=== PATIENT | male | born 1945 | race Caucasian/White ===

== ENCOUNTER 2016-12-22 18:52 | Emergency (ER) | payer MEDICARE ==
[~2016-12-22] VITALS: Ht 177.8 cm; Wt 109.1 kg
[~2016-12-22 18:52] MED LIST: /SUCR1TA PO; PERC5TAB8 OR; TIZA4TAB PO
[2016-12-22] MEDS ORDERED: FLOM5CAP PO (19:03)
[2016-12-22] MEDS ORDERED: GLIP1TAB49 PO (19:03)
[2016-12-22] MEDS ORDERED: NS 1,000 ML IV SCH (19:42)
[2016-12-22] MEDS ORDERED: KETOROLAC 30 MG/ML VIAL (J1885) IV ONE (19:45)
[2016-12-22] MEDS ORDERED: NS 500 ML IV ONE (19:45)
[2016-12-22] MEDS ORDERED: IBUPROFEN 600 MG TAB PO ONE (20:00)
[2016-12-22 20:45] LABS: ALBUMIN 3.6 GM/DL (3.2-5.2); ALBUMIN/GLOBULIN RATIO 0.95 (1.00-1.93); ALKALINE PHOSPHATASE 72 U/L (45-117); ALT/SGPT 32 U/L (12-78); ANION GAP 7 MEQ/L (8-16); AST/SGOT 28 U/L (15-37); BILIRUBIN,DIRECT < 0.1 MG/DL (0.0-0.2); BILIRUBIN,TOTAL 0.3 MG/DL (0.2-1.0); BLOOD UREA NITROGEN 15 MG/DL (7-18); CALCIUM LEVEL 8.8 MG/DL (8.8-10.2); CARBON DIOXIDE LEVEL 27 MEQ/L (21-32); CHLORIDE LEVEL 105 MEQ/L (98-107); CREATININE FOR GFR 1.07 MG/DL (0.70-1.30); GLOMERULAR FILTRATION RATE > 60.0 (>42); GLUCOSE, FASTING 145 MG/DL (83-110); POTASSIUM SERUM 4.4 MEQ/L (3.5-5.1); SODIUM LEVEL 139 MEQ/L (136-145); TOTAL PROTEIN 7.4 GM/DL (6.4-8.2)
[2016-12-22 21:14] LABS: BASO # 0.1 10^3/uL (0.0-0.2); BASO % 0.6 % (0.0-1.0); EOS # 0.2 10^3/uL (0.0-0.50); EOS % 2.6 % (0.0-3.0); IMMATURE GRANULOCYTE % 0.2 % (0-0); LYMPH # 3.1 10^3/uL (1.5-4.5); LYMPH % 35.1 % (24.0-44.0); MEAN CORPUSCULAR HEMOGLOBIN 30.6 pg (27.0-33.0); MEAN CORPUSCULAR HGB CONC 34.3 g/dl (32.0-36.5); MEAN CORPUSCULAR VOLUME 89.3 fl (80.0-96.0); MONO # 0.6 10^3/uL (0.0-0.8); MONO % 6.9 % (0.0-5.0); NEUTROPHILS # 4.8 10^3/uL (1.8-7.7); NEUTROPHILS % 54.6 % (36.0-66.0); PLATELET COUNT, AUTOMATED 170 10^3/uL (150-450); RED CELL DISTRIBUTION WIDTH 12.6 % (11.5-14.5); WHITE BLOOD COUNT 8.7 10^3/uL (4.0-10.0)
[2016-12-22 21:15] LABS: ADD MORPHOLOGY? YES
--- NOTE | 2016-12-22 21:20 | REPUSA ---
CLINICAL HISTORY: Right flank pain. Evaluation for ureteral lithiasis. TECHNIQUE: Multiple axial, coronal, sagittal CT images were obtained through the abdomen and pelvis w ithout administration of oral or IV contrast material. COMMENTS: 15 mm hepatic hypodensity is present compatible with cyst versus hemangioma. There are several addit ional subcentimeter hypodensities present. These are too small to accurately characterize but may re present additional small cysts versus hemangiomas. There is no intra or extrahepatic biliary ductal dilatation. The spleen is normal. The gallbladder is within normal limits. The pancreas is of norm al contour and attenuation characteristics. There is no evidence of adrenal mass. The kidneys are normal in size, shape and configuration. No renal or ureteral calculi are identified . There is no hydroureter or hydronephrosis. There is no evidence for appendicitis. There is no bowel wall thickening. No evidence for small or large bowel obstruction. There is no evidence of abdominal ascites or lymphadenopathy. A small hiat al hernia is present. A small fat-containing right inguinal hernia is seen. There is no evidence of intrinsic or extrinsic bladder mass. There is no pelvic ascites or lymphaden opathy. Prostate gland is mildly enlarged. Images of the lung bases show no evidence of pleural or parenchymal mass. There are no pleural effus ions. Status post left total hip replacement. IMPRESSION: 1. No acute abdominal or pelvic pathology. 2. Scattered colonic diverticulosis especially severely involving the sigmoid colon. 3. Hepatlic lesions as above. 4. A small hiatal hernia is present. 5. A small fat-containing right inguinal hernia is seen. 6. Prostate gland is mildly enlarged. 7. Status post left total hip replacement.
[2016-12-22] MEDS ORDERED: MIRA3350 PO (21:56)
[2016-12-22] MEDS ORDERED: LACTULOSE 20 GM/30 ML SYRUP UD PO ONE (22:00)
[2016-12-22 22:15] VITALS: BP 148/88
--- NOTE | 2016-12-23 07:02 | ED PDOC ---
Post-Departure Follow-Up radiology report faxed to Carlene Herrera MD Dec 23, 2016 07:02
== END 2016-12-22 22:16 | disposition home or self-care (01) ==
LOC: M ED 18:52
DX: K59.00 Constipation, unspecified (principal); Z79.899 Other long term (current) drug therapy; Z88.5 Allergy status to narcotic agent; Z88.8 Allergy status to other drugs, medicaments and biological substances; Z88.1 Allergy status to other antibiotic agents; Z88.0 Allergy status to penicillin; Z88.2 Allergy status to sulfonamides; Z87.442 Personal history of urinary calculi; Z87.891 Personal history of nicotine dependence

== ENCOUNTER 2017-02-21 08:39 | Day surgery (SDC) | payer MEDICARE ==
[~2017-02-21] VITALS: Ht 177.8 cm; Wt 111.5 kg
[~2017-02-21 08:39] MED LIST changes: +FLOM5CAP PO; +GLIP1TAB49 PO; +MIRA3350 PO; +OFLOXACIN 0.3 % (OCUFLOX) OPTH SOL 5ML OD ONE; +PHENYLEPHRINE 2.5% OPHTH SOL 2ML OD ONE; +PROPARACAINE 0.5% OPHTH SOL 15ML OD ONE; +TROPICAMIDE 1% OPHTH SOLN 2ML OD ONE
[2017-02-21] MEDS ORDERED: COLA100C5 PO (10:02)
[2017-02-21] MEDS ORDERED: LIDOCAINE 0.75%/EPINEPHRINE 0.025% IN BSS 1ML SYR INTRACAMERAL (OR ONLY) As Ordered ONE (10:46)
[2017-02-21] MEDS ORDERED: BALANCED SALT IRRIGATION SOLUTION 500ML BAG (FOR OR EYE MACHINE) As Ordered ONE (10:46)
[2017-02-21] MEDS ORDERED: DUOVISC (0.50ML VISCOAT/0.55ML PROVISC) OPHTH KIT As Ordered ONE (10:46)
[2017-02-21] MEDS ORDERED: ACETYLCHOLINE OPHTH SOLN 1% 2ML (MIOCHOL-E) As Ordered ONE (10:47)
[2017-02-21] MEDS ORDERED: POVIDONE-IODINE 5% OPHTH PREP SOL 30ML As Ordered ONE (10:47)
[2017-02-21] MEDS ORDERED: fentaNYL 100 MCG/2 ML INJECTION (J3010) As Ordered ONE (10:57)
[2017-02-21] MEDS ORDERED: MIDAZOLAM INJ 2 MG/2 ML VIAL (J2250) As Ordered ONE (10:57)
[2017-02-21 12:30] VITALS: BP 124/60
--- NOTE | 2017-02-22 13:12 | RO ---
DATE OF PROCEDURE: 02/21/2017 PREOPERATIVE DIAGNOSIS: Visually significant nuclear sclerotic cataract right eye. POSTOPERATIVE DIAGNOSIS: Visually significant nuclear sclerotic cataract right eye. PROCEDURE: Cataract extraction with use of phacoemulsification and placement of intraocular lens, AU00T0, 24 diopter , right eye. SURGEON: Jimbo Jackson DO VOCATIONAL SERVICES SPECIALIST: ANESTHESIA: Local with monitored anesthesia care (MAC). COMPLICATIONS: None. POSTOPERATIVE CONDITION: Stable. INDICATION FOR SURGERY: Blurred vision right eye affecting patient's activities of daily living. DESCRIPTION OF PROCEDURE: The patient was seen in the preoperative area and properly identified. The correct operative eye was identified and marked. Attention was turned to that eye. The patient received topical antibiotics in the preoperative area. The patient then received topical dilating drops consisting of tropicamide and phenylephrine. The patient was then transferred to the operating room. The correct side was re-identified. The patient received topical anesthetics and antibiotics on the surface of the eye. The eye was prepped and draped in a sterile fashion. The upper and lower eyelids were isolated with Tegaderm tape, and the lids were held open with an adjustable speculum. Using a sideport blade, a paracentesis incision was made. Intraocular preservative-free lidocaine was then injected into the anterior chamber. Viscoelastic was then injected into the anterior chamber through the paracentesis. Using a 2.65 mm sharp-tipped keratome, the anterior chamber was entered via a temporal clear corneal incision. A continuous curvilinear capsulorrhexis was created with the aid of a 26-gauge cystotome and Utrata forceps. Hydrodissection was performed with balanced salt solution (BSS) on a blunt cannula until the nucleus was freely mobile. The crystalline lens was phacoemulsified and aspirated. Additional cohesive viscoelastic was placed into the capsular bag to deepen it. A AU00T0, 24 lens was placed into the capsular bag and confirmed by visualizing the continuous curvilinear capsulorrhexis. Additional irrigation and aspiration was used to remove cortical material and remaining viscoelastic. The clear corneal incision was hydrated with BSS on a blunt cannula. The lens was well positioned. The incisions were then tested for leaks and found to be negative. The eye was then palpated for appropriate pressure and adjusted accordingly with BSS. The eyelid speculum was carefully removed. TobraDex ointment was placed in the eye. An eye patch and shield were then secured over the eye. The patient tolerated the procedure well and was discharged to the recovery unit in a stable condition.
== END 2017-02-21 12:42 | disposition home or self-care (01) ==
LOC: M SDC 08:39
PROVIDERS: ATTEND Ophthalmology
DX: H25.11 Age-related nuclear cataract, right eye (principal); E11.9 Type 2 diabetes mellitus without complications; K59.00 Constipation, unspecified; J44.9 Chronic obstructive pulmonary disease, unspecified; N40.0 Benign prostatic hyperplasia without lower urinary tract symptoms; M19.90 Unspecified osteoarthritis, unspecified site; Z88.5 Allergy status to narcotic agent; Z88.1 Allergy status to other antibiotic agents; Z88.0 Allergy status to penicillin; Z87.891 Personal history of nicotine dependence; Z79.899 Other long term (current) drug therapy
CPT/HCPCS: 66984; J2250; J3010

== ENCOUNTER 2017-12-26 08:58 | Day surgery (SDC) | payer MEDICARE ==
[~2017-12-26 08:58] MED LIST changes: -/SUCR1TA PO; -FLOM5CAP PO; -GLIP1TAB49 PO; +LIDOCAINE 2% INJ 100 MG/5 ML SDV (FOR ANES.) As Ordered; -MIRA3350 PO; -OFLOXACIN 0.3 % (OCUFLOX) OPTH SOL 5ML OD ONE; -PERC5TAB8 OR; -PHENYLEPHRINE 2.5% OPHTH SOL 2ML OD ONE; -PROPARACAINE 0.5% OPHTH SOL 15ML OD ONE; -TIZA4TAB PO; -TROPICAMIDE 1% OPHTH SOLN 2ML OD ONE
[2017-12-26] MEDS ORDERED: PROPOFOL 200 MG/20 ML VIAL As Ordered ×2 (09:19)
[2017-12-26] MEDS: NS 1,000 ML IV (09:31)
== END 2017-12-26 11:06 | disposition home or self-care (01) ==
LOC: M OPP 08:58
DX: Z12.11 Encounter for screening for malignant neoplasm of colon (principal); Z86.010 Personal history of colon polyps; D12.3 Benign neoplasm of transverse colon; K62.1 Rectal polyp; K57.30 Diverticulosis of large intestine without perforation or abscess without bleeding; E11.9 Type 2 diabetes mellitus without complications; K59.00 Constipation, unspecified; K21.9 Gastro-esophageal reflux disease without esophagitis; R12 Heartburn; M19.90 Unspecified osteoarthritis, unspecified site; Z98.1 Arthrodesis status; E66.9 Obesity, unspecified; J44.9 Chronic obstructive pulmonary disease, unspecified; N40.1 Benign prostatic hyperplasia with lower urinary tract symptoms; Z96.642 Presence of left artificial hip joint; Z87.891 Personal history of nicotine dependence; Z88.5 Allergy status to narcotic agent; Z88.0 Allergy status to penicillin; Z88.2 Allergy status to sulfonamides; Z88.1 Allergy status to other antibiotic agents; Z79.899 Other long term (current) drug therapy; Z79.84 Long term (current) use of oral hypoglycemic drugs
CPT/HCPCS: 45385

== ENCOUNTER → 2018-05-02 | Outpatient (CLI) | payer MEDICARE ==
[~2018-05-02] MED LIST changes: +/SUCR1TA PO; +CLEO300C2 PO; +COLA100C5 PO; +COQ1200C2 PO; +FLOM0.4C39 PO; +GLIP5TAB20 PO; +INVO300T PO; -LIDOCAINE 2% INJ 100 MG/5 ML SDV (FOR ANES.) As Ordered; +MAGN400C2 PO; +MILK175C2 PO; +MIRA3350 PO; +OMEG10002 PO; +OMEG350C PO; +PERC5TAB8 OR; +PROBCAP4 PO; +SUCR1TAB56; +TIZA4TAB PO; +VITA100072 PO
--- NOTE | 2018-05-02 15:41 | REP ---
The right hand four views History: Pain There is no acute fracture or dislocation. There is narrowing of the carpal metacarpal , intermediate and distal interphalangeal joint spaces. Osteophytes are present at the interphalangeal joint spaces of the 3rd and 5th digits. Osteophytes are present at the distal interphalangeal joint spaces of the second and third digits. Subchondral cysts are present in the the head of the third proximal phalange and base of the the 3rd intermediate phalange. Impression: Degenerative change as described above. Electronically Signed by Perry Lorenzo MD 05/02/2018 03:33 P
== END ==
LOC: M WUC 15:08
PROVIDERS: ATTEND Internal Medicine
DX: M25.541 Pain in joints of right hand (principal)

== ENCOUNTER → 2018-12-10 | Outpatient (CLI) | payer MEDICARE ==
[~2018-12-10] MED LIST changes: -/SUCR1TA PO; +SUCR1TAB56 PO; +VITA100018 PO; -VITA100072 PO
--- NOTE | 2018-12-10 12:47 | REP ---
Acute abdominal series five views including PA chest and supine upright abdomen: Comparison is 05/25/2011. PA chest: The lung dela cruz are clear. Cardiac size is normal. The lemo, mediastinum, skeletal structures are unremarkable except for a cervical spine stabilization plate. This is unchanged. There is no free subdiaphragmatic air. Impression: Negative PA chest. There is no interval change. Supine upright abdomen four views: The bowel gas pattern is normal. There are surgical clips in the right upper quadrant, unchanged. There is a total right hip arthroplasty as an interval change. There are no calcifications or foreign bodies. Impression: Normal bowel gas pattern. Electronically Signed by Darian Doherty MD 12/10/2018 12:38 P
== END ==
LOC: M WUC 09:56
PROVIDERS: ATTEND Internal Medicine
DX: R10.9 Unspecified abdominal pain (principal); Z96.641 Presence of right artificial hip joint

== ENCOUNTER → 2018-12-26 | Outpatient (CLI) | payer MEDICARE ==
[2018-12-26 12:53] LABS: BASO % 0.5 % (0.0-1.0); EOS # 0.2 10^3/uL (0.0-0.5); EOS % 2.5 % (0.0-3.0); HEMATOCRIT 41.5 % (42.0-52.0); HEMOGLOBIN 13.8 g/dl (13.5-17.5); LYMPH # 2.5 10^3/uL (1.5-5.0); LYMPH % 34.4 % (24.0-44.0); MEAN CORPUSCULAR HEMOGLOBIN 30.2 pg (27.0-33.0); MEAN CORPUSCULAR HGB CONC 33.3 g/dl (32.0-36.5); MEAN CORPUSCULAR VOLUME 90.8 fl (80.0-96.0); MONO # 0.6 10^3/uL (0.0-0.8); MONO % 8.4 % (0.0-5.0); NEUTROPHILS # 3.9 10^3/uL (1.5-8.5); NEUTROPHILS % 53.9 % (36.0-66.0); PLATELET COUNT, AUTOMATED 163 10^3/uL (150-450); RED BLOOD COUNT 4.57 10^6/uL (4.30-6.10); WHITE BLOOD COUNT 7.3 10^3/uL (4.0-10.0)
[2018-12-26 13:05] LABS: APPEARANCE, URINE CLEAR (CLEAR); BACTERIA, URINE AUTO NEGATIVE (NEGATIVE); BILIRUBIN, URINE AUTO NEGATIVE (NEGATIVE); BLOOD, URINE BLOOD NEGATIVE (NEGATIVE); COLOR, URINE STRAW (YELLOW); GLUCOSE, URINE (UA) AUTO 1+ mg/dL (NEGATIVE); KETONE, URINE AUTO NEGATIVE (NEGATIVE); LEUKOCYTE ESTERASE, URINE AUTO NEGATIVE (NEGATIVE); MUCUS, URINE SMALL (NEGATIVE); NITRITE, URINE AUTO NEGATIVE (NEGATIVE); PROTEIN, URINE AUTO NEGATIVE (NEGATIVE); RBC, URINE AUTO 0 /HPF (0-3); SPECIFIC GRAVITY URINE AUTO 1.006 (1.002-1.035); SQUAMOUS EPITHELIAL CELL UR AU 0 /HPF (0-6); UROBILINOGEN, URINE AUTO 0.2 mg/dL (0.0-2.0); WBC, URINE AUTO 0 /HPF (0-3)
[2018-12-26 13:21] LABS: ALBUMIN 3.6 GM/DL (3.2-5.2); ALT/SGPT 28 U/L (12-78); BILIRUBIN,TOTAL 0.5 MG/DL (0.2-1.0); BLOOD UREA NITROGEN 12 MG/DL (7-18); CARBON DIOXIDE LEVEL 29 MEQ/L (21-32); CHLORIDE LEVEL 107 MEQ/L (98-107); CREATININE FOR GFR 1.11 MG/DL (0.70-1.30); GLOMERULAR FILTRATION RATE > 60.0 (>42); GLUCOSE, FASTING 177 MG/DL (70-100); POTASSIUM SERUM 4.2 MEQ/L (3.5-5.1); SODIUM LEVEL 141 MEQ/L (136-145); TOTAL PROTEIN 7.3 GM/DL (6.4-8.2)
--- NOTE | 2018-12-26 23:28 | ECGEPIP ---
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
== END ==
LOC: M LAB 11:04
PROVIDERS: ATTEND Urology
DX: Z01.810 Encounter for preprocedural cardiovascular examination (principal); N40.1 Benign prostatic hyperplasia with lower urinary tract symptoms; R33.8 Other retention of urine; R00.1 Bradycardia, unspecified

== ENCOUNTER → 2019-04-08 | Outpatient (CLI) | payer MEDICARE ==
[~2019-04-08] MED LIST changes: +PROHANCE 279.3MG/ML 15ML VIAL (A9576) As Ordered ONE; +PROHANCE 279.3MG/ML 5ML VIAL (A9576) As Ordered ONE
[2019-04-08 09:48] LABS: BLOOD UREA NITROGEN 14 MG/DL (7-18); GLOMERULAR FILTRATION RATE > 60.0 (>42)
--- NOTE | 2019-04-09 08:18 | REP ---
INDICATION: Hearing loss bilateral PROCEDURE: MRI IACs protocol. Axial T1, axial T2, FLAIR, diffusion, and post contrast imaging obtained. Sagittal T1 and coronal T1 post images obtained. COMPARISON STUDIES: No prior similar studies FINDINGS: No evidence of restricted diffusion to suggest acute infarction. No gradient-echo susceptibility to suggest hemorrhage. The ventricles and extra-axial CSF spaces are within normal limits. No mass effect or midline shift. No abnormal fluid collections. On the FLAIR images, there are a few scattered nonspecific white matter changes, could be within normal limits for age. Dedicated views of the IACs demonstrate no IAC lesion. No abnormal enhancement. CONCLUSION: No acute findings. No IAC lesion identified. Essentially normal for age examination. Electronically Signed by Ari Chau MD 04/09/2019 08:10 A
== END ==
LOC: M RAD 08:46
PROVIDERS: ATTEND Otolaryngology
DX: H90.3 Sensorineural hearing loss, bilateral (principal); H93.11 Tinnitus, right ear
CPT/HCPCS: 36415; 70553; 82565; 84520; A9576

== ENCOUNTER → 2019-10-28 | Outpatient (CLI) | payer MEDICARE ==
[~2019-10-28] MED LIST changes: +CYCL-707 PO; +GABA-845 PO; +HYDR-3713 PO; +MAPA500T2 PO; +PROBCAP14 PO; -PROHANCE 279.3MG/ML 15ML VIAL (A9576) As Ordered ONE; +PROHANCE 279.3MG/ML 15ML VIAL As Ordered ONE; -PROHANCE 279.3MG/ML 5ML VIAL (A9576) As Ordered ONE; +PROHANCE 279.3MG/ML 5ML VIAL As Ordered ONE; +TRAM1CAP15 PO; +VITA200021 PO
== END ==
LOC: M RAD 10:00
PROVIDERS: ATTEND Orthopaedic Surgery Orthopaedic Surgery of the Spine
DX: M51.26 Other intervertebral disc displacement, lumbar region (principal); M51.27 Other intervertebral disc displacement, lumbosacral region
CPT/HCPCS: 72158; A9576

== ENCOUNTER → 2020-01-29 | Outpatient (CLI) | payer MEDICARE ==
[~2020-01-29] MED LIST changes: -CYCL-707 PO; -HYDR-3713 PO; -PROHANCE 279.3MG/ML 15ML VIAL As Ordered ONE; -PROHANCE 279.3MG/ML 5ML VIAL As Ordered ONE
== END ==
LOC: M LABSMTC 09:36
PROVIDERS: ATTEND Anesthesiology
DX: Z01.812 Encounter for preprocedural laboratory examination (principal); Z20.828 Contact with and (suspected) exposure to other viral communicable diseases
CPT/HCPCS: C9803; U0003

== ENCOUNTER 2020-02-03 10:33 | Day surgery (SDC) | payer MEDICARE ==
[~2020-02-03] VITALS: Ht 177.8 cm; Wt 108.1 kg
[~2020-02-03 10:33] MED LIST changes: +BUPIVACAINE HCL 0.5% 10ML VIAL As Ordered ONE; +CLINDAMYCIN 600 MG in IV 1 EA IV ONE; +LIDOCAINE 1% MDV 20ML VIAL As Ordered ONE; +LIDOCAINE 1% MDV 20ML VIAL SQ PRN; +LR 1,000 ML IV ONE; +dexameTHASONE 4 MG/ML 1ML VIAL (J1100 PER 1MG) As Ordered ONE
[2020-02-03] MEDS ORDERED: LIDOCAINE 2% 100MG/5ML SDV (FOR ANES.) As Ordered ONE (10:38)
[2020-02-03] MEDS ORDERED: fentaNYL 100 MCG/2 ML INJECTION (J3010) As Ordered ONE (10:38)
[2020-02-03] MEDS ORDERED: propofoL 200 MG/20 ML VIAL As Ordered ONE (10:38)
[2020-02-03] MEDS ORDERED: ONDANSETRON 4MG/2ML VIAL As Ordered ONE (10:39)
[2020-02-03] MEDS ORDERED: dexameTHASONE 4 MG/ML 1ML VIAL (J1100 PER 1MG) As Ordered ONE ×2 (10:39→10:51)
[2020-02-03] MEDS ORDERED: LIDOCAINE 1% SDV 30ML VIAL As Ordered ONE (10:51)
[2020-02-03] MEDS ORDERED: BUPIVACAINE HCL 0.5% 10ML VIAL As Ordered ONE (10:51)
[2020-02-03] MEDS ORDERED: CYCL-707 PO (10:59)
[2020-02-03] MEDS ORDERED: HYDR-3713 PO (13:23)
[2020-02-03 14:14] VITALS: BP 148/69
--- NOTE | 2020-02-04 11:02 | RO ---
DATE OF OPERATION: 02/03/2020 SURGEON: Beau Tang DPM DEFECTIVE CIGARETTE SLITTER: None. PREOPERATIVE DIAGNOSIS: Right foot hallux rigidus. POSTOPERATIVE DIAGNOSIS: Right foot hallux rigidus. PROCEDURE: Right 1st metatarsophalangeal joint cheilectomy. ANESTHESIA: Monitored anesthesia care with preop injection of 20 mL of 1:1 mixture of 1% Lidocaine plain and 0.5% Marcaine plain. ESTIMATED BLOOD LOSS: Minimal. MATERIALS: 3-0 and 4-0 Vicryl, 4-0 nylon. INJECTABLES: 1 cc Decadron 4 mg/mL. COMPLICATIONS: None. CONDITION: Stable. INDICATIONS: Patrick Lepe is a 74-year-old male who presents to [facility] with painful bunion to his right foot. He presents today for surgical correction. The patient, site and side were identified and marked in preoperative area. Consent was reviewed and obtained. Risks, complications and alternatives to the procedure were explained to the patient in detail and all questions were answered. DESCRIPTION OF PROCEDURE: The patient was brought to the operating room and placed on the operating table in supine position. Monitored anesthesia care was delivered by the anesthesia team. Preoperative injection of 20 mL of 1:1 mixture of 1% Lidocaine plain and 0.5% Marcaine plain were injected into the right foot. The right foot was prepped and draped in normal sterile fashion. Tourniquet was applied to the right ankle and inflated at 250 mmHg. Dorsal incision was drawn and carried through with a #15 blade. Dissection was carried until to the 1st metatarsophalangeal joint capsule was identified. T- capsulotomy was performed exposing the metatarsal head. There was a large dorsal prominence over the 1st metatarsal head and base of proximal phalanx with osteophyte present in the wound. The osteophyte was removed with dissection and the exostosis was removed using sagittal saw and smoothed with a rasp. Site was irrigated with normal saline. Capsular repair was performed with 3-0 Vicryl, subcutaneous closure with 4-0 Vicryl and skin closure with 4-0 nylon. 1 cc Decadron was injected. Sterile dressing was applied. Tourniquet was deflated. The patient was brought to PACU with vital signs stable and neurovascular status intact. He will be weightbearing as tolerated, with follow up in the office in two days. RICKY
== END 2020-02-03 14:14 | disposition home or self-care (01) ==
LOC: M SDC 10:33
PROVIDERS: ATTEND Podiatrist Foot & Ankle Surgery
DX: M20.21 Hallux rigidus, right foot (principal); E11.9 Type 2 diabetes mellitus without complications; K21.9 Gastro-esophageal reflux disease without esophagitis; N40.0 Benign prostatic hyperplasia without lower urinary tract symptoms; Z87.891 Personal history of nicotine dependence; Z79.899 Other long term (current) drug therapy; Z88.0 Allergy status to penicillin; Z88.2 Allergy status to sulfonamides; Z88.5 Allergy status to narcotic agent; Z88.8 Allergy status to other drugs, medicaments and biological substances
CPT/HCPCS: 28289; 88300; J1100; J2405; J3010

== ENCOUNTER → 2020-06-29 | Outpatient (CLI) | payer MEDICARE ==
[~2020-06-29] MED LIST changes: -BUPIVACAINE HCL 0.5% 10ML VIAL As Ordered ONE; -CLINDAMYCIN 600 MG in IV 1 EA IV ONE; +CYCL-707 PO; +HYDR-3713 PO; -LIDOCAINE 1% MDV 20ML VIAL As Ordered ONE; -LIDOCAINE 1% MDV 20ML VIAL SQ PRN; -LR 1,000 ML IV ONE; -dexameTHASONE 4 MG/ML 1ML VIAL (J1100 PER 1MG) As Ordered ONE
--- NOTE | 2020-06-29 14:27 | REP ---
INDICATION: PAIN COMPARISON: None. TECHNIQUE: Four views left wrist. FINDINGS: There is no evidence of acute fracture, dislocation, or intrinsic bone disease.The joint spaces are unremarkable. IMPRESSION: Negative left wrist series. <Electronically signed by Darian Hunt > 06/29/20 [id number]
== END ==
LOC: M WUC 14:04
PROVIDERS: ATTEND Internal Medicine
DX: M25.532 Pain in left wrist (principal)

== ENCOUNTER → 2020-07-04 | Outpatient (CLI) | payer MEDICARE ==
[~2020-07-04] MED LIST changes: +ISOVUE-300 61% 50ML VIAL As Ordered ONE; +LIDOCAINE 1% MDV 20ML VIAL As Ordered ONE; +TRIAMCINOLONE ACETONIDE SUSP 40 MG/ML VIAL (J3301) As Ordered ONE
--- NOTE | 2020-07-04 17:23 | REP ---
INDICATION: RT HIP OSTEOARTHITIS. COMPARISON: None. TECHNIQUE: The procedure was performed under the direct supervision of Dr. Hunt. The benefits and risks including but not limited to pain infection and bleeding and anaphylaxis were explained to the patient and informed consent was obtained. The right femoral neck was localized using fluoroscopic guidance. The skin was prepped and draped in a sterile fashion. 1% lidocaine was used as a local anesthetic. Using fluoroscopic guidance a 22-gauge spinal needle was inserted and advanced to the femoral neck. 0.5 ml of Isovue-300 was injected to verify placement. 6 ml of a solution containing 5 ml of 1% Xylocaine and 1 ml of Kenalog 40 mg was injected. The needle was then removed. The patient tolerated the procedure well and there were no immediate complications. Less than 6 seconds of fluoro time was utilized for this procedure. FINDINGS: None IMPRESSION: Fluoro guidance for right hip injection. <Electronically signed by Alfredo Choudhary > 07/04/20 1620 <Electronically signed by Darian Hunt > 07/04/20 [id number]
== END ==
LOC: M RADPRO 09:54
PROVIDERS: ATTEND Orthopaedic Surgery
DX: M16.11 Unilateral primary osteoarthritis, right hip (principal)
CPT/HCPCS: 20610; 77002; J3301; Q9967

== ENCOUNTER → 2020-09-29 | Outpatient (CLI) | payer MEDICARE ==
[~2020-09-29] MED LIST changes: +GABA-283 PO; -GABA-845 PO
--- NOTE | 2020-09-29 17:03 | REP ---
INDICATION: OA RT HIP. COMPARISON: None. TECHNIQUE: The procedure was performed under the direct supervision of Dr. Hunt. The benefits and risks including but not limited to pain infection and bleeding and anaphylaxis were explained to the patient and informed consent was obtained. The right femoral neck was localized using fluoroscopic guidance. The skin was prepped and draped in a sterile fashion. 1% lidocaine was used as a local anesthetic. Using fluoroscopic guidance, and last image hold technology, a 22-gauge spinal needle was inserted and advanced to the femoral neck. 0.5 ml of Isovue-300 was injected to verify placement. Six ml of a solution containing 5 ml of 1% Xylocaine and 1 mg of Kenalog 40 mg was injected. The needle was then removed. The patient tolerated the procedure well and there were no immediate complications. Less than 6 seconds of fluoro time was utilized for this procedure. FINDINGS: None IMPRESSION: Fluoro guidance for right hip injection <Electronically signed by Alfredo Choudhary > 09/29/20 [id number] <Electronically signed by Darian Hunt > 09/29/20 [id number]
== END ==
LOC: M RADPRO 10:51
PROVIDERS: ATTEND Orthopaedic Surgery
DX: M16.11 Unilateral primary osteoarthritis, right hip (principal)
CPT/HCPCS: 20610; 77002; J3301; Q9967

== ENCOUNTER → 2020-11-02 | Outpatient (REF) | payer MEDICARE ==
[~2020-11-02] MED LIST changes: -ISOVUE-300 61% 50ML VIAL As Ordered ONE; -LIDOCAINE 1% MDV 20ML VIAL As Ordered ONE; -TRIAMCINOLONE ACETONIDE SUSP 40 MG/ML VIAL (J3301) As Ordered ONE
[2020-11-02 17:06] LABS: BASO # 0.1 10^3/uL (0.0-0.2); BASO % 0.8 % (0.0-1.0); EOS # 0.3 10^3/uL (0.0-0.5); EOS % 3.1 % (0.0-3.0); HEMATOCRIT 40.2 % (42.0-52.0); HEMOGLOBIN 13.3 g/dl (13.5-17.5); LYMPH % 33.7 % (24.0-44.0); MEAN CORPUSCULAR HEMOGLOBIN 30.5 pg (27.0-33.0); MEAN CORPUSCULAR HGB CONC 33.1 g/dl (32.0-36.5); MEAN CORPUSCULAR VOLUME 92.2 fl (80.0-96.0); MONO # 0.8 10^3/uL (0.0-0.8); MONO % 9.2 % (2.0-8.0); NEUTROPHILS # 4.7 10^3/uL (1.5-8.5); NEUTROPHILS % 52.8 % (36.0-66.0); PLATELET COUNT, AUTOMATED 202 10^3/uL (150-450); RED BLOOD COUNT 4.36 10^6/uL (4.30-6.10)
[2020-11-02 17:32] LABS: ALBUMIN 3.8 GM/DL (3.2-5.2); ALT/SGPT 24 U/L (12-78); BILIRUBIN,TOTAL 0.2 MG/DL (0.2-1.0); BLOOD UREA NITROGEN 18 MG/DL (7-18); C REACTIVE PROTEIN QUANTITATIV 0.56 MG/DL (0.00-0.30); CALCIUM LEVEL 9.2 MG/DL (8.8-10.2); CARBON DIOXIDE LEVEL 26 MEQ/L (21-32); CHLORIDE LEVEL 107 MEQ/L (98-107); CREATININE FOR GFR 0.82 MG/DL (0.70-1.30); GLOMERULAR FILTRATION RATE > 60.0 (>42); GLUCOSE, FASTING 101 MG/DL (70-100); POTASSIUM SERUM 4.1 MEQ/L (3.5-5.1); RHEUMATOID FACTOR QUANT < 10.0 IU/ML (<15.0); SODIUM LEVEL 141 MEQ/L (136-145); TOTAL PROTEIN 7.1 GM/DL (6.4-8.2)
[2020-11-02 19:35] LABS: ERYTHROCYTE SEDIMENTATION RATE 29 mm/hr (0-20)
== END ==
LOC: M SFHCRHEU 15:47
PROVIDERS: ATTEND Internal Medicine Rheumatology
DX: M54.5 Low back pain (principal)

== ENCOUNTER → 2020-11-15 | Outpatient (CLI) | payer MEDICARE ==
--- NOTE | 2020-11-15 12:27 | REP ---
INDICATION: LUMBAR PAIN. COMPARISON: None. TECHNIQUE: 3T multiplanar MRI imaging of the pelvis attention right hip was obtained using various sequences. FINDINGS: The patient is status post total left hip prosthesis. This causes significant magnetic susceptibility artifact obscuring all of the left hip and a good portion of the left hemipelvis. There is prominent right femoral head marginal osteophytosis. There is moderate to severe right hip joint space narrowing. There is no evidence of a joint effusion. There is rather marked T2 hyper signal seen throughout the proximal right femur and in the right acetabulum. There is a well-demarcated curvilinear signal void which runs transversely across the right femoral neck/head region. T2 hyper signal seen in the right obturator externus muscle extending into the musculotendinous junction. There is no hip joint effusion. The sacroiliac joints are within normal limits. There is no evidence of mass or mass effect. There is T2 hyper signal seen in the right hip trochanteric tendono bursal region which is mild. IMPRESSION: 1. There is significant right hip edema, as described above, and likely secondary to a combination of chronic and acute changes. The curvilinear signal void seen in the femoral neck/head region is suspicious for an age undetermined nondisplaced fracture. 2. Mild trochanteric tendono bursitis on the right. 3. Other findings as described above. 4. Right hip intramuscular edema likely reactive in nature. <Electronically signed by Higinio Dodson > 11/15/20 [id number]
== END ==
LOC: M PLAIMG 10:14
PROVIDERS: ATTEND Internal Medicine Rheumatology
DX: M54.5 Low back pain (principal)

== ENCOUNTER → 2020-12-26 | Outpatient (CLI) | payer MEDICARE ==
[2020-12-26 09:10] LABS: HEMATOCRIT 42.9 % (42.0-52.0); HEMOGLOBIN 14.1 g/dl (13.5-17.5); MEAN CORPUSCULAR HEMOGLOBIN 30.5 pg (27.0-33.0); MEAN CORPUSCULAR HGB CONC 32.9 g/dl (32.0-36.5); MEAN CORPUSCULAR VOLUME 92.9 fl (80.0-96.0); PLATELET COUNT, AUTOMATED 179 10^3/uL (150-450); RED BLOOD COUNT 4.62 10^6/uL (4.30-6.10)
--- NOTE | 2020-12-26 09:13 | REP ---
INDICATION: R HIP OSTEOATHRITIS. COMPARISON: Comparison study December 10, 2018. TECHNIQUE: Two views.. FINDINGS: The lungs are well inflated and free of infiltrate. The pleural angles are sharp. The heart size is normal. Pulmonary vasculature is not increased. No significant bony abnormality is seen. There are degenerative changes in the thoracic spine and aorta. The patient is status post cervical discectomy and fusion plating. IMPRESSION: No active disease. <Electronically signed by Tuan Santiago > 12/26/20 [id number]
[2020-12-26 09:23] LABS: INR 1.01; PROTHROMBIN TIME 13.7 SECONDS (12.7-14.5)
[2020-12-26 09:32] LABS: ERYTHROCYTE SEDIMENTATION RATE 19 mm/hr (0-20)
[2020-12-26 09:39] LABS: ALBUMIN 3.6 GM/DL (3.2-5.2); ALT/SGPT 22 U/L (12-78); BILIRUBIN,TOTAL 0.4 MG/DL (0.2-1.0); BLOOD UREA NITROGEN 15 MG/DL (7-18); CALCIUM LEVEL 9.4 MG/DL (8.8-10.2); CARBON DIOXIDE LEVEL 29 MEQ/L (21-32); CHLORIDE LEVEL 107 MEQ/L (98-107); CREATININE FOR GFR 1.04 MG/DL (0.70-1.30); GLOMERULAR FILTRATION RATE > 60.0 (>42); GLUCOSE, FASTING 207 MG/DL (70-100); POTASSIUM SERUM 4.3 MEQ/L (3.5-5.1); SODIUM LEVEL 141 MEQ/L (136-145); TOTAL PROTEIN 7.1 GM/DL (6.4-8.2)
--- NOTE | 2020-12-27 16:50 | ECGEPIP ---
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 Electronically Signed on 12-27-2020 16:50:08 EDT by Hieu Lucia
== END ==
LOC: M LAB 08:38
PROVIDERS: ATTEND Orthopaedic Surgery
DX: Z01.818 Encounter for other preprocedural examination (principal); R00.1 Bradycardia, unspecified; M16.11 Unilateral primary osteoarthritis, right hip

== ENCOUNTER 2021-01-12 08:15 | Inpatient (IN) | payer MEDICARE ==
[~2021-01-12] VITALS: Ht 177.8 cm; Wt 102.5 kg
[~2021-01-12 08:15] MED LIST changes: -SUCR1TAB56
[2021-01-12] MEDS ORDERED: GLIP10TA18 PO (08:34)
[2021-01-12] MEDS ORDERED: SENN-80 PO (08:34)
[2021-01-12] MEDS ORDERED: XARE10TA PO (08:34)
[2021-01-12] MEDS ORDERED: TRAM50TA2 (08:34)
[2021-01-12] MEDS: glipiZIDE XL 5 MG TABCR PO SCH (09:00)
--- OUTSIDE RECORDS SUMMARY | 2021-01-12 09:03 | CCD | Continuity of Care Document ---
Author Author Patrick LNACE M.D. Organization Unknown Address [address] [address] Phone [phone] Problems Active Problems Provider Date Impaired fasting glycemia Nikita Lance M.D. Onset: 11/2012 Disorder of back Nikita Lance M.D. Onset: 3 Note: degenerative disc disease Benign neoplasm of colon Nikita Lance M.D. Onset: 11/2012 Type 2 diabetes mellitus Nikita Lance M.D. Onset: 09/2016 Social History Type Date Description Comments Sex Unknown ETOH Use Occasionally consumes alcohol ETOH Use Occasionally consumes beer 10X Y EARLY Tobacco Use Start: Unknown End: Unknown Patient is a former smoker QUIT 2014 Allergies and adverse reactions Active Allergies Criticality Reaction | Severity Comments Date Codeine Unable to assess criticality hives 04/22/2013 NSAIDs Unable to assess criticality 04/22/2013 Vancomycin Unable to assess criticality 04/22/2013 Demerol Unable to assess criticality 04/22/2013 Penicillin Unable to assess criticality 04/22/2013 Medications Active Medications SIG Qnty Indications Ordering Provide r Date Glipizide ER 10mg Tablets ER 24HR Take 1 Tablet By Mouth Twice Daily 180tabs Nikita Lance M .D. 11/11/2020 Gabapentin 600mg Tablets take one tablet by mouth four times a day 360tabs Nikita Lance M.D . 08/16/2020 Proair HFA 108(90Base) mcg/Act Aer osol 1-2 puffs every 4-6 hours as needed for sob 8.500gm Nikita Lance M.D. 10/22/2018 Lancets Micro Thin 33G Thin 33G Mi sc Microlet test glucose three times a day and as needed (dx: e 11.9) 100units Nikita Lance M.D. 09/10/2016 Blood Glucose Test Michele Contour S trips use once a day to test glucose (dx: e 11.9) 100units [facility] Nikita faith M.D. 06/13/2015 Sucralfate 1gm Tablets 1 by mouth three times a day as needed 90taNikita Cormier M.D. Flonase Allergy Relief 50mcg/Act Suspension 2 sprays each narea every day Unknown Tramadol HCL 50mg Tablets 1 tab by mouth three times a day as needed pain. do not drive or operate equipment while taking ([id number]) 90taNikita Cormier M.D. 00 Tylenol Extra Strength 500mg Table ts take 2 by mouth three times a day as needed Unknown History Medications Prednisone 10mg Tablets 4 by mouth daily x3 then 3 daily x3 then 2 daily x3 then one daily 30tabs Nikita Lance M.D. 08/30/2020 - 01/02/2021 Gabapentin 300mg Capsules take one capsule by mouth four times a day 120caps Nikita Lance M.D . 08/16/2020 - 08/16/2020 [place] 5-325mg Tablets 1 tab by mouth four times a day as needed [id number] 120taNikita Cormier M.D. 08/16/2020 - 01/02/2021 Immunizations CPT Code Status Date Vaccine Lot # [id number] Given 12/06/2020 Influenza Virus Vaccine, Quadrivalent, Slit Virus, Im Use 3Y & Up [id number] 39945 Given 12/22/2019 Influenza Virus Vaccine, Quadrivalent, Slit Virus, Im Use 3Y & Up [id number] 52554 Given 01/14/2019 Influenza Virus Vaccine, Quadrivalent, Slit Virus, Im Use 3Y & Up [id number] 73061 Given 12/31/2017 Influenza Virus Vaccine, Quadrivalent, Slit Virus, Im Use 3Y & Up [id number] 91353 Given 12/18/2016 Influenza Virus Vaccine, Quadrivalent, Slit Virus, Im Use 3Y & Up [id number] 88423 Given 12/23/2015 Influenza Vaccin e (Fluzone) 3Yrs Of Age Or Older Medicare Plans [id number] 31455 Given 12/23/2015 Influenza Virus Vaccine, Quadrivalent, Slit Virus, Im Use 3Y & Up 66475 Given 12/17/2014 Influenza Vaccin e (Fluzone) 3Yrs Of Age Or Older Medicare Plans [id number] Q2037 Given 12/28/2013 Influenza Vaccin e (Fluvirin) 3Yrs Of Age Or Older Medicare Plans 73982 Given 12/28/2013 Influenza Virus Vac. Split Virus Individuals 3 Years And Above [id number] 03749 Given 12/29/2012 Influenza Vaccin e (Fluzone) 3Yrs Of Age Or Older Medicare Plans 10231 Given 12/29/2012 Influenza Virus Vac. Split Virus Individuals 3 Years And Above [id number] Vital Signs Date Vital Result Comment 01/02/2021 2:44pm BP Systolic 124 mmHg BP Diastolic 80 mmHg Body Temperature 97.4 F Heart Rate 60 /min Respiratory Rate 18 /min Height 70 inches 5'10" Weight 225.00 lb [place] Body Weight 166 lb BMI (Body Mass Index) 32.3 kg/m2 O2 % BldC Oximetry 97 % 12/06/2020 1:12pm BP Systolic 118 mmHg BP Diastolic 60 mmHg Body Temperature 97.5 F Heart Rate 60 /min Respiratory Rate 18 /min Height 70 inches 5'10" Weight 225.00 lb [place] Body Weight 166 lb BMI (Body Mass Index) 32.3 kg/m2 O2 % BldC Oximetry 97 % Results Test Acquired Date Facility Test Result H/L Range Note Comprehensive Metabolic Prof 01/11/2021 [facility] Glu 122 mg/dL High 70-110 1 BUN 18 mg/dL Normal 7-23 Cre 1.090 mg/dL Normal 0.500-1.300 GFR > 60 mL/min Normal Chloride 105 mmol/L Normal 99-110 Na 136 mmol/L Normal 136-147 Potassium 4.0 mmol/L Normal 3.5-5.1 Tco2 26 mmol/L Normal 20-33 Anion Gap 9.0 Low 10.0-20.0 CA 9.5 mg/dL Normal 8.3-10.7 Alkaline Phos 53 U/L Normal 45-117 TP 6.7 g/dL Normal 6.0-7.8 Alb 3.5 g/dL Normal 3.5-5.0 2 GL 3.2 g/dL Normal 2.3-3.5 A/G 1.1 Normal 1.0-2.5 T. Bilirubin 0.6 mg/dL Normal 0.1-1.1 3 Alti 25 U/L Normal 6-54 4 Ast 33 U/L Normal 8-40 5 Laboratory test finding 01/11/2021 [facility] LMG 2.0 mg/dL Normal 1.6-2.6 Complete Blood Count 01/11/2021 [facility] WBC 13.18 x10E3/uL High 4.0-10.5 RBC 3.85 x10E6/uL Low 4.70-6.00 Hemoglobin 12.0 g/dL Low 14.0-18.0 Hematocrit 34.2 % Low 42.0-52.0 MCV 88.8 fL Normal 81.0-99.0 MCH 31.2 pg High 27.0-31.0 MCHC 35.1 g/dL Normal 32.7-35.6 RDW 12.2 % Normal 11.5-14.0 Platelet count 166 x10E3/uL Normal 150-450 MPV 10.6 fl High 6.9-9.5 Neutrophils 75.9 % High 34-64 Lymphocytes 14.6 % Low 25-45 Monocytes 9.0 % Normal 1.7-10.6 Eosinophils 0 % Low 0.4-7.0 Basophils 0.1 % Normal 0.1-2.0 Imm. Gran. 0.4 % Normal 0.1-2.0 Abs. Neutro. 10.01 x10E3/uL High 1.2-7.6 Abs. Lymph. 1.92 x10E3/uL Normal 1.0-3.5 Abs. [place]. 1.19 x10E3/uL High 0.1-1.0 Abs. Eosin. 0.00 x10E3/uL Low 0.1-0.7 Abs. Baso. 0.01 x10E3/uL Normal 0.0-0.1 Abs. Imm. Gran. 0.05 x10E3/uL Normal 0.0-0.1 Anrbc% 0 % Normal 0 Laboratory test finding 01/05/2021 [facility] Bretype A POSITIVE Normal Type&Screen 01/05/2021 [facility] Blood Type A POSITIVE Normal Antibody Screen NEGATIVE Normal Laboratory test finding 01/05/2021 [facility] [id number] Rheonix Negative Normal Negative 6 Comprehensive Metabolic Profil 12/26/2020 [facility]) [phone] Glucose, Fasting 207 mg/dL High 70-100 Blood Urea Nitrogen 15 mg/dL Normal 7-18 Creatinine For GFR 1.04 mg/dL Normal 0.70-1.30 Glomerular Filtration Rate > 60.0 Normal >42 7 Sodium Level 141 mEq/L Normal 136-145 Potassium Serum 4.3 mEq/L Normal 3.5-5.1 Chloride Level 107 mEq/L Normal 98-107 Carbon Dioxide Level 29 mEq/L Normal 21-32 Anion Gap 5 mEq/L Low 8-16 Calcium Level 9.4 mg/dL Normal 8.8-10.2 Ast/Sgot 11 U/L Normal 7-37 Alt/SGPT 22 U/L Normal 12-78 Alkaline Phosphatase 67 U/L Normal 45-117 Bilirubin,Total 0.4 mg/dL Normal 0.2-1.0 Total Protein 7.1 GM/DL Normal 6.4-8.2 Albumin 3.6 GM/DL Normal 3.2-5.2 Albumin/Globulin Ratio 1.0 Normal Laboratory test finding 12/26/2020 [facility] ([facility]) [phone] Erythrocyte Sedimentation Rate 19 mm/hr Normal 0 -20 Complete Blood Count 12/26/2020 [facility]) [phone] White Blood Count 9.0 10 Normal 4.0-10.0 Red Blood Count 4.62 10 Normal 4.30-6.10 Hemoglobin 14.1 g/dL Normal 13.5-17.5 Hematocrit 42.9 % Normal 42.0-52.0 Mean Corpuscular Volume 92.9 fl Normal 80.0-96.0 Mean Corpuscular Hemoglobin 30.5 pg Normal 27.0-33.0 Mean Corpuscular HGB Conc 32.9 g/dL Normal 32.0-36.5 Red Cell Distribution Width 12.0 % Normal 11.5-14.5 Platelet Count, Automated 179 10 Normal 150-450 Nucleated Red Blood Cell % 0.0 % Normal 0-0 Prothrombin Time/Inr 12/26/2020 [facility]) [phone] Prothrombin Time 13.7 seconds Normal 12.7-14.5 Inr 1.01 Normal 8 Laboratory test finding 11/29/2020 [facility] Hemoglobin A1c 5.8 % 4.50-6.20 CBC 11/29/2020 [facility] WBC 7.7 10E3/uL 4.1 - 10.9 9 RBC 4.50 10E6/uL 4.20 - 6.30 HGB 14.1 g/dL 12.0 - 18.0 HCT 41.1 % 37.0 - 51.0 MCV 91.3 fL 80.0 - 97.0 MCH 31.3 pg 26.0 - 32.0 MCHC 34.3 g/dL 31.0 - 36.0 PLT 206 10E3/uL 140 - 440 RDW-CV 13.5 % 11.5 - 14.5 Lym% 30.2 % 10.0 - 58.5 Neut% 60.4 % 37.0 - 92.0 MXD% 9.4 % 0.1 - 24.0 Lym# 2.3 10E3/uL 0.6 - 4.1 Neut# 4.7 % 2.0 - 7.8 MXD# 0.7 10E3/uL 0.0 - 1.8 MPV 11.0 fL 9.0 - 13.0 CMP 11/29/2020 [facility] Glu 109 mg/dL 70 - 110 BUN 17 mg/dL 8 - 23 Creat 0.9 mg/dL 0.7 - 1.2 BUN/Creatinine Ratio 19.4 CALC Na 139 mmol/L 136 - 145 K 4.4 mmol/L 3.5 - 5.1 CL 104.4 mmol/L 98.0 - 107.0 Co2 19.4 mmol/L Low 22.0 - 29.0 CA 9.4 mg/dL 8.6 - 10.2 TP 7.4 g/dL 6.6 - 8.7 Alb 4.4 g/dL 3.5 - 5.2 A/G Ratio 1.5 CALC Globulin 3.0 CALC Alp 72.2 U/L 40 - 129 Alt (SGPT) 11 U/L 0 - 41 Ast (Sgot) 10 U/L 0 - 40 Tbili 0.30 mg/dL 0.0 - 1.2 Osmolality-Calculated 280.0 CALC Anion Gap 20 mmol/L eGFR 96 # Calc 10 eGFR Non-Afr. [place] 83 # Calc 11 Lipid Panel 11/29/2020 [facility] Chol 160 mg/dL 0 - 200 Trig 112 mg/dL 35 - 200 HDL 56 mg/dL High 35 - 55 LDL_C 81 Calc 75 - 129 Cho/HDL Ratio 2.8 CALC Laboratory test finding 08/29/2020 [facility] Hemoglobin A1c 6.3 % High 4.50-6.20 CMP 08/29/2020 [facility] Glu 146 mg/dL High 70 - 110 12 BUN 15 mg/dL 8 - 23 Creat 1.0 mg/dL 0.7 - 1.2 BUN/Creatinine Ratio 14.6 CALC Na 138 mmol/L 136 - 145 K 4.7 mmol/L 3.5 - 5.1 CL 104.0 mmol/L 98.0 - 107.0 Co2 23.0 mmol/L 22.0 - 29.0 CA 9.6 mg/dL 8.6 - 10.2 TP 6.9 g/dL 6.6 - 8.7 Alb 4.3 g/dL 3.5 - 5.2 A/G Ratio 1.6 CALC Globulin 2.6 CALC Alp 82.6 U/L 40 - 129 Alt (SGPT) 21 U/L 0 - 41 Ast (Sgot) 19 U/L 0 - 40 Tbili 0.41 mg/dL 0.0 - 1.2 Osmolality-Calculated 280.1 CALC Anion Gap 16 mmol/L eGFR 85 # Calc 13 eGFR Non-Afr. [place] 73 # Calc 14 1 Patients taking Sulfasalazin e may have falsely depressed Glucose levels. Patients taking Sulfapyridine may have falsely elevated Glucose levels. Patients should be drawn for Glucose before the initial administration of either drug. 2 ESRD Dialysis patient Albumi n reference range: 2.9-4.4 g/dL 3 The Dimension [place] Total Bi lirubin is not recommended for patients undergoing treatment with eltrombopag (Promacta) due to the potential for falsely elevated results. 4 Patients taking Sulfasalazin e and/or Sulfapyridine may have falsely depressed ALT levels. Patients should be drawn for ALT before the initial administration of either drug. 5 Patients taking Sulfasalazin e and/or Sulfapyridine may have falsely depressed AST levels. Patients should be drawn for AST before the initial administration of either drug. 6 The [employer] COVID-19 MDx Ass ay is an endpoint RT-PCR assay intended for the qualitative detection of nucleic acid from SARS-CoV-2 virus. Positive results are indicative of the presence of SARS-CoV-2 RNA; clinical correlation with patient history and other diagnostic information is necessary to determine patient infection status. Negative results do not preclude SARS-CoV-2 infection and should not be used as the sole basis for patient management decisions. The [employer] MDx Assay is only for use under the Food and Drug Administration's Emergency Use Authorization. 7 Units are mL/min/1.73 m2 Chronic Kidney Disease Staging per NKF: Stage I & II GFR >=60 Normal to Mildly Decreased Stage III GFR 30-59 Moderately Decreased Stage IV GFR 15-29 Severely Decreased Stage V GFR <15 Very Little GFR Left ESRD GFR <15 on DEGREASER 8 THERAPUTIC HUMAN INR VALUES INDICATIONS NORMAL RANGES PROPHYLAXIS/TREATMENT OF: VENOUS THROMBOSIS 2.0-3.0 PULMONARY EMBOLISM 2.0-3.0 PREVENTION OF SYSTEMIC EMBOLISM FROM: TISSUE HEART VALVES 2.0-3.0 ACUTE MYOCARDIAL INFARCTION 2.0-3.0 VALVULAR HEART DISEASE 2.0-3.0 ATRIAL FIBRILLATION 2.0-3.0 MECHANICAL VALVES(HIGH RISK) 2.5-3.5 RECURRENT MYOCARDIAL INFARCTION 2.5-3.5 9 NORMAL RANGES Age WBC RBC HGB HCT MCV PLT Adult M 4.1-10.9 4.20-6.30 12.0-18.0 37.0-51.0 80-97 140-440 Adult F 4.1-10.9 4.04-5.48 12.0-18.0 37.0-51.0 80-97 140-440 0 -1 Yr 5.0-20.0 3.9-5.9 15-18 MV: 44 MV: 91 MV: 277 2-9 Yr. 6.0-17.0 3.8-5.4 11-13 MV: 37 MV: 78 MV: 300 10 Yrs. 5.0-13.0 3.8-5.4 12-15 MV: 39 MV: 80 MV: 250 NOTE: * FOR ADULT BLACK MALES AND FEMALES, NORMAL WBC IS 2.9-7.7 K/ML * FOR ADULT BLACK MALES AND FEMALES, NORMAL RBC,HGB, AND HCT IS 5% LESS SOURCE FOR DATA: [employer] 1800 OPERATION MANUAL( AUTOMATED BLOOD COUNTS AND DIFF.) APPENDIX B-3 CHRONIC KIDNEY DISEASE STAGING PER NKF: MALE GFR INTERPRETATION: 20-49 YRS: >60 mL/min Normal 50-59 YRS: >56 mL/min Normal 60-69 YRS: >49 mL/min Normal 70-79 YRS: >42 mL/min Normal 80 and above >35 mL/min Normal FEMALE GRF INTERPRETATION: 20-39 YRS: >60 mL/min Normal 40-49 YRS: >58 mL/min Normal 50-59 YRS: >51 mL/min Normal 60-69 YRS: >45 mL/min Normal 70-79 YRS: >39 mL/min Normal 80 and above >32 mL/min NormalCLASSIFICATION CHOLESTEROL FOR ADULTS CHILDREN/ADOLESCENTS* DESIRABLE: <200 MG/DL <170 MG/DL BORDER-LINE HIGH RISK: 200-239 MG/DL 170-199 MG/DL HIGH RISK: >240 MG/DL >200 MG/DL CLASS. FOR PRIMARY LDL CHOL PREVENTION: LDL CHOL-CHILD/ADOLESCENTS* DESIRABLE: <130 MG/DL <110 MG/DL BORDERLINE-HIGH RISK: 130-159 MG/DL 110-129 MG/DL HIGH RISK: >160 MG/DL >130 MG/DL *CHILDREN AND ADOLESCENTS REPRESENTS INDIVIDUALA AGED 2-19 YEARS EXCLUSIVE. 10 CKD-EPI 11 CKD-EPI 12 CHRONIC KIDNEY DISEASE STAGI NG PER NKF: MALE GFR INTERPRETATION: 20-49 YRS: >60 mL/min Normal 50-59 YRS: >56 mL/min Normal 60-69 YRS: >49 mL/min Normal 70-79 YRS: >42 mL/min Normal 80 and above >35 mL/min Normal FEMALE GRF INTERPRETATION: 20-39 YRS: >60 mL/min Normal 40-49 YRS: >58 mL/min Normal 50-59 YRS: >51 mL/min Normal 60-69 YRS: >45 mL/min Normal 70-79 YRS: >39 mL/min Normal 80 and above >32 mL/min Normal 13 CKD-EPI 14 CKD-EPI Procedures Date Code Description Status 01/02/2021 41114 Office/Outpatient Established Mo d MDM 30-39 Min Completed 12/06/2020 05996 Office/Outpatient Established Mo d MDM 30-39 Min Completed 10/05/2020 81237 Office/Outpatient Established Mo d MDM 30-39 Min Completed 09/05/2020 01908 Office/Outpatient Established Mo d MDM 30-39 Min Completed 08/30/2020 77931 Office/Outpatient Established Mo d MDM 30-39 Min Completed 08/16/2020 38872 Office/Outpatient Established Mo d MDM 30-39 Min Completed Medical Devices Description No Information Available Encounters Type Date Location Provider Dx Diagnosis Office Visit 01/02/2021 2:00p [place] [facility] Nikita Lance M. D. Z01.810 Encounter for preprocedural cardiovascular examination Office Visit 12/06/2020 1:15p [place] Nikita Lance M. D. E11.9 Type 2 diabetes mellitus without complications Z23 Encounter for immunization Office Visit 10/05/2020 2:00p [place] [facility] Nikita Lance M. D. M45.0 Ankylosing spondylitis of multiple sites in spine Office Visit 09/05/2020 1:15p [place] Nikita Lance M. D. M45.0 Ankylosing spondylitis of multiple sites in spine E11.9 Type 2 diabetes mellitus wit hout complications Office Visit 08/30/2020 1:15p [place] [facility] Nikita Lance M. D. M45.0 Ankylosing spondylitis of multiple sites in spine Office Visit 08/16/2020 2:15p [place] Nikita Lance M. D. M45.0 Ankylosing spondylitis of multiple sites in spine Assessments Date Code Description Provider 01/02/2021 Z01.810 Encounter for preprocedural card iovascular examination Nikita Lance M.D. 12/06/2020 E11.9 Type 2 diabetes mellitus without complications Nikita Lance M.D. 12/06/2020 Z23 Encounter for immunization Gerard Nikita laurent M.D. 11/29/2020 E11.9 Type 2 diabetes mellitus without complications Nikita Lance M.D. 11/29/2020 E11.9 Type 2 diabetes mellitus without complications Laboratory [place] Schedule 10/05/2020 M45.0 Ankylosing spondylitis of multip le sites in spine Nikita Lance M.D. 09/05/2020 M45.0 Ankylosing spondylitis of multip le sites in spine Nikita Lance M.D. 09/05/2020 E11.9 Type 2 diabetes mellitus without complications Nikita Lance M.D. 08/30/2020 M45.0 Ankylosing spondylitis of multip le sites in spine Nikita Lance M.D. 08/29/2020 E11.9 Type 2 diabetes mellitus without complications Nikita Lance M.D. 08/29/2020 E11.9 Type 2 diabetes mellitus without complications Laboratory [place] Schedule 08/16/2020 M45.0 Ankylosing spondylitis of multip le sites in spine Nikita Lance M.D. Plan of Treatment Future Appointment(s):* 03/13/2021 1:00 pm - Nikita Lance M.D. at [place] [facility] * 03/07/2021 9:15 am - Laboratory [place] Schedule at [facility] Functional Status Description No Information Available Mental Status Description No Information Available Referrals Description No Information Available
--- OUTSIDE RECORDS SUMMARY | 2021-01-12 09:03 | CCD | Continuity of Care Document ---
Author Author Patrick RAE PA-C Organization Unknown Address [address] [place] [address] Phone [phone] Care Team Providers Care Assembler Installer General Name Role Phone Nikita Lance MD AUTM [phone] Problems Active Problems Provider Date Fracture distal phalanx of thumb Onset: 01/13/1999 Social History Type Date Description Comments Sex Unknown Allergies and adverse reactions Description No Information Available Medications Active Medications SIG Qnty Indications Ordering Provide r Date Mupirocin 2% Ointment apply a pea sized amount to the nasal passages 3 times a day for 5 days prior to surgery 22gm Nba Sotelo MD 11/25/2020 Hibiclens 4% Liquid use in shower once daily for 5 days before surgery 1units Nba mary MD 11/25/2020 Hydrocodone Bitartrate/Acetaminophen 5-325mg Tablets 1 tab by mouth every 6 hours as needed p ost op pain. (please do not fill until 01/10/21) 40tabs Nba Sotelo MD Percocet 5-325mg Tablets 1-2 tabs q 4-6 hours prn/pain 40tabs Ethan Ortega MD 06/29/2009 Colace 100mg Capsules 1 po bid, hold for diarrhea 60caps Ethan Ortega MD 06/29/2009 Immunizations Description No Information Available Vital Signs Date Vital Result Comment 01/06/2021 2:26pm BP Systolic 121 mmHg BP Diastolic 71 mmHg Heart Rate 63 /min Body Temperature 96.8 F Height 69.5 inches 5'9.50" Weight 225.00 lb BMI (Body Mass Index) 32.7 kg/m2 Respiratory Rate 15 /min 09/14/2020 1:53pm Body Temperature 97.1 F Height 68 inches 5'8" Weight 227.50 lb BMI (Body Mass Index) 34.6 kg/m2 Results Test Acquired Date Facility Test Result H/L Range Note Laboratory test finding 01/05/2021 [facility] [address] [place] [address] Bretype A POSITIVE Normal Type&Screen 01/05/2021 [facility] [address] [place] [address] Blood Type A POSITIVE Normal Antibody Screen NEGATIVE Normal Laboratory test finding 01/05/2021 [facility] [address] [place] [address] [id number] Rheonix Negative Normal Negative 1 Prothrombin Time/Inr 12/26/[address] [address] (315)- - Prothrombin Time 13.7 seconds Normal 12.7-14.5 Inr 1.01 Normal 2 Complete Blood Count 12/26/[address] [address] (315)- - White Blood Count 9.0 10 Normal 4.0-10.0 [...] Blood Cell % 0.0 % Normal 0-0 Laboratory test finding 12/26/[facility] [address] [place] [address] (315)- - Erythrocyte Sedimentation Rate 19 mm/hr Normal 0-20 Comprehensive Metabolic Profil 12/26/[address] [address] (315)- - Glucose, Fasting 207 mg/dL High 70-100 Blood Urea Nitrogen 15 mg/dL Normal 7-18 Creatinine For GFR 1.04 mg/dL Normal 0.70-1.30 Glomerular Filtration Rate > 60.0 Normal >42 3 Sodium Level 141 mEq/L Normal 136-145 Potassium [...] GM/DL Normal 3.2-5.2 Albumin/Globulin Ratio 1.0 Normal 1 The [employer] COVID-19 MDx Ass ay is an endpoint [...] sole basis for patient management decisions. The [employer] MDx Assay is only for use under the Food and Drug Administration's Emergency Use Authorization. 2 THERAPUTIC HUMAN INR VALUES INDICATIONS NORMAL RANGES PROPHYLAXIS/TREATMENT OF: VENOUS THROMBOSIS 2.0-3.0 PULMONARY EMBOLISM 2.0-3.0 PREVENTION OF SYSTEMIC EMBOLISM FROM: TISSUE HEART VALVES 2.0-3.0 ACUTE MYOCARDIAL INFARCTION 2.0-3.0 VALVULAR HEART DISEASE 2.0-3.0 ATRIAL FIBRILLATION 2.0-3.0 MECHANICAL VALVES(HIGH RISK) 2.5-3.5 RECURRENT MYOCARDIAL INFARCTION 2.5-3.5 3 Units are mL/min/1.73 m2 Chronic Kidney Disease Staging per NKF: Stage I & II GFR >=60 Normal to Mildly Decreased Stage III GFR 30-59 Moderately Decreased Stage IV GFR 15-29 Severely Decreased Stage V GFR <15 Very Little GFR Left ESRD GFR <15 on LOW HEEL BUILDER Procedures Date Code Description Status 11/21/2020 43348 Office/Outpatient Established Mo d MDM 30-39 Min Completed 09/14/2020 55629 Office/Outpatient Established Mo d MDM 30-39 Min Completed 08/15/2020 99437 Office/Outpatient Established Hi gh MDM 40-54 Min Completed 08/15/2020 77961 X-Ray Spine Lumbosacral Complete Inc Bending Views Min Of 6 Completed 08/15/2020 13216 X-Ray Spine Thoracic Ap & Latera l 2 Views Completed 08/01/2020 55154 Office/Outpatient Established Lo w MDM 20-29 Min Completed Medical Devices Description No Information Available Encounters Type Date Location Provider Dx Diagnosis Office Visit 01/06[place] Z01.818 Encounter for other preprocedural examination M16.11 Unilateral primary osteoarth ritis, right hip Office Visit 11/21/2020 11:00a Mecca Sotelo MD 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, right hip M45.4 Ankylosing spondylitis of th oracic region 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, lumbar 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, thoracic region Office Visit 09/14/2020 1:45p Mecca Sotelo MD 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, right hip M45.4 Ankylosing spondylitis of th oracic region 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, lumbar 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, thoracic region Office Visit 08/01/2020 2:30p Mecca Sotelo MD 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, 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, lumbar region Assessments Date Code Description Provider 01/06/2021 Z01.818 Encounter for other preprocedura l examination Reba Rae PA-C 01/06/2021 M16.11 Unilateral primary osteoarthriti s, right hip Reba Rae PA-C 11/21/2020 M16.11 Unilateral primary osteoarthriti s, right hip Nba Sotelo MD 11/21/2020 M45.4 Ankylosing spondylitis of thorac ic region Nba Sotelo MD 11/21/2020 M16.11 Unilateral primary osteoarthriti s, right hip Etahn Ortega MD 11/21/2020 M51.36 Other intervertebral disc degene ration, lumbar region Nba Sotelo MD 11/21/2020 M45.4 Ankylosing spondylitis of thorac ic region Ethan Ortega MD 11/21/2020 M51.34 Other intervertebral disc degene ration, thoracic region Nba Sotelo MD 11/21/2020 M51.36 Other intervertebral disc degene ration, lumbar region Ethan Ortega MD 11/21/2020 M51.34 Other intervertebral disc degene ration, thoracic region Ethan Ortega MD 09/14/2020 M16.11 Unilateral primary osteoarthriti s, right hip Nba Sotelo MD 09/14/2020 M45.4 Ankylosing spondylitis of thorac ic region Nba Sotelo MD 09/14/2020 M51.36 Other intervertebral disc degene ration, lumbar region Nba Sotelo MD 09/14/2020 M51.34 Other intervertebral disc degene ration, thoracic region Nba Sotelo MD 08/15/2020 M45.4 Ankylosing spondylitis of thorac ic region Ethan Ortega MD 08/15/2020 M16.11 Unilateral primary osteoarthriti s, right hip Ethan Ortega MD 08/15/2020 M51.36 Other intervertebral disc degene ration, lumbar region Ethan Ortega MD 08/15/2020 M51.34 Other intervertebral disc degene ration, thoracic region Ethan Ortega MD 08/01/2020 M16.11 Unilateral primary osteoarthriti s, right hip Nba Sotelo MD 08/01/2020 M51.36 Other intervertebral disc degene ration, lumbar region Nba Sotelo MD Plan of Treatment Future Appointment(s):* 01/23/2021 2:00 pm - Nba Sotelo MD at [place] * 01/10/2021 10:30 am - Nba Sotelo MD at [facility]) 01/06/2021 - Reba Rae PA-C* Z01.818 Encounter for other preprocedural examination * M1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, right hip Functional Status Description No Information Available Mental Status Description No Information Available Referrals Refer to Dr Reason for Referral Status Appt Date Ethan Ortega MD SURGERY NO AUTH REQUIRED FOR TOTAL RT HIP ([id number]) TO SURGERY NT Created [address] [place] [address] [phone] Jaqueline Sotelo MD FLUORO INJ NO AUTH REQUIRED FOR FLUOROSCOPIC INJECTION TO RIGHT HIP ([id number], [phone]) TO BUZZ [facility]barca[facility] DG Created [address] [place] [phone] [phone] Jaqueline Sotelo MD FLUORO INJ NO AUTH REQUIRED FOR FLUOROSCOPIC INJECTION TO RIGHT HIP ([id number], [id number]) TO BUZZ [facility]barca[facility] DG Created [address] [place] [phone] [phone] Ethan Ortega MD REF NO AUTH REQUIRED FOR REF TO [facility] RHEUMATOLOG[facility] TO TRANS NT Created [address] [place] [address] [phone]
--- OUTSIDE RECORDS SUMMARY | 2021-01-12 09:03 | CCD | Continuity of Care Document ---
Author Organization Unknown Address Unknown Phone Unavailable Problems Active Problems Provider Date Impaired fasting [...] Nikita Lance M.D. 09/10/2016 Blood Glucose Test [employer] S trips use once a day to test glucose (dx: e 11.9) 100units [facility] Nikita faith M.D. 06/13/2015 Sucralfate 1gm Tablets 1 by mouth three times a day as needed 90Nikita Wright M.D. Flonase Allergy Relief 50mcg/Act Suspension 2 sprays each narea every day Unknown Tramadol HCL 50mg Tablets 1 tab by mouth three times a day as needed pain. do not drive or operate equipment while taking ([id number]) 90Nikita Wright M.D. Tylenol Extra Strength 500mg Table ts take 2 by mouth three times a day as needed Unknown History Medications Prednisone 10mg Tablets 4 by mouth daily x3 then 3 daily x3 then 2 daily x3 then one daily 30taNikita Cormier M.D. 08/30/2020 - 01/02/2021 Gabapentin 300mg Capsules take one capsule by mouth four times a day 120caps Nikita Lance M.D . 08/16/2020 - 08/16/2020 Gilbert 5-325mg Tablets 1 tab by mouth four times a day as needed [id number] 120Nikita Wright M.D. 08/16/2020 - 01/02/2021 Immunizations CPT Code Status Date Vaccine Lot # [id number] Given 12/06/2020 Influenza Virus Vaccine, Quadrivalent, Slit Virus, Im Use 3Y & Up [id number] 29014 Given 12/22/2019 Influenza Virus Vaccine, Quadrivalent, Slit Virus, Im Use 3Y & Up [id number] 44356 Given 01/14/2019 Influenza Virus Vaccine, Quadrivalent, Slit Virus, Im Use 3Y & Up [id number] 98197 Given 12/31/2017 Influenza Virus Vaccine, Quadrivalent, Slit Virus, Im Use 3Y & Up [id number] 32490 Given 12/18/2016 Influenza Virus Vaccine, Quadrivalent, Slit Virus, Im Use 3Y & Up [id number] 55499 Given 12/23/2015 Influenza Vaccin e (Fluzone) 3Yrs Of Age Or Older Medicare Plans [id number] 81835 Given 12/23/2015 Influenza Virus Vaccine, Quadrivalent, Slit Virus, Im Use 3Y & Up 35392 Given 12/17/2014 Influenza Vaccin e (Fluzone) 3Yrs Of Age Or Older Medicare Plans [id number] Q2037 Given 12/28/2013 Influenza Vaccin e (Fluvirin) 3Yrs Of Age Or Older Medicare Plans 47804 Given 12/28/2013 Influenza Virus Vac. Split Virus Individuals 3 Years And Above [id number] 85938 Given 12/29/2012 Influenza Vaccin e (Fluzone) 3Yrs Of Age Or Older Medicare Plans 70351 Given 12/29/2012 Influenza Virus Vac. Split Virus Individuals 3 Years And Above [id number] Vital Signs Date Vital Result Comment 01/02/2021 2:44pm BP Systolic 124 mmHg BP Diastolic 80 mmHg Body Temperature 97.4 F Heart Rate 60 /min Respiratory Rate 18 /min Height 70 inches 5'10" Weight 225.00 lb [place] Body Weight 166 lb BMI (Body Mass Index) 32.3 kg/m2 O2 % BldC Oximetry 97 % 12/06/2020 1:12pm BP Systolic 118 mmHg BP Diastolic 60 mmHg Body Temperature 97.5 F Heart Rate 60 /min Respiratory Rate 18 /min Height 70 inches 5'10" Weight 225.00 lb [place] Body Weight 166 lb BMI (Body Mass Index) 32.3 kg/m2 O2 % BldC Oximetry 97 % Results Test Acquired Date Facility Test Result H/L Range Note Laboratory test finding 01/05/2021 [facility] Bretype A POSITIVE Normal Type&Screen 01/05/2021 [place] Blood Type A POSITIVE Normal Antibody Screen NEGATIVE Normal Laboratory test finding 01/05/2021 [place] [id number] Rheonix Negative Normal Negative 1 Prothrombin Time/Inr 12/26/2020 [facility] [employer] Interface) [phone] Prothrombin Time 13.7 seconds Normal 12.7-14.5 Inr 1.01 Normal 2 Complete Blood Count 12/26/2020 [facility] [employer] Interface) [phone] White Blood Count 9.0 10 Normal 4.0-10.0 [...] % Normal 0-0 Laboratory test finding 12/26/2020 [facility] (Interface) [phone] Erythrocyte Sedimentation Rate 19 mm/hr Normal 0 -20 Comprehensive Metabolic Profil 12/26/2020 [facility] (Interface) [phone] Glucose, Fasting 207 mg/dL High 70-100 Blood [...] Albumin/Globulin Ratio 1.0 Normal Laboratory test finding 11/29/2020 [facility] Hemoglobin A1c 5.8 % 4.50-6.20 CBC 11/29/2020 [facility]Inhouse WBC 7.7 10E3/uL 4.1 - 10.9 4 RBC 4.50 10E6/uL 4.20 - 6.30 HGB [...] Gap 20 mmol/L eGFR 96 # Calc 5 eGFR Non-Afr. Ukrainian 83 # Calc 6 Lipid Panel 11/29/2020 [facility] Chol 160 mg/dL 0 - 200 Trig 112 mg/dL 35 - 200 HDL 56 mg/dL High 35 - 55 LDL_C 81 Calc 75 - 129 Cho/HDL Ratio 2.8 CALC Laboratory test finding 08/29/2020 [facility] Hemoglobin A1c 6.3 % High 4.50-6.20 CMP 08/29/2020 [facility] Glu 146 mg/dL High 70 - 110 7 BUN 15 mg/dL 8 - 23 Creat [...] Gap 16 mmol/L eGFR 85 # Calc 8 eGFR Non-Afr. Ukrainian 73 # Calc 9 1 [employer] COVID-19 MDx Ass ay is an endpoint [...] sole basis for patient management decisions. The [employer] MDx Assay is only for use under [...] Little GFR Left ESRD GFR <15 on ORDER PROCESSING CLERK 4 NORMAL RANGES Age WBC RBC HGB HCT [...] HCT IS 5% LESS SOURCE FOR DATA: [employer] 1800 OPERATION MANUAL( AUTOMATED BLOOD COUNTS AND [...] ADOLESCENTS REPRESENTS INDIVIDUALA AGED 2-19 YEARS EXCLUSIVE. 5 CKD-EPI 6 CKD-EPI 7 CHRONIC KIDNEY DISEASE STAGI NG PER NKF: [...] Normal 80 and above >32 mL/min Normal 8 CKD-EPI 9 CKD-EPI Procedures Date Code Description Status 01/02/2021 93801 Office/Outpatient Established Mo d MDM 30-39 Min Completed 12/06/2020 12956 Office/Outpatient Established Mo d MDM 30-39 Min Completed 10/05/2020 44537 Office/Outpatient Established Mo d MDM 30-39 Min Completed 09/05/2020 86473 Office/Outpatient Established Mo d MDM 30-39 Min Completed 08/30/2020 85463 Office/Outpatient Established Mo d MDM 30-39 Min Completed 08/16/2020 65247 Office/Outpatient Established Mo d MDM 30-39 Min Completed Medical Devices Description No Information Available Encounters Type Date Location Provider Dx Diagnosis Office Visit 01/02/2021 2:00p [place] [facility] Nikita Lance M. D. Z01.810 Encounter for preprocedural cardiovascular examination Office Visit 12/06/2020 1:15p [place] [facility] Nikita Lance M. D. E11.9 Type 2 diabetes mellitus without complications Z23 Encounter for immunization Office Visit 10/05/2020 2:00p [place] [facility] Nikita Lance M. D. M45.0 Ankylosing spondylitis of multiple sites in spine Office Visit 09/05/2020 1:15p [place] [facility] Nikita Lance M. D. M45.0 Ankylosing spondylitis of multiple sites in spine E11.9 Type 2 diabetes mellitus wit hout complications Office Visit 08/30/2020 1:15p [place] [facility] Nikita Lance M. D. M45.0 Ankylosing spondylitis of multiple sites in spine Office Visit 08/16/2020 2:15p [place] [facility] Nikita Lance M. D. M45.0 Ankylosing [...] Type 2 diabetes mellitus without complications Laboratory [place] Schedule 10/05/2020 M45.0 Ankylosing spondylitis of multip [...] Type 2 diabetes mellitus without complications Laboratory [place] Schedule 08/16/2020 M45.0 Ankylosing spondylitis of multip le sites in spine Nikita Lance M.D. Plan of Treatment Future Appointment(s):* 03/13/2021 1:00 pm - Nikita Lance M.D. at [facility] * 03/07/2021 9:15 am - Laboratory [place] Schedule at [place] [facility] Functional Status Description No Information Available Mental Status Description No Information Available Referrals Description No Information Available
--- OUTSIDE RECORDS SUMMARY | 2021-01-12 09:03 | CCD | Continuity of Care Document ---
Author Organization Unknown Address Unknown Phone Unavailable Problems Active Problems Provider Date Impaired fasting glycemia Nikita Lance M.D. Onset: 11/2012 Disorder of back Nikita Lance M.D. Onset: 3 Note: degenerative disc disease Benign neoplasm of colon Niktia Lance M.D. Onset: 11/2012 Type 2 diabetes [...] Nikita Lance M.D. 09/10/2016 Blood Glucose Test [email or web address] S trips use once a day to test glucose (dx: e 11.9) 100units [facility] Nikita faith M.D. 06/13/2015 Sucralfate 1gm Tablets 1 by mouth three times a day as needed 90Nikita Wright M.D. Flonase Allergy Relief 50mcg/Act Suspension 2 sprays each narea every day Unknown Tramadol HCL 50mg Tablets 1 tab by mouth three times a day as needed pain. do not drive or operate equipment while taking ([id number]) 90Nikita Wright M.D. Tylenol Extra Strength 500mg [...] Nikita Lance M.D . 08/16/2020 - 08/16/2020 Padroni 5-325mg Tablets 1 tab by mouth four times a day as needed [id number] 120Nikita Wright M.D. 08/16/2020 - 01/02/2021 Immunizations CPT Code Status Date Vaccine Lot # [id number] Given 12/06/2020 Influenza Virus Vaccine, Quadrivalent, Slit Virus, Im Use 3Y & Up [id number] 71236 Given 12/22/2019 Influenza Virus Vaccine, Quadrivalent, Slit Virus, Im Use 3Y & Up [id number] 51862 Given 01/14/2019 Influenza Virus Vaccine, Quadrivalent, Slit Virus, Im Use 3Y & Up [id number] 95049 Given 12/31/2017 Influenza Virus Vaccine, Quadrivalent, Slit Virus, Im Use 3Y & Up [id number] 45497 Given 12/18/2016 Influenza Virus Vaccine, Quadrivalent, Slit Virus, Im Use 3Y & Up [id number] 77508 Given 12/23/2015 Influenza Vaccin e (Fluzone) 3Yrs Of Age Or Older Medicare Plans [id number] 68678 Given 12/23/2015 Influenza Virus Vaccine, Quadrivalent, Slit Virus, Im Use 3Y & Up 21018 Given 12/17/2014 Influenza Vaccin e (Fluzone) 3Yrs Of Age Or Older Medicare Plans [id number] Q2037 Given 12/28/2013 Influenza Vaccin e (Fluvirin) 3Yrs Of Age Or Older Medicare Plans 51585 Given 12/28/2013 Influenza Virus Vac. Split Virus Individuals 3 Years And Above [id number] 10723 Given 12/29/2012 Influenza Vaccin e (Fluzone) 3Yrs Of Age Or Older Medicare Plans 94308 Given 12/29/2012 Influenza Virus Vac. Split Virus Individuals 3 Years And Above [id number] Vital Signs Date Vital Result Comment 01/02/2021 2:44pm BP Systolic 124 mmHg BP Diastolic 80 mmHg Body Temperature 97.4 F Heart Rate 60 /min Respiratory Rate 18 /min Height 70 inches 5'10" Weight 225.00 lb [place] Body Weight 166 lb BMI (Body Mass Index) 32.3 kg/m2 O2 % BldC Oximetry 97 % 12/06/2020 1:12pm BP Systolic 118 mmHg BP Diastolic 60 mmHg Body Temperature 97.5 F Heart Rate 60 /min Respiratory Rate 18 /min Height 70 inches 5'10" Weight 225.00 lb [place] Body Weight 166 lb BMI (Body Mass Index) 32.3 kg/m2 O2 % BldC Oximetry 97 % Results Test Acquired Date Facility Test Result H/L Range Note Laboratory test finding 01/05/2021 [facility] Bretype A POSITIVE Normal Type&Screen 01/05/2021 [place] Blood Type A POSITIVE Normal Antibody Screen NEGATIVE Normal Prothrombin Time/Inr 12/26/2020 [facility] [employer] Interface) [phone] Prothrombin Time 13.7 seconds Normal 12.7-14.5 Inr 1.01 Normal 1 Complete Blood Count 12/26/2020 [facility] Interface) [phone] White Blood Count 9.0 10 Normal 4.0-10.0 [...] % Normal 0-0 Laboratory test finding 12/26/2020 [facility] (Interface) [phone] Erythrocyte Sedimentation Rate 19 mm/hr Normal 0 -20 Comprehensive Metabolic Profil 12/26/2020 [facility] (Interface) [phone] Glucose, Fasting 207 mg/dL High 70-100 Blood Urea Nitrogen 15 mg/dL Normal 7-18 Creatinine For GFR 1.04 mg/dL Normal 0.70-1.30 Glomerular Filtration Rate > 60.0 Normal >42 2 Sodium Level 141 mEq/L Normal 136-145 Potassium [...] Ratio 1.0 Normal Laboratory test finding 11/29/2020 [facility] Hemoglobin A1c 5.8 % 4.50-6.20 CBC 11/29/2020 [facility] WBC 7.7 10E3/uL 4.1 - 10.9 3 RBC 4.50 10E6/uL 4.20 - 6.30 HGB [...] Gap 20 mmol/L eGFR 96 # Calc 4 eGFR Non-Afr. Botswanan 83 # Calc 5 Lipid Panel 11/29/2020 [facility] Chol 160 mg/dL 0 - 200 Trig 112 mg/dL 35 - 200 HDL 56 mg/dL High 35 - 55 LDL_C 81 Calc 75 - 129 Cho/HDL Ratio 2.8 CALC Laboratory test finding 08/29/2020 [facility] Hemoglobin A1c 6.3 % High 4.50-6.20 CMP 08/29/2020 [facility] Glu 146 mg/dL High 70 - 110 6 BUN 15 mg/dL 8 - 23 Creat [...] Gap 16 mmol/L eGFR 85 # Calc 7 eGFR Non-Afr. Botswanan 73 # Calc 8 1 THERAPUTIC HUMAN INR VALUES INDICATIONS NORMAL RANGES PROPHYLAXIS/TREATMENT OF: VENOUS THROMBOSIS 2.0-3.0 PULMONARY EMBOLISM 2.0-3.0 PREVENTION OF SYSTEMIC EMBOLISM FROM: TISSUE HEART VALVES 2.0-3.0 ACUTE MYOCARDIAL INFARCTION 2.0-3.0 VALVULAR HEART DISEASE 2.0-3.0 ATRIAL FIBRILLATION 2.0-3.0 MECHANICAL VALVES(HIGH RISK) 2.5-3.5 RECURRENT MYOCARDIAL INFARCTION 2.5-3.5 2 Units are mL/min/1.73 m2 Chronic Kidney Disease Staging per NKF: Stage I & II GFR >=60 Normal to Mildly Decreased Stage III GFR 30-59 Moderately Decreased Stage IV GFR 15-29 Severely Decreased Stage V GFR <15 Very Little GFR Left ESRD GFR <15 on STITCHER OPERATOR 3 NORMAL RANGES Age WBC RBC HGB HCT [...] HCT IS 5% LESS SOURCE FOR DATA: [employer] 1800 OPERATION MANUAL( AUTOMATED BLOOD COUNTS AND [...] ADOLESCENTS REPRESENTS INDIVIDUALA AGED 2-19 YEARS EXCLUSIVE. 4 CKD-EPI 5 CKD-EPI 6 CHRONIC KIDNEY DISEASE STAGI NG PER NKF: [...] Normal 80 and above >32 mL/min Normal 7 CKD-EPI 8 CKD-EPI Procedures Date Code Description Status 01/02/2021 32154 Office/Outpatient Established Mo d MDM 30-39 Min Completed 12/06/2020 57424 Office/Outpatient Established Mo d MDM 30-39 Min Completed 10/05/2020 61738 Office/Outpatient Established Mo d MDM 30-39 Min Completed 09/05/2020 21895 Office/Outpatient Established Mo d MDM 30-39 Min Completed 08/30/2020 62241 Office/Outpatient Established Mo d MDM 30-39 Min Completed 08/16/2020 97372 Office/Outpatient Established Mo d MDM 30-39 Min Completed Medical Devices Description No Information Available Encounters Type Date Location Provider Dx Diagnosis Office Visit 01/02/2021 2:00p [place] [facility] Nikita Lance M. D. Z01.810 Encounter for preprocedural cardiovascular examination Office Visit 12/06/2020 1:15p [place] [facility] Nikita Lacne M. D. E11.9 Type 2 diabetes mellitus without complications Z23 Encounter for immunization Office Visit 10/05/2020 2:00p [place] [facility] Nikita Lance M. D. M45.0 Ankylosing spondylitis of multiple sites in spine Office Visit 09/05/2020 1:15p [place] [facility] Nikita Lance M. D. M45.0 Ankylosing spondylitis of multiple sites in spine E11.9 Type 2 diabetes mellitus wit hout complications Office Visit 08/30/2020 1:15p [place] [facility] Nikita Lance M. D. M45.0 Ankylosing spondylitis of multiple sites in spine Office Visit 08/16/2020 2:15p [place] [facility] Nikita Lance M. D. M45.0 Ankylosing spondylitis of multiple sites in spine Assessments Date Code Description Provider 01/02/2021 Z01.810 Encounter for preprocedural card iovascular examination Nikita Lance M.D. 12/06/2020 E11.9 Type 2 diabetes mellitus without complications Nikita Lance M.D. 12/06/2020 Z23 Encounter for immunization Nikita Cheung M.D. 11/29/2020 E11.9 Type 2 diabetes mellitus without complications Nikita Lance M.D. 11/29/2020 E11.9 Type 2 diabetes mellitus without complications Laboratory [place] Schedule 10/05/2020 M45.0 Ankylosing spondylitis of multip [...] Type 2 diabetes mellitus without complications Laboratory [place] Schedule 08/16/2020 M45.0 Ankylosing spondylitis of multip le sites in spine Nikita Lance M.D. Plan of Treatment Future Appointment(s):* 03/13/2021 1:00 pm - Nikita Lance M.D. at [facility] * 03/07/2021 9:15 am - Laboratory [place] Schedule at [facility] Functional Status Description No Information Available Mental Status Description No Information Available Referrals Description No Information Available
--- OUTSIDE RECORDS SUMMARY | 2021-01-12 09:03 | CCD | Continuity of Care Document ---
Author Organization Unknown Address Unknown Phone Unavailable Care Team Providers Care Nike Athlete Name Role Phone Nikita Lance MD AUTM [phone] Problems Active Problems Provider Date Fracture distal [...] Result H/L Range Note Laboratory test finding 01/11/2021 [facility] [address] [place] [address] LMG 2.0 mg/dL Normal 1.6-2.6 Comprehensive Metabolic Prof 01/11/2021 [facility] [address] [place] [address] Glu 122 mg/dL High 70-110 1 BUN [...] 4 Ast 33 U/L Normal 8-40 5 Complete Blood Count 01/11/2021 [facility] [address] [place] [address] WBC 13.18 x10E3/uL High 4.0-10.5 RBC 3.85 [...] Abs. Lymph. 1.92 x10E3/uL Normal 1.0-3.5 Abs. [place]. 1.19 x10E3/uL High 0.1-1.0 Abs. Eosin. 0.00 x10E3/uL Low 0.1-0.7 Abs. Baso. 0.01 x10E3/uL Normal 0.0-0.1 Abs. Imm. Gran. 0.05 x10E3/uL Normal 0.0-0.1 Anrbc% 0 % Normal 0 Laboratory test finding 01/05/[address] [address] Bretype A POSITIVE Normal Type&Screen 01/05/2021 [facility] [address] [place] [address] Blood Type A POSITIVE Normal Antibody Screen NEGATIVE Normal Laboratory test finding 01/05/2021 [facility] [address] [place] [address] [id number] Rheonix Negative Normal Negative 6 Prothrombin Time/Inr 12/26/2020 [facility] entr [address] [place] [address] (315)- - Prothrombin Time 13.7 seconds Normal 12.7-14.5 Inr 1.01 Normal 7 Complete Blood Count 12/26/2020 [facility] entr [address] [place] [address] (315)- - White Blood Count 9.0 10 [...] % Normal 0-0 Laboratory test finding 12/26/2020 [facility] [address] [place] [address] (315)- - Erythrocyte Sedimentation Rate 19 mm/hr Normal 0-20 Comprehensive Metabolic Profil 12/26/2020 [facility] [address] [place] [address] (315)- - Glucose, Fasting 207 mg/dL High 70-100 Blood Urea Nitrogen 15 mg/dL Normal 7-18 Creatinine For GFR 1.04 mg/dL Normal 0.70-1.30 Glomerular Filtration Rate > 60.0 Normal >42 8 Sodium Level 141 mEq/L Normal 136-145 Potassium [...] Normal 3.2-5.2 Albumin/Globulin Ratio 1.0 Normal 1 Patients taking Sulfasalazin e may have falsely depressed Glucose levels. Patients taking Sulfapyridine may have falsely elevated Glucose levels. Patients should be drawn for Glucose before the initial administration of either drug. 2 ESRD Dialysis patient Albumi n reference range: 2.9-4.4 g/dL 3 The Dimension [place] Total Bi lirubin is not recommended for [...] initial administration of either drug. 6 The Rheonix COVID-19 MDx Ass ay is an endpoint [...] sole basis for patient management decisions. The Calix MDx Assay is only for use under the Food and Drug Administration's Emergency Use Authorization. 7 THERAPUTIC HUMAN INR VALUES INDICATIONS NORMAL RANGES PROPHYLAXIS/TREATMENT OF: VENOUS THROMBOSIS 2.0-3.0 PULMONARY EMBOLISM 2.0-3.0 PREVENTION OF SYSTEMIC EMBOLISM FROM: TISSUE HEART VALVES 2.0-3.0 ACUTE MYOCARDIAL INFARCTION 2.0-3.0 VALVULAR HEART DISEASE 2.0-3.0 ATRIAL FIBRILLATION 2.0-3.0 MECHANICAL VALVES(HIGH RISK) 2.5-3.5 RECURRENT MYOCARDIAL INFARCTION 2.5-3.5 8 Units are mL/min/1.73 m2 Chronic Kidney Disease Staging per NKF: Stage I & II GFR >=60 Normal to Mildly Decreased Stage III GFR 30-59 Moderately Decreased Stage IV GFR 15-29 Severely Decreased Stage V GFR <15 Very Little GFR Left ESRD GFR <15 on MEDICAL SOCIAL CONSULTANT Procedures Date Code Description Status 11/21/2020 39681 Office/Outpatient Established Mo d MDM 30-39 Min Completed 09/14/2020 45267 Office/Outpatient Established Mo d MDM 30-39 Min Completed 08/15/2020 94214 Office/Outpatient Established Hi gh MDM 40-54 Min Completed 08/15/2020 32481 X-Ray Spine Lumbosacral Complete Inc Bending Views Min Of 6 Completed 08/15/2020 40566 X-Ray Spine Thoracic Ap & Latera l 2 Views Completed 08/01/2020 62363 Office/Outpatient Established Lo w MDM 20-29 Min Completed Medical Devices Description No Information Available Encounters Type Date Location Provider Dx Diagnosis Office Visit 01/06/2021 2:30p Mecca Corley PA-C Z01.818 Encounter for other preprocedural examination M16.11 Unilateral primary osteoarth ritis, right hip Office Visit 11/21/2020 11:00a Mecca Sotelo MD 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, right hip M45.4 Ankylosing spondylitis of th oracic region 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, lumbar 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, thoracic region Office Visit 09/14/2020 1:45p [place] Nba Sotelo MD 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, right hip M45.4 Ankylosing spondylitis of th oracic region 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, lumbar 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, thoracic region Office Visit 08/01/2020 2:30p [place] Sotelo MD 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, 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, lumbar region Assessments Date Code Description Provider 01/06/2021 Z01.818 Encounter for other preprocedura l examination Reba Corley PA-C 01/06/2021 M16.11 Unilateral primary osteoarthriti s, right hip Reba Corley PA-C 11/21/2020 M16.11 Unilateral primary osteoarthriti s, right hip Nba Sotelo MD 11/21/2020 M45.4 Ankylosing spondylitis of thorac ic region Nba Sotelo MD 11/21/2020 M16.11 Unilateral primary osteoarthriti s, right hip Ethan Ortega MD 11/21/2020 M51.36 Other intervertebral disc degene ration, lumbar region Nba Sotelo MD 11/21/2020 M45.4 Ankylosing spondylitis of thorac ic region Ethan Ortega MD 11/21/2020 M51.34 Other intervertebral disc degene ration, thoracic region Nba Sotelo MD 11/21/2020 M51.36 Other intervertebral disc degene ration, lumbar region Ethan Oretga MD 11/21/2020 M51.34 Other intervertebral disc degene [...] 2:00 pm - Nba Sotelo MD at [place] 11/21/2020 - Nba Sotelo MD* M1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, right hip* Follow up:* post op have patient see surg sched before he leaves * M45.4 Ankylosing spondylitis of thoracic region * M51.36 Other intervertebral disc degeneration, lumbar region * M51.34 Other intervertebral disc degeneration, thoracic region Functional Status Description No Information Available Mental Status Description No Information Available Referrals Refer to Dr Reason for Referral Status Appt Date Ethan Ortega MD SURGERY NO AUTH REQUIRED FOR TOTAL RT HIP ([id number]) TO SURGERY NT Created [address] [place] [address], [address] [address] [phone] Jaqueline Sotelo MD FLUORO INJ NO AUTH REQUIRED FOR FLUOROSCOPIC INJECTION TO RIGHT HIP ([id number], [id number]) TO BUZZ DIANE Created [address] [place] [address], [address] [phone] Jaqueline Sotelo MD FLUORO INJ NO AUTH REQUIRED FOR FLUOROSCOPIC INJECTION TO RIGHT HIP ([id number], ) TO BUZZ DIANE Created [address] [place] [address], [address] [phone] Ethan Ortega MD REF NO AUTH REQUIRED FOR REF TO [facility] RHEUMATOLOGY TO TRANS NT Created [address] [place] [address], [address] [address] [phone]
--- OUTSIDE RECORDS SUMMARY | 2021-01-12 09:03 | CCD | Continuity of Care Document ---
Author Author Patrick SOTELO MD Organization Unknown Address [address] [place] [address], [facility] [address] [place] [address] Phone [phone] Care Team Providers Care Car Conditioner Name Role Phone Nikita Lance MD AUTM [phone] Problems Active Problems Provider Date Fracture distal [...] H/L Range Note Laboratory test finding 01/05/2021 [facility] [address] [place] [address] Bretype A POSITIVE Normal Type&Screen 01/05/2021 [facility] [address] [place] [address] Blood Type A POSITIVE Normal Antibody Screen NEGATIVE Normal Laboratory test finding 01/05/2021 [facility] [address] [place] [address] [id number] Rheonix Negative Normal Negative 1 Prothrombin Time/Inr 12/26/[address] [address] (315)- - Prothrombin Time 13.7 seconds Normal 12.7-14.5 Inr 1.01 Normal 2 Complete Blood Count 12/26/[address] [address] (315)- - White Blood Count 9.0 10 [...] % Normal 0-0 Laboratory test finding 12/[facility] [address] [place] [address] (315)- - Erythrocyte Sedimentation Rate 19 mm/hr Normal 0-20 Comprehensive Metabolic Profil 12/26/[address] [address] (315)- - Glucose, Fasting 207 mg/dL High [...] 3.2-5.2 Albumin/Globulin Ratio 1.0 Normal 1 The [employer] COVID-19 MDx Ass ay is an endpoint [...] sole basis for patient management decisions. 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 Procedures Date Code Description Status 11/21/2020 18945 Office/Outpatient Established Mo d MDM 30-39 Min Completed 09/14/2020 10698 Office/Outpatient Established Mo d MDM 30-39 Min Completed 08/15/2020 06072 Office/Outpatient Established Hi gh MDM 40-54 Min Completed 08/15/2020 13684 X-Ray Spine Lumbosacral Complete Inc Bending Views Min Of 6 Completed 08/15/2020 53008 X-Ray Spine Thoracic Ap & Latera l 2 Views Completed 08/01/2020 20423 Office/Outpatient Established Lo w MDM 20-29 Min Completed Medical Devices Description No Information Available Encounters Type Date Location Provider Dx Diagnosis Office Visit 01/06/2021 2:30p [place] Reba Corley PA-C Z01.818 Encounter for other preprocedural examination M16.11 Unilateral primary osteoarth ritis, right hip Office Visit 11/21/2020 11:00a Mecca Sotelo MD 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, right hip M45.4 Ankylosing spondylitis of th oracic region 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, lumbar 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, thoracic region Office Visit 09/14/2020 1:45p [place] Sotelo MD 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, right hip M45.4 Ankylosing spondylitis of th oracic region 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, lumbar 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, thoracic region Office Visit 08/01/2020 2:30p [place] Sotelo MD 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, [...] Unilateral primary osteoarthriti s, right hip Nba Soteol MD 08/01/2020 M51.36 Other intervertebral disc degene ration, lumbar region Nba Sotelo MD Plan of Treatment Future Appointment(s):* 01/23/2021 2:00 pm - Nba Sotelo MD at [place] * 01/10/2021 10:30 am - Nba Sotelo MD at [facility] ([facility]) 01/06/2021 - Reba Colrey PA-C* Z01.818 Encounter for other preprocedural examination * M1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, right hip Functional Status Description No Information Available Mental Status Description No Information Available Referrals Refer to Dr Reason for Referral Status Appt Date Ethan Ortega MD SURGERY NO AUTH REQUIRED FOR TOTAL RT HIP ([id number]) TO SURGERY NT Created [address] [place], [place] [address] [phone] Jaqueline Sotelo MD FLUORO INJ NO AUTH REQUIRED FOR FLUOROSCOPIC INJECTION TO RIGHT HIP ([id number], 03770) TO BUZZ Reyes DG Created [address] [place] [address] [phone] Jaqueline Sotelo MD FLUORO INJ NO AUTH REQUIRED FOR FLUOROSCOPIC INJECTION TO RIGHT HIP ([id number], 03576) TO BZUZ AbarcaAlejo DG Created [address] [place] [phone] Ethan Ortega MD REF NO AUTH REQUIRED FOR REF TO [facility] RHEUMATOLOGY TO TRANS NT Created [address] [place] [address] [phone]
--- OUTSIDE RECORDS SUMMARY | 2021-01-12 09:03 | CCD | Continuity of Care Document ---
Author Author Patrick SOTELO MD Organization Unknown Address [address] [place] [address], [facility] [address] [place] [address] Phone [phone] Care Team Providers Care Membership Sales Advisor Name Role Phone Nikita Lance MD AUTM [phone] Problems Active Problems Provider Date Fracture distal [...] H/L Range Note Laboratory test finding 01/05/2021 [facility] [address] [place] [address] Bretype A POSITIVE Normal Type&Screen 01/05/2021 [facility] [address] [place] [address] Blood Type A POSITIVE Normal Antibody Screen NEGATIVE Normal Laboratory test finding 01/05/2021 [facility] [address] [place] [address] [id number] Rheonix Negative Normal Negative 1 Prothrombin Time/Inr 12/26/[address] [address] (315)- - Prothrombin Time 13.7 seconds Normal 12.7-14.5 Inr 1.01 Normal 2 Complete Blood Count 12/26/[address] [address] (315)- - White Blood Count 9.0 10 [...] % Normal 0-0 Laboratory test finding [facility] [address] [place] [address] (315)- - Erythrocyte Sedimentation Rate 19 mm/hr Normal 0-20 Comprehensive Metabolic Profil 12/26/[address] [address] (315)- - Glucose, Fasting 207 mg/dL High [...] 3.2-5.2 Albumin/Globulin Ratio 1.0 Normal 1 The [employer] COVID-19 MDx Ass ay is an endpoint [...] sole basis for patient management decisions. 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 Procedures Date Code Description Status 11/21/2020 20792 Office/Outpatient Established Mo d MDM 30-39 Min Completed 09/14/2020 25372 Office/Outpatient Established Mo d MDM 30-39 Min Completed 08/15/2020 38296 Office/Outpatient Established Hi gh MDM 40-54 Min Completed 08/15/2020 24431 X-Ray Spine Lumbosacral Complete Inc Bending Views Min Of 6 Completed 08/15/2020 14919 X-Ray Spine Thoracic Ap & Latera l 2 Views Completed 08/01/2020 04947 Office/Outpatient Established Lo w MDM 20-29 Min Completed Medical Devices Description No Information Available Encounters Type Date Location Provider Dx Diagnosis Office Visit 01/06/2021 2:30p [place] Reba Corley PA-C Z01.818 Encounter for other preprocedural examination M16.11 Unilateral primary osteoarth ritis, right hip Office Visit 11/21/2020 11:00a Me[place] Sotelo MD 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, right hip M45.4 Ankylosing spondylitis of th oracic region 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, lumbar 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, thoracic region Office Visit 09/14/2020 1:45p [place] Sot[place] MD 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, right hip M45.4 Ankylosing spondylitis of th oracic region 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, lumbar 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, thoracic region Office Visit 08/01/2020 2:30p [place] S[place] MD 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, [...] 2:00 pm - Nba Sotelo MD at [place] * 01/10/2021 10:30 am - Nba Sotelo MD at [facility] ([facility]) 01/06/2021 - Reba Corley PA-C* Z01.818 Encounter for other preprocedural examination * M1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, right hip Functional Status Description No Information Available Mental Status Description No Information Available Referrals Refer to Dr Reason for Referral Status Appt Date Ethan Ortega MD SURGERY NO AUTH REQUIRED FOR TOTAL RT HIP ([id number]) TO SURGERY NT Created [address] [place], [place] [id number] [phone] Jaqueline Sotelo MD FLUORO INJ NO AUTH REQUIRED FOR FLUOROSCOPIC INJECTION TO RIGHT HIP (07861, 78461) TO BUZZ Reyes DG Created [address] [place] [address] [phone] Jaqueline Sotelo MD FLUORO INJ NO AUTH REQUIRED FOR FLUOROSCOPIC INJECTION TO RIGHT HIP (61866, 63438) TO BUZZ AbarcaAlejo DG Created [address] [place] [phone] Ethan Ortega MD REF NO AUTH REQUIRED FOR REF TO [facility] RHEUMATOLOGY TO TRANS NT Created [address] [place] [address] [phone]
--- OUTSIDE RECORDS SUMMARY | 2021-01-12 09:03 | CCD | Continuity of Care Document ---
Author Author Patrick SOTELO MD Organization Unknown Address [address] [place] [address], [facility] [address] [place] [address] Phone [phone] Care Team Providers Care Clinical Application Consultant Name Role Phone Nikita Lance MD AUTM [phone] Problems Active Problems Provider Date Fracture distal [...] H/L Range Note Laboratory test finding 01/05/2021 [facility] [address] [place] [address] Bretype A POSITIVE Normal Type&Screen 01/05/2021 [facility] [address] [place] [address] Blood Type A POSITIVE Normal Antibody Screen NEGATIVE Normal Laboratory test finding 01/05/2021 [facility] [address] [place] [address] [id number] Rheonix Negative Normal Negative 1 Prothrombin Time/Inr 12/26/[address] [address] (315)- - Prothrombin Time 13.7 seconds Normal 12.7-14.5 Inr 1.01 Normal 2 Complete Blood Count 12/26/[address] [address] (315)- - White Blood Count 9.0 10 [...] % Normal 0-0 Laboratory test finding [facility] [address] [place] [address] (315)- - Erythrocyte Sedimentation Rate 19 mm/hr Normal 0-20 Comprehensive Metabolic Profil 12/26/[address] [address] (315)- - Glucose, Fasting 207 mg/dL High [...] 3.2-5.2 Albumin/Globulin Ratio 1.0 Normal 1 The [employer] COVID-19 MDx Ass ay is an endpoint [...] sole basis for patient management decisions. 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 Procedures Date Code Description Status 11/21/2020 77200 Office/Outpatient Established Mo d MDM 30-39 Min Completed 09/14/2020 49416 Office/Outpatient Established Mo d MDM 30-39 Min Completed 08/15/2020 11094 Office/Outpatient Established Hi gh MDM 40-54 Min Completed 08/15/2020 40436 X-Ray Spine Lumbosacral Complete Inc Bending Views Min Of 6 Completed 08/15/2020 55544 X-Ray Spine Thoracic Ap & Latera l 2 Views Completed 08/01/2020 45562 Office/Outpatient Established Lo w MDM 20-29 Min Completed Medical Devices Description No Information Available Encounters Type Date Location Provider Dx Diagnosis Office Visit 01/06/2021 2:30p [place] Reba Corley PA-C Z01.818 Encounter for other preprocedural examination M16.11 Unilateral primary osteoarth ritis, right hip Office Visit 11/21/2020 11:00a Mecca Sotelo MD 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, right hip M45.4 Ankylosing spondylitis of th oracic region 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 ([facility]) 01/06/2021 - Reba Corley PA-C* Z01.818 Encounter for other preprocedural examination * M1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, right hip Functional Status Description No Information Available Mental Status Description No Information Available Referrals Refer to Dr Reason for Referral Status Appt Date Ethan Ortega MD SURGERY NO AUTH REQUIRED FOR TOTAL RT HIP ([id number]) TO SURGERY NT Created [address] [place], [place] [address] [phone] Jaqueline Sotelo MD FLUORO INJ NO AUTH REQUIRED FOR FLUOROSCOPIC INJECTION TO RIGHT HIP (57677, 45749) TO BUZZ Reyes DG Created [address] [place] [phone] Jaqueline Sotelo MD FLUORO INJ NO AUTH REQUIRED FOR FLUOROSCOPIC INJECTION TO RIGHT HIP (39374, 85414) TO BUZZ AbarcaAlejo DG Created [address] [place] [phone] Ethan Ortega MD REF NO AUTH REQUIRED FOR REF TO [facility] RHEUMATOLOGY TO TRANS NT Created [address] [place] [address] [phone]
--- OUTSIDE RECORDS SUMMARY | 2021-01-12 09:03 | CCD | Continuity of Care Document ---
[...] Nikita Lance M.D. 09/10/2016 Blood Glucose Test GIGAS S trips use once a day to test glucose (dx: e 11.9) 100units [facility] Nikita faith M.D. 06/13/2015 Sucralfate 1gm Tablets 1 by mouth three times a day as needed 90Nikita Wright M.D. Flonase Allergy Relief 50mcg/Act Suspension 2 sprays each narea every day Unknown Tramadol HCL 50mg Tablets 1 tab by mouth three times a day as needed pain. do not drive or operate equipment while taking ([id number]) 90Nikita Wright M.D. Tylenol Extra Strength 500mg [...] Nikita Lance M.D . 08/16/2020 - 08/16/2020 [place] 5-325mg Tablets 1 tab by mouth four times a day as needed [id number] 120Nikita Wright M.D. 08/16/2020 - 01/02/2021 Immunizations CPT Code Status Date Vaccine Lot # [id number] Given 12/06/2020 Influenza Virus Vaccine, Quadrivalent, Slit Virus, Im Use 3Y & Up [id number] 83443 Given 12/22/2019 Influenza Virus Vaccine, Quadrivalent, Slit Virus, Im Use 3Y & Up [id number] 37861 Given 01/14/2019 Influenza Virus Vaccine, Quadrivalent, Slit Virus, Im Use 3Y & Up [id number] 68105 Given 12/31/2017 Influenza Virus Vaccine, Quadrivalent, Slit Virus, Im Use 3Y & Up [id number] 51533 Given 12/18/2016 Influenza Virus Vaccine, Quadrivalent, Slit Virus, Im Use 3Y & Up [id number] 36233 Given 12/23/2015 Influenza Vaccin e (Fluzone) 3Yrs Of Age Or Older Medicare Plans [id number] 15814 Given 12/23/2015 Influenza Virus Vaccine, Quadrivalent, Slit Virus, Im Use 3Y & Up 36200 Given 12/17/2014 Influenza Vaccin e (Fluzone) 3Yrs Of Age Or Older Medicare Plans [id number] Q2037 Given 12/28/2013 Influenza Vaccin e (Fluvirin) 3Yrs Of Age Or Older Medicare Plans 59341 Given 12/28/2013 Influenza Virus Vac. Split Virus Individuals 3 Years And Above [id number] 43310 Given 12/29/2012 Influenza Vaccin e (Fluzone) 3Yrs Of Age Or Older Medicare Plans 90598 Given 12/29/2012 Influenza Virus Vac. Split Virus Individuals 3 Years And Above [id number] Vital Signs Date Vital Result Comment 01/02/2021 2:44pm BP Systolic 124 mmHg BP Diastolic 80 mmHg Body Temperature 97.4 F Heart Rate 60 /min Respiratory Rate 18 /min Height 70 inches 5'10" Weight 225.00 lb [place] Body Weight 166 lb BMI (Body Mass Index) 32.3 kg/m2 O2 % BldC Oximetry 97 % 12/06/2020 1:12pm BP Systolic 118 mmHg BP Diastolic 60 mmHg Body Temperature 97.5 F Heart Rate 60 /min Respiratory Rate 18 /min Height 70 inches 5'10" Weight 225.00 lb [place] Body Weight 166 lb BMI (Body Mass Index) 32.3 kg/m2 O2 % BldC Oximetry 97 % Results Test Acquired Date Facility Test Result H/L Range Note Laboratory test finding 01/05/2021 [facility] [place] Bretype A POSITIVE Normal Type&Screen 01/05/2021 [place] Blood Type A POSITIVE Normal Antibody Screen NEGATIVE Normal Prothrombin Time/Inr 12/26/2020 [facility] [place] Interface) [phone] Prothrombin Time 13.7 seconds Normal 12.7-14.5 Inr 1.01 Normal 1 Complete Blood Count 12/26/2020 [facility] [place] Interface) [phone] White Blood Count 9.0 10 Normal 4.0-10.0 [...] % Normal 0-0 Laboratory test finding 12/26/2020 [facility] (Interface) [phone] Erythrocyte Sedimentation Rate 19 mm/hr Normal 0 -20 Comprehensive Metabolic Profil 12/26/2020 [facility] (Interface) [phone] Glucose, Fasting 207 mg/dL High 70-100 Blood [...] Ratio 1.0 Normal Laboratory test finding 11/29/2020 [facility] Hemoglobin A1c 5.8 % 4.50-6.20 [...] eGFR 96 # Calc 4 eGFR Non-Afr. Bolivian 83 # Calc 5 Lipid Panel 11/29/2020 [facility] Chol 160 mg/dL 0 - 200 Trig 112 mg/dL 35 - 200 HDL 56 mg/dL High 35 - 55 LDL_C 81 Calc 75 - 129 Cho/HDL Ratio 2.8 CALC Laboratory test finding 08/29/2020 [facility] Hemoglobin A1c 6.3 % High 4.50-6.20 CMP [...] eGFR 85 # Calc 7 eGFR Non-Afr. 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 ATTACHER 3 NORMAL RANGES Age WBC RBC HGB [...] HCT IS 5% LESS SOURCE FOR DATA: [employer] 1800 OPERATION MANUAL( AUTOMATED BLOOD COUNTS AND [...] CKD-EPI Procedures Date Code Description Status 01/02/2021 83286 Office/Outpatient Established Mo d MDM 30-39 Min Completed 12/06/2020 44706 Office/Outpatient Established Mo d MDM 30-39 Min Completed 10/05/2020 40064 Office/Outpatient Established Mo d MDM 30-39 Min Completed 09/05/2020 18887 Office/Outpatient Established Mo d MDM 30-39 Min Completed 08/30/2020 15389 Office/Outpatient Established Mo d MDM 30-39 Min Completed 08/16/2020 95191 Office/Outpatient Established Mo d MDM 30-39 Min Completed Medical Devices Description No Information Available Encounters Type Date Location Provider Dx Diagnosis Office Visit 01/02/2021 2:00p [place] [facility] Nikita Lance M. D. Z01.810 Encounter for preprocedural cardiovascular examination Office Visit 12/06/2020 1:15p [place] [facility] Nikita Lance M. D. E11.9 Type 2 diabetes mellitus without complications Z23 Encounter for immunization Office Visit 10/05/2020 2:00p [place] [facility] Nikita Lance M. D. M45.0 Ankylosing spondylitis of multiple sites in spine Office Visit 09/05/2020 1:15p [place] [facility] Nikita Lance M. D. M45.0 Ankylosing spondylitis of multiple sites in spine E11.9 Type 2 diabetes mellitus wit hout complications Office Visit 08/30/2020 1:15p [place] [facility] Nikita Lance M. D. M45.0 Ankylosing spondylitis of multiple sites in spine Office Visit 08/16/2020 2:15p [place] [facility] Nikita Lance M. D. M45.0 Ankylosing [...] Type 2 diabetes mellitus without complications Laboratory [place] Schedule 10/05/2020 M45.0 Ankylosing spondylitis of multip [...] Type 2 diabetes mellitus without complications Laboratory [place] Schedule 08/16/2020 M45.0 Ankylosing spondylitis of multip le sites in spine Nikita Lance M.D. Plan of Treatment Future Appointment(s):* 03/13/2021 1:00 pm - Nikita Lance M.D. at [facility] * 03/07/2021 9:15 am - Laboratory [place] Schedule at [facility] Functional Status Description No Information Available Mental Status Description No Information Available Referrals Description No Information Available
--- OUTSIDE RECORDS SUMMARY | 2021-01-12 09:03 | CCD | Continuity of Care Document ---
Author Author Patrick RAE PA-C Organization Unknown Address [address] [place] [address] Phone [phone] Care Team Providers Care Director Risk Name Role Phone Nikita Lance MD AUTM [phone] Problems Active Problems Provider Date Fracture distal [...] H/L Range Note Laboratory test finding 01/05/2021 [facility] [address] [place] [address] Bretype A POSITIVE Normal Type&Screen 01/05/2021 [facility] [address] [place] [address] Blood Type A POSITIVE Normal Antibody Screen NEGATIVE Normal Laboratory test finding 01/05/2021 [facility] [address] [place] [address] [id number]onix Negative Normal Negative 1 Prothrombin Time/Inr 12/26/[address] [address] (315)- - Prothrombin Time 13.7 seconds Normal 12.7-14.5 Inr 1.01 Normal 2 Complete Blood Count 12/26/[address] [address] (315)- - White Blood Count 9.0 10 [...] % Normal 0-0 Laboratory test finding 12/26/2020 [facility] [address] [place] [address] (315)- - Erythrocyte Sedimentation Rate 19 mm/hr Normal 0-20 Comprehensive Metabolic Profil 12/26/[address] [address] (315)- - Glucose, Fasting 207 mg/dL High [...] 3.2-5.2 Albumin/Globulin Ratio 1.0 Normal 1 The [employer] COVID-19 MDx Ass ay is an endpoint [...] sole basis for patient management decisions. 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 Procedures Date Code Description Status 11/21/2020 93761 Office/Outpatient Established Mo d MDM 30-39 Min Completed 09/14/2020 42408 Office/Outpatient Established Mo d MDM 30-39 Min Completed 08/15/2020 99172 Office/Outpatient Established Hi gh MDM 40-54 Min Completed 08/15/2020 82521 X-Ray Spine Lumbosacral Complete Inc Bending Views Min Of 6 Completed 08/15/2020 88023 X-Ray Spine Thoracic Ap & Latera l 2 Views Completed 08/01/2020 45950 Office/Outpatient Established Lo w MDM 20-29 Min Completed Medical Devices Description No Information Available Encounters Type Date Location Provider Dx Diagnosis Office Visit 01/06/2021 2:30p [facility] Z01.818 Encounter for other preprocedural [...] 2:00 pm - Nba Sotelo MD at [facility] * 01/10/2021 10:30 am - Nba Sotelo MD at [facility] ([facility]) 01/06/2021 - Reba Rae PA-C* Z01.818 Encounter for other preprocedural examination * M1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, right hip Functional Status Description No Information Available Mental Status Description No Information Available Referrals Refer to Dr Reason for Referral Status Appt Date Ethan rOtega MD SURGERY NO AUTH REQUIRED FOR TOTAL RT HIP ([id number]) TO SURGERY NT Created [address] [place] [address] [phone] Jaqueline Sotelo MD FLUORO INJ NO AUTH REQUIRED FOR FLUOROSCOPIC INJECTION TO RIGHT HIP ([id number], [id number]) TO BUZZ AbarcaAlejo DG Created [address] [place] [phone] Jaqueline Sotelo MD FLUORO INJ NO AUTH REQUIRED FOR FLUOROSCOPIC INJECTION TO RIGHT HIP ([id number], [id number]) TO BUZZ AbarcaAlejo DG Created [address] [place] [phone] Ethan Ortega MD REF NO AUTH REQUIRED FOR REF TO [facility] RHEUMATOLOG[facility] TO TRANS NT Created [address] [place] [phone] [phone]
--- OUTSIDE RECORDS SUMMARY | 2021-01-12 09:04 | CCD | Continuity of Care Document ---
[...] Daily 180tabs Nikita Lance M .D. 11/11/2020 Prednisone 10mg Tablets 4 by mouth daily x3 then 3 daily x3 then 2 daily x3 then one daily 30tabs Nikita Lance M.D. 08/30/2020 Gabapentin 600mg Tablets take one tablet by mouth four times a day 360tabs Nikita Lance M.D . 08/16/2020 [place] 5-325mg Tablets 1 tab by mouth four times a day as needed [id number] 120tabs Nikita Lance M.D. 08/16/2020 Cyclobenzaprine HCL 10mg Tablets take 1/2 - 1 tablet by mouth every day at bedtime as needed 30tabs Nikita Lance M.D. 09/18/2019 Proair HFA 108(90Base) mcg/Act Aer osol 1-2 puffs every 4-6 hours as needed for sob 8.500gm Nikita Lance M.D. 10/22/2018 Prevnar 13 Suspension as directed 1dose Nikita Lance M.D. 12/18/2016 Lancets Micro Thin 33G Thin 33G Mi sc Microlet test glucose three times a day and as needed (dx: e 11.9) 100units Nikita Lance M.D. 09/10/2016 Blood Glucose Test Michele Contour S trips use once a day to test glucose (dx: e 11.9) [facility] [place] [facility] 06/13/2015 Sucralfate 1gm Tablets 1 by mouth three times a day as needed 90taNikita Cormier M.D. Flonase Allergy Relief 50mcg/Act Suspension 2 sprays each narea every day Unknown Tramadol HCL 50mg Tablets 1 tab by mouth three times a day as needed pain. do not drive or operate equipment while taking ([id number]) 90taNikita Cormier M.D. 00 Tylenol Extra Strength 500mg Table ts take 2 by mouth three times a day as needed Unknown History Medications Gabapentin 300mg Capsules take one capsule by mouth four times a day 120caps Nikita Lance M.D . 08/16/2020 - 08/16/2020 Immunizations CPT Code Status Date Vaccine Lot # 12890 Given 12/06/2020 Influenza Virus Vaccine, Quadrivalent, Slit Virus, Im Use 3Y & Up [id number] 84721 Given 12/22/2019 Influenza Virus Vaccine, Quadrivalent, Slit Virus, Im Use 3Y & Up [id number] 68929 Given 01/14/2019 Influenza Virus Vaccine, Quadrivalent, Slit Virus, Im Use 3Y & Up [id number] 00421 Given 12/31/2017 Influenza Virus Vaccine, Quadrivalent, Slit Virus, Im Use 3Y & Up [id number] 63161 Given 12/18/2016 Influenza Virus Vaccine, Quadrivalent, Slit Virus, Im Use 3Y & Up [id number] 34858 Given 12/23/2015 Influenza Vaccin e (Fluzone) 3Yrs Of Age Or Older Medicare Plans [id number] 05515 Given 12/23/2015 Influenza Virus Vaccine, Quadrivalent, Slit Virus, Im Use 3Y & Up 48051 Given 12/17/2014 Influenza Vaccin e (Fluzone) 3Yrs Of Age Or Older Medicare Plans [id number] Q2037 Given 12/28/2013 Influenza Vaccin e (Fluvirin) 3Yrs Of Age Or Older Medicare Plans 01207 Given 12/28/2013 Influenza Virus Vac. Split Virus Individuals 3 Years And Above [id number] 62210 Given 12/29/2012 Influenza Vaccin e (Fluzone) 3Yrs Of Age Or Older Medicare Plans 86586 Given 12/29/2012 Influenza Virus Vac. Split Virus Individuals 3 Years And Above [id number] Vital Signs Date Vital Result Comment 12/06/2020 1:12pm BP Systolic 118 mmHg BP Diastolic 60 mmHg Body Temperature 97.5 F Heart Rate 60 /min Respiratory Rate 18 /min Height 70 inches 5'10" Weight 225.00 lb [place] Body Weight 166 lb BMI (Body Mass Index) 32.3 kg/m2 O2 % BldC Oximetry 97 % 10/05/2020 1:54pm BP Systolic 120 mmHg BP Diastolic 82 mmHg Body Temperature 97.8 F Heart Rate 54 /min Respiratory Rate 16 /min Height 70 inches 5'10" Weight 230.00 lb [place] Body Weight 166 lb BMI (Body Mass Index) 33.0 kg/m2 O2 % BldC Oximetry 97 % Results Test Acquired Date Facility Test Result H/L Range Note Prothrombin Time/Inr 12/26/2020 [facility] ( Interface) [phone] Prothrombin Time 13.7 seconds Normal 12.7-14.5 Inr 1.01 Normal 1 Complete Blood Count 12/26/2020 [facility] [employer] Interface) [phone] White Blood Count 9.0 10 Normal 4.0-10.0 [...] % Normal 0-0 Laboratory test finding 12/26/2020 [facility] (Interface) [phone] Erythrocyte Sedimentation Rate 19 mm/hr Normal 0 -20 Comprehensive Metabolic Profil 12/26/2020 [facility] (Interface) [phone] Glucose, Fasting 207 mg/dL High 70-100 Blood [...] Ratio 1.0 Normal Laboratory test finding 11/29/2020 [facility] Hemoglobin A1c 5.8 % 4.50-6.20 [...] eGFR 96 # Calc 4 eGFR Non-Afr. Ugandan 83 # Calc 5 Lipid Panel 11/29/2020 [facility] Chol 160 mg/dL 0 - 200 Trig 112 mg/dL 35 - 200 HDL 56 mg/dL High 35 - 55 LDL_C 81 Calc 75 - 129 Cho/HDL Ratio 2.8 CALC Laboratory test finding 08/29/2020 [facility] Hemoglobin A1c 6.3 % High 4.50-6.20 [...] eGFR 85 # Calc 7 eGFR Non-Afr. Ugandan 73 # Calc 8 1 THERAPUTIC HUMAN [...] Little GFR Left ESRD GFR <15 on BASEBALL SEWER HAND 3 NORMAL RANGES Age WBC RBC HGB [...] HCT IS 5% LESS SOURCE FOR DATA: [employer] 1800 OPERATION MANUAL( AUTOMATED BLOOD COUNTS AND [...] 8 CKD-EPI Procedures Date Code Description Status 12/06/2020 14346 Office/Outpatient Established Mo d MDM 30-39 Min Completed 10/05/2020 86940 Office/Outpatient Established Mo d MDM 30-39 Min Completed 09/05/2020 12916 Office/Outpatient Established Mo d MDM 30-39 Min Completed 08/30/2020 58169 Office/Outpatient Established Mo d MDM 30-39 Min Completed 08/16/2020 25453 Office/Outpatient Established Mo d MDM 30-39 Min Completed 06/29/2020 08537 Office/Outpatient Established Lo w MDM 20-29 Min Completed Medical Devices Description No Information Available Encounters Type Date Location Provider Dx Diagnosis Office Visit 12/06/2020 1:15p [place] [facility] Nikita Lance M. D. E11.9 Type 2 diabetes mellitus without complications Z23 Encounter for immunization Office Visit 10/05/2020 2:00p [place] [facility] Nikita Lance M. D. M45.0 Ankylosing spondylitis of multiple sites in spine Office Visit 09/05/2020 1:15p [place] [facility] Nikita Lance M. D. M45.0 Ankylosing spondylitis of multiple sites in spine E11.9 Type 2 diabetes mellitus wit hout complications Office Visit 08/30/2020 1:15p [place] [facility] Nikita Lance M. D. M45.0 Ankylosing spondylitis of multiple sites in spine Office Visit 08/16/2020 2:15p [place] [facility] Nikita Lance M. D. M45.0 Ankylosing spondylitis of multiple sites in spine Office Visit 06/29/2020 11:15a [place] [facility] Nikita Lance M. D. M25.532 Pain in left wrist Assessments Date Code Description Provider 12/06/2020 E11.9 Type 2 diabetes mellitus without complications Nikita Lance M.D. 12/06/2020 Z23 Encounter for immunization Gerard Nikita laurent M.D. 11/29/2020 E11.9 Type 2 diabetes mellitus without complications Nikita Lance M.D. 11/29/2020 E11.9 Type 2 diabetes mellitus without complications Laboratory [place] Schedule 10/05/2020 M45.0 Ankylosing spondylitis of multip [...] Type 2 diabetes mellitus without complications Laboratory [place] Schedule 08/16/2020 M45.0 Ankylosing spondylitis of multip le sites in spine Nikita Lance M.D. 06/29/2020 M25.532 Pain in left wrist Jluis Lance M.D. Plan of Treatment Future Appointment(s):* 03/13/2021 1:00 pm - Nikita Lance M.D. at [facility] * 03/07/2021 9:15 am - Laboratory [place] Schedule at [facility] * 01/02/2021 2:00 pm - Nikita Lance M.D. at [facility] Functional Status Description No Information Available Mental Status Description No Information Available Referrals Description No Information Available
--- OUTSIDE RECORDS SUMMARY | 2021-01-12 09:04 | CCD | Continuity of Care Document ---
Author Author Patrick LANCE M.D. Organization Unknown Address [address] [address] Phone [phone] Problems Active Problems Provider Date Impaired fasting [...] to test glucose (dx: e 11.9) 100units [facility] Nikita faith M.D. 06/13/2015 Sucralfate 1gm Tablets 1 by mouth three times a day as needed 90taNikita Cormier M.D. Flonase Allergy Relief 50mcg/Act Suspension 2 sprays each narea every day Unknown Tramadol HCL 50mg Tablets 1 tab by mouth three times a day as needed pain. do not drive or operate equipment while taking ([id number]) 90taNikita Cormier M.D. 00 Tylenol Extra Strength [...] Nikita Lance M.D . 08/16/2020 - 08/16/2020 [place] 5-325mg Tablets 1 tab by mouth four times a day as needed [id number] 120taNikita Cormier M.D. 08/16/2020 - 01/02/2021 Immunizations CPT Code Status Date Vaccine Lot # 34612 Given 12/06/2020 Influenza Virus Vaccine, Quadrivalent, Slit Virus, Im Use 3Y & Up [id number] 57690 Given 12/22/2019 Influenza Virus Vaccine, Quadrivalent, Slit Virus, Im Use 3Y & Up [id number] 68430 Given 01/14/2019 Influenza Virus Vaccine, Quadrivalent, Slit Virus, Im Use 3Y & Up [id number] 25621 Given 12/31/2017 Influenza Virus Vaccine, Quadrivalent, Slit Virus, Im Use 3Y & Up [id number] 61823 Given 12/18/2016 Influenza Virus Vaccine, Quadrivalent, Slit Virus, Im Use 3Y & Up [id number] 56404 Given 12/23/2015 Influenza Vaccin e (Fluzone) 3Yrs Of Age Or Older Medicare Plans [id number] 60944 Given 12/23/2015 Influenza Virus Vaccine, Quadrivalent, Slit Virus, Im Use 3Y & Up 91461 Given 12/17/2014 Influenza Vaccin e (Fluzone) 3Yrs Of Age Or Older Medicare Plans [id number] Q2037 Given 12/28/2013 Influenza Vaccin e (Fluvirin) 3Yrs Of Age Or Older Medicare Plans 69000 Given 12/28/2013 Influenza Virus Vac. Split Virus Individuals 3 Years And Above [id number] 20097 Given 12/29/2012 Influenza Vaccin e (Fluzone) 3Yrs Of Age Or Older Medicare Plans 65951 Given 12/29/2012 Influenza Virus Vac. Split Virus Individuals 3 Years And Above [id number] Vital Signs Date Vital Result Comment 01/02/2021 2:44pm BP Systolic 124 mmHg BP Diastolic 80 mmHg Body Temperature 97.4 F Heart Rate 60 /min Respiratory Rate 18 /min Height 70 inches 5'10" Weight 225.00 lb [place] Body Weight 166 lb BMI (Body Mass Index) 32.3 kg/m2 O2 % BldC Oximetry 97 % 12/06/2020 1:12pm BP Systolic 118 mmHg BP Diastolic 60 mmHg Body Temperature 97.5 F Heart Rate 60 /min Respiratory Rate 18 /min Height 70 inches 5'10" Weight 225.00 lb [place] Body Weight 166 lb BMI (Body Mass Index) 32.3 kg/m2 O2 % BldC Oximetry 97 % Results Test Acquired Date Facility Test Result H/L Range Note Prothrombin Time/Inr 12/26/2020 [facility] ( Interface) [phone] Prothrombin Time 13.7 seconds Normal 12.7-14.5 Inr 1.01 Normal 1 Complete Blood Count 12/26/2020 [facility] [employer] Interface) [phone] White Blood Count 9.0 10 Normal 4.0-10.0 [...] % Normal 0-0 Laboratory test finding 12/26/2020 [facility] (Interface) [phone] Erythrocyte Sedimentation Rate 19 mm/hr Normal 0 -20 Comprehensive Metabolic Profil 12/26/2020 [facility] (Interface) [phone] Glucose, Fasting 207 mg/dL High 70-100 Blood [...] Ratio 1.0 Normal Laboratory test finding 11/29/2020 [facility] Hemoglobin A1c 5.8 % 4.50-6.20 CBC [...] eGFR 96 # Calc 4 eGFR Non-Afr. Turkish 83 # Calc 5 Lipid Panel 11/29/2020 [facility] Chol 160 mg/dL 0 - 200 Trig 112 mg/dL 35 - 200 HDL 56 mg/dL High 35 - 55 LDL_C 81 Calc 75 - 129 Cho/HDL Ratio 2.8 CALC Laboratory test finding 08/29/2020 [facility] [place] [place] Hemoglobin A1c 6.3 % High 4.50-6.20 CMP [...] eGFR 85 # Calc 7 eGFR Non-Afr. Turkish 73 # Calc 8 1 THERAPUTIC HUMAN [...] Little GFR Left ESRD GFR <15 on BUTCHER SUPERVISOR 3 NORMAL RANGES Age WBC RBC HGB [...] HCT IS 5% LESS SOURCE FOR DATA: [employer] 1800 OPERATION MANUAL( AUTOMATED BLOOD COUNTS AND [...] CKD-EPI Procedures Date Code Description Status 01/02/2021 70479 Office/Outpatient Established Mo d MDM 30-39 Min Completed 12/06/2020 27486 Office/Outpatient Established Mo d MDM 30-39 Min Completed 10/05/2020 47796 Office/Outpatient Established Mo d MDM 30-39 Min Completed 09/05/2020 00900 Office/Outpatient Established Mo d MDM 30-39 Min Completed 08/30/2020 83651 Office/Outpatient Established Mo d MDM 30-39 Min Completed 08/16/2020 83744 Office/Outpatient Established Mo d MDM 30-39 Min Completed Medical Devices Description No Information Available Encounters Type Date Location Provider Dx Diagnosis Office Visit 01/02/2021 2:00p [place] [facility] Nikita Lance M. D. Z01.810 Encounter for preprocedural cardiovascular examination Office Visit 12/06/2020 1:15p [place] [facility] Nikita Lance M. D. E11.9 Type 2 diabetes mellitus without complications Z23 Encounter for immunization Office Visit 10/05/2020 2:00p [place] [facility] Nikita Lance M. D. M45.0 Ankylosing spondylitis of multiple sites in spine Office Visit 09/05/2020 1:15p [place] [facility] Nikita Lance M. D. M45.0 Ankylosing spondylitis of multiple sites in spine E11.9 Type 2 diabetes mellitus wit hout complications Office Visit 08/30/2020 1:15p [place] [facility] Nikita Lance M. D. M45.0 Ankylosing spondylitis of multiple sites in spine Office Visit 08/16/2020 2:15p [place] [facility] Nikita Lance M. D. M45.0 Ankylosing [...] Type 2 diabetes mellitus without complications Laboratory [place] Schedule 10/05/2020 M45.0 Ankylosing spondylitis of multip [...] Type 2 diabetes mellitus without complications Laboratory [place] Schedule 08/16/2020 M45.0 Ankylosing spondylitis of multip le sites in spine Nikita Lance M.D. Plan of Treatment Future Appointment(s):* 03/13/2021 1:00 pm - Nikita Lance M.D. at [place] [facility] * 03/07/2021 9:15 am - Laboratory [place] Schedule at [place] [facility] Functional Status Description No Information Available Mental Status Description No Information Available Referrals Description No Information Available
--- OUTSIDE RECORDS SUMMARY | 2021-01-12 09:04 | CCD | Continuity of Care Document ---
Author Author Patrick LANCE M.D. Organization Unknown Address [address] [address] Phone [phone] Problems Active Problems Provider Date Impaired fasting [...] Tablet By Mouth Twice Daily 180tabs Nikita Lanec M .D. 11/11/2020 Gabapentin 600mg Tablets take [...] to test glucose (dx: e 11.9) 100units [facility] Nikita faith M.D. 06/13/2015 Sucralfate 1gm Tablets 1 by mouth three times a day as needed 90taNikita Cormier M.D. Flonase Allergy Relief 50mcg/Act Suspension 2 sprays each narea every day Unknown Tramadol HCL 50mg Tablets 1 tab by mouth three times a day as needed pain. do not drive or operate equipment while taking ([id number]) 90taNikita Cormier M.D. 00 Tylenol Extra Strength [...] Nikita Lance M.D . 08/16/2020 - 08/16/2020 [place] 5-325mg Tablets 1 tab by mouth four times a day as needed [id number] 120taNikita Cormier M.D. 08/16/2020 - 01/02/2021 Immunizations CPT Code Status Date Vaccine Lot # [id number] Given 12/06/2020 Influenza Virus Vaccine, Quadrivalent, Slit Virus, Im Use 3Y & Up [id number] 63919 Given 12/22/2019 Influenza Virus Vaccine, Quadrivalent, Slit Virus, Im Use 3Y & Up [id number] 19087 Given 01/14/2019 Influenza Virus Vaccine, Quadrivalent, Slit Virus, Im Use 3Y & Up [id number] 04455 Given 12/31/2017 Influenza Virus Vaccine, Quadrivalent, Slit Virus, Im Use 3Y & Up [id number] 27803 Given 12/18/2016 Influenza Virus Vaccine, Quadrivalent, Slit Virus, Im Use 3Y & Up [id number] 80033 Given 12/23/2015 Influenza Vaccin e (Fluzone) 3Yrs Of Age Or Older Medicare Plans [id number] 93643 Given 12/23/2015 Influenza Virus Vaccine, Quadrivalent, Slit Virus, Im Use 3Y & Up 21925 Given 12/17/2014 Influenza Vaccin e (Fluzone) 3Yrs Of Age Or Older Medicare Plans [id number] Q2037 Given 12/28/2013 Influenza Vaccin e (Fluvirin) 3Yrs Of Age Or Older Medicare Plans 62663 Given 12/28/2013 Influenza Virus Vac. Split Virus Individuals 3 Years And Above [id number] 44780 Given 12/29/2012 Influenza Vaccin e (Fluzone) 3Yrs Of Age Or Older Medicare Plans 78588 Given 12/29/2012 Influenza Virus Vac. Split Virus Individuals 3 Years And Above [id number] Vital Signs Date Vital Result Comment 01/02/2021 2:44pm BP Systolic 124 mmHg BP Diastolic 80 mmHg Body Temperature 97.4 F Heart Rate 60 /min Respiratory Rate 18 /min Height 70 inches 5'10" Weight 225.00 lb [place] Body Weight 166 lb BMI (Body Mass Index) 32.3 kg/m2 O2 % BldC Oximetry 97 % 12/06/2020 1:12pm BP Systolic 118 mmHg BP Diastolic 60 mmHg Body Temperature 97.5 F Heart Rate 60 /min Respiratory Rate 18 /min Height 70 inches 5'10" Weight 225.00 lb [place] Body Weight 166 lb BMI (Body Mass Index) 32.3 kg/m2 O2 % BldC Oximetry 97 % Results Test Acquired Date Facility Test Result H/L Range Note Laboratory test finding 01/05/2021 [facility] Bretype A POSITIVE Normal Type&Screen 01/05/2021 [facility] [place] Blood Type A POSITIVE Normal Antibody Screen NEGATIVE Normal Prothrombin Time/Inr 12/26/2020 [facility] ( Interface) [phone] Prothrombin Time 13.7 seconds Normal 12.7-14.5 Inr 1.01 Normal 1 Complete Blood Count 12/26/2020 [facility] [place] Interface) [phone] White Blood Count 9.0 10 Normal 4.0-10.0 [...] % Normal 0-0 Laboratory test finding 12/26/2020 [facility] (Interface) [phone] Erythrocyte Sedimentation Rate 19 mm/hr Normal 0 -20 Comprehensive Metabolic Profil 12/26/2020 [facility] (Interface) [phone] Glucose, Fasting 207 mg/dL High 70-100 Blood [...] Ratio 1.0 Normal Laboratory test finding 11/29/2020 [facility] Hemoglobin A1c 5.8 [...] eGFR 96 # Calc 4 eGFR Non-Afr. Micronesian 83 # Calc 5 Lipid Panel 11/29/2020 [facility] Chol 160 mg/dL 0 - 200 Trig 112 mg/dL 35 - 200 HDL 56 mg/dL High 35 - 55 LDL_C 81 Calc 75 - 129 Cho/HDL Ratio 2.8 CALC Laboratory test finding 08/29/2020 [facility] Hemoglobin A1c 6.3 % High 4.50-6.20 CMP [...] eGFR 85 # Calc 7 eGFR Non-Afr. Micronesian 73 # Calc 8 1 THERAPUTIC HUMAN [...] Little GFR Left ESRD GFR <15 on MECHANICAL ADJUSTER 3 NORMAL RANGES Age WBC RBC HGB [...] HCT IS 5% LESS SOURCE FOR DATA: [employer] 1800 OPERATION MANUAL( AUTOMATED BLOOD COUNTS AND [...] CKD-EPI Procedures Date Code Description Status 01/02/2021 06858 Office/Outpatient Established Mo d MDM 30-39 Min Completed 12/06/2020 39632 Office/Outpatient Established Mo d MDM 30-39 Min Completed 10/05/2020 68095 Office/Outpatient Established Mo d MDM 30-39 Min Completed 09/05/2020 27725 Office/Outpatient Established Mo d MDM 30-39 Min Completed 08/30/2020 01065 Office/Outpatient Established Mo d MDM 30-39 Min Completed 08/16/2020 92629 Office/Outpatient Established Mo d MDM 30-39 Min Completed Medical Devices Description No Information Available Encounters Type Date Location Provider Dx Diagnosis Office Visit 01/02/2021 2:00p [place] [facility] Nikita Lance M. D. Z01.810 Encounter for preprocedural cardiovascular examination Office Visit 12/06/2020 1:15p [place] [facility] Nikita Lance M. D. E11.9 Type 2 diabetes mellitus without complications Z23 Encounter for immunization Office Visit 10/05/2020 2:00p [place] [facility] Nikita Lance M. D. M45.0 Ankylosing spondylitis of multiple sites in spine Office Visit 09/05/2020 1:15p [place] [facility] Nikita Lance M. D. M45.0 Ankylosing spondylitis of multiple sites in spine E11.9 Type 2 diabetes mellitus wit hout complications Office Visit 08/30/2020 1:15p [place] [facility] Nikita Lance M. D. M45.0 Ankylosing spondylitis of multiple sites in spine Office Visit 08/16/2020 2:15p [place] [facility] Nikita Lance M. D. M45.0 Ankylosing [...] Type 2 diabetes mellitus without complications Laboratory [place] Schedule 10/05/2020 M45.0 Ankylosing spondylitis of multip [...] Type 2 diabetes mellitus without complications Laboratory [place] Schedule 08/16/2020 M45.0 Ankylosing spondylitis of multip le sites in spine Nikita Lance M.D. Plan of Treatment Future Appointment(s):* 03/13/2021 1:00 pm - Nikita Lance M.D. at [place] [facility] * 03/07/2021 9:15 am - Laboratory [place] Schedule at [facility] Functional Status Description No Information Available Mental Status Description No Information Available Referrals Description No Information Available
--- OUTSIDE RECORDS SUMMARY | 2021-01-12 09:04 | CCD | Continuity of Care Document ---
Author Author Laboratory Patrick Santamaria Organization Unknown Address 3 [facility] [address] [place] [address] Phone [phone] Problems Active Problems Provider Date Impaired fasting [...] Patient is a former smoker QUIT 2014 Allergies, Adverse Reactions, Alerts Active Allergies Criticality Reaction | Severity Comments [...] day 360tabs Nikita Lance M.D . 08/16/2020 [place] 5-325mg Tablets 1 tab by mouth four times a day as needed [id number] 120tabs Nikita Lance M.D. 08/16/2020 Cyclobenzaprine HCL [...] to test glucose (dx: e 11.9) [facility] 06/13/2015 Sucralfate 1gm Tablets 1 by mouth three times a day as needed 90tabs Nikita Lance M.D. Flonase Allergy Relief 50mcg/Act Suspension 2 sprays each narea every day Unknown Tramadol HCL 50mg Tablets 1 tab by mouth three times a day as needed pain. do not drive or operate equipment while taking ([id number]) 90tabs Dev Corley D.O., FAAFP Tylenol Extra Strength 500mg Table ts take 2 by mouth three times a day as needed Unknown History Medications Gabapentin 300mg Capsules take one capsule by mouth four times a day 120caps Nikita Lance M.D . 08/16/2020 - 08/16/2020 Immunizations CPT Code Status Date Vaccine Lot # [id number] Given 12/22/2019 Influenza Virus Vaccine, Quadrivalent, Slit Virus, Im Use 3Y & Up [id number] 44053 Given 01/14/2019 Influenza Virus Vaccine, Quadrivalent, Slit Virus, Im Use 3Y & Up [id number] 12915 Given 12/31/2017 Influenza Virus Vaccine, Quadrivalent, Slit Virus, Im Use 3Y & Up [id number] 59221 Given 12/18/2016 Influenza Virus Vaccine, Quadrivalent, Slit Virus, Im Use 3Y & Up [id number] 34597 Given 12/23/2015 Influenza Vaccin e (Fluzone) 3Yrs Of Age Or Older Medicare Plans [id number] 73490 Given 12/23/2015 Influenza Virus Vaccine, Quadrivalent, Slit Virus, Im Use 3Y & Up 11180 Given 12/17/2014 Influenza Vaccin e (Fluzone) 3Yrs Of Age Or Older Medicare Plans [id number] Q2037 Given 12/28/2013 Influenza Vaccin e (Fluvirin) 3Yrs Of Age Or Older Medicare Plans 46507 Given 12/28/2013 Influenza Virus Vac. Split Virus Individuals 3 Years And Above [id number] 22524 Given 12/29/2012 Influenza Vaccin e (Fluzone) 3Yrs Of Age Or Older Medicare Plans 10828 Given 12/29/2012 Influenza Virus Vac. Split Virus Individuals 3 Years And Above [id number] Vital Signs Date Vital Result Comment 10/05/2020 1:54pm BP Systolic 120 mmHg BP Diastolic 82 mmHg Body Temperature 97.8 F Heart Rate 54 /min Respiratory Rate 16 /min Height 70 inches 5'10" Weight 230.00 lb [place] Body Weight 166 lb BMI (Body Mass Index) 33.0 kg/m2 O2 % BldC Oximetry 97 % 09/05/2020 1:18pm BP Systolic 124 mmHg BP Diastolic 80 mmHg Body Temperature 98.4 F Heart Rate 54 /min Respiratory Rate 16 /min Height 70 inches 5'10" Weight 220.00 lb [place] Body Weight 166 lb BMI (Body Mass Index) 31.6 kg/m2 O2 % BldC Oximetry 97 % Results Test Acquired Date Facility Test Result H/L Range Note Laboratory test finding 11/29/2020 [facility] Hemoglobin A1c 5.8 % 4.50-6.20 CBC 11/29/2020 [facility] WBC 7.7 10E3/uL 4.1 - 10.9 1 RBC 4.50 10E6/uL 4.20 - 6.30 HGB [...] Gap 20 mmol/L eGFR 96 # Calc 2 eGFR Non-Afr. Faroese 83 # Calc 3 Lipid Panel 11/29/2020 [facility] Chol 160 mg/dL 0 - 200 Trig 112 mg/dL 35 - 200 HDL 56 mg/dL High 35 - 55 LDL_C 81 Calc 75 - 129 Cho/HDL Ratio 2.8 CALC Laboratory test finding 08/29/2020 [facility] Hemoglobin A1c 6.3 % High 4.50-6.20 CMP 08/29/2020 [facility] Glu 146 mg/dL High 70 - 110 4 BUN 15 mg/dL 8 - 23 Creat [...] Gap 16 mmol/L eGFR 85 # Calc 5 eGFR Non-Afr. Faroese 73 # Calc 6 1 NORMAL RANGES Age WBC RBC HGB HCT [...] HCT IS 5% LESS SOURCE FOR DATA: [employer] 1800 OPERATION MANUAL( AUTOMATED BLOOD COUNTS AND [...] ADOLESCENTS REPRESENTS INDIVIDUALA AGED 2-19 YEARS EXCLUSIVE. 2 CKD-EPI 3 CKD-EPI 4 CHRONIC KIDNEY DISEASE STAGI NG PER NKF: [...] Normal 80 and above >32 mL/min Normal 5 CKD-EPI 6 CKD-EPI Procedures Date Code Description Status 10/05/2020 55219 Office/Outpatient Established Mo d MDM 30-39 Min Completed 09/05/2020 62123 Office/Outpatient Established Mo d MDM 30-39 Min Completed 08/30/2020 58950 Office/Outpatient Established Mo d MDM 30-39 Min Completed 08/16/2020 45324 Office/Outpatient Established Mo d MDM 30-39 Min Completed 06/29/2020 22989 Office/Outpatient Established Lo w MDM 20-29 Min Completed Medical Devices Description No Information Available Encounters Type Date Location Provider Dx Diagnosis Office Visit 10/05/2020 2:00p [place] [facility] Nikita Lance M. D. M45.0 Ankylosing spondylitis of multiple sites in spine Office Visit 09/05/2020 1:15p [place] [facility] Nikita Lance M. D. M45.0 Ankylosing spondylitis of multiple sites in spine E11.9 Type 2 diabetes mellitus wit hout complications Office Visit 08/30/2020 1:15p [place] [facility] Nikita Lance M. D. M45.0 Ankylosing spondylitis of multiple sites in spine Office Visit 08/16/2020 2:15p [place] [facility] Nikita Lance M. D. M45.0 Ankylosing spondylitis of multiple sites in spine Office Visit 06/29/2020 11:15a [place] [facility] Nikita Lance M. D. M25.532 Pain in left wrist Assessments Date Code Description Provider 11/29/2020 E11.9 Type 2 diabetes mellitus without complications Laboratory [place] Schedule 10/05/2020 M45.0 Ankylosing spondylitis of multip le sites in spine Nikita Lance M.D. 09/05/2020 M45.0 Ankylosing spondylitis of multip le sites in spine iNkita Lance M.D. 09/05/2020 E11.9 Type 2 diabetes mellitus without complications Nikita Lance M.D. 08/30/2020 M45.0 Ankylosing spondylitis of multip le sites in spine Nikita Lance M.D. 08/29/2020 E11.9 Type 2 diabetes mellitus without complications Nikita Lance M.D. 08/29/2020 E11.9 Type 2 diabetes mellitus without complications Laboratory [place] Schedule 08/16/2020 M45.0 Ankylosing spondylitis of multip le sites in spine Nikita Lance M.D. 06/29/2020 M25.532 Pain in left wrist Jluis Lance M.D. Plan of Treatment Future Appointment(s):* 01/02/2021 2:00 pm - Nikita Lance M.D. at [facility] * 12/06/2020 1:15 pm - Nikita Lance M.D. at [facility] Functional Status Description No Information Available Mental Status Description No Information Available Referrals Description No Information Available
--- OUTSIDE RECORDS SUMMARY | 2021-01-12 09:04 | CCD | Continuity of Care Document ---
[...] day 360tabs Nikita Lance M.D . 08/16/2020 [place] 5-325mg Tablets 1 tab by mouth four times a day as needed [id number] 120tabs Nikita Lance M.D. 08/16/2020 Cyclobenzaprine HCL [...] to test glucose (dx: e 11.9) [facility]2015 Sucralfate 1gm Tablets 1 by mouth three times a day as needed 90taNikita Cormier M.D. Flonase Allergy Relief 50mcg/Act Suspension 2 sprays each narea every day Unknown Tramadol HCL 50mg Tablets 1 tab by mouth three times a day as needed pain. do not drive or operate equipment while taking ([id number]) 90taNikita Cormier M.D. 00 Tylenol Extra Strength 500mg Table ts take 2 by mouth three times a day as needed Unknown History Medications Gabapentin 300mg Capsules take one capsule by mouth four times a day 120caps Nikita Lance M.D . 08/16/2020 - 08/16/2020 Immunizations CPT Code Status Date Vaccine Lot # [id number] Given 12/06/2020 Influenza Virus Vaccine, Quadrivalent, Slit Virus, Im Use 3Y & Up [id number] 90865 Given 12/22/2019 Influenza Virus Vaccine, Quadrivalent, Slit Virus, Im Use 3Y & Up [id number] 61117 Given 01/14/2019 Influenza Virus Vaccine, Quadrivalent, Slit Virus, Im Use 3Y & Up [id number] 59369 Given 12/31/2017 Influenza Virus Vaccine, Quadrivalent, Slit Virus, Im Use 3Y & Up [id number] 96447 Given 12/18/2016 Influenza Virus Vaccine, Quadrivalent, Slit Virus, Im Use 3Y & Up [id number] 60024 Given 12/23/2015 Influenza Vaccin e (Fluzone) 3Yrs Of Age Or Older Medicare Plans [id number] 43758 Given 12/23/2015 Influenza Virus Vaccine, Quadrivalent, Slit Virus, Im Use 3Y & Up 30651 Given 12/17/2014 Influenza Vaccin e (Fluzone) 3Yrs Of Age Or Older Medicare Plans [id number] Q2037 Given 12/28/2013 Influenza Vaccin e (Fluvirin) 3Yrs Of Age Or Older Medicare Plans 58482 Given 12/28/2013 Influenza Virus Vac. Split Virus Individuals 3 Years And Above [id number] 46329 Given 12/29/2012 Influenza Vaccin e (Fluzone) 3Yrs Of Age Or Older Medicare Plans 60889 Given 12/29/2012 Influenza Virus Vac. Split Virus Individuals 3 Years And Above [id number] Vital Signs Date Vital Result Comment 12/06/2020 1:12pm BP Systolic 118 mmHg BP Diastolic 60 mmHg Body Temperature 97.5 F Heart Rate 60 /min Respiratory Rate 18 /min Height 70 inches 5'10" Weight 225.00 lb [place] Body Weight 166 lb BMI (Body Mass Index) 32.3 kg/m2 O2 % BldC Oximetry 97 % 10/05/2020 1:54pm BP Systolic 120 mmHg BP Diastolic 82 mmHg Body Temperature 97.8 F Heart Rate 54 /min Respiratory Rate 16 /min Height 70 inches 5'10" Weight 230.00 lb [place] Body Weight 166 lb BMI (Body Mass Index) 33.0 kg/m2 O2 % BldC Oximetry 97 % Results Test Acquired Date Facility Test Result H/L Range Note Prothrombin Time/Inr 12/26/2020 [facility] ( Interface) [phone] Prothrombin Time 13.7 seconds Normal 12.7-14.5 Inr 1.01 Normal 1 Laboratory test finding 11/29/2020 [facility] Hemoglobin A1c 5.8 % 4.50-6.20 CBC 11/29/2020 [facility] WBC 7.7 10E3/uL 4.1 - 10.9 2 RBC 4.50 10E6/uL 4.20 - 6.30 HGB [...] Gap 20 mmol/L eGFR 96 # Calc 3 eGFR Non-Afr. Lebanese 83 # Calc 4 Lipid Panel 11/29/2020 [facility] Chol 160 mg/dL 0 - 200 Trig 112 mg/dL 35 - 200 HDL 56 mg/dL High 35 - 55 LDL_C 81 Calc 75 - 129 Cho/HDL Ratio 2.8 CALC Laboratory test finding 08/29/2020 [facility] Hemoglobin A1c 6.3 % High 4.50-6.20 CMP 08/29/2020 [facility] Glu 146 mg/dL High 70 - 110 5 BUN 15 mg/dL 8 - 23 Creat [...] Gap 16 mmol/L eGFR 85 # Calc 6 eGFR Non-Afr. Lebanese 73 # Calc 7 1 THERAPUTIC HUMAN INR VALUES INDICATIONS NORMAL RANGES PROPHYLAXIS/TREATMENT OF: VENOUS THROMBOSIS 2.0-3.0 PULMONARY EMBOLISM 2.0-3.0 PREVENTION OF SYSTEMIC EMBOLISM FROM: TISSUE HEART VALVES 2.0-3.0 ACUTE MYOCARDIAL INFARCTION 2.0-3.0 VALVULAR HEART DISEASE 2.0-3.0 ATRIAL FIBRILLATION 2.0-3.0 MECHANICAL VALVES(HIGH RISK) 2.5-3.5 RECURRENT MYOCARDIAL INFARCTION 2.5-3.5 2 NORMAL RANGES Age WBC RBC HGB HCT [...] HCT IS 5% LESS SOURCE FOR DATA: [employer] 1800 OPERATION MANUAL( AUTOMATED BLOOD COUNTS AND [...] ADOLESCENTS REPRESENTS INDIVIDUALA AGED 2-19 YEARS EXCLUSIVE. 3 CKD-EPI 4 CKD-EPI 5 CHRONIC KIDNEY DISEASE STAGI NG PER NKF: [...] Normal 80 and above >32 mL/min Normal 6 CKD-EPI 7 CKD-EPI Procedures Date Code Description Status 12/06/2020 54625 Office/Outpatient Established Mo d MDM 30-39 Min Completed 10/05/2020 99025 Office/Outpatient Established Mo d MDM 30-39 Min Completed 09/05/2020 22074 Office/Outpatient Established Mo d MDM 30-39 Min Completed 08/30/2020 27006 Office/Outpatient Established Mo d MDM 30-39 Min Completed 08/16/2020 18172 Office/Outpatient Established Mo d MDM 30-39 Min Completed 06/29/2020 43317 Office/Outpatient Established Lo w MDM 20-29 Min Completed Medical Devices Description No Information Available Encounters Type Date Location Provider Dx Diagnosis Office Visit 12/06/2020 1:15p [place] [facility] Nikita Lance M. D. E11.9 Type 2 diabetes mellitus without complications Z23 Encounter for immunization Office Visit 10/05/2020 2:00p [place] [facility] Nikita Lance M. D. M45.0 Ankylosing spondylitis of multiple sites in spine Office Visit 09/05/2020 1:15p [place] [facility] Nikita Lance M. D. M45.0 Ankylosing spondylitis of multiple sites in spine E11.9 Type 2 diabetes mellitus wit hout complications Office Visit 08/30/2020 1:15p [place] [facility] Nikita Lance M. D. M45.0 Ankylosing spondylitis of multiple sites in spine Office Visit 08/16/2020 2:15p [place] [facility] Nikita Lance M. D. M45.0 Ankylosing spondylitis of multiple sites in spine Office Visit 06/29/2020 11:15a [place] [facility] Nikita Lance M. D. M25.532 Pain in left wrist Assessments Date Code Description Provider 12/06/2020 E11.9 Type 2 diabetes mellitus without complications Nikita Lance M.D. 12/06/2020 Z23 Encounter for immunization [place] Nikita laurent M.D. 11/29/2020 E11.9 Type 2 diabetes mellitus without complications Nikita Lance M.D. 11/29/2020 E11.9 Type 2 diabetes mellitus without complications Laboratory [place] Schedule 10/05/2020 M45.0 Ankylosing spondylitis of multip [...] Type 2 diabetes mellitus without complications Laboratory [place] Schedule 08/16/2020 M45.0 Ankylosing spondylitis of multip le sites in spine Nikita Lance M.D. 06/29/2020 M25.532 Pain in left wrist Jluis Lance M.D. Plan of Treatment Future Appointment(s):* 03/13/2021 1:00 pm - Nikita Lance M.D. at [facility] * 03/07/2021 9:15 am - Laboratory [place] Schedule at [facility] * 01/02/2021 2:00 pm - Nikita Lance M.D. at [facility] Functional Status Description No Information Available Mental Status Description No Information Available Referrals Description No Information Available
--- OUTSIDE RECORDS SUMMARY | 2021-01-12 09:04 | CCD ---
Author Author [facility] Organization [facility] Address Unknown Phone Unavailable Care Team Providers Care Mold Tooling Technician Name Role Phone Celia José Unavailable PROBLEMS Type Condition ICD9-CM Code WRJ16-NO Code Onset Dates Condition S tatus W/U Status Risk SNOMED Code Notes Problem Hematuria R31.9 Active confirmed 66320035 ALLERGIES Allergen (clinical drug ingredient) Drug/Non Drug Allergy do cumented on EMR Reaction Allergy Type Onset Date Status meperidine Demerol([facility] Code:[address]-90) Unknown Drug Allergy Active Penicillin (For Allergies Use Only) Unknown Drug Allerg y Active vancomycin Vancomycin HCl([facility] Code:[address]-99) Unknown Drug All ergy Active Codeine Phosphate([facility] Code:[address]-85) Unknown Drug Allergy Active NSAIDs Unknown Non Drug Allergy Active ENCOUNTERS from 1945 to 2020-11-03 Encounter Location Date Provider Diagnosis [facility] [phone] [place] [address] Oct, Celia José Lumbar pain M54.5 IMMUNIZATIONS No Information SOCIAL HISTORY Tobacco Use: Social History Observation Description Date Details (start date - stop date) Former Smoker Sex Assigned At : Social History Observation Description Sex Assigned At Unknown Alcohol Screening: Question Answer Notes Did you have a drink containing alcohol in the past year? No Points 0 Interpretation Negative Tobacco Use: Question Answer Notes Are you a: former smoker How long has it been since you last smoked? 5-10 years REASON FOR REFERRAL No Information VITAL SIGNS Weight 231.2 lbs Oct, Weight-kg 104.87 kg 11 Aug, 2021 Height 70 in Oct, BMI 33.17 kg/m2 Oct, Heart Rate 59 /min Oct, Respiratory Rate 18 /min Oct, Temperature 97.9 degrees Fahrenheit Oct, Oximetry 96% Oct, Blood pressure systolic 122 mm Hg Oct, Blood pressure diastolic 60 mm Hg Oct, MEDICATIONS Medication SIG (Take, Route, Frequency, Duration) Notes Start Da te End Date Status Acetaminophen ER 650 MG 2 tablets as needed Orally every 8 hrs Active Docusate Sodium 100 MG 1 capsule as needed Orally Once a day for 30 day(s) Active traMADol HCl 50 MG 1 tablet as needed Orally Once a day Active Cyclobenzaprine HCl 10 MG 1 tablet at bedtime as neede d Orally Once a day for 30 day(s) Active Mucinex Allergy 180 MG 1 tablet Orally Once a day Active Sucralfate 1 GM Orally Active glipiZIDE 10 MG 1 tab Orally bid Act benito [place] 3-6-9 Fatty Acids - as directed Orally Active Vitamin D3 50 MCG (1999 UT) 1 capsule Orally Once a day for 30 day(s) Active Co Q-10 200 MG as directed Orally Ac tive Gabapentin 600 MG 1 tablet Orally qid Active PROCEDURES No Information RESULTS Component Value Reference Range CBC with Differential Reviewed date:11/03/2020 11:11:10 Interpretation: Performing Lab:[facility], [facility] [address] [place] [address] , ,[place] [address] WHITE BLOOD COUNT 9.0 4.0-10.0 RED BLOOD COUNT 4.36 4.30-6.10 HEMOGLOBIN 13.3 13.5-17.5 HEMATOCRIT 40.2 42.0-52.0 MEAN CORPUSCULAR VOLUME 92.2 80.0-96.0 MEAN CORPUSCULAR HEMOGLOBIN 30.5 27.0-33.0 MEAN CORPUSCULAR HGB CONC 33.1 32.0-36.5 RED CELL DISTRIBUTION WIDTH 12.8 11.5-14.5 PLATELET COUNT, AUTOMATED 202 150-450 NEUTROPHILS % 52.8 36.0-66.0 LYMPH % 33.7 24.0-44.0 MONO % 9.2 2.0-8.0 EOS % 3.1 0.0-3.0 BASO % 0.8 0.0-1.0 NEUTROPHILS # 4.7 1.5-8.5 LYMPH # 3.0 1.5-5.0 MONO # 0.8 0.0-0.8 EOS # 0.3 0.0-0.5 BASO # 0.1 0.0-0.2 Comprehensive Metabolic Profile (CMP) Reviewed date:11/03/2020 11:11:10 Interpretation: Performing Lab:[facility] [address] [facility] [address] , ,[place] [address] GLUCOSE, FASTING 101 70-100 BLOOD UREA NITROGEN 18 7-18 CREATININE FOR GFR 0.82 0.70-1.30 GLOMERULAR FILTRATION RATE > 60.0 >42 SODIUM LEVEL 141 136-145 POTASSIUM SERUM 4.1 3.5-5.1 CHLORIDE LEVEL 107 98-107 CARBON DIOXIDE LEVEL 26 21-32 CALCIUM LEVEL 9.2 8.8-10.2 AST/SGOT 13 7-37 ALT/SGPT 24 12-78 ALKALINE PHOSPHATASE 67 45-117 BILIRUBIN,TOTAL 0.2 0.2-1.0 TOTAL PROTEIN 7.1 6.4-8.2 ALBUMIN 3.8 3.2-5.2 ALBUMIN/GLOBULIN RATIO 1.2 C REACTIVE PROTEIN QUANTITATIV (At [facility] L ab) Reviewed date:11/03/2020 11:11:10 Interpretation: Performing Lab:[facility] [address] [facility] [address] , ,[place] [address] C REACTIVE PROTEIN QUANTITATIV 0.56 0.00-0.30 ERYTHROCYTE SEDIMENTATION RATE Reviewed date:11/03/2020 11:11:10 Interpretation: Performing Lab:[facility] [address] [facility] [address] , ,[facility] ERYTHROCYTE SEDIMENTATION RATE 29 0-20 RHEUMATOID FACTOR QUANT Reviewed date:11/03/2020 11:11:10 Interpretation: Performing Lab:[facility] [address] [facility] [address] , [place] [address] RHEUMATOID FACTOR QUANT < 10.0 <15.0 REASON FOR VISIT Patient is here for a new patient appointment. [facility] He was referred by ortho for possible MEDICAL (GENERAL) HISTORY Type Description Date Medical History Kidney Stones Medical History Benign neoplasm of colon Medical History Disorder of back Medical History Impaired fasting Glcaemia Surgical History Spinal Fusion Surgical History Cholecystectomy Surgical History Carpal Tunnel Release Surgical History laminectomy 2004 Surgical History cervical fusion/laminectomy Surgical History hip replacement Hospitalization History surgery related Goals Section No Information Health Concerns No Information MEDICAL EQUIPMENT No Information MENTAL STATUS No Information FUNCTIONAL STATUS No Information ASSESSMENTS Encounter Date Diagnosis Assessment Notes Treatment Notes Treatm ent Clinical Notes Oct, Lumbar pain (ICD-10 - M54.5) Since Oct 2019 mainly on the right side with right low back pain, lateral hip pain and thigh pain July 2020 lumbar x-ray with bridging osteophytes at 11 and L 12 L 12 & S1 could be consistent with an ankylosing condition like ankylosing spondylitis, SI joint sclerosis On exam no evidence of SI joint inflammation with no tenderness and Aldo's negative though limited by right thigh pain Also MRI of the lumbar spine from October 2019 no evidence of inflammation shows evidence of significant osteoarthritis and neural foraminal narrowing We will do detailed evaluation with blood work including HLA-B27 We will do an MRI of the pelvis without contrast to look for SI joint inflammation Differentials as ankylosing spondylitis versus DISH Explained to the patient in detail that given the age group it is unlikely that he has ankylosing spondylitis and if it is ankylosing spondylitis most likely the disease would have progressed with no active inflammation at this time however we will do detailed evaluation as above Oct, Other PATIENT INSTRUCTIONS: labs today MRI pelvis without contrast to evaluate for active sacrolitis continue current pain management return in 2 months More than 50% of the 30 minute visit was spent in patient education, counseling, and coordination of care. I reviewed her symptoms, imaging findings, laboratory results, physical findings, and treatment to date. I have answered patient's questions, and they stated satisfaction regarding the treatment plan and recommendations PLAN OF TREATMENT Treatment Notes Assessment Notes Clinical Notes Lumbar pain Since Oct 2019mainly on the right side with right low back pain, lateral hip pain and thigh painMa2020 lumbar x-ray with bridging osteophytes at 11 and L 12 L 12 & S1 could be consistent with an ankylosing condition like ankylosing spondylitis, SI joint sclerosisOn exam no evidence of SI joint inflammation with no tenderness and Aldo's negative though limited by right thigh painAlso MRI of the lumbar spine from October 2019 no evidence of inflammation shows evidence of significant osteoarthritis and neural foraminal narrowingWe will do detailed evaluation with blood work including HLA-B27We will do an MRI of the pelvis without contrast to look for SI joint inflammationDifferentials as ankylosing spondylitis versus DISHExplained to the patient in detail that given the age group it is unlikely that he has ankylosing spondylitis and if it is ankylosing spondylitis most likely the disease would have progressed with no active inflammation at this time however we will do detailed evaluation as above Treatment Notes Test Name Order Date CYCLIC CITRULLINATED PEPTIDE 2020-11-02 HLA-B27 2020-11-02 [facility] MRI PELVIS WITHOUT CONTRAST 2020-11-02 Next Appt Details 2 Months Reason: Provider Name:Celia José, 02:15:00 PM, [address] [place] [address], [place], [place], [facility] [phone] Insurance Providers Payer Name Payer Address Payer Phone Insured Name Patient Relati onship to Insured Coverage Start Date Coverage End Date [employer] HE[employer] OPTIONS [facility] CLAIM DIV [address] [facility] [place] [address] ADA LEPE 2012 MEDICARE Part A and B [address] [facility] [id number] ADA LEPE 2010
--- OUTSIDE RECORDS SUMMARY | 2021-01-12 09:04 | CCD | Continuity of Care Document ---
Author Author Patrick SOTELO MD Organization Unknown Address [address] [place] [address], [facility] [address] [place] [address] Phone [phone] Care Team Providers Care Airplane Flight Attendant Supervisor Name Role Phone Nikita Lance MD AUTM [phone] Problems Active Problems Provider Date Fracture distal phalanx of thumb Onset: 01/13/1999 Social History Type Date Description Comments Sex Unknown Allergies, Adverse Reactions, Alerts Description No Information Available Medications Active Medications [...] 1 tab by mouth every 6 hours prn Post Op Pain. (Please DO Not Fill Until 01/10/21) 40tabs Nba Sotelo MD 021 Percocet 5-325mg Tablets 1-2 tabs q 4-6 hours prn/pain 40tabs Ethan Ortega MD 06/29/2009 Colace 100mg Capsules 1 po bid, hold for diarrhea 60caps Ethan Ortega MD 06/29/2009 Immunizations Description No Information Available Vital Signs Date Vital Result Comment 09/14/2020 1:53pm Body Temperature 97.1 F Height 68 inches 5'8" Weight 227.50 lb BMI (Body Mass Index) 34.6 kg/m2 08/15/2020 3:50pm Body Temperature 97.1 F Height 68 inches 5'8" Weight 233.38 lb BMI (Body Mass Index) 35.5 kg/m2 Results Test Acquired Date Facility Test Result H/L Range Note Prothrombin Time/Inr 12/26/2020 [facility] entr [address] [place] [address] (315)- - Prothrombin Time 13.7 seconds Normal 12.7-14.5 Inr 1.01 Normal 1 Complete Blood Count 12/26/2020 [facility] entr [address] [place] [address] (315)- - White Blood Count 9.0 10 [...] % Normal 0-0 Laboratory test finding 12/26/2020 [facility] [address] [place] [address] (315)- - Erythrocyte Sedimentation Rate 19 mm/hr Normal 0-20 Comprehensive Metabolic Profil 12/26/[address] [address] (315)- - Glucose, Fasting 207 mg/dL High [...] Normal 3.2-5.2 Albumin/Globulin Ratio 1.0 Normal 1 THERAPUTIC HUMAN INR VALUES INDICATIONS NORMAL [...] Little GFR Left ESRD GFR <15 on FOOD CLERK Procedures Date Code Description Status 11/21/2020 73591 Office/Outpatient Established Mo d MDM 30-39 Min Completed 09/14/2020 72610 Office/Outpatient Established Mo d MDM 30-39 Min Completed 08/15/2020 17281 Office/Outpatient Established Hi gh MDM 40-54 Min Completed 08/15/2020 70145 X-Ray Spine Lumbosacral Complete Inc Bending Views Min Of 6 Completed 08/15/2020 00066 X-Ray Spine Thoracic Ap & Latera l 2 Views Completed 08/01/2020 81401 Office/Outpatient Established Lo w MDM 20-29 Min Completed Medical Devices Description No Information Available Encounters Type Date Location Provider Dx Diagnosis Office Visit 11/21/2020 11:00a [place] Sotelo MD [...] generation, thoracic region Office Visit 08/01/2020 2:30p [place] Nba Sotelo MD 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, 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, lumbar region Assessments Date Code Description Provider 11/21/2020 M16.11 Unilateral primary osteoarthriti s, right [...] Sotelo MD Plan of Treatment Future Appointment(s):* 01/10/2021 10:30 am - Nba Sotelo MD at Surgery [facility] (As) * 01/20/2021 11:00 am - Nba Sotelo MD at [place] * 01/06/2021 2:30 pm - Reba Corley PA-C at [place] 11/21/2020 - Nba Sotelo MD* M16.11 Unilateral [...] NO AUTH REQUIRED FOR TOTAL RT HIP ([id number]) TO SURGERY NT Created [address] [place] [address] [phone] Jaqueline Sotelo MD FLUORO INJ NO AUTH REQUIRED FOR FLUOROSCOPIC INJECTION TO RIGHT HIP ([id number], [phone]) TO BUZZ DIANE Created [address] [place] [address] [phone] Jaqueline Sotelo MD FLUORO INJ NO AUTH REQUIRED FOR FLUOROSCOPIC INJECTION TO RIGHT HIP ([id number], 09304) TO BUZZ DIANE Created [address] [place] [phone] Ethan Ortega MD REF NO AUTH REQUIRED FOR REF TO [facility] TO TRANS NT Created [address] [place] [address] [phone]
--- OUTSIDE RECORDS SUMMARY | 2021-01-12 09:04 | CCD | Continuity of Care Document ---
Author Author Patrick SOTELO MD Organization Unknown Address [address] [place] [address], [facility] [address] [place] [address] Phone [phone] Care Team Providers Care Sow Farm Manager Name Role Phone Nikita Lance MD AUTM [phone] Problems Active Problems Provider Date Fracture distal [...] BMI (Body Mass Index) 35.5 kg/m2 Results Description No Information Available Procedures Date Code Description Status 11/21/2020 78112 Office/Outpatient Established Mo d MDM 30-39 Min Completed 09/14/2020 67197 Office/Outpatient Established Mo d MDM 30-39 Min Completed 08/15/2020 26197 Office/Outpatient Established Hi gh MDM 40-54 Min Completed 08/15/2020 67504 X-Ray Spine Lumbosacral Complete Inc Bending Views Min Of 6 Completed 08/15/2020 72874 X-Ray Spine Thoracic Ap & Latera l 2 Views Completed 08/01/2020 40795 Office/Outpatient Established Lo w MDM 20-29 Min Completed 06/15/2020 48467 Office/Outpatient New Moderate M DM 45-59 Minutes Completed 06/15/2020 03048 X-Ray Hip Unilateral With Pelvis 2-3 Views Completed 06/15/2020 14011 X-Ray Spine Lumbosacral Complete W/Oblique 4 Views Completed Medical Devices Description No Information Available [...] degene ration, lumbar region Nba Sotelo MD 06/15/2020 M16.11 Unilateral primary osteoarthriti s, right hip Nba Sotelo MD 06/15/2020 M51.36 Other intervertebral disc degene ration, lumbar region Nba Sotelo MD Plan of Treatment Future Appointment(s):* 01/20/2021 11:00 am - Nba Sotelo MD at [place] * 01/06/2021 2:30 pm - Reba Corley PA-C at [place] * 12/08/2020 2:00 pm - Nba Sotelo MD at [place] 11/21/2020 - Nba Sotelo MD* M16.11 Unilateral [...] NO AUTH REQUIRED FOR TOTAL RT HIP (20837) TO SURGERY NT Created [address] [place] [address] [phone] Jaqueline Sotelo MD FLUORO INJ NO AUTH REQUIRED FOR FLUOROSCOPIC INJECTION TO RIGHT HIP (16423, [phone]) TO BUZZ [place] DIANE Created [address] [place] [phone] Jaqueline Sotelo MD FLUORO INJ NO AUTH REQUIRED FOR FLUOROSCOPIC INJECTION TO RIGHT HIP (23039, 47560) TO BUZZ Reyes Created [address] [place] [phone] [phone] Ethan Ortega MD REF NO AUTH REQUIRED FOR REF TO [facility] TO TRANS NT Created [address] [place] [address] [phone] Jaqueline Sotelo MD FLUOROSCOPIC INJ NO AUTH REQ UIRED FOR FLUOROSCOPIC INJECTION TO RIGHT HIP ([phone], [phone]) TO BUZZ Reyes Created [address] [place] [phone] Jaqueline Sotelo MD FLUOROSCOPIC INJ NO AUTH REQ UIRED FOR FLUOROSCOPIC INJECTION TO RIGHT HIP (96961, 64633) TO BUZZ DIANE Created [address] [facility], [address] [place] [address] [phone]
--- OUTSIDE RECORDS SUMMARY | 2021-01-12 09:04 | CCD ---
Author Author [facility] Organization [facility] Address Unknown Phone Unavailable Care Team Providers Care Business Solutions Architect Name Role Phone Celia José Unavailable PROBLEMS Type Condition ICD9-CM Code [id number] Code Onset Dates Condition S tatus W/U Status Risk SNOMED Code Notes Problem Hematuria R31.9 Active confirmed [id number] ALLERGIES Allergen (clinical drug ingredient) Drug/Non Drug Allergy do cumented on EMR Reaction Allergy Type Onset Date Status meperidine Demerol([facility] Code:[address]-05) Unknown Drug Allergy Active Penicillin (For Allergies Use Only) Unknown Drug Allerg y Active vancomycin Vancomycin HCl([facility] Code:[address]-28) Unknown Drug All ergy Active Codeine Phosphate([facility] Code:[address]-50) Unknown Drug Allergy Active NSAIDs Unknown Non Drug Allergy Active ENCOUNTERS from 1945 to 2020-11-16 Encounter Location Date Provider Diagnosis [facility] [address] [place] [address] [place] [address] Oct, Celia Arnav IMMUNIZATIONS No Information SOCIAL HISTORY Tobacco Use: [...] REASON FOR REFERRAL No Information VITAL SIGNS No information MEDICATIONS Medication SIG (Take, Route, Frequency, Duration) [...] MG 1 tab Orally bid Act benito [place] 3-6-9 Fatty Acids - as directed Orally Active Vitamin D3 50 MCG (2000 UT) 1 capsule Orally Once a day for 30 day(s) Active Co Q-10 200 MG as directed Orally Ac tive Gabapentin 600 MG 1 tablet Orally qid Active PROCEDURES No Information RESULTS No Results REASON FOR VISIT MRI results MEDICAL (GENERAL) HISTORY Type Description Date Medical [...] No Information FUNCTIONAL STATUS No Information ASSESSMENTS No Information PLAN OF TREATMENT Next Appt Details Provider Name:Celia José, 02:15:00 PM, [address] [place] [address], [place], [place], [facility], Insurance Providers Payer Name Payer Address Payer Phone Insured Name Patient Relati onship to Insured Coverage Start Date Coverage End Date [employer] HE[employer] C[employer] OPTIONS [facility] CLAIM DIV [address] [facility] [id number] ADA LEPE self 2012 MEDICARE Part A and B [address] [facility] [id number] ADA LEPE self 2010
--- OUTSIDE RECORDS SUMMARY | 2021-01-12 09:04 | CCD ---
Continuity of Care Document (CCD) Created on: 12/01/2020 Sherley Patrick External Reference #: [id number] : 1945 Sex: Male Author Author Laboratory Patrick Santamaria Organization Unknown Address [address] [facility] [address] [place] [address] Phone [phone] Problems Active Problems Provider Date Impaired fasting [...] day 360tabs Nikita Lance M.D . 08/16/2020 [place] 5-325mg Tablets 1 tab by mouth four times a day as needed [id number] 120tabs Nikita Lance M.D. 08/16/2020 Cyclobenzaprine HCL [...] to test glucose (dx: e 11.9) [facility] 06/[facility]2015 Sucralfate 1gm Tablets 1 by mouth three times a day as needed 90tabs Nikita Lance M.D. Flonase Allergy Relief 50mcg/Act Suspension 2 sprays each narea every day Unknown Tramadol HCL 50mg Tablets 1 tab by mouth three times a day as needed pain. do not drive or operate equipment while taking ([id number]) 90tabs Dev Corley D.O., FAAFP Tylenol Extra Strength 500mg Table ts take 2 by mouth three times a day as needed Unknown History Medications Gabapentin 300mg Capsules take one capsule by mouth four times a day 120caps Nikita Lance M.D . 08/16/2020 - 08/16/2020 Immunizations CPT Code Status Date Vaccine Lot # 23716 Given 12/22/2019 Influenza Virus Vaccine, Quadrivalent, Slit Virus, Im Use 3Y & Up [id number] 87733 Given 01/14/2019 Influenza Virus Vaccine, Quadrivalent, Slit Virus, Im Use 3Y & Up [id number] 28518 Given 12/31/2017 Influenza Virus Vaccine, Quadrivalent, Slit Virus, Im Use 3Y & Up [id number] 46756 Given 12/18/2016 Influenza Virus Vaccine, Quadrivalent, Slit Virus, Im Use 3Y & Up [id number] 21806 Given 12/23/2015 Influenza Vaccin e (Fluzone) 3Yrs Of Age Or Older Medicare Plans [id number] 96203 Given 12/23/2015 Influenza Virus Vaccine, Quadrivalent, Slit Virus, Im Use 3Y & Up 76964 Given 12/17/2014 Influenza Vaccin e (Fluzone) 3Yrs Of Age Or Older Medicare Plans [id number] Q2037 Given 12/28/2013 Influenza Vaccin e (Fluvirin) 3Yrs Of Age Or Older Medicare Plans 99041 Given 12/28/2013 Influenza Virus Vac. Split Virus Individuals 3 Years And Above [id number] 59903 Given 12/29/2012 Influenza Vaccin e (Fluzone) 3Yrs Of Age Or Older Medicare Plans 25991 Given 12/29/2012 Influenza Virus Vac. Split Virus Individuals 3 Years And Above [id number] Vital Signs Date Vital Result Comment 10/05/2020 1:54pm BP Systolic 120 mmHg BP Diastolic 82 mmHg Body Temperature 97.8 F Heart Rate 54 /min Respiratory Rate 16 /min Height 70 inches 5'10" Weight 230.00 lb [place] Body Weight 166 lb BMI (Body Mass Index) 33.0 kg/m2 O2 % BldC Oximetry 97 % 09/05/2020 1:18pm BP Systolic 124 mmHg BP Diastolic 80 mmHg Body Temperature 98.4 F Heart Rate 54 /min Respiratory Rate 16 /min Height 70 inches 5'10" Weight 220.00 lb [place] Body Weight 166 lb BMI (Body Mass Index) 31.6 kg/m2 O2 % BldC Oximetry 97 % Results Test Acquired Date Facility Test Result H/L Range Note Laboratory test finding 11/29/2020 [facility] Hemoglobin A1c 5.8 % 4.50-6.20 [...] eGFR 96 # Calc 2 eGFR Non-Afr. [place] 83 # Calc 3 Lipid Panel 11/29/2020 [facility] Chol 160 mg/dL 0 - 200 Trig 112 mg/dL 35 - 200 HDL 56 mg/dL High 35 - 55 LDL_C 81 Calc 75 - 129 Cho/HDL Ratio 2.8 CALC Laboratory test finding 08/29/2020 [facility] Hemoglobin A1c 6.3 % High [...] eGFR 85 # Calc 5 eGFR Non-Afr. [place] 73 # Calc 6 1 NORMAL RANGES [...] CKD-EPI Procedures Date Code Description Status 10/05/2020 98531 Office/Outpatient Established Mo d MDM 30-39 Min Completed 09/05/2020 56981 Office/Outpatient Established Mo d MDM 30-39 Min Completed 08/30/2020 85762 Office/Outpatient Established Mo d MDM 30-39 Min Completed 08/16/2020 40919 Office/Outpatient Established Mo d MDM 30-39 Min Completed 06/29/2020 50610 Office/Outpatient Established Lo w MDM 20-29 Min Completed Medical Devices Description No Information Available Encounters Type Date Location Provider Dx Diagnosis Office Visit 10/05/2020 2:00p [facility] Nikita Lance M. D. M45.0 Ankylosing spondylitis of multiple sites in spine Office Visit 09/05/2020 1:15p [facility] Nikita Lance M. D. M45.0 Ankylosing spondylitis of multiple sites in spine E11.9 Type 2 diabetes mellitus wit hout complications Office Visit 08/30/2020 1:15p [facility] Nikita Lance M. D. M45.0 Ankylosing spondylitis of multiple sites in spine Office Visit 08/16/2020 2:15p [facility] Nikita Lance M. D. M45.0 Ankylosing spondylitis of multiple sites in spine Office Visit 06/29/2020 11:15a [facility] Nikita Lance M. D. M25.532 Pain in left wrist Assessments Date Code Description Provider 11/29/2020 E11.9 Type 2 diabetes mellitus without complications Nikita Lance M.D. 11/29/2020 E11.9 Type 2 diabetes mellitus without complications Laboratory [facility] Schedule 10/05/2020 M45.0 Ankylosing spondylitis of multip [...] Type 2 diabetes mellitus without complications Laboratory [facility] Schedule 08/16/2020 M45.0 Ankylosing spondylitis of multip le sites in spine Nikita Lance M.D. 06/29/2020 M25.532 Pain in left wrist Jluis Lance M.D. Plan of Treatment Future Appointment(s):* 01/02/2021 2:00 pm - Nikita Lance M.D. at [facility] * 12/06/2020 1:15 pm - Nikita Lance M.D. at [facility] Functional Status Description No Information Available Mental Status Description No Information Available Referrals Description No Information Available
--- OUTSIDE RECORDS SUMMARY | 2021-01-12 09:04 | CCD | Continuity of Care Document ---
Author Author Patrick LANCE M.D. Organization Unknown Address [address] [address] Phone [phone] Problems Active Problems Provider Date Impaired fasting [...] to test glucose (dx: e 11.9) 100units [facility] Nikita faith M.D. 06/13/2015 Sucralfate 1gm Tablets 1 by mouth three times a day as needed 90taNikita Cormier M.D. Flonase Allergy Relief 50mcg/Act Suspension 2 sprays each narea every day Unknown Tramadol HCL 50mg Tablets 1 tab by mouth three times a day as needed pain. do not drive or operate equipment while taking ([id number]) 90taNikita Cormier M.D. 00 Tylenol Extra Strength [...] Nikita Lance M.D . 08/16/2020 - 08/16/2020 [place] 5-325mg Tablets 1 tab by mouth four times a day as needed [id number] 120taNikita Cormier M.D. 08/16/2020 - 01/02/2021 Immunizations CPT Code Status Date Vaccine Lot # [id number] Given 12/06/2020 Influenza Virus Vaccine, Quadrivalent, Slit Virus, Im Use 3Y & Up [id number] 90957 Given 12/22/2019 Influenza Virus Vaccine, Quadrivalent, Slit Virus, Im Use 3Y & Up [id number] 95542 Given 01/14/2019 Influenza Virus Vaccine, Quadrivalent, Slit Virus, Im Use 3Y & Up [id number] 42902 Given 12/31/2017 Influenza Virus Vaccine, Quadrivalent, Slit Virus, Im Use 3Y & Up [id number] 23814 Given 12/18/2016 Influenza Virus Vaccine, Quadrivalent, Slit Virus, Im Use 3Y & Up [id number] 48932 Given 12/23/2015 Influenza Vaccin e (Fluzone) 3Yrs Of Age Or Older Medicare Plans [id number] 28323 Given 12/23/2015 Influenza Virus Vaccine, Quadrivalent, Slit Virus, Im Use 3Y & Up 08492 Given 12/17/2014 Influenza Vaccin e (Fluzone) 3Yrs Of Age Or Older Medicare Plans [id number] Q2037 Given 12/28/2013 Influenza Vaccin e (Fluvirin) 3Yrs Of Age Or Older Medicare Plans 96689 Given 12/28/2013 Influenza Virus Vac. Split Virus Individuals 3 Years And Above [id number] 92050 Given 12/29/2012 Influenza Vaccin e (Fluzone) 3Yrs Of Age Or Older Medicare Plans 91028 Given 12/29/2012 Influenza Virus Vac. Split Virus Individuals 3 Years And Above [id number] Vital Signs Date Vital Result Comment 01/02/2021 2:44pm BP Systolic 124 mmHg BP Diastolic 80 mmHg Body Temperature 97.4 F Heart Rate 60 /min Respiratory Rate 18 /min Height 70 inches 5'10" Weight 225.00 lb [place] Body Weight 166 lb BMI (Body Mass Index) 32.3 kg/m2 O2 % BldC Oximetry 97 % 12/06/2020 1:12pm BP Systolic 118 mmHg BP Diastolic 60 mmHg Body Temperature 97.5 F Heart Rate 60 /min Respiratory Rate 18 /min Height 70 inches 5'10" Weight 225.00 lb [place] Body Weight 166 lb BMI (Body Mass Index) 32.3 kg/m2 O2 % BldC Oximetry 97 % Results Test Acquired Date Facility Test Result H/L Range Note Prothrombin Time/Inr 12/26/2020 [facility] ( Interface) [phone] Prothrombin Time 13.7 seconds Normal 12.7-14.5 Inr 1.01 Normal 1 Complete Blood Count 12/26/2020 [facility] [employer] Interface) [phone] White Blood Count 9.0 10 Normal 4.0-10.0 [...] Laboratory test finding 12/26/2020 [facility] (Interface) [phone] Erythrocyte Sedimentation Rate 19 mm/hr Normal 0 -20 Comprehensive Metabolic Profil 12/26/2020 [facility] (Interface) [phone] Glucose, Fasting 207 mg/dL High 70-100 Blood [...] Ratio 1.0 Normal Laboratory test finding 11/29/2020 [facility] Hemoglobin A1c 5.8 % 4.50-6.20 [...] eGFR 96 # Calc 4 eGFR Non-Afr. [place] 83 # Calc 5 Lipid Panel 11/29/2020 [facility] Chol 160 mg/dL 0 - 200 Trig 112 mg/dL 35 - 200 HDL 56 mg/dL High 35 - 55 LDL_C 81 Calc 75 - 129 Cho/HDL Ratio 2.8 CALC Laboratory test finding 08/29/2020 [facility] Hemoglobin A1c 6.3 % High [...] eGFR 85 # Calc 7 eGFR Non-Afr. [place]uran 73 # Calc 8 1 THERAPUTIC HUMAN [...] Little GFR Left ESRD GFR <15 on [employer]IV[employer] 3 NORMAL RANGES Age WBC RBC HGB [...] HCT IS 5% LESS SOURCE FOR DATA: [employer] 1800 OPERATION MANUAL( AUTOMATED BLOOD COUNTS AND [...] CKD-EPI Procedures Date Code Description Status 01/02/2021 11274 Office/Outpatient Established Mo d MDM 30-39 Min Completed 12/06/2020 32868 Office/Outpatient Established Mo d MDM 30-39 Min Completed 10/05/2020 81149 Office/Outpatient Established Mo d MDM 30-39 Min Completed 09/05/2020 29994 Office/Outpatient Established Mo d MDM 30-39 Min Completed 08/30/2020 37649 Office/Outpatient Established Mo d MDM 30-39 Min Completed 08/16/2020 18803 Office/Outpatient Established Mo d MDM 30-39 Min Completed Medical Devices Description No Information Available Encounters Type Date Location Provider Dx Diagnosis Office Visit 01/02/2021 2:00p [facility] Nikita Lance M. D. Z01.810 Encounter for preprocedural cardiovascular examination Office Visit 12/06/2020 1:15p [facility] Nikita Lance M. D. E11.9 Type 2 diabetes mellitus without complications Z23 Encounter for immunization Office Visit 10/05/2020 2:00p [facility] Nikita Lance M. D. M45.0 Ankylosing spondylitis of multiple sites in spine Office Visit 09/05/2020 1:15p [facility] Nikita Lance M. D. M45.0 Ankylosing spondylitis of multiple sites in spine E11.9 Type 2 diabetes mellitus wit hout complications Office Visit 08/30/2020 1:15p [facility] Nikita Lance M. D. M45.0 Ankylosing spondylitis of multiple sites in spine Office Visit 08/16/2020 2:15p [facility] Nikita Lance M. D. M45.0 Ankylosing [...] Type 2 diabetes mellitus without complications Laboratory [facility] 10/05/2020 M45.0 Ankylosing spondylitis of multip le sites in spine Nikita aLnce M.D. 09/05/2020 M45.0 Ankylosing spondylitis of multip le sites in spine Nikita Lance M.D. 09/05/2020 E11.9 Type 2 diabetes mellitus without complications Nikita Lance M.D. 08/30/2020 M45.0 Ankylosing spondylitis of multip le sites in spine Nikita Lance M.D. 08/29/2020 E11.9 Type 2 diabetes mellitus without complications Nikita Lance M.D. 08/29/2020 E11.9 Type 2 diabetes mellitus without complications Laboratory [place] [facility] 08/16/2020 M45.0 Ankylosing spondylitis of multip le sites in spine Nikita Lance M.D. Plan of Treatment Future Appointment(s):* 03/13/2021 1:00 pm - Nikita Lance M.D. at [facility] * 03/07/2021 9:15 am - [facility] [place] Schedule at [facility] Functional Status Description No Information Available Mental Status Description No Information Available Referrals Description No Information Available
--- OUTSIDE RECORDS SUMMARY | 2021-01-12 09:04 | CCD | Continuity of Care Document ---
Author Author Patrick LANCE M.D. Organization Unknown Address [address] [address] Phone [phone] Problems Active Problems Provider Date Impaired fasting [...] day 360tabs Nikita Lance M.D . 08/16/2020 [place] 5-325mg Tablets 1 tab by mouth four times a day as needed [id number] 120tabs Nikita Lance M.D. 08/16/2020 Cyclobenzaprine HCL [...] glucose (dx: e 11.9) [facility] Sucralfate 1gm Tablets 1 by mouth three times a day as needed 90tabs Nikita Lance M.D. Flonase Allergy Relief 50mcg/Act Suspension 2 sprays each narea every day Unknown Tramadol HCL 50mg Tablets 1 tab by mouth three times a day as needed pain. do not drive or operate equipment while taking ([id number]) 90tabs Dev Corley D.O., FAAFP Tylenol Extra Strength 500mg Table ts take 2 by mouth three times a day as needed Unknown History Medications Gabapentin 300mg Capsules take one capsule by mouth four times a day 120caps Nikita Lance M.D . 08/16/2020 - 08/16/2020 Immunizations CPT Code Status Date Vaccine Lot # [id number] Given 12/06/2020 Influenza Virus Vaccine, Quadrivalent, Slit Virus, Im Use 3Y & Up [id number] 02442 Given 12/22/2019 Influenza Virus Vaccine, Quadrivalent, Slit Virus, Im Use 3Y & Up [id number] 69292 Given 01/14/2019 Influenza Virus Vaccine, Quadrivalent, Slit Virus, Im Use 3Y & Up [id number] 61564 Given 12/31/2017 Influenza Virus Vaccine, Quadrivalent, Slit Virus, Im Use 3Y & Up [id number] 58057 Given 12/18/2016 Influenza Virus Vaccine, Quadrivalent, Slit Virus, Im Use 3Y & Up [id number] 93616 Given 12/23/2015 Influenza Vaccin e (Fluzone) 3Yrs Of Age Or Older Medicare Plans [id number] 14527 Given 12/23/2015 Influenza Virus Vaccine, Quadrivalent, Slit Virus, Im Use 3Y & Up 22781 Given 12/17/2014 Influenza Vaccin e (Fluzone) 3Yrs Of Age Or Older Medicare Plans [id number] Q2037 Given 12/28/2013 Influenza Vaccin e (Fluvirin) 3Yrs Of Age Or Older Medicare Plans 63939 Given 12/28/2013 Influenza Virus Vac. Split Virus Individuals 3 Years And Above [id number] 10478 Given 12/29/2012 Influenza Vaccin e (Fluzone) 3Yrs Of Age Or Older Medicare Plans 02906 Given 12/29/2012 Influenza Virus Vac. Split Virus Individuals 3 Years And Above [id number] Vital Signs Date Vital Result Comment 12/06/2020 1:12pm BP Systolic 118 mmHg BP Diastolic 60 mmHg Body Temperature 97.5 F Heart Rate 60 /min Respiratory Rate 18 /min Height 70 inches 5'10" Weight 225.00 lb [place] Body Weight 166 lb BMI (Body Mass Index) 32.3 kg/m2 O2 % BldC Oximetry 97 % 10/05/2020 1:54pm BP Systolic 120 mmHg BP Diastolic 82 mmHg Body Temperature 97.8 F Heart Rate 54 /min Respiratory Rate 16 /min Height 70 inches 5'10" Weight 230.00 lb [place] Body Weight 166 lb BMI (Body Mass Index) 33.0 kg/m2 O2 % BldC Oximetry 97 % Results Test Acquired Date Facility Test Result H/L Range Note Laboratory test finding 11/29/2020 [facility] [...] eGFR 96 # Calc 2 eGFR Non-Afr. Maltese 83 # Calc 3 Lipid Panel 11/29/2020 [facility] Chol 160 mg/dL 0 - 200 Trig 112 mg/dL 35 - 200 HDL 56 mg/dL High 35 - 55 LDL_C 81 Calc 75 - 129 Cho/HDL Ratio 2.8 CALC Laboratory test finding 08/29/2020 [facility] Hemoglobin A1c 6.3 % High 4.50-6.20 CMP [...] eGFR 85 # Calc 5 eGFR Non-Afr. Maltese 73 # Calc 6 1 NORMAL RANGES [...] 6 CKD-EPI Procedures Date Code Description Status 12/06/2020 64702 Office/Outpatient Established Mo d MDM 30-39 Min Completed 10/05/2020 67648 Office/Outpatient Established Mo d MDM 30-39 Min Completed 09/05/2020 93978 Office/Outpatient Established Mo d MDM 30-39 Min Completed 08/30/2020 62255 Office/Outpatient Established Mo d MDM 30-39 Min Completed 08/16/2020 73983 Office/Outpatient Established Mo d MDM 30-39 Min Completed 06/29/2020 41925 Office/Outpatient Established Lo w MDM 20-29 Min Completed Medical Devices Description No Information Available Encounters Type Date Location Provider Dx Diagnosis Office Visit 12/06/2020 1:15p [place] [facility] Nikita Lance M. D. E11.9 Type 2 diabetes mellitus without complications Z23 Encounter for immunization Office Visit 10/05/2020 2:00p [place] [facility] Nikita Lance M. D. M45.0 Ankylosing spondylitis of multiple sites in spine Office Visit 09/05/2020 1:15p [place] [facility] Nikita Lance M. D. M45.0 Ankylosing spondylitis of multiple sites in spine E11.9 Type 2 diabetes mellitus wit hout complications Office Visit 08/30/2020 1:15p [place] [facility] Nikita Lance M. D. M45.0 Ankylosing spondylitis of multiple sites in spine Office Visit 08/16/2020 2:15p [place] [facility] Nikita Lance M. D. M45.0 Ankylosing spondylitis of multiple sites in spine Office Visit 06/29/2020 11:15a [place] [facility] Nikita Lance M. D. M25.532 Pain in left wrist Assessments Date Code Description Provider 12/06/2020 E11.9 Type 2 diabetes mellitus without complications Nikita Lance M.D. 12/06/2020 Z23 Encounter for immunization [place] Nikita laurent M.D. 11/29/2020 E11.9 Type 2 diabetes mellitus without complications Nikita Lance M.D. 11/29/2020 E11.9 Type 2 diabetes mellitus without complications Laboratory [place] Schedule 10/05/2020 M45.0 Ankylosing spondylitis of multip le sites in spine Nikita Lance M.D. 09/05/2020 M45.0 Ankylosing spondylitis of multip le sites in spine Niikta Lance M.D. 09/05/2020 E11.9 Type 2 diabetes mellitus without complications Nikita Lance M.D. 08/30/2020 M45.0 Ankylosing spondylitis of multip le sites in spine Nikita Lance M.D. 08/29/2020 E11.9 Type 2 diabetes mellitus without complications Nikita Lance M.D. 08/29/2020 E11.9 Type 2 diabetes mellitus without complications Laboratory [place] Schedule 08/16/2020 M45.0 Ankylosing spondylitis of multip le sites in spine Nikita Lance M.D. 06/29/2020 M25.532 Pain in left wrist Jluis Lance M.D. Plan of Treatment Future Appointment(s):* 03/13/2021 1:00 pm - Nikita Lance M.D. at [facility] * 03/07/2021 9:15 am - Laboratory [place] Schedule at [facility] * 01/02/2021 2:00 pm - Nikita Lance M.D. at [facility] Functional Status Description No Information Available Mental Status Description No Information Available Referrals Description No Information Available
--- OUTSIDE RECORDS SUMMARY | 2021-01-12 09:06 | CCD ---
Author Author [facility] Organization [facility] Address Unknown Phone Unavailable Care Team Providers Care Beer Still Runner Compounder Name Role Phone [facility], PA-C Unavailable Unavailabl e Fish, [facility], PA-C Un[facility] Un[facility] Unavailable Unavailabl e Fish, [facility], PA-C Un[facility] Unavailable Unavailabl e Fish, [facility], PA-C Unavailable Unavailabl e Fish, [facility], PA-C Unavailable Unavailabl e Fish, [facility], PA-C Unavailable Unavailabl e Fish, [facility], PA-C Unavailable Unavailabl e Fish, [facility], PA-C Unavailable Unavailabl e Fish, [facility], PA-C Unavailable Unavailabl e Fish, [facility], PA-C Un[facility] Unavailable Unavailabl e Fish, [facility], PA-C Unavailable Unavailabl e Fish, [facility], PA-C Unavailable Unavailabl e Fish, [facility], PA-C Unavailable Unavailabl e Fish, [facility], PA-C Unavailable Unavailabl e Fish, [facility], PA-C Unavailable Unavailabl e Fish, [facility], PA-C Unavailable Unavailabl e Fish, [facility], PA-C Unavailable Unavailabl e Fish, [facility], PA-C Unavailable Unavailabl e Fish, [facility], PA-C Unavailable Unavailabl e Fish, [facility], PA-C Unavailable Unavailabl e Fish, [facility], PA-C Unavailable Unavailabl e Fish, [facility], PA-C Unavailable Unavailabl e Fish, [facility], PA-C Unavailable Unavailabl e Fish, [facility], PA-C Unavailable Unavailabl e Fish, [facility], PA-C Unavailable Unavailabl e Fish, [facility], PA-C Unavailable Unavailabl e Fish, [facility], PA-C Unavailable Unavailabl e Fish, [facility], PA-C Unavailable Unavailabl e Fish, [facility], PA-C Unavailable Unavailabl e Fish, [facility], PA-C Unavailable Unavailabl e Fish, [facility], PA-C Unavailable Unavailabl e Lu, R Ida EARLY BREASTFEEDING CARE SPECIALIST Unavailable Unavailable Lu, R Ida EARLY BREASTFEEDING CARE SPECIALIST Unavailable Unavailable Lu, R Ida EARLY BREASTFEEDING CARE SPECIALIST Unavailable Unavailable Lu, R Ida EARLY BREASTFEEDING CARE SPECIALIST Unavailable Unavailable Lu, R Ida EARLY BREASTFEEDING CARE SPECIALIST Unavailable Unavailable Lu, R Ida EARLY BREASTFEEDING CARE SPECIALIST Unavailable Unavailable Lu, R Ida EARLY BREASTFEEDING CARE SPECIALIST Unavailable Unavailable Lu, R Ida EARLY BREASTFEEDING CARE SPECIALIST Unavailable Unavailable Lu, R Ida EARLY BREASTFEEDING CARE SPECIALIST Unavailable Unavailable Lu, R Ida EARLY BREASTFEEDING CARE SPECIALIST Unavailable Unavailable Lu, R Ida EARLY BREASTFEEDING CARE SPECIALIST Unavailable Unavailable Lu, R Ida EARLY BREASTFEEDING CARE SPECIALIST Unavailable Unavailable Lu, R Ida EARLY BREASTFEEDING CARE SPECIALIST Unavailable Unavailable Lu, R Ida EARLY BREASTFEEDING CARE SPECIALIST Unavailable Unavailable Ul, R Ida EARLY BREASTFEEDING CARE SPECIALIST Unavailable Unavailable Lu, R Ida EARLY BREASTFEEDING CARE SPECIALIST Unavailable Unavailable Lu, R Ida EARLY BREASTFEEDING CARE SPECIALIST Unavailable Unavailable Lu, R Ida EARLY BREASTFEEDING CARE SPECIALIST Unavailable Unavailable Lu, R Ida EARLY BREASTFEEDING CARE SPECIALIST Unavailable Unavailable Lu, R Ida EARLY BREASTFEEDING CARE SPECIALIST Unavailable Unavailable Lu, R Ida EARLY BREASTFEEDING CARE SPECIALIST Unavailable Unavailable Lu, R Ida EARLY BREASTFEEDING CARE SPECIALIST Unavailable Unavailable Lu, R Ida EARLY BREASTFEEDING CARE SPECIALIST Unavailable Unavailable Lu, R Ida EARLY BREASTFEEDING CARE SPECIALIST Unavailable Unavailable Lu, R Ida EARLY BREASTFEEDING CARE SPECIALIST Unavailable Unavailable Lu, R Ida EARLY BREASTFEEDING CARE SPECIALIST Unavailable Unavailable Lu, R Ida EARLY BREASTFEEDING CARE SPECIALIST Unavailable Unavailable Lu, R Ida EARLY BREASTFEEDING CARE SPECIALIST Unavailable Unavailable Lu, R Ida EARLY BREASTFEEDING CARE SPECIALIST Unavailable Unavailable Lu, R Ida EARLY BREASTFEEDING CARE SPECIALIST Unavailable Unavailable Lu, R Ida EARLY BREASTFEEDING CARE SPECIALIST Unavailable Unavailable Lu, R Ida EARLY BREASTFEEDING CARE SPECIALIST Unavailable Unavailable Lu, R Ida EARLY BREASTFEEDING CARE SPECIALIST Unavailable Unavailable Aishwarya LANCE MD Unavailable Unavailable Aishwarya LANCE MD Unavailable Unavailable Aishwarya LANCE MD Unavailable Unavailable Aishwarya LANCE MD Unavailable Unavailable Aishwarya LANCE MD Unavailable Unavailable Aishwarya LANCE MD Unavailable Unavailable Aishwarya LANCE MD Unavailable Unavailable Aishwarya LANCE MD Unavailable Unavailable Aishwarya LANCE MD Unavailable Unavailable Aishwarya LANCE MD Unavailable Unavailable Aishwarya LANCE MD Unavailable Unavailable Aishwarya LANCE MD Unavailable Unavailable Aishwarya LANCE MD Unavailable Unavailable Aishwarya LNACE MD Unavailable Unavailable Aishwarya LANCE MD Unavailable Unavailable Aishwarya LANCE MD Unavailable Unavailable Aishwarya LANCE MD Unavailable Unavailable Aishwarya LANCE MD Unavailable Unavailable Aishwarya LANCE MD Unavailable Unavailable Aishwarya LANCE MD Unavailable Unavailable Aishwarya LANCE MD Unavailable Unavailable Aishwarya LANCE MD Unavailable Unavailable Aishwarya LANCE MD Unavailable Unavailable Aishwarya LANCE MD Unavailable Unavailable Aishwarya LANCE MD Unavailable Unavailable Aishwarya LANCE MD Unavailable Unavailable Aishwarya LANCE MD Unavailable Unavailable Aishwarya LANCE MD Unavailable Unavailable Aishwarya LANCE MD Unavailable Unavailable Aishwarya LANCE MD Unavailable Unavailable Aishwarya LANCE MD Unavailable Unavailable Aishwarya LANCE MD Unavailable Unavailable Aishwarya LANCE MD Unavailable Unavailable Aishwarya LANCE MD Unavailable Unavailable Aishwarya LANCE MD Unavailable Unavailable Aishwarya LANCE MD Unavailable Unavailable Aishwarya LANCE MD Unavailable Unavailable Aishwarya LANCE MD Unavailable Unavailable Aishwarya LANCE MD Unavailable Unavailable Aishwarya LANCE MD Unavailable Unavailable Aishwarya LANCE MD Unavailable Unavailable Aishwarya LANCE MD Unavailable Unavailable Aishwarya LANCE MD Unavailable Unavailable Aishwarya LANCE MD Unavailable Unavailable Aishwarya LANCE MD Unavailable Unavailable Aishwarya LANCE MD Unavailable Unavailable Aishwarya LANCE MD Unavailable Unavailable Aishwarya LANCE MD Unavailable Unavailable Aishwarya LANCE MD Unavailable Unavailable Aishwarya LANCE MD Unavailable Unavailable Aishwarya LANCE MD Unavailable Unavailable Aishwarya LANCE MD Unavailable Unavailable Aishwarya LANCE MD Unavailable Unavailable Aishwarya LANCE MD Unavailable Unavailable Aishwarya LANCE MD Unavailable Unavailable Aishwarya LANCE MD Unavailable Unavailable Aishwarya LANCE MD Unavailable Unavailable Aishwarya LANCE MD Unavailable Unavailable Aishwarya LANCE MD Unavailable Unavailable Aishwarya LANCE MD Unavailable Unavailable Aishwarya LANCE MD Unavailable Unavailable Aishwarya LANCE MD Unavailable Unavailable Aishwarya LANCE MD Unavailable Unavailable Aishwarya LANCE MD Unavailable Unavailable Aishwarya LANCE MD Unavailable Unavailable Aishwarya LANCE MD Unavailable Unavailable Aishwarya LANCE MD Unavailable Unavailable Aishwarya LANCE MD Unavailable Unavailable Aishwarya LANCE MD Unavailable Unavailable Aishwarya LANCE MD Unavailable Unavailable Aishwarya LANCE MD Unavailable Unavailable Aishwarya LANCE MD Unavailable Unavailable Aishwarya LANCE MD Unavailable Unavailable Aishwarya LANCE MD Unavailable Unavailable Aishwarya LANCE MD Unavailable Unavailable Aishwarya LANCE MD Unavailable Unavailable Zafar Naranjo MD Unavailable Unavailable BogosiZafar weeks MD Unavailable Unavailable BogZafar guzmán MD Unavailable Unavailable BogosiZafar weeks MD Unavailable Unavailable Zafar Naranjo MD Unavailable Unavailable BogZafar guzmán MD Unavailable Unavailable BogosiZafar weeks MD Unavailable Unavailable BogosiZafar weeks MD Unavailable Unavailable BogosiZafar weeks MD Unavailable Unavailable BogosiZafar weeks MD Unavailable Unavailable BogosiZafar weeks MD Unavailable Unavailable BogosiZafar weeks MD Unavailable Unavailable BogosiZafar weeks MD Unavailable Unavailable Zafar Naranjo MD Unavailable Unavailable BogosiZafar weeks MD Unavailable Unavailable BogZafar guzmán MD Unavailable Unavailable BogZafar guzmán MD Unavailable Unavailable Zafar Naranjo MD Unavailable Unavailable Zafar Naranjo MD Unavailable Unavailable BogosiZafar weeks MD Unavailable Unavailable Zafar Naranjo MD Unavailable Unavailable BogZafar guzmán MD Unavailable Unavailable BogZafar guzmán MD Unavailable Unavailable BogZafar guzmán MD Unavailable Unavailable BogZafar guzmán MD Unavailable Unavailable Zafar Naranjo MD Unavailable Unavailable BogZafar guzmán MD Unavailable Unavailable Zafar Naranjo MD Unavailable Unavailable BogZafar guzmán MD Unavailable Unavailable BogZafar guzmán MD Unavailable Unavailable BogZafar guzmán MD Unavailable Unavailable BogZafar guzmán MD Unavailable Unavailable BogZafar guzmán MD Unavailable Unavailable BogosiZafar weeks MD Unavailable Unavailable BogosiZafar weeks MD Unavailable Unavailable BogosiZafar weeks MD Unavailable Unavailable BogosiZafar weeks MD Unavailable Unavailable BogosianZafar MD Unavailable Unavailable BogosianZafar MD Unavailable Unavailable BogosianZafar MD Unavailable Unavailable Bogosian, Zafar Day MD Unavailable Unavailable Bogosian, Zafar Day MD Unavailable Unavailable BogosiZafar weeks MD Unavailable Unavailable BogosiZafar weeks MD Unavailable Unavailable Bogosian, Zafar Day MD Unavailable Unavailable Bogosian, Zafar Day MD Unavailable Unavailable Bogosian, Zafar Day MD Unavailable Unavailable Bogosian, Zafar Day MD Unavailable Unavailable Bogosian, Zafar Day MD Unavailable Unavailable Bogosian, Zafar Day MD Unavailable Unavailable Bogosian, Zafar Day MD Unavailable Unavailable Bogosian, Zafar Day MD Unavailable Unavailable Bogosian, Zafar Day MD Unavailable Unavailable Bogosian, Zafar Day MD Unavailable Unavailable Bogosian, Zafar Day MD Unavailable Unavailable Bogosian, Zafar Day MD Unavailable Unavailable BogosianZafar MD Unavailable Unavailable Bogosian, Zafar Day MD Unavailable Unavailable Bogosian, Zafar Day MD Unavailable Unavailable Bogosian, Zafar Day MD Unavailable Unavailable BogosianZafar MD Unavailable Unavailable BogosiZafar weeks MD Unavailable Unavailable BogosianZafar MD Unavailable Unavailable BogosianZafar MD Unavailable Unavailable BogosianZafar MD Unavailable Unavailable Bogosian, Zafar Day MD Unavailable Unavailable BogosiZafar weeks MD Unavailable Unavailable BogosiZafar weeks MD Unavailable Unavailable BogosiZafar weeks MD Unavailable Unavailable BogosianZafar MD Unavailable Unavailable BogosiZafar weeks MD Unavailable Unavailable BogosiZafar weeks MD Unavailable Unavailable BogosiZafar weeks MD Unavailable Unavailable BogZafar guzmán MD Unavailable Unavailable BogZafar guzmán MD Unavailable Unavailable BogZafar guzmán MD Unavailable Unavailable BogosiZafar weeks MD Unavailable Unavailable BogZafar guzmán MD Unavailable Unavailable BogZafar guzmán MD Unavailable Unavailable Nicole HAQ DPM Unavailable Unavailable Nicole HAQ DPM Unavailable Unavailable Nicole HAQ DPM Unavailable Unavailable Nicole HAQ DPM Unavailable Unavailable Nicole HAQ DPM Unavailable Unavailable Nicole HAQ DPM Unavailable Unavailable MAJAK, R ROSI DPM Unavailable Unavailable MAJAK, R ROSI DPM Unavailable Unavailable MAJAK, R ROSI DPM Unavailable Unavailable MAJAK, R ROSI DPM Unavailable Unavailable MAJAK, R ROSI DPM Unavailable Unavailable MAJAK, R ROSI DPM Unavailable Unavailable MAJAK, R ROSI DPM Unavailable Unavailable MAJAK, R ROSI DPM Unavailable Unavailable MAJAK, R ROSI DPM Unavailable Unavailable MAJAK, R ROSI DPM Unavailable Unavailable MAJAK, R ROSI DPM Unavailable Unavailable MAJAK, R ROSI DPM Unavailable Unavailable MAJAK, R ROSI DPM Unavailable Unavailable MAJAK, R ROSI DPM Unavailable Unavailable MAJAK, R ROSI DPM Unavailable Unavailable MAJAK, R ROSI DPM Unavailable Unavailable MAJAK, R ROSI DPM Unavailable Unavailable MAJAK, R ROSI DPM Unavailable Unavailable MAJAK, R ROSI DPM Unavailable Unavailable MAJAK, R ROSI DPM Unavailable Unavailable MAJAK, R ROSI DPM Unavailable Unavailable MAJAK, R ROSI DPM Unavailable Unavailable MAJAK, R ROSI DPM Unavailable Unavailable MAJAK, R ROSI DPM Unavailable Unavailable MAJAK, R ROSI DPM Unavailable Unavailable Jaqueline Sotelo MD Unavailable Unavailable Jaqueline Sotelo MD Unavailable Unavailable Jaqueline Sotelo MD Unavailable Unavailable Jaqueline Sotelo MD Unavailable Unavailable Jaqueline Sotelo MD Unavailable Unavailable Jaqueline Sotelo MD Unavailable Unavailable Jaqueline Sotelo MD Unavailable Unavailable Jaqueline Sotelo MD Unavailable Unavailable Jaqueline Sotelo MD Unavailable Unavailable Jaqueline Sotelo MD Unavailable Unavailable Jaqueline Sotelo MD Unavailable Unavailable Jaqueline Sotelo MD Unavailable Unavailable Jaqueline Sotelo MD Unavailable Unavailable Jaqueline Sotelo MD Unavailable Unavailable Jaqueline Sotelo MD Unavailable Unavailable Jaqueline Sotelo MD Unavailable Unavailable Jaqueline Sotelo MD Unavailable Unavailable Jaqueline Sotelo MD Unavailable Unavailable Jaqueline Sotelo MD Unavailable Unavailable Jaqueline Sotelo MD Unavailable Unavailable Jaqueline Sotelo MD Unavailable Unavailable Jaqueline Sotelo MD Unavailable Unavailable Jaqueline Sotelo MD Unavailable Unavailable Jaqueline Sotelo MD Unavailable Unavailable Jaqueline Sotelo MD Unavailable Unavailable Vaneenenaam, Jaqueline Hernández MD Unavailable Unavailable Vaneenenaam, Jaqueline Hernández MD Unavailable Unavailable Vaneenenaam, Jaqueline Hernández MD Unavailable Unavailable Vaneenenaam, Jaqueline Hernández MD Unavailable Unavailable Vaneenenaam, Jaqueline Hernández MD Unavailable Unavailable Vaneenenaam, Jaqueline Hernández MD Unavailable Unavailable Vaneenenaam, Jaqueline Hernández MD Unavailable Unavailable Vaneenenaam, Jaqueline Hernández MD Unavailable Unavailable Vaneenenaam, Jaqueline Hernández MD Unavailable Unavailable Vaneenenaam, Jaqueline Hernández MD Unavailable Unavailable Vaneenenaam, Jaqueline Hernández MD Unavailable Unavailable Vaneenenaam, Jaqueline Hernández MD Unavailable Unavailable Vaneenenaam, Jaqueline Hernández MD Unavailable Unavailable Vaneenenaam, Jaqueline Hernández MD Unavailable Unavailable Vaneenenaam, Jaqueline Hernández MD Unavailable Unavailable Vaneenenaam, Jaqueline Hernández MD Unavailable Unavailable Vaneenenaam, Jaqueline Hernández MD Unavailable Unavailable Vaneenenaam, Jaqueline Hernández MD Unavailable Unavailable Vaneenenaam, Jaqueline Hernández MD Unavailable Unavailable Vaneenenaam, Jaqueline Hernández MD Unavailable Unavailable Vaneenenaam, Jaqueline Hernández MD Unavailable Unavailable ANDREIA, A ELY DO Unavailable Unavailable ANDREIA, A ELY DO Unavailable Unavailable ANDREIA, A ELY DO Unavailable Unavailable ANDREIA, A ELY DO Unavailable Unavailable ANDREIA, A ELY DO Unavailable Unavailable ANDREIA, A ELY DO Unavailable Unavailable ANDREIA, A ELY DO Unavailable Unavailable ANDREIA, A ELY DO Unavailable Unavailable ANDREIA, A ELY DO Unavailable Unavailable ANDREIA, A ELY DO Unavailable Unavailable ANDREIA, A ELY DO Unavailable Unavailable ANDREIA, A ELY DO Unavailable Unavailable ANDREIA, A ELY DO Unavailable Unavailable ANDREIA, A ELY DO Unavailable Unavailable ANDREIA, A ELY DO Unavailable Unavailable ANDREIA, A ELY DO Unavailable Unavailable ANDREIA, A ELY DO Unavailable Unavailable ANDREIA, A ELY DO Unavailable Unavailable ANDREIA, A ELY DO Unavailable Unavailable ANDREIA, A ELY DO Unavailable Unavailable ANDREIA, A ELY DO Unavailable Unavailable ANDREIA, A ELY DO Unavailable Unavailable Valdez, L Ida HR RECRUITER-BC Unavailable Unavailable Valdez, L Ida HR RECRUITER-BC Unavailable Unavailable Valdez, L Ida HR RECRUITER-BC Unavailable Unavailable Valdez, L Ida HR RECRUITER-BC Unavailable Unavailable Valdez, L Ida HR RECRUITER-BC Unavailable Unavailable Valdez, L Ida HR RECRUITER-BC Unavailable Unavailable Valdez, L Ida HR RECRUITER-BC Unavailable Unavailable Valdez, L Ida HR RECRUITER-BC Unavailable Unavailable Valdez, L Ida HR RECRUITER-BC Unavailable Unavailable Valdez, L Ida HR RECRUITER-BC Unavailable Unavailable Valdez, L Ida HR RECRUITER-BC Unavailable Unavailable Valdez, L Ida HR RECRUITER-BC Unavailable Unavailable Valdez, L Ida HR RECRUITER-BC Unavailable Unavailable Valdez, L Ida HR RECRUITER-BC Unavailable Unavailable Valdez, L Ida HR RECRUITER-BC Unavailable Unavailable Valdez, L Ida HR RECRUITER-BC Unavailable Unavailable Valdez, L Ida HR RECRUITER-BC Unavailable Unavailable Valdez, L Ida HR RECRUITER-BC Unavailable Unavailable Valdez, L Ida HR RECRUITER-BC Unavailable Unavailable Valdez, L Ida HR RECRUITER-BC Unavailable Unavailable Valdez, L Ida HR RECRUITER-BC Unavailable Unavailable Valdez, L Ida HR RECRUITER-BC Unavailable Unavailable Valdez, L Ida HR RECRUITER-BC Unavailable Unavailable Valdez, L Ida HR RECRUITER-BC Unavailable Unavailable Valdez, L Ida HR RECRUITER-BC Unavailable Unavailable Valdez, L Ida HR RECRUITER-BC Unavailable Unavailable Valdez, L Ida HR RECRUITER-BC Unavailable Unavailable Valdez, L Ida HR RECRUITER-BC Unavailable Unavailable Valdez, L Ida HR RECRUITER-BC Unavailable Unavailable Valdez, L Ida HR RECRUITER-BC Unavailable Unavailable Valdez, L Ida HR RECRUITER-BC Unavailable Unavailable Re-disclosure Warning The records that you are about to access may contain information from federally-assisted alcohol or drug abuse programs. If such information is present, then the following federally mandated warning applies: This information has been disclosed to you from records protected by federal confidentiality rules (42 CFR part 2). The federal rules prohibit you from making any further disclosure of this information unless further disclosure is expressly permitted by the written consent of the person to whom it pertains or as otherwise permitted by 42 CFR part 2. A general authorization for the release of medical or other information is NOT sufficient for this purpose. The Federal rules restrict any use of the information to criminally investigate or prosecute any alcohol or drug abuse patient.The records that you are about to access may contain highly sensitive health information, the redisclosure of which is protected by Article 27-F of the [facility] Public Health law. If you continue you may have access to information: Regarding HIV / AIDS; Provided by facilities licensed or operated by the [facility] Office of Mental Health; or Provided by the [facility] Office for People With Developmental Disabilities. If such information is present, then the following [facility] mandated warning applies: This information has been disclosed to you from confidential records which are protected by state law. State law prohibits you from making any further disclosure of this information without the specific written consent of the person to whom it pertains, or as otherwise permitted by law. Any unauthorized further disclosure in violation of state law may result in a fine or snf sentence or both. A general authorization for the release of medical or other information is NOT sufficient authorization for further disc losure. Allergies and Adverse Reactions Type Description Substance Reaction Status Data Source(s ) Drug allergy vancomycin vancomycin [facility] Drug allergy meperidine meperidine DIFF WALKING , WEAK [facility] Drug allergy codeine codeine HIVES [facility] Drug allergy Penicillins Penicillins HIVES [facility] Family History Family Member Name Family Member Gender Family Member Status Date o f Status Description Data Source(s) Unknown Female Problem [facility] ([facility]) Encounters Encounter Providers Location Date Indications Data Source(s ) Outpatient Attender: Jaqueline Sotelo MD [id number] 01/10/2021 06:37:00 AM EDT - 01/11/2021 02:31:00 PM [facility] Patient discharged. Office Visit Attender: Reba CANALES PA-C Physical Therapy 01/06/2021 02:30:00 PM EDT [facility] ([facility]) Preadmit Attender: Jaqueline Sotelo MD ER-OPS 01/05/2021 10: 30:00 AM [facility] Outpatient Attender: NIKITA LANCE MD [facility] 01/2021 02:00:00 PM EDT [facility] Outpatient Attender: NIKITA LANCE MD [facility] 01:15:00 PM EDT [facility] ([facility] Outpatient Attender: Jaqueline Sotelo MD Physical Therap y 11/21/2020 11:00:00 AM EDT [facility] ([facility]) [place] [address] [facility] [address] 11/15/2020 12:00:00 AM EDT eCW1 ([facility]) [place] [address] [facility] [address] 11/02/2020 12:00:00 AM EDT eCW1 ([facility]) Outpatient Attender: NIKITA LANCE MD [facility] 02:00:00 PM EDT [facility] ([facility] Outpatient Attender: Jaqueline Sotelo MD Physical Therap y 09/14/2020 01:45:00 PM EDT [facility] ([facility]) Outpatient Attender: NIKITA LANCE MD [facility] 01:15:00 PM EDT [facility] ([facility] Outpatient Attender: NIKITA LANCE MD [facility] 10/2020 01:15:00 PM EDT [facility] ([facility] Outpatient Attender: NIKITA LANCE MD [facility] 02:15:00 PM EDT [facility] ([facility] OFFICE OUTPATIENT VISIT 15 MINUTES Attender: Jaqueline mary MD Physical Therapy 08/01/2020 02:30:00 PM EDT [facility] ([facility]) Outpatient Attender: NIKITA LANCE MD [facility] 09/2020 11:15:00 AM EDT [facility] ([facility] Outpatient Attender: NIKITA LANCE MD [facility] 07/2020 12:30:00 PM EST [facility] ([facility] Outpatient Attender: Ida Valdez HR RECRUITER-BC Shira/ [facility]ie 04/20/2020 01:30:00 PM EST [facility] ([facility]) Outpatient Attender: NIKITA LANCE MD [facility] 12:30:00 PM EST [facility] ([facility] Office Visit Attender: ROSI MAJAK [facility] 06/2020 02:45:00 PM EST [facility] Outpatient Attender: Ida Lu NPReferrer: NIKITA MAKI MD 03/22/2020 07:13:50 AM EST [facility]<td ID="encounterTypeDescripti onID0">11 Month Follow- Up</td><td>Ely Jackson DO</td><td>Ricky Iniguez MD [facility]</td><td>03/08/2020</td><td>8:56AM</td><td>9:31AM</td><td><content ID="encounterDiagnosisID0-0">Pseudophakia</content>, <content ID="encounterDiagnosisID0-1">Assessment of Taking Medication For Diabetes Long- term Use of Oral Hypoglycemics</content>, <content ID="encounterDiagnosisID0- 2">Dry Eye Syndrome Both Eyes</content>, <content ID="encounterDiagnosisID0- 3">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</content> , <content ID="encounterDiagnosisID0-4">Vitreous Disorders Degeneration</content></td> Attender: ELY Bae MD [facility] 03/08/2020 08:56:00 AM EST - 03/08/2020 09:31:00 AM ES T Vitreous Disorders DegenerationVitreous Disorders Degeneration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PseudophakiaPseudophakiaDry Eye Syndrome Both EyesAssessment of Taking Medication For Diabetes Long-term Use of Oral HypoglycemicsDry Eye Syndrome Both EyesAssessment of Taking Medication For Diabetes Long-term Use of Oral Hypoglycemics [place] (Ricky Finnegan MD [facility]) 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 Office 05/2019 02:45:00 PM EST [facility] ([facility] Outpatient Attender: NIKITA LANCE MD [place] Office 12:15:00 PM EST [facility] ([facility] Office Visit Attender: ROSI HAQ [facility] Office 01/23 02:15:00 PM EST [facility] ([facility] Outpatient Attender: NIKITA LANCE MD [place] Office 02/2020 02:00:00 PM EDT [facility] ([facility] Outpatient Attender: NIKITA LANCE MD [place] Office 10:00:00 AM EDT [facility] ([facility] Outpatient Attender: ROSI HAQ [facility] Office 11/23 01:00:00 PM EDT [facility] ([facility] Outpatient Attender: Shay Naranjo MDReferrer: NIKITA JUSTIN MD 11/25/2019 03:20:14 PM EDT [facility] Outpatient Attender: NIKITA LANCE MD [place] Office 01:15:00 PM EDT MED[facility] ([facility] Outpatient Attender: Shay Naranjo MDReferrer: NIKITA JUSTIN MD 11/18/2019 07:27:31 AM EDT [facility] Immunizations Vaccine Date Status Description Data Source(s) New in 2012. IIV4 12/06/2020 01:35:00 PM EDT completed [facility] ([facility] COVID-19 VACCINE Moderna 06/15/2020 12:00:00 AM EDT completed [employer] Vaccine Series Complete: YESThis Data wa s Submitted to [facility] Via [employer]. COVID-19 VACCINE Moderna 05/21/2020 12:00:00 AM EST completed [facility] Vaccine Series Complete: NOThis Data was Submitted to [facility] Via [employer]. New in 2013. IIV4 12/22/2019 09:59:00 AM EDT completed [facility] ([facility] Medications Medication Brand Name Start Date Product Form Dose Route Admi nistrative Instructions Pharmacy Instructions Status Indications Reaction Description Data Source(s) 2 % 12/29/2020 12:00:00 AM EDT ointment 22 APPLY A PEA SIZED AMOUNT TO THE NASAL PASSAGES 3 TIMES A DAY OR 5 DAYS PRIOR TO SURGERY APPLY A PEA SIZED AMOUNT TO THE NASAL PASSAGES 3 TIMES A DAY OR 5 DAYS PRIOR TO SURGERY SOLD: 01/02/2021 [facility] 50 mg 12/22/2020 12:00:00 AM EDT tablet 90 TAKE ONE TABLET BY MOUTH THREE TIMES A DAY NEEDED FOR PAIN - DO NOT DRIVE OR OPERATE EQUIPMENT WHILE TAKING , MAXIMUM DAILY DOSE = 3 TABLETS TAKE ONE TABLET BY MOUTH THREE TIMES A D AY NEEDED FOR PAIN - DO NOT DRIVE OR OPERATE EQUIPMENT WHILE TAKING , MAXIMUM DAILY DOSE = 3 TABLETS SOLD: 12/23/2020 [facility] chlorhexidine gluconate 40 MG/ML Medicated Liquid Soap [Hibi clemuna] Hibiclens 11/25/2020 12:00:00 AM EDT active [facility] ([facility]) Mupirocin 0.02 MG/MG Topical Ointment Mupirocin 11/25/2020 12:00:00 AM EDT active [facility] Acetaminophen 325 MG / Hydrocodone Bitartrate 5 MG Ora l Tablet Hydrocodone Bitartrate/Acetaminophen 11/25/2020 12:00:00 AM EDT ORAL active [facility] ([facility]) 24 HR Glipizide 10 MG Extended Release Oral Tablet Glipizide ER 11/11/2020 12:00:00 AM EDT active M EDENT ([facility] Clindamycin 300 MG Oral Capsule CLINDAMYCIN HCL 10/26/2020 12:00 :00 AM EDT capsule 2 TAKE 2 CAPSULES BY MOUTH ONE LIBERTAD R PRIOR TO EACH DENTAL APPOINTMENT TAKE 2 CAPSULES BY MOUTH ONE HOUR PRIOR TO EACH DENTAL APPOINTMENT SOLD: 10/28/2020 [facility] Prednisone 10 MG Oral Tablet Prednisone 08/30/2020 12:00:00 AM EDT ORAL completed [facility] ([facility] Cyclobenzaprine hydrochloride 10 MG Oral Tablet CYCLOBENZAPR INE HCL 08/17/2020 12:00:00 AM EDT tablet 30 TAKE 1/2 TO 1 TA BLET BY MOUTH ONCE DAILY AT BEDTIME NEEDED TAKE 1/2 TO 1 TABLET BY MOUTH ONCE DAILY AT BEDTIME NEEDED SOLD: 08/19/2020 [facility] Acetaminophen 325 MG / Hydrocodone Bitartrate 5 MG Oral Tabl et [Meadow] Meadow 08/16/2020 12:00:00 AM EDT ORAL completed [facility] ([facility] gabapentin 300 MG Oral Capsule Gabapentin 08/16/2020 12:00:00 AM EDT ORAL completed [facility] ([facility] gabapentin 600 MG Oral Tablet Gabapentin 08/16/2020 12:00:00 AM EDT ORAL active [facility] ([facility] 1 gram 06/30/2020 12:00:00 AM EDT tablet 90 TAKE ONE TABLET BY MOUTH THREE TIMES A DAY NEEDED TAKE ONE TABLET BY MOUTH THREE TIMES A DAY NEEDED S OLD: 07/04/2020 [facility] Cyclobenzaprine hydrochloride 10 MG Oral Tablet CYCLOBENZAPR INE HCL 04/09/2020 12:00:00 AM EST tablet 30 TAKE ONE-HALF TO ONE TABLET BY MOUTH ONCE DAILY AT BEDTIME NEEDED TAKE ONE-HALF TO ONE TABLET BY MOUTH ONC E DAILY AT BEDTIME NEEDED SOLD: 04/11/2020 [facility] 50 mg 03/14/2020 12:00:00 AM EST tablet 90 TAKE ONE TABLET BY MOUTH THREE TIMES A DAY NEEDED FOR PAIN , MAXIMUM DAILY DOSE = 3 TABLETS TAKE ONE TABLET BY MOUTH THREE TIMES A DAY NEEDED FOR PAIN , MAXIMUM DAILY DOSE = 3 TABLETS SOLD: 07/05/2020 [facility] 50 mg 03/14/2020 12:00:00 AM EST tablet 90 TAKE ONE TABLET BY MOUTH THREE TIMES A DAY NEEDED FOR PAIN , MAXIMUM DAILY DOSE = 3 TABLETS TAKE ONE TABLET BY MOUTH THREE TIMES A DAY NEEDED FOR PAIN , MAXIMUM DAILY DOSE = 3 TABLETS SOLD: 06/03/2020 [facility] 50 mg 03/14/2020 12:00:00 AM EST tablet 90 TAKE ONE TABLET BY MOUTH THREE TIMES A DAY NEEDED FOR PAIN , MAXIMUM DAILY DOSE = 3 TABLETS TAKE ONE TABLET BY MOUTH THREE TIMES A DAY NEEDED FOR PAIN , MAXIMUM DAILY DOSE = 3 TABLETS SOLD: 03/16/2020 [facility] 50 mg 03/14/2020 12:00:00 AM EST tablet 90 TAKE ONE TABLET BY MOUTH THREE TIMES A DAY NEEDED FOR PAIN , MAXIMUM DAILY DOSE = 3 TABLETS TAKE ONE TABLET BY MOUTH THREE TIMES A DAY NEEDED FOR PAIN , MAXIMUM DAILY DOSE = 3 TABLETS SOLD: 08/16/2020 [facility] 50 mg 03/14/2020 12:00:00 AM EST tablet 90 TAKE ONE TABLET BY MOUTH THREE TIMES A DAY NEEDED FOR PAIN , MAXIMUM DAILY DOSE = 3 TABLETS TAKE ONE TABLET BY MOUTH THREE TIMES A DAY NEEDED FOR PAIN , MAXIMUM DAILY DOSE = 3 TABLETS SOLD: 05/03/2020 [facility] 5-325 mg 02/03/2020 12:00:00 AM EST tablet 20 TAKE 1 TO 2 TABLETS BY MOUTH EVERY 6 HOURS NEEDED FOR PAIN, MAXIMUM DAILY DOSE = EIGHT TABLETS TAKE 1 TO 2 TABLETS BY MOUTH EVERY 6 HOURS NEEDED FOR PAIN, MAXIMUM DAILY DOSE = EIGHT TABLETS SOLD: 02/05/2020 [facility] Cyclobenzaprine hydrochloride 10 MG Oral Tablet CYCLOBENZAPR INE HCL 11/18/2019 12:00:00 AM EDT tablet 30 TAKE ONE TABLET BY MOUTH EVERY DAY AT BEDTIME NEEDED TAKE ONE TABLET BY MOUTH EVERY DAY AT BEDTIME NEEDED SOLD : 11/26/2019 [facility] 24 HR Glipizide 10 MG Extended Release Oral Tablet [Glucotro l] Glucotrol XL 11/18/2019 12:00:00 AM EDT ORAL active [facility] ([facility] 300 mg 10/06/2019 12:00:00 AM EDT capsule 120 TAKE ONE CAPSULE BY MOUTH FOUR TIMES A DAY TAKE ONE CAPSULE BY MOUTH FOUR TIMES A DAY SOLD: 12/02/2019 [facility] gabapentin 300 MG Oral Capsule GABAPENTIN 10/06/2019 12:00:00 AM EDT capsule 120 TAKE ONE CAPSULE BY MOUTH FOUR TIMES A D AY TAKE ONE CAPSULE BY MOUTH FOUR TIMES A DAY SOLD: 06/28/2020 [facility] gabapentin 300 MG Oral Capsule Gabapentin 09/18/2019 12:00:00 AM EDT ORAL completed [facility] ([facility] 300 mg 09/03/2019 12:00:00 AM EDT capsule 2 TAKE 2 CAPULES BY MOUTH 1 HOUR PRIOR TO EACH DENTAL APPOINTMENT TAKE 2 CAPULES BY MOUTH 1 HOUR PRIOR TO EACH DENTAL APPOINTMENT SOLD: 08/02/2020 [facility] 300 mg 09/03/2019 12:00:00 AM EDT capsule 2 TAKE 2 CAPULES BY MOUTH 1 HOUR PRIOR TO EACH DENTAL APPOINTMENT TAKE 2 CAPULES BY MOUTH 1 HOUR PRIOR TO EACH DENTAL APPOINTMENT SOLD: 08/16/2020 [facility] 50 mg 08/24/2019 12:00:00 AM EDT tablet 90 TAKE ONE TABLET BY MOUTH THREE TIMES A DAY NEEDED FOR PAIN, MAXIMUM DAILY DOSE = THREE TABLETS TAKE ONE TABLET BY MOUTH THREE TIMES A DAY NEEDED FOR PAIN, MAXIMUM DAILY DOSE = THREE TABLETS SOLD: 12/08/2019 [facility] 50 mg 08/24/2019 12:00:00 AM EDT tablet 90 TAKE ONE TABLET BY MOUTH THREE TIMES A DAY NEEDED FOR PAIN, MAXIMUM DAILY DOSE = THREE TABLETS TAKE ONE TABLET BY MOUTH THREE TIMES A DAY NEEDED FOR PAIN, MAXIMUM DAILY DOSE = THREE TABLETS SOLD: 02/12/2020 [facility] 50 mg 08/24/2019 12:00:00 AM EDT tablet 90 TAKE ONE TABLET BY MOUTH THREE TIMES A DAY NEEDED FOR PAIN, MAXIMUM DAILY DOSE = THREE TABLETS TAKE ONE TABLET BY MOUTH THREE TIMES A DAY NEEDED FOR PAIN, MAXIMUM DAILY DOSE = THREE TABLETS SOLD: 01/13/2020 [facility] Insurance Providers Payer name Policy type / Coverage type Policy ID Covered democrat ID Covered democrat's relationship to hicks Policy Hicks Plan Information MEDICARE [id number] SP [id number] MEDICARE [id number] SP [id number] A MEDICARE [id number] SP [id number] T MEDICARE [id number] Julia [id number] A [facility] [id number] Julia [id number] [facility] AARP Supplemental F [id number] SELF [id number] [facility] AARP Supplemental F [id number] SELF [id number] Medicare C [id number] SELF [id number] A [facility] AARP Supplemental F [id number] SELF [id number] AARP [facility] Supplemental F [id number] SELF [id number] DME Jurisdiction A [facility] C [id number] SELF [id number] [employer] OPTIONS [id number] SP [id number] Medicare C [id number] SELF [id number] M42 Medicare C [id number] SELF [id number] M43 Medicare C [id number] SELF [id number] Medicare C [id number] SELF [id number] M42 BCBS [place] [phone] [id number] SP [id number] [employer] [id number] SP [id number] MEDICARE [id number] S [id number] MEDICARE [id number] SP [id number] A Medicare Part B of [facility] Other 0 [id number] Self 0 Medicare Part B of [facility] Other 0 [id number] Self 0 MEDICARE C [id number] S [id number] AARP O [id number] S [id number] [employer] -O/P [id number] 18 [id number] MEDICARE PART A -O/P [id number] 18 [id number] MEDICARE C [id number] S [id number] A [facility]/ [facility] Medigap Part B [id number] Self Medicare Medicare Primary [id number] Self [employer] UNAVAILABLE UNAVAILABLE MEDICARE [id number] SP [id number] Problems, Conditions, and Diagnoses Code Display Name Description Problem Type Effective Dates Data Source(s) M1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, right hip UNILATERAL PRIMARY OSTEOARTHRITIS, RIGHT Diagnosis 01/10/2021 06:37:00 AM EDT Alenangie torresal 379.21 Vitreous Disorders Degeneration Vitreous Disorders Deg eneration Problem 03/08/2020 12:00:00 AM EST [place] (Ricky Finnegan MD [facility]) 379.21 Vitreous Disorders Degeneration Vitreous Disorders Deg eneration Problem 03/08/2020 12:00:00 AM EST [place] (Ricky Finnegan MD [facility]) [id number] Type 2 diabetes mellitus Type 2 diabetes mellitus Prob rohan 12/08/2019 12:00:00 AM EDT [facility] ([facility] [id number] Swelling of first metatarsal joint of ballard llux of right foot Swelling of first metatarsal joint of hallux of right foot Problem 12/08/2019 12:00:00 AM EDT [facility] ([facility] Surgeries/Procedures Procedure Description Date Indications Data Source(s) OFFICE OUTPATIENT VISIT 25 MINUTES 01/02/2021 12:00:00 AM EDT [facility] ([facility] OFFICE OUTPATIENT VISIT 25 MINUTES 12/06/2020 12:00:00 AM EDT [facility] ([facility] OFFICE OUTPATIENT VISIT 25 MINUTES 11/21/2020 12:00:00 AM EDT [facility] ([facility] OFFICE OUTPATIENT VISIT 25 MINUTES 10/05/2020 12:00:00 AM EDT [facility] ([facility] OFFICE OUTPATIENT VISIT 25 MINUTES 09/14/2020 12:00:00 AM EDT [facility] ([facility] OFFICE OUTPATIENT VISIT 25 MINUTES 09/05/2020 12:00:00 AM EDT [facility] ([facility] OFFICE OUTPATIENT VISIT 25 MINUTES 08/30/2020 12:00:00 AM EDT [facility] ([facility] OFFICE OUTPATIENT VISIT 25 MINUTES 08/16/2020 12:00:00 AM EDT [facility] ([facility] RADEX SPINE THORACIC 2 VIEWS 08/15/2020 12:00:00 AM ED T [facility] ([facility] X-Ray Spine Lumbosacral Complete Inc Bending Views Min Of 6 08/15/2020 12:00:00 AM EDT [facility] ([facility]) OFFICE OUTPATIENT VISIT 40 MINUTES 08/15/2020 12:00:00 AM EDT [facility] ([facility] OFFICE OUTPATIENT VISIT 15 MINUTES 08/01/2020 12:00:00 AM EDT [facility] ([facility] OFFICE OUTPATIENT VISIT 15 MINUTES 06/29/2020 12:00:00 AM EDT [facility] ([facility] RADEX SPINE LUMBOSACRAL MINIMUM 4 VIEWS 06/15/2020 12: 00:00 AM EDT [facility] ([facility] X-Ray Hip Unilateral With Pelvis 2-3 Views 06/15/2020 12:00:00 AM EDT [facility] ([facility] OFFICE OUTPATIENT NEW 45 MINUTES 06/15/2020 12:00:00 A M EDT [facility] ([facility] OFFICE OUTPATIENT VISIT 25 MINUTES 05/27/2020 12:00:00 AM EST [facility] ([facility] US RETROPERITONEAL REAL TIME W/IMAGE COMPLETE 04/20/19 12:00:00 AM EST [facility] ([facility] US RETROPERITONEAL REAL TIME W/IMAGE COMPLETE 04/20/19 12:00:00 AM EST [facility] ([facility]) OFFICE OUTPATIENT VISIT 15 MINUTES 04/08/2020 12:00:00 AM EST [facility] ([facility] Extracapsular extraction of lens (procedure) History o f extracapsular cataract extraction PCIOL OS by Dr. Jackson 01/24/17 ~PCIOL OD by Dr. Jackson 02/21/17 03/08/2020 12:00:00 AM EST [place] (Christopher Finnegan MD [facility]) Intermediate Eye Exam Established Patient Intermediate Eye Exam Established Patient 03/08/2020 12:00:00 AM EST [place] (Christopher Finnegan MD [facility]) Surgical / procedural history Cholecyst ectomy 2001. Laminectomy 2010. Cervical Spine Surgery 2012. Lumbar L5-L1 2015. Hip Replacement 2016 Surgical / procedural history Cholecystectomy 2001. Laminectomy 2009. Cervical Spine Surgery 2012. Lumbar L5-L1 2015. Hip Replacement 2016 03/08/2020 12:00:00 AM EST [place] (Ricky Finnegan MD [facility]) Intermediate Eye Exam Established Patient Intermediate Eye Exam Established Patient 03/08/2020 12:00:00 AM EST [place] (Christopher Finnegan MD [facility]) RADEX FOOT COMPLETE MINIMUM 3 VIEWS 02/25/2020 12:00:0 0 AM EST [facility] ([facility] Hallux Rigidus Correction W/Cheilectomy,Debride/Cap Release MTP 02/03/2020 12:00:00 AM EST [facility] ([facility] Hallux Rigidus Correction Release MTP With Implant 02/03/2020 12:00:00 AM EST [facility] ([facility] Electrocardiogram Complete 01/04/2020 12:00:00 AM EDT [facility] ([facility] RADEX FOOT COMPLETE MINIMUM 3 VIEWS 12/08/2019 12:00:0 0 AM EDT [facility] ([facility] Results ID Date Data Source [id number] 01/11/2021 11:57:00 AM EDT [address] [address]BLEANMYZO SUMMARYPATIENT NAME: PATRICK GOODMAN MR#: [id number] PHYSICIAN: RICKY SOTELO MDAUTHOR: Elvin ESTRADA, Jerome DATE: RM#: [id number] DATE: : 45Summary of HospitalizationReason for Admissionright hip painHospital [id number] history of diabetes mellitus, posterior nasal drip, diabetic neuropathy,was evaluated by orthopedics with progressive worsening right hip pain andstiffness. Status post right total hip replacement by Dr. Edgar Olvera.Hospitalist consulted for medical management. Patient reported only mild painfrom surgical site. 3 out of 10. Worsened with movement. Relieved with rest.No radiation. No nausea vomiting. No chest pain. Postoperatively patienthad urinary retention. Bladder scan showing 600 cc straight cath offered. Noabdominal pain.Status post right hip replacement. Perioperative management per orthopedics.Pain regimen provided. DVT prophylaxis provided Xarelto. Initially havingurinary retention. Given Flomax with resolution. Bladder scan appreciated.Bowel regimen provided. Patient passed physical therapy. Tolerating p.o.Will be discharged for further care as outpatient. Follow-up orthopedics asoutpatientProcedures & Relevant StudiesSurgeriesSurgery Date and Time: 01/10/2021 0800Primary Procedure: TOTAL HIP REPLACEMENTDiagnoses (Current Visit)Problem List1. S/P total right hip arthroplasty2. Diabetes mellitus3. Diabetic neuropathy4. Urinary retentionDiagnoses (Other)Past Pertinent History1. S/P total right hip arthroplasty2. Diabetes mellitus3. Diabetic neuropathy4. Urinary retentionPatient's Discharge ConditionVital SignsVital Signs-LastResult Date TimePulse Ox 96 01/11 0659B/P 132/77 01/11 659Temp 98.4 01/11 659Pulse 66 01/11 0659Resp 17 01/11 0659Patient's Discharge ConditionDischarge Date 01/11/21Discharge Conditon stableDischarge DispositionHome with servicesPhysical ExaminationGeneral Appearance no acute distress, afebrile, alert, awake, conversantHead atraumatic, normocephalicENT moist mucosal membranesNeck suppleCardiovascular regular rate, no murmur, no gallop, no rub, no heaveRespiratory clear to auscultation, no distress, aerating well, symmetricexpansionAbdomen soft, non-tender, no distention, no organomegaly, normal bowel sounds,no guarding, no reboundUrinary no flank painExtremities no clubbing, no cyanosis, Surgical site intact, DP PT pulses intact, sensation intact,Muscoskeletal normal inspectionNeurological alert, normal cerebellar functio, normal speech, no motor deficits, no sensory deficits, CNII-XXII grossly intactPsych/Mental Status mood neutralPatient/Family InstructionsPrescriptionsContinue taking these medications:GlipiZIDE (GLIPIZIDE) 5 MG TABLET5 MILLIGRAM Orally DAILYTRAMADOL (Ultram*) 50 MG [id number] MILLIGRAM Orally THREE TIMES DAILY not to exceed 4 tabs per dayCYCLOBENZAPRINE* (Flexeril*) 10 MG [id number] MILLIGRAM Orally As directed as needed for MUSCLE RELAXERGABAPENTIN* (Neurontin*) 300 MG [id number] MILLIGRAM Orally THREE TIMES DAILY[TYLENOL]As directed as needed for PAINStart taking the following new medications:TAMSULOSIN HCL (TAMSULOSIN) 0.4 MG CAP.ER.24H0.4 MILLIGRAM Orally AT BEDTIMEQty = 30No RefillsRIVAROXABAN (XARELTO*) 10 MG [id number] MILLIGRAM Orally 0600Qty = 30No RefillsSennosides/Docusate Sodium (Senna S Tablet) 1 EACH TABLET1 TABLET Orally TWICE DAILYQty = 60No RefillsDischarge Activity: As toleratedDischarge diet: Consistent CarbohydrateFollow-upFollow up with your Primary care physician in 7 days. Follow-up orthopedics asdirected. Weightbearing as per orthopedics. Xarelto for DVT prophylaxis.Pain regimen per orthopedics. Continue physical therapy. Fall precaution.Return to hospital symptoms worsen.ReferralsOrdered [facility] First availa...[address] [place] [address] -sn TO EVALUATE AND TREAT-PT FOR STRENGTHENINGTime spent by provider to complete discharge > 30 minutesDATE SIGNED: 01/11/21 Electronically SignedTIME SIGNED: 1201 JEROME MOBLEY MD Name Value Range Interpretation Code Description Data Demetrice rce(s) Supporting Document(s) ID Date Data Source [id number] 01/11/2021 11:52:00 AM EDT [address] [address]CNNGXUG NAME: PATRICK GOODMAN#: [id number] PHYSICIAN[facility]O [facility] [id number] ADM. DATE:PATIENT : 45 DISCH. DATE: [50}DISCHARGE SUMMARYMedical Discharge PlanPersonal Care InstructionsDischarge Activity: As toleratedDischarge diet: Consistent CarbohydrateProblem ListMedical ProblemsDiabetes mellitus (Chronic)Diabetic neuropathy (Chronic)Urinary retention (Chronic)Surgical ProblemsH/O cervical spine surgeryH/O prostate biopsyHistory of carpal tunnel releaseHistory of cholecystectomyHistory of spinal fusionS/P total left hip arthroplastyS/P total right hip arthroplasty (Acute)Follow Up CareFollow Up:Follow up with your Primary care physician in 7 days. Follow-up orthopedics asdirected. Weightbearing as per orthopedics. Xarelto for DVT prophylaxis.Pain regimen per orthopedics. Continue physical therapy. Fall precaution.Return to hospital symptoms worsen.Priority ItemsUrgent/Important items that need to be addressed at primary care follow- upappointmentFollow up with your Primary care physician in 7 days. Follow-up orthopedics asdirected. Weightbearing as per orthopedics. Xarelto for DVT prophylaxis.Pain regimen per orthopedics. Continue physical therapy. Fall precaution.Return to hospital symptoms worsen.Discharge InformationDISCHARGE INFORMATION* Thank [facility] and allowing us toserve you* Our Goal is to provide the highest quality of care.* This discharge information is to help you better understand your diagnosisand medication* Avoid taking lbyc-emj-utbszlj medicines unless approved by your physician.* Take your medications as prescribed. DO NOT stop any medications unlessapproved first* Weigh yourself daily. Report any gain of 5 lbs in a week* 24 Hour Crisis HOTLINE available: Call [employer] at [phone] SMOKING CESSATION* Smoking is dangerous to your health. It delays the healing process, andworks against your medications. Not smoking will improve your health* Our hospital participates with the Opt-to-Quit program. You will be contactedafter discharge by the [facility] Smoker's Quitline for support with tobaccocessation. You have the option once contacted to refuse this service.* You can also go online to www.[employer]. Free nicotine replacementsare available ___Attention* You should contact your follow up Physician as it is important that you lethim or her check you and report any new or remaining problems. If yourcondition worsens, follow up with your provider or visit our EmergencyDepartment. If you received pain medication, anxiety medications, musclerelaxants, or any medication that causes drowsiness, you cannot operatemachiFooalay, power tools, or drive.END END DICT: 01/11/21 1152 Electronically SignedTRANS:01/11/21 115 JEROME MOBLEY MDTRANS BY:[email or web address] SIGNED:01/11/21TIME SIGNED: 1157REPORT COPY TO: Name Value Range Interpretation Code Description Data Demetrice rce(s) Supporting Document(s) ID Date Data Source [id number] 01/11/2021 07:46:00 AM EDT [address] [address]SYAEA PROGRESS NOTEPATIENT NAME: ORQUIDEA GOODMAN PHYSICIAN: RICKY SOTELO MDAUTHOR: Sloane Sotelo. DATE: MR#: [id number] NOTE DATE: 01/11/21 RM#: [id number] TIME: 07 : 45SubjectiveEvents Since Last EntryPostoperative day #1 from right total hip replacement. He had a comfortablenight. He is moved his bowels and is voiding he has been out of bed. He hasbeen out of bed ambulating in the hallway this morning with physical therapy.He is complaining of soreness of his right hip and groin and thigh. He is notcomplaining of any numbness or tingling.Vital Signs-LastResult Date TimePulse Ox 96 01/11 0659B/P 132/77 01/11 06Temp 98.4 01/11 0659Pulse 66 01/11 0659Resp 17 01/11 0659On exam his wound dressing is clean and dry. There is no swelling of theankle. He has good dorsiflexion and plantarflexion strength of his foot. Andthere is normal sensation.Recent Labs-24 [id number] (136 - 147 mmol/L) 136Potassium (3.5 - 5.1 mmol/L) 4.0Chloride (99 - 110 mmol/L) 105Serum Bicarbonate (20 - 33 mmol/L) 26Anion Gap (10.0 - 20.0) 9.0 LBUN (7 - 23 mg/dL) 18Creatinine (0.500 - 1.300 mg/dL) 1.090Estimated GFR/1.73 m2 (mL/min) > 60Glucose (70 - 110 mg/dL) 122 HCalcium (8.3 - 10.7 mg/dL) 9.5Magnesium (1.6 - 2.6 mg/dL) 2.0Total Bilirubin (0.1 - 1.1 mg/dL) 0.6AST (8 - 40 U/L) 33ALT (6 - 54 U/L) 25Alkaline Phosphatase (45 - 117 U/L) 53Total Protein (6.0 - 7.8 g/dL) 6.7Albumin (3.5 - 5.0 g/dL) 3.5Globulin (2.3 - 3.5 g/dL) 3.2Albumin/Globulin Ratio (1.0 - 2.5) 1.1HematologyWBC (4.0 - 10.5 x10E3/uL) 13.18 HRBC (4.70 - 6.00 x10E6/uL) 3.85 LHgb (14.0 - 18.0 g/dL) 12.0 LHct (42.0 - 52.0 %) 34.2 LMCV (81.0 - 99.0 fL) 88.8MCH (27.0 - 31.0 pg) 31.2 HMCHC (32.7 - 35.6 g/dL) 35.1RDW (11.5 - 14.0 %) 12.2Plt Count (150 - 450 x10E3/uL) 166MPV (6.9 - 9.5 fl) 10.6 HImmature Gran % (Auto) (0.1 - 2.0 %) 0.4Neut % (Auto) (34 - 64 %) 75.9 HLymph % (Auto) (25 - 45 %) 14.6 LMono % (Auto) (1.7 - 10.6 %) 9.0Eos % (Auto) (0.4 - 7.0 %) 0 LBaso % (Auto) (0.1 - 2.0 %) 0.1Abs Immat Gran (auto) (0.0 - 0.1 x10E3/uL) 0.05Absolute Neuts (auto) (1.2 - 7.6 x10E3/uL) 10.01 HAbsolute Lymphs (auto) (1.0 - 3.5 x10E3/uL) 1.92Absolute Monos (auto) (0.1 - 1.0 x10E3/uL) 1.19 HAbsolute Eos (auto) (0.1 - 0.7 x10E3/uL) 0.00 LAbsolute Basos (auto) (0.0 - 0.1 x10E3/uL) 0.01Nucleated RBC % (auto) (0 %) 0His postoperative radiographs are satisfactory.Plan is to have therapy continue to work with him. I have already spoken withcase management about arrangements for discharge and if he does well thisafternoon [facility]Assessment/PlanResuscitation status Full codeDATE SIGNED: 01/11/21 Electronically SignedTIME SIGNED: 07 RICKY SOTELO MD Name Value Range Interpretation Code Description Data Demetrice rce(s) Supporting Document(s) ID Date Data Source [id number] 01/11/2021 05:46:00 AM EDT [facility] ([facility] ) Name Value Range Interpretation Code Description Data Demetrice rce(s) Supporting Document(s) Leukocytes [#/volume] in Blood by Automated count 13.18 x10E3/uL 4.0- 10.5 [facility] ([facility] ) Erythrocytes [#/volume] in Blood by Automated count 3.85 x10E6/uL 4.7 0-6.00 [facility] ([facility] ) Hemoglobin [Mass/volume] in Blood 12.0 g/dL 14.0-18.0 [facility] ([facility] ) MCV 88.8 fL 81.0-99.0 [facility] ([facility] ) Hematocrit [Volume Fraction] of Blood by Automated count 34.2 % 4 2.0-52.0 [facility] ([facility] ) MCH 31.2 pg 27.0-31.0 [facility] ([facility] ) MCHC 35.1 g/dL 32.7-35.6 [facility] ([facility] ) RDW 12.2 % 11.5-14.0 [facility] MPV 10.6 fl 6.9-9.5 [facility] ([facility]) Platelets [#/volume] in Blood by Automated count 166 x10E3/uL 150-450 [facility] ([facility]) Lymphocytes 14.6 % 25-45 [facility] ([facility]) Monocytes 9.0 % 1.7-10.6 [facility] ([facility]) Neutrophils 75.9 % 34-64 [facility] ([facility]) Basophils 0.1 % 0.1-2.0 [facility] ([facility]) Eosinophils 0 % 0.4-7.0 [facility] ([facility]) Abs. Neutro. 10.01 x10E3/uL 1.2-7.6 [facility] ([facility]) Imm. Gran. 0.4 % 0.1-2.0 [facility] ([facility]) Abs. [place]. 1.19 x10E3/uL 0.1-1.0 [facility] Abs. Eosin. 0.00 x10E3/uL 0.1-0.7 [facility] ([facility] ) Abs. Lymph. 1.92 x10E3/uL 1.0-3.5 [facility] ([facility] ) Laboratory test finding (navigational concept) 0 % [facility] ([facility] ) Abs. Baso. 0.01 x10E3/uL 0.0-0.1 [facility] ([facility] ) Abs. Imm. Gran. 0.05 x10E3/uL 0.0-0.1 [facility] ([facility]) ID Date Data Source [id number] 01/11/2021 05:46:00 AM EDT [facility] ([facility] ) Name Value Range Interpretation Code Description Data Demetrice rce(s) Supporting Document(s) Glucose [Mass/volume] in Serum or Plasma 122 mg/dL 70-110 [facility] ([facility] ) Patients taking Sulfasalazine may have f alsely depressed Glucose levels. Patients taking Sulfapyridine may have falsely elevated Glucose levels. Patients should be drawn for Glucose before the initial administration of either drug. Urea nitrogen [Mass/volume] in Serum or Plasma 18 mg/dL 7-23 [facility] ([facility] ) Creatinine [Mass/volume] in Serum or Plasma 1.090 mg/dL 0.500-1.300 [facility] ([facility] ) Chloride [Moles/volume] in Serum or Plasma 105 mmol/L 99-110 [facility] ([facility]) Glomerular filtration rate/1.73 sq M.pre dicted [Volume Rate/Area] in Serum or Plasma by Creatinine-based formula (MDRD) Laboratory test result [facility] ([facility] ) Sodium [Moles/volume] in Serum or Plasma 136 mmol/L 136-147 [facility] ([facility] ) Potassium [Moles/volume] in Serum or Plasma 4.0 mmol/L 3.5-5.1 [facility] ([facility] ) CA 9.5 mg/dL 8.3-10.7 [facility] ([facility] ) Bicarbonate [Moles/volume] in Blood 26 mmol/L 20-33 [facility] ([facility] ) Anion gap in Serum or Plasma 9.0 10.0-20.0 [facility] ([facility]) Alkaline phosphatase [Enzymatic activity/volume] in Serum or Plasma 53 U/L 45-117 [facility] ([facility] ) Albumin [Mass/volume] in Serum or Plasma 3.5 g/dL 3.5-5.0 [facility] ([facility]) ESRD Dialysis patient Albumin reference range: 2.9-4.4 g/dL Protein [Mass/volume] in Serum or Plasma 6.7 g/dL 6.0-7.8 [facility] ([facility] ) Globulin [Mass/volume] in Serum by calculation 3.2 g/dL 2.3-3.5 [facility] ([facility] ) Albumin/Globulin [Mass Ratio] in Serum or Plasma 1.1 1.0-2.5 [facility] ([facility] ) Bilirubin.total [Mass/volume] in Serum or Plasma 0.6 mg/dL 0.1-1.1 [facility] ([facility] ) The Dimension [place] Total Bilirubin is n ot recommended for patients undergoing treatment with eltrombopag (Promacta) due to the potential for falsely elevated results. Aspartate aminotransferase [Enzymatic activity/volume] in Serum or Plasma 33 U/L 8-40 [facility] ([facility]) Patients taking Sulfasalazine and/or Sul fapyridine may have falsely depressed AST levels. Patients should be drawn for AST before the initial administration of either drug. Alanine aminotransferase [Enzymatic activity/volume] in Seru m or Plasma 25 U/L 6-54 [facility] ([facility]) Patients taking Sulfasalazine and/or Sul fapyridine may have falsely depressed ALT levels. Patients should be drawn for ALT before the initial administration of either drug. ID Date Data Source [id number] 01/11/2021 05:46:00 AM EDT [facility] ([facility]) Name Value Range Interpretation Code Description Data Demetrice rce(s) Supporting Document(s) Magnesium [Mass/volume] in Serum or Plasma 2.0 mg/dL 1.6-2.6 [facility] ([facility]) ID Date Data Source [id number] 01/11/2021 05:46:00 AM EDT [facility] ([facility] Name Value Range Interpretation Code Description Data Demetrice rce(s) Supporting Document(s) Leukocytes [#/volume] in Blood by Automated count 13.18 x10E3/uL 4.0-10.5 Above high normal [facility] ([facility] ) Hemoglobin [Mass/volume] in Blood 12.0 g/dL 14.0-18.0 Below low nor mal [facility] ([facility] Erythrocytes [#/volume] in Blood by Automated count 3.85 x10E6/u L 4.70-6.00 Below low normal [facility] ([facility] ) Hematocrit [Volume Fraction] of Blood by Automated count 34.2 % 42.0-52.0 Below low normal [facility] ([facility] ) MCH 31.2 pg 27.0-31.0 Above high normal [facility] ([facility] MCV 88.8 fL 81.0-99.0 Normal (applies to non-numeric resul ts) [facility] ([facility] MCHC 35.1 g/dL 32.7-35.6 Normal (applies to non-numeric resul ts) [facility] ([facility] RDW 12.2 % 11.5-14.0 Normal (applies to non-numeric resul ts) [facility] ([facility] Platelets [#/volume] in Blood by Automated count 166 x10E3/uL 150-450 Normal (applies to non-numeric results) [facility] ([facility] MPV 10.6 fl 6.9-9.5 Above high normal [facility] ([facility] Neutrophils 75.9 % 34-64 Above high normal [facility] ([facility] Lymphocytes 14.6 % 25-45 Below low normal [facility] ([facility] Eosinophils 0 % 0.4-7.0 Below low normal [facility] ([facility] Monocytes 9.0 % 1.7-10.6 Normal (applies to non-numeric resul ts) [facility] ([facility] Basophils 0.1 % 0.1-2.0 Normal (applies to non-numeric resul ts) [facility] ([facility] Laboratory test finding (navigational concept) 0.4 % 0 .1-2.0 Normal (applies to non-numeric results) [facility] ([facility]) Laboratory test finding (navigational concept) 10.01 x10E3/uL 1 .2-7.6 Above high normal [facility] ([facility] ) Laboratory test finding (navigational concept) 1.92 x10E3/uL 1 .0-3.5 Normal (applies to non-numeric results) [facility] ([facility] Laboratory test finding (navigational concept) 1.19 x10E3/uL 0 .1-1.0 Above high normal [facility] ([facility] ) Laboratory test finding (navigational concept) 0.00 x10E3/uL 0 .1-0.7 Below low normal [facility] ([facility] ) Laboratory test finding (navigational concept) 0.01 x10E3/uL 0 .0-0.1 Normal (applies to non-numeric results) [facility] ([facility] Laboratory test finding (navigational concept) 0.05 x10E3/uL 0 .0-0.1 Normal (applies to non-numeric results) [facility] ([facility] Laboratory test finding (navigational concept) 0 % Normal (applies to non- numeric results) [facility] ([facility] ) ID Date Data Source [id number] 01/11/2021 05:46:00 AM EDT [facility] ([facility] Name Value Range Interpretation Code Description Data Demetrice rce(s) Supporting Document(s) Magnesium [Mass/volume] in Serum or Plasma 2.0 mg/dL 1.6-2 .6 Normal (applies to non-numeric results) [facility] ([facility]) ID Date Data Source [id number] 01/11/2021 05:46:00 AM EDT [facility] ([facility] Name Value Range Interpretation Code Description Data Demetrice rce(s) Supporting Document(s) Glucose [Mass/volume] in Serum or Plasma 122 mg/dL 70-110 Above high normal [facility] ([facility] Patients taking Sulfasalazine may have f alsely depressed Glucose levels. Patients taking Sulfapyridine may have falsely elevated Glucose levels. Patients should be drawn for Glucose before the initial administration of either drug. Urea nitrogen [Mass/volume] in Serum or Plasma 18 mg/dL 7 -23 Normal (applies to non-numeric results) [facility] ([facility]) Creatinine [Mass/volume] in Serum or Plasma 1.090 mg/dL 0.50 0-1.300 Normal (applies to non-numeric results) [facility] ([facility] Glomerular filtration rate/1.73 sq M.pre dicted [Volume Rate/Area] in Serum or Plasma by Creatinine-based formula (MDRD) Laboratory test result Normal (applies to non-numeric results) [facility] ([facility] Chloride [Moles/volume] in Serum or Plasma 105 mmol/L 99-11 0 Normal (applies to non-numeric results) [facility] ([facility]) Sodium [Moles/volume] in Serum or Plasma 136 mmol/L 136-147 Normal (applies to non-numeric results) [facility] ([facility]) Potassium [Moles/volume] in Serum or Plasma 4.0 mmol/L 3.5- 5.1 Normal (applies to non-numeric results) [facility] ([facility] Bicarbonate [Moles/volume] in Blood 26 mmol/L 20-33 Normal (applies to non- numeric results) [facility] ([facility] ) Anion gap in Serum or Plasma 9.0 10.0-20.0 Below low normal [facility] ([facility] Calcium [Mass/volume] in Serum or Plasma 9.5 mg/dL 8.3-10. 7 Normal (applies to non-numeric results) [facility] ([facility]) Alkaline phosphatase [Enzymatic activity/volume] in Serum or Plasma 53 U/L 45-117 Normal (applies to non-numeric results) [facility] ([facility] Protein [Mass/volume] in Serum or Plasma 6.7 g/dL 6.0-7.8 Normal (applies to non-numeric results) [facility] ([facility]) Albumin [Mass/volume] in Serum or Plasma 3.5 g/dL 3.5-5.0 Normal (applies to non-numeric results) [facility] ([facility]) ESRD Dialysis patient Albumin reference range: 2.9-4.4 g/dL Globulin [Mass/volume] in Serum by calculation 3.2 g/dL 2 .3-3.5 Normal (applies to non-numeric results) [facility] ([facility] Albumin/Globulin [Mass Ratio] in Serum or Plasma 1.1 1.0-2.5 Normal (applies to non-numeric results) [facility] ([facility]) Bilirubin.total [Mass/volume] in Serum or Plasma 0.6 mg/dL 0.1-1.1 Normal (applies to non-numeric results) [facility] ([facility] The Dimension [place] Total Bilirubin is n ot recommended for patients undergoing treatment with eltrombopag (Promacta) due to the potential for falsely elevated results. Aspartate aminotransferase [Enzymatic activity/volume] in Serum or Plasma 33 U/L 8-40 Normal (applies to non-numeric results) [facility] ([facility] Patients taking Sulfasalazine and/or Sul fapyridine may have falsely depressed AST levels. Patients should be drawn for AST before the initial administration of either drug. Alanine aminotransferase [Enzymatic activity/volume] in Seru m or Plasma 25 U/L 6-54 Normal (applies to non-numeric results) [facility] ([facility] Patients taking Sulfasalazine and/or Sul fapyridine may have falsely depressed ALT levels. Patients should be drawn for ALT before the initial administration of either drug. ID Date Data Source [id number] 01/11/2021 06:46:00 AM [facility]T [facility] Name Value Range Interpretation Code Description Data Demetrice rce(s) Supporting Document(s) GLU 122 mg/dL 70-110 [facility] Patients taking Sulfasalazine may have f alsely depressedGlucose levels. Patients taking Sulfapyridine may havefalsely elevated Glucose levels. Patients should be drawnfor Glucose before the initial administration of eitherdrug. BUN 18 mg/dL 7-23 [facility] CRE 1.090 mg/dL 0.500-1.300 [facility] GFR > 60 mL/min [facility] CHLORIDE 105 mmol/L 99-110 [facility] NA 136 mmol/L 136-147 [facility] POTASSIUM 4.0 mmol/L 3.5-5.1 [facility] TCO2 26 mmol/L 20-33 [facility] ANION GAP 9.0 10.0-20.0 [facility] CA 9.5 mg/dL 8.3-10.7 [facility] ALKALINE PHOS 53 U/L 45-117 [facility] TP 6.7 g/dL 6.0-7.8 [facility] ALB 3.5 g/dL 3.5-5.0 [facility] ESRD Dialysis patient Albumin reference range: 2.9-4.4 g/dL GL 3.2 g/dL 2.3-3.5 [facility] A/G 1.1 1.0-2.5 [facility] T. BILIRUBIN 0.6 mg/dL 0.1-1.1 [facility] The Dimension [place] Total Bilirubin is n ot recommended forpatients undergoing treatment with eltrombopag (Promacta)due to the potential for falsely elevated results. ALTI 25 U/L 6-54 [facility] Patients taking Sulfasalazine and/or Sul fapyridine may havefalsely depressed ALT levels. Patients should be drawn forALT before the initial administration of either drug. AST 33 U/L 8-40 [facility] Patients taking Sulfasalazine and/or Sul fapyridine may havefalsely depressed AST levels. Patients should be drawn forAST before the initial administration of either drug. ID Date Data Source [id number] 01/11/2021 06:46:00 AM EDT [facility] [place] Name Value Range Interpretation Code Description Data Demetrice rce(s) Supporting Document(s) MAGNESIUM 2.0 mg/dL 1.6-2.6 [facility] ID Date Data Source [id number] 01/11/2021 06:32:00 AM EDT [facility] Name Value Range Interpretation Code Description Data Demetrice rce(s) Supporting Document(s) WBC 13.18 x10E3/uL 4.0-10.5 [facility] RBC 3.85 x10E6/uL 4.70-6.00 [facility] Hemoglobin 12.0 g/dL 14.0-18.0 [facility] Hematocrit 34.2 % 42.0-52.0 [facility] MCV 88.8 fL 81.0-99.0 [facility] MCH 31.2 pg 27.0-31.0 [facility] MCHC 35.1 g/dL 32.7-35.6 [facility] RDW 12.2 % 11.5-14.0 [facility] Platelet count 166 x10E3/uL 150-450 [facility] ital MPV 10.6 fl 6.9-9.5 [facility] Neutrophils 75.9 % 34-64 [facility] Lymphocytes 14.6 % 25-45 [facility] Monocytes 9.0 % 1.7-10.6 [facility] Eosinophils 0 % 0.4-7.0 [facility] Basophils 0.1 % 0.1-2.0 [facility] Imm. Gran. 0.4 % 0.1-2.0 [facility] Abs. Neutro. 10.01 x10E3/uL 1.2-7.6 [facility] Abs. Lymph. 1.92 x10E3/uL 1.0-3.5 [facility] Abs. [place]. 1.19 x10E3/uL 0.1-1.0 [facility] Abs. Eosin. 0.00 x10E3/uL 0.1-0.7 [facility] Abs. Baso. 0.01 x10E3/uL 0.0-0.1 [facility] Abs. Imm. Gran. 0.05 x10E3/uL 0.0-0.1 [facility] ANRBC% 0 % 0 [facility] ID Date Data Source [id number] 01/10/2021 07:42:00 PM EDT [facility] [address] [id number] REPORTPATIENT NAME: PATRICK GOODMAN MR#: [id number] PHYSICIAN: RICKY SOTELO [facility]ULTING PHYSICIAN: Jerome Mobley MD DATE: 01/10/21 #: [id number] DATE: 01/10/21 : 45EVALUATION TIME: 1954HistoryReason for consultmedical managementRequested byDr Arias Complaint/Admit Reasonright hip painHistory of Presenting [id number] history of diabetes mellitus, posterior nasal drip, diabetic n europathy,was evaluated by orthopedics with progressive worsening right hip pain andstiffness. Status post right total hip replacement by Dr. Edgar Olvera.Hospitalist consulted for medical management. Patient reported only mild painfrom surgical site. 3 out of 10. Worsened with movement. Relieved with rest.No radiation. No nausea vomiting. No chest pain. Postoperatively patienthad urinary retention. Bladder scan showing 600 cc straight cath offered. Noabdominal pain.Past Medical/Surgical HistoryPast Medical/Surgical HistoryMedical ProblemsDiabetes mellitus (Chronic)Diabetic neuropathy (Chroni c)Urinary retention (Chronic)Surgical ProblemsH/O cervical spine surgeryH/O prostate biopsyHistory of carpal tunnel releaseHistory of cholecystectomyHistory of spinal fusionS/P total left hip arthroplastyS/P total right hip arthroplasty (Acute)Reconciled Home Med ListGlipizide 10 mg p.o. daily, Neurontin 600 mg daily, Meadow as needed, Xmwksesl55 mg daily, ProAir, sucralfate 1 mg daily, Flonase,AllergiesCoded Allergies:Penicillins (HIVES 01/10/21)codeine (HIVES 01/10/21)meperidine (From DEMEROL) (DIFF WALKING , WEAK 01/10/21)vancomycin (ITCHING 01/10/21)Family history Mother at age 94, father at age 96 from old ageSocial History Former smoker quit 2014, rarely consumes alcohol, marijuana usereported.Review of SystemsSystems reviewed and negative Constitutional, Integumentary, Eyes, ENT,Respiratory, Cardiovascular, GI, , Diogo, Endocrine, Neurology, Psych, Allergy/ImmunologyMusculoskeletalReports: joint swelling.ExamVital SignsTemperature 97.2, blood pressure 137/88, pulse 75, respirations 16, pulse ox 94% room airPhysical ExaminationGeneral Appearance no acute distress, afebrile, alert, awake, conversantHead atraumatic, normocephalicENT moist mucosal membranesEye AssessementR,L,Bilateral bilateralAssessment: PERRLA, EOMINeck suppleCardiovascular regular rate, no murmur, no gallop, no rub, no heaveRespiratory clear to auscultation, no distress, aerating well, symmetricexpansionAbdomen soft, non-tender, no distention, no organomegaly, normal bowel sounds,no guarding, no reboundUrinary no flank painExtremities no clubbing, no cyanosis, Surgical site intact, DP PT pulses intact, sensation intact,Muscoskeletal normal inspectionNeurological alert, normal cerebellar functio, normal speech, no motor deficits, no sensory deficits, CNII-XXII grossly intactSkin AssessmentSkin dryPsych/Mental Status mood neutralAssessment/PlanDiagnosis/Problem1. S/P total right hip arthroplastyStatus AcuteA&PPerioperative management per orthopedic surgery, physical therapy weightbearingstatus per orthopedics. Pain regimen per orthopedics. Bowel regimen ordered.DVT prophylaxis per orthopedics patient on Xarelto2. Diabetes mellitusStatus ChronicA&PHolding oral medicationInsulin per protocol,3. Diabetic neuropathyStatus ChronicA&PContinue Neurontin4. Urinary retentionStatus ChronicA&PStraight cath, frequent bladder scan.Additional Intoy9V history of diabetes mellitus, posterior nasal drip, diabetic neuropathy, wasevaluated by orthopedics with progressive worsening right hip pain andstiffness.dVT prophylaxis Xarelto per orthopedicsDisposition pending physical therapy, monitor urine outputResuscitation status Full codePlan discussed with patientVTE ProphylaxisVTE Prophylaxis: Xarelto.DATE SIGNED: 01/10/21 Electronically SignedTIME SIGNED: 1954 JEROME MOBLEY MD Name Value Range Interpretation Code Description Data Demetrice rce(s) Supporting Document(s) ID Date Data Source [id number] 01/10/2021 10:39:00 AM EDT [facility] Exam Number: [id number] OF EXAMINATIO N: 01/10/2021 9:51 EDTHISTORY: Hip prosthesisTECHNIQUE: 2 views of the right hip were obtained.FINDINGS:[Total hip prosthesis is in excellent alignment. Postoperative softtissue emphysema is noted.IMPRESSION:Total hip prosthesis.Electronically signed in PS360 by: Porsche Lake M.D. 110:27 EDT Reported By: - Esther LAKE M.D. Signed By: Esther LAKE M.D. Name Value Range Interpretation Code Description Data Demetrice rce(s) Supporting Document(s) ID Date Data Source [id number] 01/10/2021 09:51:00 AM EDT [facility] [address] [id number] OPERATIVE REPORTPATIENT NAME: PATRICK GOODMAN MR#: [id number] PHYSICIAN: RICKY SOTELO, MDSURGEON: Kiana Sotelo DATE: #: 2WESTDISCHARGE DATE: PATIENT : 45Operative ReportOperative ReportDate of Procedure: January 101Preoperative diagnosis: Right hip arthritisPostoperative diagnosis: Right hip arthritisProcedure: Right total hip replacementComponents: Size 7 Chatsworth stem standard offset with 1.5 mm neck and 40 mm ball,size 56 mm Gription cup. Prosthesis made by Mukesh and [employer].Surgeon: Dr. Edgar TyamAssistant: Tejas LaraoAnesthesia: SpinalEstimated blood loss: 200 ccSpecimens: Femoral headComplications: NoneProcedure: I met the patient in the preoperative holding area and verified thesurgical site and marked it with my initials. He was taken to the operatingroom and 3 g of Kefzol was administered. 1 g of tranexemic acid was alsoadministered preoperatively. He was then placed into the lateral decubitusposition with his right hip uppermost. His down leg was well padded especiallythe peroneal nerve and an axillary roll was utilized. The Berne hippositioner was utilized to secure him in the lateral position. His left hiparea was then carefully prepped and draped in the usual sterile fashion. Atthis point a timeout was performed.A lateral longitudinal incision was made for a direct lateral approach to thehip. Bovie cautery was used to coagulate the crossing vessels. The tensorfascia was then divided in line with the skin incision. The gluteus medius wassplit and the anterior 1/3/posterior two thirds junction exposing theunderlying gluteus minimus muscle. The gluteus minimus muscle and hip capsulewas then divided and carefully dissected anteriorly off the greater trochantersubperiosteally. The superior labrum was released and then the hip wasdislocated anteriorly using a bone hook and the leg placed into a leg bag. Thepiriformis fossa was identified and the starter reamer used to open thepiriformis fossa followed by the canal finding reamer then the lateralizingreamer. We then reamed up to a size 7. The box osteotome was used to set theversion and then we began broaching up to a size 7 broach. The broach was thenremoved and we then exposed the acetabulum. Labral excision was performed [id number] degrees. We then began reaming starting at size 48 mm and advanced to asize 55. The trial 56 was placed and he had excellent stability. The extramedullary alignment jig was used to help set our abduction and version. Wecopiously irrigated the acetabulum and then placed the real size 56 mm Griptioncup again using the extra medullary alignment jig. The cup seated well andthen the central hole eliminator was placed. The 40 mm polyethylene was thenseated into the cup and inspected that it was seated fully. We then exposedthe proximal femur and copiously irrigated and then placed the #6 broach. Itwas fitted with a 1.5 mm neck and 40 mm polyethylene trial head and then thehip was reduced. The hip was very stable to flexion with internal rotation andadduction as well as with extension and external rotation. There was minimalsoft tissue telescoping. I felt these were the appropriate components to use.I then removed the broach and copiously irrigated out the femoral canal andthen the real #7 Chatsworth stem was inserted.We dried the Alvarado taper and impacted on the 1.5 neck 40 standard offset balland then reduced the hip and put the hip through range of motion. Excellentstability and soft tissue tension was noted and there was no instability withflexion internal rotation and extension external rotation. We again copiouslyirrigated and placed the TXA deep in the wound. I then repaired the minimuswith #1 PDS suture and the abductor with #1 PDS suture. I repaired the fasciawith #1 PDS suture in running strata fix suture in one direction. We againirrigated and closed the subcutaneous layer with 2-0 PDS and the skin withstaples. Sterile dressing was applied and he was taken to recovery room instable condition there were no known complications.The psychological assistant was instrumental in holding retractors and assisting in reducingand dislocating the hip and assisting in wound closure.Copy to Dr. ColmenaresCopcorbin to Family Provider NIKITA LANCE SIGNED: 01/10/21 Electronically SignedTIME SIGNED: [id number] RICKY SOTELO MD Name Value Range Interpretation Code Description Data Demetrice rce(s) Supporting Document(s) ID Date Data Source [id number] 01/05/2021 12:23:00 PM EDT [facility] ([facility] ) Name Value Range Interpretation Code Description Data Demetrice rce(s) Supporting Document(s) Laboratory test finding (navigational concept) Laboratory test result [facility] ([facility]) ID Date Data Source [id number] 01/05/2021 12:23:00 PM EDT [facility] ([facility] Name Value Range Interpretation Code Description Data Demetrice rce(s) Supporting Document(s) Laboratory test finding (navigational concept) Laboratory test r esult Normal (applies to non-numeric results) [facility] ([facility] ID Date Data Source [id number] 01/05/2021 03:33:00 PM EDT [facility] Name Value Range Interpretation Code Description Data Demetrice rce(s) Supporting Document(s) BLOOD TYPE A POSITIVE [facility] ID Date Data Source [id number] 01/05/2021 12:21:00 PM EDT [facility] ([facility] ) Name Value Range Interpretation Code Description Data Demetrice rce(s) Supporting Document(s) Antibody Screen Laboratory test result [facility] ([facility] ) Blood Type Laboratory test result [facility] ([facility] ) ID Date Data Source [id number] 01/05/2021 12:21:00 PM EDT [facility] ([facility] Name Value Range Interpretation Code Description Data Demetrice rce(s) Supporting Document(s) Blood Type Laboratory test result Normal (applies to non-n umeric results) [facility] ([facility] Laboratory test finding (navigational concept) Laboratory test r esult Normal (applies to non-numeric results) [facility] ID Date Data Source [id number] 01/05/2021 03:33:00 PM EDT [facility] Is patient going to surgery? Y: NHave you ever had a blood transfusion? NHave you had a blood transfusion within the last 3 months? NWhen is the date of your surgery? 01/10/21 Name Value Range Interpretation Code Description Data Demetrice rce(s) Supporting Document(s) BLOOD TYPE A POSITIVE N [facility] ANTIBODY SCREEN NEGATIVE N [facility] ID Date Data Source [id number] 01/05/2021 10:30:00 AM EDT [facility] ([facility]) Name Value Range Interpretation Code Description Data Demetrice rce(s) Supporting Document(s) [id number] [employer] Laboratory test result [facility] ([facility]) The [employer] COVID-19 MDx Assay is an end point RT-PCR assay intended for the qualitative detection of nucleic acid from SARS-CoV-2 virus. Positive results are indicative of the presence of SARS-CoV-2 RNA; clinical correlation with patient history and other diagnostic information is necessary to determine patient infection status. Negative results do not preclude SARS-CoV-2 infection and should not be used as the sole basis for patient management decisions. The [employer] MDx Assay is only for use under the Food and Drug Administration's Emergency Use Authorization. ID Date Data Source [id number] 01/05/2021 10:30:00 AM EDT [facility] ([facility] Name Value Range Interpretation Code Description Data Demetrice rce(s) Supporting Document(s) [id number] [employer] Laboratory test result Normal ( applies to non-numeric results) [facility] ([facility] ) The [employer] COVID-19 MDx Assay is an end point RT-PCR assay intended for the qualitative detection of nucleic acid from SARS-CoV-2 virus. Positive results are indicative of the presence of SARS-CoV-2 RNA; clinical correlation with patient history and other diagnostic information is necessary to determine patient infection status. Negative results do not preclude SARS-CoV-2 infection and should not be used as the sole basis for patient management decisions. The [employer] MDx Assay is only for use under the Food and Drug Administration's Emergency Use Authorization. ID Date Data Source [id number] 01/06/2021 02:10:00 PM EDT [facility] COMMENTS TO LAB: 45LAB Con't: PREOP TESTINGIs patient suspicious of Covid NShould patient be placed on Covid precautions N Name Value Range Interpretation Code Description Data Demetrice rce(s) Supporting Document(s) COVID19 RHE[facility]IX Negative NEGATIVE N [facility] The [employer] COVID-19 MDx Assay is an end point RT-PCR assayintended for the qualitative detection of nucleic acid fujxRRNE-EgO-1 virus. Positive results are indicative of thepresence of SARS-CoV-2 RNA; clinical correlation withpatient history and other diagnostic information isnecessary to determine patient infection status. Negativeresults do not preclude SARS-CoV-2 infection and should notbe used as the sole basis for patient management decisions. The [employer] MDx Assay is only for use under the Food andDrug Administration's Emergency Use Authorization. ID Date Data Source [id number] 12/26/2020 08:50:00 AM EDT [facility] ([facility]) Name Value Range Interpretation Code Description Data Demetrice rce(s) Supporting Document(s) Creatinine For GFR 1.04 mg/dL 0.70-1.30 [facility] ([facility]) Glucose, Fasting 207 mg/dL 70-100 [facility] ([facility]) Blood Urea Nitrogen 15 mg/dL 7-18 [facility] ([facility] ) Sodium Level 141 meq/L 136-145 [facility] ([facility]) Glomerular Filtration Rate Laboratory test result [facility] ([facility]) <content>Units are mL/min/1.73 m2</content>
<content></content>
<content>Chronic Kidney Disease Staging per NKF:</content>
<content></content>
<content>Stage I & II GFR >=60 Normal to Mildly Decreased</content>
<content>Stage III GFR 30- 59 Moderately Decreased</content>
<content>Stage IV GFR 15-29 Severely Decreased</content>
<content>Stage V GFR <15 Very Little GFR Left</content>
<content>ESRD GFR <15 on COMMERCIAL LITIGATION PARALEGAL</content>
<content></content> Chloride Level 107 meq/L 98-107 [facility] ([facility]) Carbon Dioxide Level 29 meq/L 21-32 [facility] ([facility] ) Potassium Serum 4.3 meq/L 3.5-5.1 [facility] ([facility]) Calcium Level 9.4 mg/dL 8.8-10.2 [facility] ([facility] ) Anion Gap 5 meq/L 8-16 [facility] Alkaline Phosphatase 67 U/L 45-117 [facility] Alt/SGPT 22 U/L 12-78 [facility] ([facility] Ast/Sgot 11 U/L 7-37 [facility] ([facility] Total Protein 7.1 GM/DL 6.4-8.2 [facility] ([facility]) Bilirubin,Total 0.4 mg/dL 0.2-1.0 [facility] ([facility]) Albumin 3.6 GM/DL 3.2-5.2 [facility] ([facility]) Albumin/Globulin Ratio 1.0 [facility] ([facility]) ID Date Data Source [id number] 12/26/2020 08:50:00 AM EDT [facility] ([facility]) Name Value Range Interpretation Code Description Data Demetrice rce(s) Supporting Document(s) Erythrocyte sedimentation rate by Westergren method 19 mm/hr 0-20 [facility] ([facility]) ID Date Data Source [id number] 12/26/2020 08:50:00 AM EDT [facility] ([facility]) Name Value Range Interpretation Code Description Data Demetrice rce(s) Supporting Document(s) White Blood Count 9.0 10 4.0-10.0 [facility] ([facility] Red Blood Count 4.62 10 4.30-6.10 [facility] ([facility]) Hemoglobin 14.1 g/dL 13.5-17.5 [facility] ([facility]) Mean Corpuscular Volume 92.9 fl 80.0-96.0 M [facility] ([facility]) Hematocrit 42.9 % 42.0-52.0 [facility] ([facility] Mean Corpuscular Hemoglobin 30.5 pg 27.0-33.0 [facility] ([facility]) Mean Corpuscular HGB Conc 32.9 g/dL 32.0-36.5 [facility] ([facility]) Red Cell Distribution Width 12.0 % 11.5-14.5 [facility] ([facility]) Nucleated Red Blood Cell % 0.0 % 0-0 [facility] ([facility]) Platelet Count, Automated 179 10 150-450 [facility] ([facility]) ID Date Data Source [id number] 12/26/2020 08:50:00 AM EDT [facility] ([facility]) Name Value Range Interpretation Code Description Data Demetrice rce(s) Supporting Document(s) Prothrombin Time 13.7 s 12.7-14.5 [facility] ([facility]) Inr 1.01 [facility] ([facility]) THERAPUTIC HUMAN INR VALUES INDICATIONS NORMAL RANGES PROPHYLAXIS/TREATMENT OF: VENOUS THROMBOSIS 2.0-3.0 PULMONARY EMBOLISM 2.0-3.0 PREVENTION OF SYSTEMIC EMBOLISM FROM: TISSUE HEART VALVES 2.0-3.0 ACUTE MYOCARDIAL INFARCTION 2.0-3.0 VALVULAR HEART DISEASE 2.0-3.0 ATRIAL FIBRILLATION 2.0-3.0 MECHANICAL VALVES(HIGH RISK) 2.5-3.5 RECURRENT MYOCARDIAL INFARCTION 2.5-3.5 ID Date Data Source [id number] 12/26/2020 08:50:00 AM EDT [facility] ([facility] Name Value Range Interpretation Code Description Data Demetrice rce(s) Supporting Document(s) Prothrombin Time 13.7 s 12.7-14.5 Normal (applies to non-numeric results) [facility] ([facility] Inr 1.01 Normal (applies to non-numeric resul ts) [facility] ([facility] THERAPUTIC HUMAN INR VALUES INDICATIONS NORMAL RANGES PROPHYLAXIS/TREATMENT OF: VENOUS THROMBOSIS 2.0-3.0 PULMONARY EMBOLISM 2.0-3.0 PREVENTION OF SYSTEMIC EMBOLISM FROM: TISSUE HEART VALVES 2.0-3.0 ACUTE MYOCARDIAL INFARCTION 2.0-3.0 VALVULAR HEART DISEASE 2.0-3.0 ATRIAL FIBRILLATION 2.0-3.0 MECHANICAL VALVES(HIGH RISK) 2.5-3.5 RECURRENT MYOCARDIAL INFARCTION 2.5-3.5 ID Date Data Source [id number] 12/26/2020 08:50:00 AM EDT [facility] ([facility] Name Value Range Interpretation Code Description Data Demetrice rce(s) Supporting Document(s) White Blood Count 9.0 10 4.0-10.0 Normal (applies to non-numeri c results) [facility] ([facility] Red Blood Count 4.62 10 4.30-6.10 Normal (applies to non-numeric results) [facility] ([facility] Hemoglobin 14.1 g/dL 13.5-17.5 Normal (applies to non-numeric resul ts) [facility] ([facility] Hematocrit 42.9 % 42.0-52.0 Normal (applies to non-numeric resul ts) [facility] ([facility] Mean Corpuscular Hemoglobin 30.5 pg 27.0-33.0 Norm al (applies to non-numeric results) [facility] ([facility] Mean Corpuscular Volume 92.9 fl 80.0-96.0 Normal ( applies to non-numeric results) [facility] ([facility] ) Mean Corpuscular HGB Conc 32.9 g/dL 32.0-36.5 Normal (applies to non-numeric results) [facility] ([facility] ) Red Cell Distribution Width 12.0 % 11.5-14.5 Norm al (applies to non-numeric results) [facility] ([facility] ) Nucleated Red Blood Cell % 0.0 % 0-0 Normal (applies to n on-numeric results) [facility] ([facility] Platelet Count, Automated 179 10 150-450 Normal (applies to non-numeric results) [facility] ([facility] ) ID Date Data Source [id number] 12/26/2020 08:50:00 AM EDT [facility] ([facility] Name Value Range Interpretation Code Description Data Demetrice rce(s) Supporting Document(s) Erythrocyte sedimentation rate by Westergren method 19 mm/hr 0-20 Normal (applies to non-numeric results) [facility] ([facility] ID Date Data Source [id number] 12/26/2020 08:50:00 AM EDT [facility] Name Value Range Interpretation Code Description Data Demetrice rce(s) Supporting Document(s) Glucose, Fasting 207 mg/dL 70-100 Above high normal M [facility] ([facility] Blood Urea Nitrogen 15 mg/dL 7-18 Normal (applies to non-nume anahi results) [facility] ([facility] Creatinine For GFR 1.04 mg/dL 0.70-1.30 Normal (applies to non -numeric results) [facility] ([facility] Glomerular Filtration Rate Laboratory test result Normal (applies to non- numeric results) [facility] ([facility] ) <content>Units are mL/min/1.73 m2</content>
<content></content>
<content>Chronic Kidney Disease Staging per NKF:</content>
<content></content>
<content>Stage I & II GFR >=60 Normal to Mildly Decreased</content>
<content>Stage III GFR 30- 59 Moderately Decreased</content>
<content>Stage IV GFR 15-29 Severely Decreased</content>
<content>Stage V GFR <15 Very Little GFR Left</content>
<content>ESRD GFR <15 on COMMERCIAL LITIGATION PARALEGAL</content>
<content></content> Sodium Level 141 meq/L 136-145 Normal (applies to non-numeric res ults) [facility] ([facility] Potassium Serum 4.3 meq/L 3.5-5.1 Normal (applies to non-numeric results) [facility] ([facility] Chloride Level 107 meq/L 98-107 Normal (applies to non-numeric r esults) [facility] ([facility] Carbon Dioxide Level 29 meq/L 21-32 Normal (applies to non-num jose results) [facility] ([facility] Anion Gap 5 meq/L 8-16 Below low normal [facility] ( [facility] Calcium Level 9.4 mg/dL 8.8-10.2 Normal (applies to non-numeric re sults) [facility] ([facility] Ast/Sgot 11 U/L 7-37 Normal (applies to non-numeric resul ts) [facility] ([facility] Alt/SGPT 22 U/L 12-78 Normal (applies to non-numeric resul ts) [facility] ([facility] Bilirubin,Total 0.4 mg/dL 0.2-1.0 Normal (applies to non-numeric results) [facility] ([facility] Alkaline Phosphatase 67 U/L 45-117 Normal (applies to non-num jose results) [facility] ([facility] Albumin/Globulin Ratio 1.0 Normal (applies to non-n umeric results) [facility] ([facility] Total Protein 7.1 GM/DL 6.4-8.2 Normal (applies to non-numeric re sults) [facility] ([facility] Albumin 3.6 GM/DL 3.2-5.2 Normal (applies to non-numeric resul ts) [facility] ([facility] ID Date Data Source [id number] 11/29/2020 09:39:00 AM EDT [facility] ([facility] Name Value Range Interpretation Code Description Data Demetrice rce(s) Supporting Document(s) Chol 160 mg/dL 0-200 [facility] ([facility] NORMAL RANGES Age WBC RBC HGB HCT [...] HCT IS 5% LESS SOURCE FOR DATA: [employer] DYN 1800 OPERATION MANUAL( AUTOMATED BLOOD COUNTS [...] DESIRABLE: <130 MG/DL <110 MG/DL BORDERLINE-HIGH RISK: 130- 159 MG/DL 110-129 MG/DL HIGH RISK: >160 MG/DL >130 MG/DL *CHILDREN AND ADOLESCENTS REPRESENTS INDIVIDUALA AGED 2-19 YEARS EXCLUSIVE. Trig 112 mg/dL 35-200 [facility] NORMAL RANGES Age WBC RBC HGB HCT [...] HCT IS 5% LESS SOURCE FOR DATA: [employer] 1800 OPERATION MANUAL( AUTOMATED BLOOD COUNTS AND [...] DESIRABLE: <130 MG/DL <110 MG/DL BORDERLINE-HIGH RISK: 130- 159 MG/DL 110-129 MG/DL HIGH RISK: >160 MG/DL >130 MG/DL *CHILDREN AND ADOLESCENTS REPRESENTS INDIVIDUALA AGED 2-19 YEARS EXCLUSIVE. Cholesterol in HDL [Mass/volume] in Serum or Plasma 56 mg/dL 35-55 Above high normal [facility] ([facility] NORMAL RANGES Age WBC RBC HGB HCT [...] HCT IS 5% LESS SOURCE FOR DATA: [employer] 1800 OPERATION MANUAL( AUTOMATED BLOOD COUNTS AND [...] DESIRABLE: <130 MG/DL <110 MG/DL BORDERLINE-HIGH RISK: 130- 159 MG/DL 110-129 MG/DL HIGH RISK: >160 MG/DL >130 MG/DL *CHILDREN AND ADOLESCENTS REPRESENTS INDIVIDUALA AGED 2-19 YEARS EXCLUSIVE. LDL_C 81 Calc 75-129 [facility] ([facility] NORMAL RANGES Age WBC RBC HGB HCT [...] HCT IS 5% LESS SOURCE FOR DATA: [employer] 1800 OPERATION MANUAL( AUTOMATED BLOOD COUNTS AND [...] DESIRABLE: <130 MG/DL <110 MG/DL BORDERLINE-HIGH RISK: 130- 159 MG/DL 110-129 MG/DL HIGH RISK: >160 MG/DL >130 MG/DL *CHILDREN AND ADOLESCENTS REPRESENTS INDIVIDUALA AGED 2-19 YEARS EXCLUSIVE. Cho/HDL Ratio 2.8 CALC [facility] ([facility] NORMAL RANGES Age WBC RBC HGB HCT [...] HCT IS 5% LESS SOURCE FOR DATA: [employer] 1800 OPERATION MANUAL( AUTOMATED BLOOD COUNTS AND [...] DESIRABLE: <130 MG/DL <110 MG/DL BORDERLINE-HIGH RISK: 130- 159 MG/DL 110-129 MG/DL HIGH RISK: >160 MG/DL >130 MG/DL *CHILDREN AND ADOLESCENTS REPRESENTS INDIVIDUALA AGED 2-19 YEARS EXCLUSIVE. ID Date Data Source [id number] 11/29/2020 09:39:00 AM EDT [facility] ([facility] Name Value Range Interpretation Code Description Data Demetrice rce(s) Supporting Document(s) Glu 109 mg/dL 70-110 [facility] NORMAL RANGES Age WBC RBC HGB HCT [...] HCT IS 5% LESS SOURCE FOR DATA: [employer] DYN 1800 OPERATION MANUAL( AUTOMATED BLOOD COUNTS [...] DESIRABLE: <130 MG/DL <110 MG/DL BORDERLINE-HIGH RISK: 130- 159 MG/DL 110-129 MG/DL HIGH RISK: >160 MG/DL >130 MG/DL *CHILDREN AND ADOLESCENTS REPRESENTS INDIVIDUALA AGED 2-19 YEARS EXCLUSIVE. BUN 17 mg/dL 8-23 [facility] ([facility] NORMAL RANGES Age WBC RBC HGB HCT [...] HCT IS 5% LESS SOURCE FOR DATA: [employer] 1800 OPERATION MANUAL( AUTOMATED BLOOD COUNTS AND [...] DESIRABLE: <130 MG/DL <110 MG/DL BORDERLINE-HIGH RISK: 130- 159 MG/DL 110-129 MG/DL HIGH RISK: >160 MG/DL >130 MG/DL *CHILDREN AND ADOLESCENTS REPRESENTS INDIVIDUALA AGED 2-19 YEARS EXCLUSIVE. Creat 0.9 mg/dL 0.7-1.2 [facility] NORMAL RANGES Age WBC RBC HGB HCT [...] HCT IS 5% LESS SOURCE FOR DATA: [employer]YN 1800 OPERATION MANUAL( AUTOMATED BLOOD COUNTS [...] DESIRABLE: <130 MG/DL <110 MG/DL BORDERLINE-HIGH RISK: 130- 159 MG/DL 110-129 MG/DL HIGH RISK: >160 MG/DL >130 MG/DL *CHILDREN AND ADOLESCENTS REPRESENTS INDIVIDUALA AGED 2-19 YEARS EXCLUSIVE. BUN/Creatinine Ratio 19.4 CALC [facility] ([facility] NORMAL RANGES Age WBC RBC HGB HCT [...] HCT IS 5% LESS SOURCE FOR DATA: [employer] 1800 OPERATION MANUAL( AUTOMATED BLOOD COUNTS AND [...] DESIRABLE: <130 MG/DL <110 MG/DL BORDERLINE-HIGH RISK: 130- 159 MG/DL 110-129 MG/DL HIGH RISK: >160 MG/DL >130 MG/DL *CHILDREN AND ADOLESCENTS REPRESENTS INDIVIDUALA AGED 2-19 YEARS EXCLUSIVE. K 4.4 mmol/L 3.5-5.1 [facility] ([facility] NORMAL RANGES Age WBC RBC HGB HCT [...] HCT IS 5% LESS SOURCE FOR DATA: [employer]YN 1800 OPERATION MANUAL( AUTOMATED BLOOD COUNTS [...] DESIRABLE: <130 MG/DL <110 MG/DL BORDERLINE-HIGH RISK: 130- 159 MG/DL 110-129 MG/DL HIGH RISK: >160 MG/DL >130 MG/DL *CHILDREN AND ADOLESCENTS REPRESENTS INDIVIDUALA AGED 2-19 YEARS EXCLUSIVE. Na 139 mmol/L 136-145 [facility] ([facility] NORMAL RANGES Age WBC RBC HGB HCT [...] HCT IS 5% LESS SOURCE FOR DATA: [employer] 1800 OPERATION MANUAL( AUTOMATED BLOOD COUNTS AND [...] DESIRABLE: <130 MG/DL <110 MG/DL BORDERLINE-HIGH RISK: 130- 159 MG/DL 110-129 MG/DL HIGH RISK: >160 MG/DL >130 MG/DL *CHILDREN AND ADOLESCENTS REPRESENTS INDIVIDUALA AGED 2-19 YEARS EXCLUSIVE. CL 104.4 mmol/L 98.0-107.0 [facility] ([facility] NORMAL RANGES Age WBC RBC HGB HCT [...] HCT IS 5% LESS SOURCE FOR DATA: [employer] 1800 OPERATION MANUAL( AUTOMATED BLOOD COUNTS AND [...] DESIRABLE: <130 MG/DL <110 MG/DL BORDERLINE-HIGH RISK: 130- 159 MG/DL 110-129 MG/DL HIGH RISK: >160 MG/DL >130 MG/DL *CHILDREN AND ADOLESCENTS REPRESENTS INDIVIDUALA AGED 2-19 YEARS EXCLUSIVE. Co2 19.4 mmol/L 22.0-29.0 Below low normal [facility] ([facility] NORMAL RANGES Age WBC RBC HGB HCT [...] HCT IS 5% LESS SOURCE FOR DATA: [employer] 1800 OPERATION MANUAL( AUTOMATED BLOOD COUNTS AND [...] DESIRABLE: <130 MG/DL <110 MG/DL BORDERLINE-HIGH RISK: 130- 159 MG/DL 110-129 MG/DL HIGH RISK: >160 MG/DL >130 MG/DL *CHILDREN AND ADOLESCENTS REPRESENTS INDIVIDUALA AGED 2-19 YEARS EXCLUSIVE. CA 9.4 mg/dL 8.6-10.2 [facility] NORMAL RANGES Age WBC RBC HGB HCT [...] HCT IS 5% LESS SOURCE FOR DATA: [employer] 1800 OPERATION MANUAL( AUTOMATED BLOOD COUNTS AND [...] DESIRABLE: <130 MG/DL <110 MG/DL BORDERLINE-HIGH RISK: 130- 159 MG/DL 110-129 MG/DL HIGH RISK: >160 MG/DL >130 MG/DL *CHILDREN AND ADOLESCENTS REPRESENTS INDIVIDUALA AGED 2-19 YEARS EXCLUSIVE. TP 7.4 g/dL 6.6-8.7 [facility] ([facility] NORMAL RANGES Age WBC RBC HGB HCT [...] HCT IS 5% LESS SOURCE FOR DATA: [employer] 1800 OPERATION MANUAL( AUTOMATED BLOOD COUNTS AND [...] DESIRABLE: <130 MG/DL <110 MG/DL BORDERLINE-HIGH RISK: 130- 159 MG/DL 110-129 MG/DL HIGH RISK: >160 MG/DL >130 MG/DL *CHILDREN AND ADOLESCENTS REPRESENTS INDIVIDUALA AGED 2-19 YEARS EXCLUSIVE. A/G Ratio 1.5 CALC [facility] ([facility] NORMAL RANGES Age WBC RBC HGB HCT [...] HCT IS 5% LESS SOURCE FOR DATA: [employer] 1800 OPERATION MANUAL( AUTOMATED BLOOD COUNTS AND [...] DESIRABLE: <130 MG/DL <110 MG/DL BORDERLINE-HIGH RISK: 130- 159 MG/DL 110-129 MG/DL HIGH RISK: >160 MG/DL >130 MG/DL *CHILDREN AND ADOLESCENTS REPRESENTS INDIVIDUALA AGED 2-19 YEARS EXCLUSIVE. Alb 4.4 g/dL 3.5-5.2 [facility] ([facility] NORMAL RANGES Age WBC RBC HGB HCT [...] HCT IS 5% LESS SOURCE FOR DATA: [employer] 1800 OPERATION MANUAL( AUTOMATED BLOOD COUNTS AND [...] DESIRABLE: <130 MG/DL <110 MG/DL BORDERLINE-HIGH RISK: 130- 159 MG/DL 110-129 MG/DL HIGH RISK: >160 MG/DL >130 MG/DL *CHILDREN AND ADOLESCENTS REPRESENTS INDIVIDUALA AGED 2-19 YEARS EXCLUSIVE. Globulin 3.0 CALC [facility] ([facility] NORMAL RANGES Age WBC RBC HGB HCT [...] HCT IS 5% LESS SOURCE FOR DATA: [employer] 1800 OPERATION MANUAL( AUTOMATED BLOOD COUNTS AND [...] DESIRABLE: <130 MG/DL <110 MG/DL BORDERLINE-HIGH RISK: 130- 159 MG/DL 110-129 MG/DL HIGH RISK: >160 MG/DL >130 MG/DL *CHILDREN AND ADOLESCENTS REPRESENTS INDIVIDUALA AGED 2-19 YEARS EXCLUSIVE. Alp 72.2 U/L 40-129 [facility] ([facility] NORMAL RANGES Age WBC RBC HGB HCT [...] HCT IS 5% LESS SOURCE FOR DATA: [employer] 1800 OPERATION MANUAL( AUTOMATED BLOOD COUNTS AND [...] DESIRABLE: <130 MG/DL <110 MG/DL BORDERLINE-HIGH RISK: 130- 159 MG/DL 110-129 MG/DL HIGH RISK: >160 MG/DL >130 MG/DL *CHILDREN AND ADOLESCENTS REPRESENTS INDIVIDUALA AGED 2-19 YEARS EXCLUSIVE. Alt (SGPT) 11 U/L 0-41 [facility] NORMAL RANGES Age WBC RBC HGB HCT [...] DESIRABLE: <130 MG/DL <110 MG/DL BORDERLINE-HIGH RISK: 130- 159 MG/DL 110-129 MG/DL HIGH RISK: >160 MG/DL >130 MG/DL *CHILDREN AND ADOLESCENTS REPRESENTS INDIVIDUALA AGED 2-19 YEARS EXCLUSIVE. Ast (Sgot) 10 U/L 0-40 [facility] ([facility] NORMAL RANGES Age WBC RBC HGB HCT [...] HCT IS 5% LESS SOURCE FOR DATA: [employer] 1800 OPERATION MANUAL( AUTOMATED BLOOD COUNTS AND [...] DESIRABLE: <130 MG/DL <110 MG/DL BORDERLINE-HIGH RISK: 130- 159 MG/DL 110-129 MG/DL HIGH RISK: >160 MG/DL >130 MG/DL *CHILDREN AND ADOLESCENTS REPRESENTS INDIVIDUALA AGED 2-19 YEARS EXCLUSIVE. Osmolality-Calculated 280.0 [facility] ([facility] NORMAL RANGES Age WBC RBC HGB HCT [...] HCT IS 5% LESS SOURCE FOR DATA: [employer] 1800 OPERATION MANUAL( AUTOMATED BLOOD COUNTS AND [...] DESIRABLE: <130 MG/DL <110 MG/DL BORDERLINE-HIGH RISK: 130- 159 MG/DL 110-129 MG/DL HIGH RISK: >160 MG/DL >130 MG/DL *CHILDREN AND ADOLESCENTS REPRESENTS INDIVIDUALA AGED 2-19 YEARS EXCLUSIVE. Tbili 0.30 mg/dL 0.0-1.2 [facility] ([facility] NORMAL RANGES Age WBC RBC HGB HCT [...] DESIRABLE: <130 MG/DL <110 MG/DL BORDERLINE-HIGH RISK: 130- 159 MG/DL 110-129 MG/DL HIGH RISK: >160 MG/DL >130 MG/DL *CHILDREN AND ADOLESCENTS REPRESENTS INDIVIDUALA AGED 2-19 YEARS EXCLUSIVE. eGFR 96 # [facility] ( [facility] NORMAL RANGES Age WBC RBC HGB HCT [...] HCT IS 5% LESS SOURCE FOR DATA: [employer] 1800 OPERATION MANUAL( AUTOMATED BLOOD COUNTS AND [...] DESIRABLE: <130 MG/DL <110 MG/DL BORDERLINE-HIGH RISK: 130- 159 MG/DL 110-129 MG/DL HIGH RISK: >160 MG/DL >130 MG/DL *CHILDREN AND ADOLESCENTS REPRESENTS INDIVIDUALA AGED 2-19 YEARS EXCLUSIVE. Anion Gap 20 mmol/L [facility] ([facility] NORMAL RANGES Age WBC RBC HGB HCT [...] HCT IS 5% LESS SOURCE FOR DATA: [employer] 1800 OPERATION MANUAL( AUTOMATED BLOOD COUNTS AND [...] DESIRABLE: <130 MG/DL <110 MG/DL BORDERLINE-HIGH RISK: 130- 159 MG/DL 110-129 MG/DL HIGH RISK: >160 MG/DL >130 MG/DL *CHILDREN AND ADOLESCENTS REPRESENTS INDIVIDUALA AGED 2-19 YEARS EXCLUSIVE. eGFR Non-Afr. Spanish 83 # [facility] ([facility] NORMAL RANGES Age WBC RBC HGB HCT [...] HCT IS 5% LESS SOURCE FOR DATA: [employer] 1800 OPERATION MANUAL( AUTOMATED BLOOD COUNTS [...] DESIRABLE: <130 MG/DL <110 MG/DL BORDERLINE-HIGH RISK: 130- 159 MG/DL 110-129 MG/DL HIGH RISK: >160 MG/DL >130 MG/DL *CHILDREN AND ADOLESCENTS REPRESENTS INDIVIDUALA AGED 2-19 YEARS EXCLUSIVE. ID Date Data Source [id number] 11/29/2020 09:39:00 AM EDT [facility] ([facility] Name Value Range Interpretation Code Description Data Demetrice rce(s) Supporting Document(s) RBC 4.50 10E6/uL 4.20-6.30 [facility] ([facility] NORMAL RANGES Age WBC RBC HGB HCT [...] HCT IS 5% LESS SOURCE FOR DATA: [employer] 1800 OPERATION MANUAL( AUTOMATED BLOOD COUNTS AND [...] DESIRABLE: <130 MG/DL <110 MG/DL BORDERLINE-HIGH RISK: 130- 159 MG/DL 110-129 MG/DL HIGH RISK: >160 MG/DL >130 MG/DL *CHILDREN AND ADOLESCENTS REPRESENTS INDIVIDUALA AGED 2-19 YEARS EXCLUSIVE. WBC 7.7 10E3/uL 4.1-10.9 [facility] ([facility] NORMAL RANGES Age WBC RBC HGB HCT [...] HCT IS 5% LESS SOURCE FOR DATA: [employer] 1800 OPERATION MANUAL( AUTOMATED BLOOD COUNTS AND [...] DESIRABLE: <130 MG/DL <110 MG/DL BORDERLINE-HIGH RISK: 130- 159 MG/DL 110-129 MG/DL HIGH RISK: >160 MG/DL >130 MG/DL *CHILDREN AND ADOLESCENTS REPRESENTS INDIVIDUALA AGED 2-19 YEARS EXCLUSIVE. HGB 14.1 g/dL 12.0-18.0 [facility] ([facility] NORMAL RANGES Age WBC RBC HGB HCT [...] HCT IS 5% LESS SOURCE FOR DATA: [employer] 1800 OPERATION MANUAL( AUTOMATED BLOOD COUNTS [...] DESIRABLE: <130 MG/DL <110 MG/DL BORDERLINE-HIGH RISK: 130- 159 MG/DL 110-129 MG/DL HIGH RISK: >160 MG/DL >130 MG/DL *CHILDREN AND ADOLESCENTS REPRESENTS INDIVIDUALA AGED 2-19 YEARS EXCLUSIVE. HCT 41.1 % 37.0-51.0 [facility] ([facility] NORMAL RANGES Age WBC RBC HGB HCT [...] HCT IS 5% LESS SOURCE FOR DATA: [employer] 1800 OPERATION MANUAL( AUTOMATED BLOOD COUNTS AND [...] DESIRABLE: <130 MG/DL <110 MG/DL BORDERLINE-HIGH RISK: 130- 159 MG/DL 110-129 MG/DL HIGH RISK: >160 MG/DL >130 MG/DL *CHILDREN AND ADOLESCENTS REPRESENTS INDIVIDUALA AGED 2-19 YEARS EXCLUSIVE. MCH 31.3 pg 26.0-32.0 [facility] NORMAL RANGES Age WBC RBC HGB HCT [...] HCT IS 5% LESS SOURCE FOR DATA: [employer] 1800 OPERATION MANUAL( AUTOMATED BLOOD COUNTS AND [...] DESIRABLE: <130 MG/DL <110 MG/DL BORDERLINE-HIGH RISK: 130- 159 MG/DL 110-129 MG/DL HIGH RISK: >160 MG/DL >130 MG/DL *CHILDREN AND ADOLESCENTS REPRESENTS INDIVIDUALA AGED 2-19 YEARS EXCLUSIVE. MCV 91.3 fL 80.0-97.0 [facility] ([facility] NORMAL RANGES Age WBC RBC HGB HCT [...] HCT IS 5% LESS SOURCE FOR DATA: [employer] 1800 OPERATION MANUAL( AUTOMATED BLOOD COUNTS [...] DESIRABLE: <130 MG/DL <110 MG/DL BORDERLINE-HIGH RISK: 130- 159 MG/DL 110-129 MG/DL HIGH RISK: >160 MG/DL >130 MG/DL *CHILDREN AND ADOLESCENTS REPRESENTS INDIVIDUALA AGED 2-19 YEARS EXCLUSIVE. PLT 206 10E3/uL 140-440 [facility] ([facility] NORMAL RANGES Age WBC RBC HGB HCT [...] HCT IS 5% LESS SOURCE FOR DATA: [employer] 1800 OPERATION MANUAL( AUTOMATED BLOOD COUNTS AND [...] DESIRABLE: <130 MG/DL <110 MG/DL BORDERLINE-HIGH RISK: 130- 159 MG/DL 110-129 MG/DL HIGH RISK: >160 MG/DL >130 MG/DL *CHILDREN AND ADOLESCENTS REPRESENTS INDIVIDUALA AGED 2-19 YEARS EXCLUSIVE. MCHC 34.3 g/dL 31.0-36.0 [facility] ([facility] NORMAL RANGES Age WBC RBC HGB HCT [...] HCT IS 5% LESS SOURCE FOR DATA: [employer] 1800 OPERATION MANUAL( AUTOMATED BLOOD COUNTS AND [...] DESIRABLE: <130 MG/DL <110 MG/DL BORDERLINE-HIGH RISK: 130- 159 MG/DL 110-129 MG/DL HIGH RISK: >160 MG/DL >130 MG/DL *CHILDREN AND ADOLESCENTS REPRESENTS INDIVIDUALA AGED 2-19 YEARS EXCLUSIVE. RDW-CV 13.5 % 11.5-14.5 [facility] ([facility] NORMAL RANGES Age WBC RBC HGB HCT [...] HCT IS 5% LESS SOURCE FOR DATA: [employer] 1800 OPERATION MANUAL( AUTOMATED BLOOD COUNTS AND [...] DESIRABLE: <130 MG/DL <110 MG/DL BORDERLINE-HIGH RISK: 130- 159 MG/DL 110-129 MG/DL HIGH RISK: >160 MG/DL >130 MG/DL *CHILDREN AND ADOLESCENTS REPRESENTS INDIVIDUALA AGED 2-19 YEARS EXCLUSIVE. Lym% 30.2 % 10.0-58.5 [facility] ([facility] NORMAL RANGES Age WBC RBC HGB HCT [...] HCT IS 5% LESS SOURCE FOR DATA: [employer] 1800 OPERATION MANUAL( AUTOMATED BLOOD COUNTS AND [...] DESIRABLE: <130 MG/DL <110 MG/DL BORDERLINE-HIGH RISK: 130- 159 MG/DL 110-129 MG/DL HIGH RISK: >160 MG/DL >130 MG/DL *CHILDREN AND ADOLESCENTS REPRESENTS INDIVIDUALA AGED 2-19 YEARS EXCLUSIVE. MXD% 9.4 % 0.1-24.0 [facility] ([facility] NORMAL RANGES Age WBC RBC HGB HCT [...] DESIRABLE: <130 MG/DL <110 MG/DL BORDERLINE-HIGH RISK: 130- 159 MG/DL 110-129 MG/DL HIGH RISK: >160 MG/DL >130 MG/DL *CHILDREN AND ADOLESCENTS REPRESENTS INDIVIDUALA AGED 2-19 YEARS EXCLUSIVE. Neut% 60.4 % 37.0-92.0 [facility] ([facility] NORMAL RANGES Age WBC RBC HGB HCT [...] HCT IS 5% LESS SOURCE FOR DATA: [employer] 1800 OPERATION MANUAL( AUTOMATED BLOOD COUNTS AND [...] DESIRABLE: <130 MG/DL <110 MG/DL BORDERLINE-HIGH RISK: 130- 159 MG/DL 110-129 MG/DL HIGH RISK: >160 MG/DL >130 MG/DL *CHILDREN AND ADOLESCENTS REPRESENTS INDIVIDUALA AGED 2-19 YEARS EXCLUSIVE. Lym# 2.3 10E3/uL 0.6-4.1 [facility] ([facility] NORMAL RANGES Age WBC RBC HGB HCT [...] HCT IS 5% LESS SOURCE FOR DATA: [employer] 1800 OPERATION MANUAL( AUTOMATED BLOOD COUNTS AND [...] DESIRABLE: <130 MG/DL <110 MG/DL BORDERLINE-HIGH RISK: 130- 159 MG/DL 110-129 MG/DL HIGH RISK: >160 MG/DL >130 MG/DL *CHILDREN AND ADOLESCENTS REPRESENTS INDIVIDUALA AGED 2-19 YEARS EXCLUSIVE. Neut# 4.7 % 2.0-7.8 [facility] ([facility] NORMAL RANGES Age WBC RBC HGB HCT [...] HCT IS 5% LESS SOURCE FOR DATA: [employer] 1800 OPERATION MANUAL( AUTOMATED BLOOD COUNTS [...] DESIRABLE: <130 MG/DL <110 MG/DL BORDERLINE-HIGH RISK: 130- 159 MG/DL 110-129 MG/DL HIGH RISK: >160 MG/DL >130 MG/DL *CHILDREN AND ADOLESCENTS REPRESENTS INDIVIDUALA AGED 2-19 YEARS EXCLUSIVE. MXD# 0.7 10E3/uL 0.0-1.8 [facility] ([facility] NORMAL RANGES Age WBC RBC HGB HCT [...] HCT IS 5% LESS SOURCE FOR DATA: [employer] 1800 OPERATION MANUAL( AUTOMATED BLOOD COUNTS AND [...] DESIRABLE: <130 MG/DL <110 MG/DL BORDERLINE-HIGH RISK: 130- 159 MG/DL 110-129 MG/DL HIGH RISK: >160 MG/DL >130 MG/DL *CHILDREN AND ADOLESCENTS REPRESENTS INDIVIDUALA AGED 2-19 YEARS EXCLUSIVE. MPV 11.0 fL 9.0-13.0 [facility] ([facility] NORMAL RANGES Age WBC RBC HGB HCT [...] HCT IS 5% LESS SOURCE FOR DATA: [employer] 1800 OPERATION MANUAL( AUTOMATED BLOOD COUNTS [...] DESIRABLE: <130 MG/DL <110 MG/DL BORDERLINE-HIGH RISK: 130- 159 MG/DL 110-129 MG/DL HIGH RISK: >160 MG/DL >130 MG/DL *CHILDREN AND ADOLESCENTS REPRESENTS INDIVIDUALA AGED 2-19 YEARS EXCLUSIVE. ID Date Data Source [id number] 11/29/2020 09:39:00 AM EDT [facility] ([facility] Name Value Range Interpretation Code Description Data Demetrice rce(s) Supporting Document(s) Hemoglobin A1c/Hemoglobin.total in Blood 5.8 % 4.50-6.20 [facility] ([facility] ID Date Data Source RHEUMATOID FACTOR QUANT 11/02/2020 12:00:00 AM EDT eCW1 ([facility]) Name Value Range Interpretation Code Description Data Demetrice rce(s) Supporting Document(s) < 10.0 <15.0 RHEUMATOID FACTOR QUANT eCW1 ( [facility]) ID Date Data Source ERYTHROCYTE SEDIMENTATION RATE 11/02/2020 12:00:00 AM EDT eC W1 ([facility]) Name Value Range Interpretation Code Description Data Demetrice rce(s) Supporting Document(s) 29 0-20 ERYTHROCYTE SEDIMENTATION RATE eCW1 ([facility]) ID Date Data Source C REACTIVE PROTEIN QUANTITATIV (At [facility]) 11/02/2020 12:00 :00 AM EDT eCW1 ([facility]) Name Value Range Interpretation Code Description Data Demetrice rce(s) Supporting Document(s) 0.56 0.00-0.30 C REACTIVE PROTEIN QUANTI TATIV eCW1 ([facility]) ID Date Data Source Comprehensive Metabolic Profile (CMP) 11/02/2020 12:00:00 AM EDT eCW1 ([facility]) Name Value Range Interpretation Code Description Data Demetrice rce(s) Supporting Document(s) 0.82 0.70-1.30 CREATININE FOR GFR eCW1 ([facility]) 101 70-100 GLUCOSE, FASTING eCW1 ([facility]) 18 7-18 BLOOD UREA NITROGEN eCW1 ([facility]) 141 136-145 SODIUM LEVEL eCW1 ([facility]) > 60.0 >42 GLOMERULAR FILTRATION RATE eCW 1 ([facility]) 4.1 3.5-5.1 POTASSIUM SERUM eCW1 ([facility]) 9.2 8.8-10.2 CALCIUM LEVEL eCW1 ([facility]) 26 21-32 CARBON DIOXIDE LEVEL eCW1 ([facility]) 107 98-107 CHLORIDE LEVEL eCW1 ([facility]) 24 12-78 ALT/SGPT eCW1 ([facility]) 67 45-117 ALKALINE PHOSPHATASE eCW1 ([facility]) 13 7-37 AST/SGOT eCW1 ([facility]) 0.2 0.2-1.0 BILIRUBIN,TOTAL eCW1 ([facility]) 7.1 6.4-8.2 TOTAL PROTEIN eCW1 ([facility]) 3.8 3.2-5.2 ALBUMIN eCW1 ([facility]) 1.2 ALBUMIN/GLOBULIN RATIO eCW1 (Counts include 234 beds at the [facility]) ID Date Data Source CBC with Differential 11/02/2020 12:00:00 AM EDT eCW1 ([facility]) Name Value Range Interpretation Code Description Data Demetrice rce(s) Supporting Document(s) 9.0 4.0-10.0 WHITE BLOOD COUNT eCW1 ([facility]) 4.36 4.30-6.10 RED BLOOD COUNT eCW1 ([facility]) 13.3 13.5-17.5 HEMOGLOBIN eCW1 ([facility]) 40.2 42.0-52.0 HEMATOCRIT eCW1 ([facility]) 30.5 27.0-33.0 MEAN CORPUSCULAR HEMOGLOB IN eCW1 ([facility]) 92.2 80.0-96.0 MEAN CORPUSCULAR VOLUME e CW1 ([facility]) 12.8 11.5-14.5 RED CELL DISTRIBUTION WID TH eCW1 ([facility]) 202 150-450 PLATELET COUNT, AUTOMATED eCW1 ([facility]) 33.1 32.0-36.5 MEAN CORPUSCULAR HGB CONC eCW1 ([facility]) 33.7 24.0-44.0 LYMPH % eCW1 ([facility]) 52.8 36.0-66.0 NEUTROPHILS % eCW1 ([facility]) 9.2 2.0-8.0 MONO % eCW1 ([facility]) 4.7 1.5-8.5 NEUTROPHILS # eCW1 ([facility]) 3.1 0.0-3.0 EOS % eCW1 ([facility]) 0.8 0.0-1.0 BASO % eCW1 ([facility]) 0.3 0.0-0.5 EOS # eCW1 ([facility]) 0.8 0.0-0.8 MONO # eCW1 ([facility]) 3.0 1.5-5.0 LYMPH # eCW1 ([facility]) 0.1 0.0-0.2 BASO # eCW1 ([facility]) ID Date Data Source [id number] 08/29/2020 09:28:00 AM EDT [facility] ([facility] Name Value Range Interpretation Code Description Data Demetrice rce(s) Supporting Document(s) BUN 15 mg/dL 8-23 [facility] ([facility] CHRONIC KIDNEY DISEASE STAGING PER NKF: MALE [...] Normal 80 and above >32 mL/min Normal Glu 146 mg/dL 70-110 Above high normal [facility] ([facility] CHRONIC KIDNEY DISEASE STAGING PER NKF: MALE [...] Normal 80 and above >32 mL/min Normal Creat 1.0 mg/dL 0.7-1.2 [facility] ([facility] CHRONIC KIDNEY DISEASE STAGING PER NKF: MALE [...] Normal 80 and above >32 mL/min Normal BUN/Creatinine Ratio 14.6 CALC [facility] ([facility] CHRONIC KIDNEY DISEASE STAGING PER NKF: MALE [...] Normal 80 and above >32 mL/min Normal CL 104.0 mmol/L 98.0-107.0 [facility] ([facility]afar [facility]cilla [facility] CHRONIC KIDNEY DISEASE STAGING PER NKF: MALE [...] Normal 80 and above >32 mL/min Normal Na 138 mmol/L 136-145 [facility] ([facility] CHRONIC KIDNEY DISEASE STAGING PER NKF: MALE [...] Normal 80 and above >32 mL/min Normal K 4.7 mmol/L 3.5-5.1 [facility] ([facility] CHRONIC KIDNEY DISEASE STAGING PER NKF: MALE [...] Normal 80 and above >32 mL/min Normal Co2 23.0 mmol/L 22.0-29.0 [facility] CHRONIC KIDNEY DISEASE STAGING PER NKF: MALE [...] Normal 80 and above >32 mL/min Normal TP 6.9 g/dL 6.6-8.7 [facility] ([facility] CHRONIC KIDNEY DISEASE STAGING PER NKF: MALE [...] Normal 80 and above >32 mL/min Normal CA 9.6 mg/dL 8.6-10.2 [facility] ([facility] CHRONIC KIDNEY DISEASE STAGING PER NKF: MALE [...] Normal 80 and above >32 mL/min Normal Globulin 2.6 CALC [facility] CHRONIC KIDNEY DISEASE STAGING PER NKF: MALE [...] Normal 80 and above >32 mL/min Normal Alb 4.3 g/dL 3.5-5.2 [facility] ([facility] CHRONIC KIDNEY DISEASE STAGING PER NKF: MALE [...] Normal 80 and above >32 mL/min Normal A/G Ratio 1.6 CALC [facility] ([facility] CHRONIC KIDNEY DISEASE STAGING PER NKF: MALE [...] Normal 80 and above >32 mL/min Normal Alp 82.6 U/L 40-129 [facility] ([facility] CHRONIC KIDNEY DISEASE STAGING PER NKF: MALE [...] Normal 80 and above >32 mL/min Normal Alt (SGPT) 21 U/L 0-41 [facility] ([facility]enny [facility] CHRONIC KIDNEY DISEASE STAGING PER NKF: MALE [...] Normal 80 and above >32 mL/min Normal Ast (Sgot) 19 U/L 0-40 [facility] ([facility] CHRONIC KIDNEY DISEASE STAGING PER NKF: MALE [...] Normal 80 and above >32 mL/min Normal Osmolality-Calculated 280.1 CALC MED E[facility] ([facility] CHRONIC KIDNEY DISEASE STAGING PER NKF: MALE [...] Normal 80 and above >32 mL/min Normal Tbili 0.41 mg/dL 0.0-1.2 [facility] ([facility] CHRONIC KIDNEY DISEASE STAGING PER NKF: MALE [...] Normal 80 and above >32 mL/min Normal Anion Gap 16 mmol/L [facility] ([facility] CHRONIC KIDNEY DISEASE STAGING PER NKF: MALE [...] Normal 80 and above >32 mL/min Normal eGFR Non-Afr. Spanish 73 # [facility] ([facility] CHRONIC KIDNEY DISEASE STAGING PER NKF: MALE [...] Normal 80 and above >32 mL/min Normal eGFR 85 # [facility] ( [facility] CHRONIC KIDNEY DISEASE STAGING PER NKF: MALE [...] Normal 80 and above >32 mL/min Normal ID Date Data Source [id number] 08/29/2020 09:28:00 AM EDT [facility] ([facility] Name Value Range Interpretation Code Description Data Demetrice rce(s) Supporting Document(s) Hemoglobin A1c/Hemoglobin.total in Blood 6.3 % 4.50-6.20 Above high normal [facility] ([facility] ID Date Data Source [id number] 05/16/2020 08:54:00 AM EST [facility] ([facility] Name Value Range Interpretation Code Description Data Demetrice rce(s) Supporting Document(s) Hemoglobin A1c/Hemoglobin.total in Blood 7.2 % 4.50-6.20 Above high normal [facility] ([facility] ID Date Data Source [id number] 05/16/2020 08:49:00 AM EST [facility] ([facility] Name Value Range Interpretation Code Description Data Demetrice rce(s) Supporting Document(s) Glu 161 mg/dL 70-110 Above high normal [facility] ([facility] CHRONIC KIDNEY DISEASE STAGING PER NKF: MALE [...] Normal 80 and above >32 mL/min Normal BUN 15 mg/dL 8-23 [facility] ([facility] CHRONIC KIDNEY DISEASE STAGING PER NKF: MALE [...] Normal 80 and above >32 mL/min Normal BUN/Creatinine Ratio 14.2 Calc [facility] ([facility] CHRONIC KIDNEY DISEASE STAGING PER NKF: MALE [...] Normal 80 and above >32 mL/min Normal Creat 1.1 mg/dL 0.7-1.2 [facility] ([facility] CHRONIC KIDNEY DISEASE STAGING PER NKF: MALE [...] Normal 80 and above >32 mL/min Normal Na 136 mmol/L 136-145 [facility] ([facility] CHRONIC KIDNEY DISEASE STAGING PER NKF: MALE [...] Normal 80 and above >32 mL/min Normal K 4.2 mmol/L 3.5-5.1 [facility] ([facility] CHRONIC KIDNEY DISEASE STAGING PER NKF: MALE [...] Normal 80 and above >32 mL/min Normal Co2 20.8 mmol/L 22.0-29.0 Below low normal [facility] ([facility] CHRONIC KIDNEY DISEASE STAGING PER NKF: MALE [...] Normal 80 and above >32 mL/min Normal CL 99.9 mmol/L 98.0-107.0 [facility] ([facility] CHRONIC KIDNEY DISEASE STAGING PER NKF: MALE [...] Normal 80 and above >32 mL/min Normal TP 7.1 g/dL 6.6-8.7 [facility] ([facility] [facility] CHRONIC KIDNEY DISEASE STAGING PER NKF: MALE [...] Normal 80 and above >32 mL/min Normal CA 9.7 mg/dL 8.6-10.2 [facility] ([facility] CHRONIC KIDNEY DISEASE STAGING PER NKF: MALE [...] Normal 80 and above >32 mL/min Normal Alb 4.5 g/dL 3.5-5.2 [facility] ([facility] CHRONIC KIDNEY DISEASE STAGING PER NKF: MALE [...] Normal 80 and above >32 mL/min Normal A/G Ratio 1.7 Calc [facility] ([facility] CHRONIC KIDNEY DISEASE STAGING PER NKF: MALE [...] Normal 80 and above >32 mL/min Normal Alp 81.9 U/L 40-129 [facility] ([facility] CHRONIC KIDNEY DISEASE STAGING PER NKF: MALE [...] Normal 80 and above >32 mL/min Normal Globulin 2.6 Calc [facility] CHRONIC KIDNEY DISEASE STAGING PER NKF: MALE [...] Normal 80 and above >32 mL/min Normal Alt (SGPT) 23 U/L 0-41 [facility] ([facility] CHRONIC KIDNEY DISEASE STAGING PER NKF: MALE [...] Normal 80 and above >32 mL/min Normal Ast (Sgot) 17 U/L 0-40 [facility] ([facility] CHRONIC KIDNEY DISEASE STAGING PER NKF: MALE [...] Normal 80 and above >32 mL/min Normal Tbili 0.40 mg/dL 0.0-1.2 [facility] ([facility] CHRONIC KIDNEY DISEASE STAGING PER NKF: MALE [...] Normal 80 and above >32 mL/min Normal Osmolality-Calculated 276.2 Calc [facility] ([facility] CHRONIC KIDNEY DISEASE STAGING PER NKF: MALE [...] Normal 80 and above >32 mL/min Normal Anion Gap 19 mmol/L [facility] ([facility] CHRONIC KIDNEY DISEASE STAGING PER NKF: MALE [...] Normal 80 and above >32 mL/min Normal eGFR 76 # [facility] ( [facility] CKD-EPI eGFR Non-Afr. Spanish 65 # [facility] ([facility] CKD-EPI ID Date Data Source [id number] 04/20/2020 03:14:00 PM EST [facility] ([facility]) Name Value Range Interpretation Code Description Data Demetrice rce(s) Supporting Document(s) Prostate specific Ag [Mass/volume] in Serum or Plasma 0.65 ng/mL 0.00 -4.00 [facility] ([facility]) ID Date Data Source [id number] 04/20/2020 02:21:00 PM EST [facility] ([facility]) Name Value Range Interpretation Code Description Data Demetrice rce(s) Supporting Document(s) Glucose [Presence] in Urine Laboratory test result [facility] ([facility] [place]) Ua Nitrite Laboratory test result [place] [facility] ([facility]) Protein [Presence] in Urine by Test strip Laboratory test result [facility] ([facility]) Blood [Presence] in Urine by Visual Laboratory test result [facility] ([facility]) Color of Urine Laboratory test result [facility] ([facility]) Ua Leuko Laboratory test result ME D[facility] ([facility] [employer]) Ua Specific [place] Laboratory test result 1.003-1.030 [facility] ([facility] [employer]) Clarity of Urine Laboratory test result [facility] ([facility] [employer]) Ketones [Presence] in Urine by Test strip Laboratory test result [facility] ([facility] [employer]) pH of Urine by Test strip 5.0 5.0-7.5 [facility] ([facility] [employer]) Urobilinogen [Mass/volume] in Urine by Test strip 0.2 E.U./dL 0.0-1.0 [facility] ([facility]) Bilirubin.total [Presence] in Urine by Test strip Laboratory test res ult [facility] ([facility]) ID Date Data Source [id number] 03/22/2020 07:13:50 AM EST [facility] PC[facility]: Patrick SimeonB: 1945Provider: Jazmine Lu: 03/09/2020 Reason For VisitJojessica Goodman is here today for right hip. Patrick Goodman is an established patient here for follow up. Other DOI/DOO: 2013 onset. 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 History of Present IllnessThe patient is still struggling with pain, stiffness and weakness. He is here for further follow-up of his right hip. He has mild osteoarthritis in his hip joint he notes that he feels his pain is actually coming more from his back at this time. Results/DataXRays were ordered, obtained and interpreted today in the office. Indication: pain/dysfunction. Side: Right Site: Hip Views: 2 Views, AP/Lateral Findings: Hip Joint degenerative change of a mild degree. AssessmentRight hip mild primary osteoarthritisPlanPlan for continued nonimpact exercise I talked to him about cortisone injection to the right hip he does not desire this at this time his hemoglobin A1c is 6.9 today. He would like to follow-up with a spine provider for further evaluation of a recent MRI he had on his lumbar spine. We will set up an appointment with spine provider I have discussed with him the possible virtual visit secondary to Covid and increased risk of infection. Plan X-Ray I Hip-Uni w/o Pelvis - 2 or 3 views (XRays were ordered, obtained and interpretedtoday in the office. Indication: pa in/dysfunction.); Status:Complete; Done: [id number] Perform:[id number]; Due:[id number]; Last Updated By:Shani Linares; 03/09/2020 10:04:32 AM;Ordered; For:Arthralgia of hip; Ordered By:Ida LuWeight Bearing Status : Non-weight bearing Signatures Electronically signed by : Ida Lu NP; Mar 09 2020 3:17PM EST (Author) Electronically signed by : Shay Naranjo M.D.; Mar 22 2020 7:13AM EST Name Value Range Interpretation Code Description Data Demetrice rce(s) Supporting Document(s) ID Date Data Source [id number] 02/15/2020 09:18:00 AM EST [facility] ([facility] Name Value Range Interpretation Code Description Data Demetrice rce(s) Supporting Document(s) Glu 151 mg/dL 70-110 Above high normal [facility] ([facility] CHRONIC KIDNEY DISEASE STAGING PER NKF: MALE [...] Normal 80 and above >32 mL/min Normal BUN 19 mg/dL 8- [facility] ([facility] CHRONIC KIDNEY DISEASE STAGING PER NKF: MALE [...] Normal 80 and above >32 mL/min Normal Creat 1.1 mg/dL 0.7-1.2 [facility] ([facility] CHRONIC KIDNEY DISEASE STAGING PER NKF: MALE [...] Normal 80 and above >32 mL/min Normal BUN/Creatinine Ratio 17.5 CALC [facility] ([facility] CHRONIC KIDNEY DISEASE STAGING PER NKF: MALE [...] Normal 80 and above >32 mL/min Normal K 4.6 mmol/L 3.5-5.1 [facility] ([facility] CHRONIC KIDNEY DISEASE STAGING PER NKF: MALE [...] Normal 80 and above >32 mL/min Normal Na 138 mmol/L 136-145 [facility] ([facility] CHRONIC KIDNEY DISEASE STAGING PER NKF: MALE [...] Normal 80 and above >32 mL/min Normal Co2 23.3 mmol/L 22.0-29.0 [facility] ([facility] CHRONIC KIDNEY DISEASE STAGING PER NKF: MALE [...] Normal 80 and above >32 mL/min Normal CL 101.7 mmol/L 98.0-107.0 [facility] ([facility] CHRONIC KIDNEY DISEASE STAGING PER NKF: MALE [...] Normal 80 and above >32 mL/min Normal CA 9.8 mg/dL 8.6-10.2 [facility] ([facility] CHRONIC KIDNEY DISEASE STAGING PER NKF: MALE [...] Normal 80 and above >32 mL/min Normal TP 7.0 g/dL 6.6-8.7 [facility] ([facility] CHRONIC KIDNEY DISEASE STAGING PER NKF: MALE [...] Normal 80 and above >32 mL/min Normal Alb 4.4 g/dL 3.5-5.2 [facility] ([facility] CHRONIC KIDNEY DISEASE STAGING PER NKF: MALE [...] Normal 80 and above >32 mL/min Normal A/G Ratio 1.7 CALC [facility] ([facility] CHRONIC KIDNEY DISEASE STAGING PER NKF: MALE [...] Normal 80 and above >32 mL/min Normal Globulin 2.6 CALC [facility] ([facility] CHRONIC KIDNEY DISEASE STAGING PER NKF: MALE [...] Normal 80 and above >32 mL/min Normal Alp 81.2 U/L 40-129 [facility] ([facility] CHRONIC KIDNEY DISEASE STAGING PER NKF: MALE [...] Normal 80 and above >32 mL/min Normal Ast (Sgot) 13 U/L 0-40 [facility] ([facility] CHRONIC KIDNEY DISEASE STAGING PER NKF: MALE [...] Normal 80 and above >32 mL/min Normal Alt (SGPT) 18 U/L 0-41 [facility] ([facility] CHRONIC KIDNEY DISEASE STAGING PER NKF: MALE [...] Normal 80 and above >32 mL/min Normal Tbili 0.36 mg/dL 0.0-1.2 [facility] ([facility] CHRONIC KIDNEY DISEASE STAGING PER NKF: MALE [...] Normal 80 and above >32 mL/min Normal Osmolality-Calculated 279.8 CALC [facility] ([facility] CHRONIC KIDNEY DISEASE STAGING PER NKF: MALE [...] Normal 80 and above >32 mL/min Normal Anion Gap 17 mmol/L [facility] ([facility] CHRONIC KIDNEY DISEASE STAGING PER NKF: MALE [...] Normal 80 and above >32 mL/min Normal eGFR 76 # [facility] ( [facility] CKD-EPI eGFR Non-Afr. Spanish 66 # [facility] ([facility] CKD-EPI ID Date Data Source [id number] 02/15/2020 09:18:00 AM EST [facility] ([facility] Name Value Range Interpretation Code Description Data Demetrice rce(s) Supporting Document(s) Hemoglobin A1c/Hemoglobin.total in Blood 6.6 % 4.50-6.20 Above high normal [facility] ([facility] ID Date Data Source [id number] 02/03/2020 01:19:00 PM EST [facility] ([facility] Name Value Range Interpretation Code Description Data Demetrice rce(s) Supporting Document(s) Surgical pathology study Laboratory test result [facility] ([facility] FINAL DIAGNOSIS Bone, right foot, bunionectomy: Bone, for gross examination only. 02/04/2020839 CLINICAL DIAGNOSIS Hallux valgus rigidus 02/04/2020735 GROSS DIAGNOSIS Received in formalin labeled "right foot bone" and consists of multiple fragments of nava bone measuring 1.5 x 1.5 x 0.8 cm. in aggregate. The specimen is for gross examination only. -SV 02/04/2020735 Signed MARJORIE STEVENS MD 02/04/2020 0840 ID Date Data Source [id number] 02/03/2020 11:12:00 AM EST [facility] ([facility] Name Value Range Interpretation Code Description Data Demetrice rce(s) Supporting Document(s) Glucose [Mass/volume] in Capillary blood by Glucometer 121 mg/dL 83-110 Above high normal [facility] ([facility] ) ID Date Data Source [id number] 02/03/2020 11:12:00 AM EST [facility] ([facility] Name Value Range Interpretation Code Description Data Demetrice rce(s) Supporting Document(s) Glucose [Mass/volume] in Capillary blood by Glucometer 121 mg/dL 83-110 Above high normal [facility] ([facility] ID Date Data Source [id number] 01/29/2020 09:45:00 AM EST [facility] Name Value Range Interpretation Code Description Data Demetrice rce(s) Supporting Document(s) SARS coronavirus 2 RNA [facility] This lab was ordered by [facility] and reported by [facility]. ID Date Data Source [id number] 01/04/2020 03:18:00 PM EDT [facility] ([facility] Name Value Range Interpretation Code Description Data Demetrice rce(s) Supporting Document(s) Glu 156 mg/dL 70-110 Above high normal [facility] ([facility] NORMAL RANGES Age WBC RBC HGB HCT [...] HCT IS 5% LESS SOURCE FOR DATA: [employer] 1800 OPERATION MANUAL( AUTOMATED BLOOD COUNTS AND [...] Normal 80 and above >32 mL/min Normal BUN 16 mg/dL 8 [facility] NORMAL RANGES Age WBC RBC HGB HCT MCV PLT Adult M 4.1-10.9 4.20-6.30 12.0-18.0 37.0-51.0 80-97 140-440 Adult F 4.1-10.9 4.04-5.48 12.0-18.0 37.0-51.0 80- 140-440 0 -1 Yr 5.0-20.0 3.9-5.9 15-18 [...] HCT IS 5% LESS SOURCE FOR DATA: [employer] 1800 OPERATION MANUAL( AUTOMATED BLOOD COUNTS AND [...] Normal 80 and above >32 mL/min Normal Na 135 mmol/L 136-145 Below low normal [facility] ( [facility] NORMAL RANGES Age WBC RBC HGB HCT [...] HCT IS 5% LESS SOURCE FOR DATA: [employer] 1800 OPERATION MANUAL( AUTOMATED BLOOD COUNTS AND [...] Normal 80 and above >32 mL/min Normal BUN/Creatinine Ratio 14.[address] [facility] ([facility] NORMAL RANGES Age WBC RBC HGB HCT [...] HCT IS 5% LESS SOURCE FOR DATA: [employer] 1800 OPERATION MANUAL( AUTOMATED BLOOD COUNTS AND [...] Normal 80 and above >32 mL/min Normal Creat 1.1 mg/dL 0.7-1.2 [facility] ([facility] NORMAL RANGES Age WBC RBC HGB HCT [...] HCT IS 5% LESS SOURCE FOR DATA: [employer] 1800 OPERATION MANUAL( AUTOMATED BLOOD COUNTS AND [...] Normal 80 and above >32 mL/min Normal CL 101.6 mmol/L 98.0-107.0 [facility] ([facility] NORMAL RANGES Age WBC RBC HGB HCT [...] HCT IS 5% LESS SOURCE FOR DATA: [employer] 1800 OPERATION MANUAL( AUTOMATED BLOOD COUNTS AND [...] Normal 80 and above >32 mL/min Normal K 3.8 mmol/L 3.5-5.1 [facility] ([facility] NORMAL RANGES Age WBC RBC HGB HCT [...] HCT IS 5% LESS SOURCE FOR DATA: [employer] 1800 OPERATION MANUAL( AUTOMATED BLOOD COUNTS AND [...] Normal 80 and above >32 mL/min Normal CA 8.9 mg/dL 8.6-10.2 [facility] ([facility] NORMAL RANGES Age WBC RBC HGB HCT [...] HCT IS 5% LESS SOURCE FOR DATA: [employer] 1800 OPERATION MANUAL( AUTOMATED BLOOD COUNTS AND [...] Normal 80 and above >32 mL/min Normal Co2 19.3 mmol/L 22.0-29.0 Below low normal [facility] ([facility] NORMAL RANGES Age WBC RBC HGB HCT [...] Normal 80 and above >32 mL/min Normal TP 6.7 g/dL 6.6-8.7 [facility] ([facility] NORMAL RANGES Age WBC RBC HGB HCT MCV PLT Adult M 4.1-10.9 4.20-6.30 12.0-18.0 37.0-51.0 80-97 140-440 Adult F 4.1-10.9 4.04-5.48 12.0-18.0 37.0-51.0 80- 140-440 0 -1 Yr 5.0-20.0 3.9-5.9 15-18 [...] Normal 80 and above >32 mL/min Normal Alb 4.3 g/dL 3.5-5.2 [facility] ([facility] NORMAL RANGES Age WBC RBC HGB HCT [...] HCT IS 5% LESS SOURCE FOR DATA: [employer] 1800 OPERATION MANUAL( AUTOMATED BLOOD COUNTS AND [...] Normal 80 and above >32 mL/min Normal A/G Ratio 1.8 [facility] NORMAL RANGES Age WBC RBC HGB HCT [...] HCT IS 5% LESS SOURCE FOR DATA: [employer] 1800 OPERATION MANUAL( AUTOMATED BLOOD COUNTS AND [...] Normal 80 and above >32 mL/min Normal Globulin 2.4 CALC [facility] ([facility] NORMAL RANGES Age WBC RBC HGB HCT [...] HCT IS 5% LESS SOURCE FOR DATA: [employer] 1800 OPERATION MANUAL( AUTOMATED BLOOD COUNTS AND [...] Normal 80 and above >32 mL/min Normal Alt (SGPT) 17 U/L 0-41 [facility] ([facility] NORMAL RANGES Age WBC RBC HGB HCT [...] HCT IS 5% LESS SOURCE FOR DATA: [employer] 1800 OPERATION MANUAL( AUTOMATED BLOOD COUNTS AND [...] Normal 80 and above >32 mL/min Normal Alp 83.1 U/L 40-129 [facility] ([facility] NORMAL RANGES Age WBC RBC HGB HCT [...] HCT IS 5% LESS SOURCE FOR DATA: [employer] 1800 OPERATION MANUAL( AUTOMATED BLOOD COUNTS AND [...] Normal 80 and above >32 mL/min Normal Tbili 0.31 mg/dL 0.0-1.2 [facility] ([facility] NORMAL RANGES Age WBC RBC HGB HCT [...] HCT IS 5% LESS SOURCE FOR DATA: [employer] 1800 OPERATION MANUAL( AUTOMATED BLOOD COUNTS AND [...] Normal 80 and above >32 mL/min Normal Osmolality-Calculated 274.5 CALC MED [facility] ([facility] NORMAL RANGES Age WBC RBC HGB HCT [...] HCT IS 5% LESS SOURCE FOR DATA: [employer] 1800 OPERATION MANUAL( AUTOMATED BLOOD COUNTS AND [...] Normal 80 and above >32 mL/min Normal Ast (Sgot) 16 U/L 0-40 [facility] ([facility] NORMAL RANGES Age WBC RBC HGB HCT [...] HCT IS 5% LESS SOURCE FOR DATA: [employer] 1800 OPERATION MANUAL( AUTOMATED BLOOD COUNTS AND [...] Normal 80 and above >32 mL/min Normal eGFR 76 # [facility] ( [facility] NORMAL RANGES Age WBC RBC HGB HCT [...] HCT IS 5% LESS SOURCE FOR DATA: [employer] 1800 OPERATION MANUAL( AUTOMATED BLOOD COUNTS [...] Normal 80 and above >32 mL/min Normal Anion Gap 18 mmol/L [facility] NORMAL RANGES Age WBC RBC HGB HCT MCV PLT Adult M 4.1-10.9 4.20-6.30 12.0-18.0 37.0-51.0 80- 140-440 Adult F 4.1-10.9 4.04-5.48 12.0-18.0 37.0-51.0 80- 140-440 0 -1 Yr 5.0-20.0 3.9-5.9 15-18 [...] HCT IS 5% LESS SOURCE FOR DATA: [employer] 1800 OPERATION MANUAL( AUTOMATED BLOOD COUNTS [...] Normal 80 and above >32 mL/min Normal eGFR Non-Afr. Spanish 66 # [facility] ([facility] NORMAL RANGES Age WBC RBC HGB HCT [...] HCT IS 5% LESS SOURCE FOR DATA: [employer] 1800 OPERATION MANUAL( AUTOMATED BLOOD COUNTS AND [...] Normal 80 and above >32 mL/min Normal ID Date Data Source [id number] 01/04/2020 03:18:00 PM EDT [facility] ([facility] Name Value Range Interpretation Code Description Data Demetrice rce(s) Supporting Document(s) WBC 7.4 10E3/uL 4.1-10.9 [facility] ([facility] NORMAL RANGES Age WBC RBC HGB HCT [...] HCT IS 5% LESS SOURCE FOR DATA: [employer] 1800 OPERATION MANUAL( AUTOMATED BLOOD COUNTS AND [...] Normal 80 and above >32 mL/min Normal HGB 14.4 g/dL 12.0-18.0 [facility] ([facility] NORMAL RANGES Age WBC RBC HGB HCT [...] HCT IS 5% LESS SOURCE FOR DATA: [employer] 1800 OPERATION MANUAL( AUTOMATED BLOOD COUNTS AND [...] Normal 80 and above >32 mL/min Normal RBC 4.63 10E6/uL 4.20-6.30 [facility] ([facility] NORMAL RANGES Age WBC RBC HGB HCT [...] HCT IS 5% LESS SOURCE FOR DATA: [employer] 1800 OPERATION MANUAL( AUTOMATED BLOOD COUNTS AND [...] Normal 80 and above >32 mL/min Normal MCH 31.1 pg 26.0-32.0 [facility] ([facility] NORMAL RANGES Age WBC RBC HGB HCT [...] HCT IS 5% LESS SOURCE FOR DATA: [employer] 1800 OPERATION MANUAL( AUTOMATED BLOOD COUNTS AND [...] Normal 80 and above >32 mL/min Normal MCV 88.6 fL 80.0-97.0 [facility] ([facility] NORMAL RANGES Age WBC RBC HGB HCT [...] HCT IS 5% LESS SOURCE FOR DATA: [employer] 1800 OPERATION MANUAL( AUTOMATED BLOOD COUNTS AND [...] Normal 80 and above >32 mL/min Normal HCT 41.0 % 37.0-51.0 [facility] ([facility] NORMAL RANGES Age WBC RBC HGB HCT [...] HCT IS 5% LESS SOURCE FOR DATA: [employer] 1800 OPERATION MANUAL( AUTOMATED BLOOD COUNTS AND [...] Normal 80 and above >32 mL/min Normal MCHC 35.1 g/dL 31.0-36.0 [facility] ([facility] NORMAL RANGES Age WBC RBC HGB HCT [...] Normal 80 and above >32 mL/min Normal PLT 191 10E3/uL 140-440 [facility] ([facility] NORMAL RANGES Age WBC RBC HGB HCT [...] HCT IS 5% LESS SOURCE FOR DATA: [employer] 1800 OPERATION MANUAL( AUTOMATED BLOOD COUNTS AND [...] Normal 80 and above >32 mL/min Normal RDW-CV 13.0 % 11.5-14.5 [facility] ([facility] NORMAL RANGES Age WBC RBC HGB HCT [...] HCT IS 5% LESS SOURCE FOR DATA: [employer] 1800 OPERATION MANUAL( AUTOMATED BLOOD COUNTS AND [...] Normal 80 and above >32 mL/min Normal Lym% 33.2 % 10.0-58.5 [facility] ([facility] NORMAL RANGES Age WBC RBC HGB HCT [...] HCT IS 5% LESS SOURCE FOR DATA: [employer] 1800 OPERATION MANUAL( AUTOMATED BLOOD COUNTS AND [...] Normal 80 and above >32 mL/min Normal Neut% 59.0 % 37.0-92.0 [facility] ([facility] NORMAL RANGES Age WBC RBC HGB HCT [...] HCT IS 5% LESS SOURCE FOR DATA: [employer] 1800 OPERATION MANUAL( AUTOMATED BLOOD COUNTS AND [...] Normal 80 and above >32 mL/min Normal Lym# 2.5 10E3/uL 0.6-4.1 [place] ([facility] NORMAL RANGES Age WBC RBC HGB HCT [...] HCT IS 5% LESS SOURCE FOR DATA: [employer] 1800 OPERATION MANUAL( AUTOMATED BLOOD COUNTS AND [...] Normal 80 and above >32 mL/min Normal MXD% 7.8 % 0.1-24.0 [facility] ([facility] NORMAL RANGES Age WBC RBC HGB HCT [...] HCT IS 5% LESS SOURCE FOR DATA: [employer] 1800 OPERATION MANUAL( AUTOMATED BLOOD COUNTS AND [...] Normal 80 and above >32 mL/min Normal MXD# 0.6 10E3/uL 0.0-1.8 [facility] ([facility] NORMAL RANGES Age WBC RBC HGB HCT [...] HCT IS 5% LESS SOURCE FOR DATA: [employer] 1800 OPERATION MANUAL( AUTOMATED BLOOD COUNTS AND [...] Normal 80 and above >32 mL/min Normal Neut# 4.3 % 2.0-7.8 [facility] ([facility] NORMAL RANGES Age WBC RBC HGB HCT [...] HCT IS 5% LESS SOURCE FOR DATA: [employer] 1800 OPERATION MANUAL( AUTOMATED BLOOD COUNTS AND [...] Normal 80 and above >32 mL/min Normal MPV 10.5 fL 9.0-13.0 [facility] ([facility] NORMAL RANGES Age WBC RBC HGB HCT [...] HCT IS 5% LESS SOURCE FOR DATA: [employer] 1800 OPERATION MANUAL( AUTOMATED BLOOD COUNTS AND [...] Normal 80 and above >32 mL/min Normal ID Date Data Source [id number] 12/29/2019 12:00:00 AM EDT [facility] Nikita Lance MD Patient Name: FARHAT GOODMAN [facility] 3 Date of : 1945[place], [place] [address] Date of Exam: 12/29/2019#: Fax: [phone] EXAM: CT ABDOMEN & PELVIS WITH CONTRASTCLINICAL INFORMATION: Right lower quadrant pain. History of hernia.Low dose [address] scanning of the abdomen and pelvis wasobtained after the administration of intravenous contrast using 3 mmincrements and reconstructed in both sagittal and coronal scan planes.Immediate and delayed post contrast enhanced imaging was obtained throughthe abdomen. 75 cc of Optiray 350 was administered intravenously.The prior exams were reviewed, the latest is a non-contrast enhancedexamination of 12/22/2016.The lung bases are clear and unchanged.The liver is essentially unchanged. There are multiple hepatic cysts,status quo. There are no enhancing hepatic lesions. Surgical clips areagain seen in the gallbladder fossa from previous cholecystectomy. Thespleen, pancreas, adrenal glands and kidneys are within normal limits. Theabdominal aorta and paraaortic regions are within normal limits. The bowelloops and the mesenteries are within normal limits. The appendix is wellvisualized and is unremarkable. There is no free fluid or free air. Thereis no mass or adenopathy. 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 There are spinal degenerative changes, status quo. There are sacroiliac joint degenerative changes, status quo.IMPRESSION:1. There is no evidence of acute disease. There is no CT evidence of aninguinal hernia or hiatal hernia.2. Other findings as described above.Accredited by the [employer] in [place].SEGUNDO Rodarte/Seth you for referring PATRICK GOODMAN to our office. Electronically Signed - BANDAR SULLIVAN DO 12/30/19 15:08 Name Value Range Interpretation Code Description Data Demetrice rce(s) Supporting Document(s) ID Date Data Source [id number] 11/25/2019 03:20:14 PM EDT [facility] PCName: Patrick GoodmanDOB: 1945Provider: Sherry Naranjo: 11/25/2019 History of Present IllnessJoe underwent a left total hip replacement on 08/10/15 by me. He is happy with the end result. He has complaints of pain and discomfort along the lateral aspect of his hip in the groin area. He notes if he sits for an extended period of time he has low back and buttock discomfort. He has been seen by Dr. Lares for his back. He presents today for follow-up post CT scan performed in [place].Weight bearing activities are intermittently bothersome. If he lies on the lateral aspect of his hip, this is painful. Results/DataCT scan is visualized from [facility] which reveals cystic changes anterior column with moderate degenerative arthritis anteriorly and [id number] degenerative arthritis posteriorly. AssessmentRight hip: Mild degenerative arthritis, primary osteoarthritis. PlanAt this stage, I would not recommend a Depo-Medrol inject ion as his most recent Hemiglobin A1C is 7.7. My concern with him is causing his glucose to be significantly elevated. He does have some evidence of greater trochanteric bursitis clinically. His primary problem is osteoarthritis of his hip area. I would not recommend an arthroplasty and in the future, this may be appropriate.Follow-up in 3-4 with Ida with repeat x-ray of the right hip, AP and lateral supine without weight bearing.Discussion is made regarding low impact activities. He goes to the gym on a regular basis.I would not recommend any other diagnostic testing for his right hip.In the future, with progression of his degenerative arthritis, consider arthroplasty but I think it is a bit premature to consider such at this stage. Weight reduction program is encouraged. Signatures Electronically signed by : Lo Harmon, ; Nov 25 2019 2:40PM EST Electronically signed by : Shay Naranjo M.D.; Nov 25 2019 3:20PM EST Name Value Range Interpretation Code Description Data Demetrice rce(s) Supporting Document(s) ID Date Data Source [id number] 11/20/2019 12:00:00 AM EDT [facility] Shay Naranjo Patient Name: PATRICK [id number] [facility] Date of : 1945[place] [id number]- Date of Exam: 11/20/2019#: Fax: [phone] EXAM: CT LOWER EXTREMITY W/O CONTRASTCLINICAL INFORMATION: Chronic hip pain.Low dose 64 slice helical scanning through the right hip was obtained using2 mm increments and reconstructed in both coronal and sagittal planes. 3Dreconstructions were also obtained. [facility].No prior dedicated right hip CT's for comparison.Bone window technique through abdominal and pelvic CT of 12/22/2016 wasreviewed so as a partial comparison could be made.There is asymmetric right hip joint space narrowing with prominent femoralhead and acetabular marginal osteophytosis. This was present to somedegree on the prior CT although they are technically different. There is asmall cyst in the superolateral acetabulum. There is no acute fracture,dislocation, or subluxation. There is no CT evidence of a si gnificantjoint effusion. There is no evidence of a mass. In the anterior mediallabrum, there is an additional subcentimeter sized subchondral cyst.IMPRESSION:Degenerative changes as described above.Accredited by the [employer] in [place].SEGUNDO Rodarte/Seth you for referring PATRICK GOODMAN to our office. Electronically Signed - BANDAR SULLIVAN DO 11/20/19 16:13 Name Value Range Interpretation Code Description Data Demetrice rce(s) Supporting Document(s) Procedure Social History Code Duration Value Status Description Data Source(s ) Smoking 11/02/2020 12:00:00 AM EDT Former Smoker completed Former Smoker eCW1 ([facility]) Smoking 11/02/2020 12:00:00 AM EDT Former Smoker completed Former Smoker eCW1 ([facility]) Smoking 05/04/2020 10:36:54 AM EST Ex-smoker (finding) complet ed Ex-smoker (finding) PIERCE (Ricky Finnegan MD [facility]) Smoking 04/20/2020 12:00:00 AM EST Former Cigarette Smoker com pleted Former Cigarette Smoker MEDENT ([facility] [employer] [facility] [employer]) Smoking 03/08/2020 09:40:09 AM EST Ex-smoker (finding) complet ed Ex-smoker (finding) PIERCE (Ricky Finnegan MD [facility]) Vital Signs ID Date Data Source UNK Name Value Range Interpretation Code Description Data Source(s) Systolic blood pressure 121 mm[Hg] 121 mm[Hg] M EDENT ([facility]) Body mass index (BMI) [Ratio] 32.7 kg/m2 32.7 k g/m2 MEDENT ([facility]) Respiratory rate 15 /min 15 /min MEDENT ( [facility]) Diastolic blood pressure 71 mm[Hg] 71 mm[Hg] MEDENT ([facility]) Heart rate 63 /min 63 /min MEDENT ([facility]) Body temperature 96.8 [degF] 96.8 [degF] MEDENT ([facility]) Body height 69.5 [in_i] 69.5 [in_i] MEDENT ([facility]) 5'9.50" Body weight 225.00 [lb_av] 225.00 [lb_av] MEDEN T ([facility]) Respiratory rate 18 /min 18 /min MEDENT ( [facility] Body height 70 [in_i] 70 [in_i] MEDENT ([facility] 5'10" Body weight 225.00 [lb_av] 225.00 [lb_av] MEDEN T ([facility] [place] body weight 166 [lb_av] 166 [lb_av] MEDEN T ([facility] Body mass index (BMI) [Ratio] 32.3 kg/m2 32.3 k g/m2 MEDENT ([facility] Systolic blood pressure 124 mm[Hg] 124 mm[Hg] M EDENT ([facility] Oxygen saturation in Arterial blood by Pulse oximetry 97 % 97 % MEDENT ([facility] Diastolic blood pressure 80 mm[Hg] 80 mm[Hg] MEDENT ([facility] Heart rate 60 /min 60 /min MEDENT ([facility] Body temperature 97.4 [degF] 97.4 [degF] MEDENT ([facility] Body weight 225.00 [lb_av] 225.00 [lb_av] MEDEN T ([facility] Systolic blood pressure 118 mm[Hg] 118 mm[Hg] M EDENT ([facility] Diastolic blood pressure 60 mm[Hg] 60 mm[Hg] MEDENT ([facility] Body temperature 97.5 [degF] 97.5 [degF] MEDENT ([facility] Body height 70 [in_i] 70 [in_i] MEDENT ([facility] 5'10" Body mass index (BMI) [Ratio] 32.3 kg/m2 32.3 k g/m2 MEDENT ([facility] Heart rate 60 /min 60 /min MEDENT ([facility] Respiratory rate 18 /min 18 /min MEDENT ( [facility] [place] body weight 166 [lb_av] 166 [lb_av] MEDEN T ([facility] Oxygen saturation in Arterial blood by Pulse oximetry 97 % 97 % MEDENT ([facility] Body weight 231.2 [lb_av] 231.2 [lb_av] eCW1 (Counts include 234 beds at the [facility]) Body weight 104.87 kg 104.87 kg eCW1 ([facility]) Body height 70 [in_i] 70 [in_i] eCW1 ([facility]) Body mass index (BMI) [Ratio] 33.17 kg/m2 33.17 kg/m2 eCW1 ([facility]) Heart rate 59 /min 59 /min eCW1 ([facility]) Respiratory rate 18 /min 18 /min eCW1 (On license of [facility]) Body temperature 97.9 [degF] 97.9 [degF] eCW1 ( [facility]) Systolic blood pressure 122 mm[Hg] 122 mm[Hg] e CW1 ([facility]) Diastolic blood pressure 60 mm[Hg] 60 mm[Hg] eCW1 ([facility]) Systolic blood pressure 120 mm[Hg] 120 mm[Hg] M EDENT ([facility] Diastolic blood pressure 82 mm[Hg] 82 mm[Hg] MEDENT ([facility] Body temperature 97.8 [degF] 97.8 [degF] MEDENT ([facility] Heart rate 54 /min 54 /min MEDENT ([facility] Respiratory rate 16 /min 16 /min MEDENT ( [facility] Body height 70 [in_i] 70 [in_i] [facility] ([facility] 5'10" Body weight 230.00 [lb_av] 230.00 [lb_av] MEDEN T ([facility] [place] body weight 166 [lb_av] 166 [lb_av] MEDEN T ([facility] Body mass index (BMI) [Ratio] 33.0 kg/m2 33.0 k g/m2 MEDENT ([facility] Oxygen saturation in Arterial blood by Pulse oximetry 97 % 97 % MEDENT ([facility] Body temperature 97.1 [degF] 97.1 [degF] MEDENT ([facility]) Body height 68 [in_i] 68 [in_i] MEDENT ([facility]) 5'8" Body weight 227.50 [lb_av] 227.50 [lb_av] MEDEN T ([facility]) Body mass index (BMI) [Ratio] 34.6 kg/m2 34.6 k g/m2 MEDENT ([facility]) Oxygen saturation in Arterial blood by Pulse oximetry 97 % 97 % MEDENT ([facility] Heart rate 54 /min 54 /min MEDENT ([facility] Respiratory rate 16 /min 16 /min MEDENT ( [facility] Body height 70 [in_i] 70 [in_i] MEDENT ([facility] 5'10" Body weight 220.00 [lb_av] 220.00 [lb_av] MEDEN T ([facility] Systolic blood pressure 124 mm[Hg] 124 mm[Hg] M EDENT ([facility] Body temperature 98.4 [degF] 98.4 [degF] MEDENT ([facility] [place] body weight 166 [lb_av] 166 [lb_av] MEDEN T ([facility] Body mass index (BMI) [Ratio] 31.6 kg/m2 31.6 k g/m2 MEDENT ([facility] Diastolic blood pressure 80 mm[Hg] 80 mm[Hg] MEDENT ([facility] Oxygen saturation in Arterial blood by Pulse oximetry 97 % 97 % MEDENT ([facility] Systolic blood pressure 128 mm[Hg] 128 mm[Hg] M EDENT ([facility] Diastolic blood pressure 82 mm[Hg] 82 mm[Hg] MEDENT ([facility] Body temperature 97.4 [degF] 97.4 [degF] MEDENT ([facility] Heart rate 66 /min 66 /min MEDENT ([facility] Respiratory rate 18 /min 18 /min MEDENT ( [facility] Body height 70 [in_i] 70 [in_i] MEDENT ([facility] 5'10" Body weight 220.00 [lb_av] 220.00 [lb_av] MEDEN T ([facility] [place] body weight 166 [lb_av] 166 [lb_av] MEDEN T ([facility] Body mass index (BMI) [Ratio] 31.6 kg/m2 31.6 k g/m2 MEDENT ([facility] Body height 70 [in_i] 70 [in_i] MEDENT ([facility] 5'10" Body weight 236.00 [lb_av] 236.00 [lb_av] MEDEN T ([facility] [place] body weight 166 [lb_av] 166 [lb_av] MEDEN T ([facility] Body mass index (BMI) [Ratio] 33.9 kg/m2 33.9 k g/m2 MEDENT ([facility] Oxygen saturation in Arterial blood by Pulse oximetry 96 % 96 % MEDENT ([facility] Systolic blood pressure 136 mm[Hg] 136 mm[Hg] M EDENT ([facility] Diastolic blood pressure 84 mm[Hg] 84 mm[Hg] MEDENT ([facility] Body temperature 97.9 [degF] 97.9 [degF] MEDENT ([facility] Heart rate 62 /min 62 /min MEDENT ([facility] Respiratory rate 16 /min 16 /min MEDENT ( [facility] Body temperature 97.1 [degF] 97.1 [degF] MEDENT ([facility] Body height 68 [in_i] 68 [in_i] MEDENT ([facility] 5'8" Body weight 233.38 [lb_av] 233.38 [lb_av] MEDEN T ([facility]) Body mass index (BMI) [Ratio] 35.5 kg/m2 35.5 k g/m2 MEDENT ([facility]) Oxygen saturation in Arterial blood by Pulse oximetry 97 % 97 % MEDENT ([facility] [place] body weight 166 [lb_av] 166 [lb_av] MEDEN T ([facility] Systolic blood pressure 134 mm[Hg] 134 mm[Hg] M EDENT ([facility] Diastolic blood pressure 78 mm[Hg] 78 mm[Hg] MEDENT ([facility] Body temperature 97.6 [degF] 97.6 [degF] MEDENT ([facility] Heart rate 58 /min 58 /min MEDENT ([facility] Respiratory rate 16 /min 16 /min MEDENT ( [facility] Body height 70 [in_i] 70 [in_i] MEDENT ([facility] 5'10" Body weight 243.00 [lb_av] 243.00 [lb_av] MEDEN T ([facility] Body mass index (BMI) [Ratio] 34.9 kg/m2 34.9 k g/m2 MEDENT ([facility] Body temperature 96.4 [degF] 96.4 [degF] MEDENT ([facility]) Body height 68 [in_i] 68 [in_i] MEDENT ([facility]) 5'8" Body weight 241.00 [lb_av] 241.00 [lb_av] MEDEN T ([facility]) Body mass index (BMI) [Ratio] 36.6 kg/m2 36.6 k g/m2 MEDENT ([facility]) Systolic blood pressure 114 mm[Hg] 114 mm[Hg] M EDENT ([facility] Diastolic blood pressure 64 mm[Hg] 64 mm[Hg] MEDENT ([facility] Body temperature 97.6 [degF] 97.6 [degF] MEDENT ([facility] Heart rate 70 /min 70 /min MEDENT ([facility] Respiratory rate 18 /min 18 /min MEDENT ( [facility] Body height 70 [in_i] 70 [in_i] MEDENT ([facility] 5'10" Body weight 244.00 [lb_av] 244.00 [lb_av] MEDEN T ([facility] [place] body weight 166 [lb_av] 166 [lb_av] MEDEN T ([facility] Body mass index (BMI) [Ratio] 35.0 kg/m2 35.0 k g/m2 MEDENT ([facility] Oxygen saturation in Arterial blood by Pulse oximetry 95 % 95 % MEDENT ([facility] Systolic blood pressure 139 mm[Hg] 139 mm[Hg] M EDENT ([facility] [employer]) Body mass index (BMI) [Ratio] 33.5 kg/m2 33.5 k g/m2 MEDENT ([employer] [employer]) Diastolic blood pressure 77 mm[Hg] 77 mm[Hg] MEDENT ([employer]) Heart rate 56 /min 56 /min MEDENT ([facility] Body height 71 [in_i] 71 [in_i] MEDENT ([facility] [employer] [facility] 5'11" Body weight 240.00 [lb_av] 240.00 [lb_av] MEDEN T ([facility] [employer] [facility] [employer]) Body weight 108.864 kg 108.864 kg MEDENT ([facility] [employer] [facility] Systolic blood pressure 120 mm[Hg] 120 mm[Hg] M EDENT ([facility] Diastolic blood pressure 74 mm[Hg] 74 mm[Hg] MEDENT ([facility] Body temperature 97.4 [degF] 97.4 [degF] MEDENT ([facility] Heart rate 60 /min 60 /min MEDENT ([facility] Respiratory rate 16 /min 16 /min MEDENT ( [facility] Body height 70 [in_i] 70 [in_i] MEDENT ([facility] 5'10" Body weight 242.00 [lb_av] 242.00 [lb_av] MEDEN T ([facility] [place] body weight 166 [lb_av] 166 [lb_av] MEDEN T ([facility] Body mass index (BMI) [Ratio] 34.7 kg/m2 34.7 k g/m2 MEDENT ([facility] Oxygen saturation in Arterial blood by Pulse oximetry 95 % 95 % MEDENT ([facility] Respiratory rate 14 /min 14 /min MEDENT ( [facility] Systolic blood pressure 124 mm[Hg] 124 mm[Hg] M EDENT ([facility] Diastolic blood pressure 76 mm[Hg] 76 mm[Hg] MEDENT ([facility] Heart rate 72 /min 72 /min MEDENT ([facility] Body weight 239.00 [lb_av] 239.00 [lb_av] MEDEN T ([facility] Respiratory rate 16 /min 16 /min MEDENT ( [facility] Body temperature 98.0 [degF] 98.0 [degF] MEDENT ([facility] Heart rate 64 /min 64 /min MEDENT ([facility] Body height 70 [in_i] 70 [in_i] MEDENT ([facility] 5'10" Body weight 239.00 [lb_av] 239.00 [lb_av] MEDEN T ([facility] Systolic blood pressure 128 mm[Hg] 128 mm[Hg] M EDENT ([facility] Diastolic blood pressure 74 mm[Hg] 74 mm[Hg] MEDENT ([facility] [place] body weight 166 [lb_av] 166 [lb_av] MEDEN T ([facility] Body mass index (BMI) [Ratio] 34.3 kg/m2 34.3 k g/m2 MEDENT ([facility] Oxygen saturation in Arterial blood by Pulse oximetry 97 % 97 % MEDENT ([facility] [place] body weight 166 [lb_av] 166 [lb_av] MEDEN T ([facility] Body temperature 97.6 [degF] 97.6 [degF] MEDENT ([facility] Body height 70 [in_i] 70 [in_i] MEDENT ([facility] 5'10" Body weight 239.00 [lb_av] 239.00 [lb_av] MEDEN T ([facility] Body mass index (BMI) [Ratio] 34.3 kg/m2 34.3 k g/m2 MEDENT ([facility] Systolic blood pressure 126 mm[Hg] 126 mm[Hg] M EDENT ([facility] Diastolic blood pressure 76 mm[Hg] 76 mm[Hg] MEDENT ([facility] Heart rate 66 /min 66 /min MEDENT ([facility] Respiratory rate 18 /min 18 /min MEDENT ( [facility] Oxygen saturation in Arterial blood by Pulse oximetry 96 % 96 % MEDENT ([facility] Systolic blood pressure 126 mm[Hg] 126 mm[Hg] M EDENT ([facility] Diastolic blood pressure 88 mm[Hg] 88 mm[Hg] MED[facility] ([facility] Heart rate 58 /min 58 /min MED[facility] ([facility] Body mass index (BMI) [Ratio] 34.4 kg/m2 34.4 k g/m2 MEDENT ([facility] Body height 70 [in_i] 70 [in_i] MEDENT ([facility] 5'10" Body weight 240.00 [lb_av] 240.00 [lb_av] MEDEN T ([facility] Respiratory rate 18 /min 18 /min MEDENT ( [facility] [place] body weight 166 [lb_av] 166 [lb_av] MEDEN T ([facility] Heart rate 84 /min 84 /min MEDENT ([facility] Systolic blood pressure 130 mm[Hg] 130 mm[Hg] M EDENT ([facility] Diastolic blood pressure 72 mm[Hg] 72 mm[Hg] MEDENT ([facility] Body temperature 97.5 [degF] 97.5 [degF] MEDENT ([facility] Body height 70 [in_i] 70 [in_i] MEDENT ([facility] 5'10" Body weight 242.00 [lb_av] 242.00 [lb_av] MEDEN T ([facility] Body mass index (BMI) [Ratio] 34.7 kg/m2 34.7 k g/m2 MEDENT ([facility] Oxygen saturation in Arterial blood by Pulse oximetry 95 % 95 % MEDENT ([facility] ID Date Data Source [id number] 01/11/2021 02:32:00 PM EDT [facility] Name Value Range Interpretation Code Description Data Source(s) WEIGHT 104.54 kilos 104.54 kilos [facility] HEIGHT 177.8 centimeters 177.8 centimeters [facility]
[2021-01-12 09:37] LABS: BASO % 0.2 % (0.0-1.0); EOS % 0.2 % (0.0-3.0); HEMATOCRIT 37.9 % (42.0-52.0); HEMOGLOBIN 12.9 g/dl (13.5-17.5); LYMPH # 1.5 10^3/uL (1.5-5.0); LYMPH % 12.5 % (24.0-44.0); MEAN CORPUSCULAR HEMOGLOBIN 31.2 pg (27.0-33.0); MEAN CORPUSCULAR VOLUME 91.5 fl (80.0-96.0); MONO # 1.2 10^3/uL (0.0-0.8); MONO % 9.5 % (2.0-8.0); NEUTROPHILS # 9.3 10^3/uL (1.5-8.5); NEUTROPHILS % 77.2 % (36.0-66.0); PLATELET COUNT, AUTOMATED 155 10^3/uL (150-450); RED BLOOD COUNT 4.14 10^6/uL (4.30-6.10); WHITE BLOOD COUNT 12.1 10^3/uL (4.0-10.0)
--- NOTE | 2021-01-12 09:38 | REP ---
INDICATION: postop abdominal pain. COMPARISON: Chest 12/26/2020. TECHNIQUE: Cross-table lateral and supine films of the abdomen, frontal view chest. FINDINGS: There is no evidence of free intraperitoneal air. There is mild air and fecal material scattered throughout a nondilated colon. There are few mildly dilated small bowel loops in the mid abdomen. These demonstrate air-fluid levels on the cross-table lateral view. The findings may represent an ileus. There are bilateral total hip prostheses. Linear metallic seeds are seen in the region of the prostate. Metallic clips are seen in the right upper quadrant of the abdomen. There are degenerative changes of the spine. No infiltrate is seen in either lung. The heart is not enlarged. There is calcific plaque in the thoracic aorta. Mediastinal silhouette is unchanged. Metallic plate and screws are seen in the cervical spine. IMPRESSION: No free air. There are a few mildly dilated small bowel loops in the mid abdomen which may represent an ileus. <Electronically signed by Darian Hunt > 01/12/21 [id number]
[2021-01-12 10:04] LABS: ALT/SGPT 43 U/L (12-78); BILIRUBIN,TOTAL 0.9 MG/DL (0.2-1.0); BLOOD UREA NITROGEN 21 MG/DL (7-18); CALCIUM LEVEL 9.6 MG/DL (8.8-10.2); CARBON DIOXIDE LEVEL 27 MEQ/L (21-32); CHLORIDE LEVEL 105 MEQ/L (98-107); CREATININE FOR GFR 0.95 MG/DL (0.70-1.30); GLOMERULAR FILTRATION RATE > 60.0 (>42); GLUCOSE, FASTING 100 MG/DL (70-100); POTASSIUM SERUM 3.8 MEQ/L (3.5-5.1); SODIUM LEVEL 137 MEQ/L (136-145); TOTAL PROTEIN 7.1 GM/DL (6.4-8.2)
[2021-01-12] MEDS ORDERED: ISOVUE-370 76% 100ML VIAL As Ordered ONE (10:11)
[2021-01-12 10:35] LABS: ERYTHROCYTE SEDIMENTATION RATE 53 mm/hr (0-20)
--- NOTE | 2021-01-12 10:44 | REP ---
INDICATION: abdominal pain. COMPARISON: Multiple the latest 12/29/2019 TECHNIQUE: Standard helical technique after the intravenous administration of 100 cc Isovue 370 FINDINGS: The lung bases are clear. Respiratory motion artifact obscures the detail on multiple images. In addition, there is beam hardening spray artifact arising from bilateral hip prostheses obscuring most of the pelvis. This represents a change from the prior exam. There are a few cysts in the liver which are unchanged. There is intrahepatic ductal dilatation secondary to the patient's post cholecystectomy state. This has increased slightly. There are no enhancing hepatic lesions. The spleen, pancreas, adrenal glands, and kidneys are within normal limits. The abdominal aorta and para-aortic regions are again seen to be within normal limits. Calcific atherosclerotic changes again present in the abdominal aorta and common iliac arteries. This appears unchanged. There is no evidence of free fluid or free air. There is no evidence of a mass or adenopathy. Scattered gas and fluid-filled small bowel loops are seen in the abdomen. These are not particularly dilated. Bone window technique throughout the exam again shows spinal degenerative changes status quo. Chronic changes are also seen involving the sacroiliac joints status quo. IMPRESSION: There are a few gas and fluid-filled small bowel loops in the abdomen and a nonspecific fashion. These are not particularly dilated. Ileus is suspected. Follow-up is suggested. Other findings as described above. <Electronically signed by Higinio Dodson > 01/12/21 [id number]
[2021-01-12] MEDS ORDERED: METOCLOPRAMIDE INJ 10MG/2ML VIAL (J2765 PER 1) IV ONE (11:15)
[2021-01-12] MEDS ORDERED: SENNA 8.6 MG TAB (SENOKOT) PO ONE (11:15)
[2021-01-12] MEDS ORDERED: PERCOCET 5MG/325MG TAB PO ONE (12:35)
[2021-01-12] MEDS ORDERED: traMADol 50 MG TAB PO ONE (13:05)
[2021-01-12 14:09] LABS: RSV AMPLIFICATION NEGATIVE (NEGATIVE)
[2021-01-12] MEDS ORDERED: [UNRECOGNIZED DRUG - CODE] PO (15:59)
[2021-01-12] MEDS ORDERED: GABA600T4 PO (15:59)
[2021-01-12] MEDS ORDERED: HYDR-3713 PO (15:59)
[2021-01-12] MEDS ORDERED: ACET500T15 PO (15:59)
[2021-01-12] MEDS ORDERED: HOME MED LIST COMPLETE! XX SCH (16:05)
--- OUTSIDE RECORDS SUMMARY | 2021-01-12 16:25 | CCD ---
Author Author [facility] Organization [facility] Address Unknown Phone Unavailable Care Team Providers Care Pals Nurse Name Role Phone Aishwarya LANCE MD Unavailable Unavailable Aishwarya LANCE [...] Unavailable Aishwarya LANCE MD Unavailable Unavailable Aishwarya ALNCE MD Unavailable Unavailable Aishwarya LANCE MD Unavailable Unavailable Aiswharya LANCE MD Unavailable Unavailable Aishwarya LANCE MD [...] Unavailable Unavailable Aishwarya LANCE MD Unavailable Unavailable Fish, Kristen Britton [facility], PA-C Unavailable Unavailabl e Fish, Kristen Britton [facility], PA-C Unavailable Unavailabl e Fish, [facility] Unavailable Unavailabl e Fish, [facility] Unavailable Unavailabl e Fish, [facility] Unavailable Unavailabl e Fish, [facility] Unavailable Unavailabl e Fish, [facility] Unavailable Unavailabl e Fish, [facility] Unavailable Unavailabl e Fish, [facility] Unavailable Unavailabl e Fish, [facility] Unavailable Unavailabl e Fish, Kristen Britton [facility], PA-C Unavailable Unavailabl e Fish, [facility] Unavailable Unavailabl e Fish, [facility] Unavailable Unavailabl e Fish, [facility], PA-C Unavailable Unavailabl e Fish, [facility], PA-C Unavailable Unavailabl e Fish, [facility], PA-C Unavailable Unavailabl e Fish, [facility], PA-C Unavailable Unavailabl e Fish, [facility], PA-C Unavailable Unavailabl e Fish, [facility], PA-C Unavailable Unavailabl e Fish, [facility], PA-C Unavailable Unavailabl e Fish, [facility], PA-C Unavailable Unavailabl e Fish, [facility], PA-C Unavailable Unavailabl e Fish, [facility], PA-C Unavailable Unavailabl e Fish, [facility], PA-C Unavailable Unavailabl e Fish, [facility], PA-C Unavailable Unavailabl e Fish, [facility], PA-C Unavailable Unavailabl e Fish, [facility], PA-C Unavailable Unavailabl e Fish, [facility], PA-C Unavailable Unavailabl e Fish, [facility], PA-C Unavailable Unavailabl e Fish, [facility], PA-C Unavailable Unavailabl e Fish, [facility], PA-C Unavailable Unavailabl e Fish, [facility], PA-C Unavailable Unavailabl e Fish, [facility], PA-C Unavailable Unavailabl e Fish, [facility], PA-C Unavailable Unavailabl e Fish, [facility], PA-C Unavailable Unavailabl e Lu, R [employer]da [employer]ER[employer] CONS[employer] SUPERVISOR Unavailable Unavailable Lu, R Ida HOME ENERGY CONSULTANT SUPERVISOR Unavailable Unavailable Lu, R Ida HOME ENERGY CONSULTANT SUPERVISOR Unavailable Unavailable Lu, R Ida HOME ENERGY CONSULTANT SUPERVISOR Unavailable Unavailable Lu, R Ida HOME ENERGY CONSULTANT SUPERVISOR Unavailable Unavailable Lu, R Ida HOME ENERGY CONSULTANT SUPERVISOR Unavailable Unavailable Lu, R Ida HOME ENERGY CONSULTANT SUPERVISOR Unavailable Unavailable Lu, R Ida HOME ENERGY CONSULTANT SUPERVISOR Unavailable Unavailable Lu, R Ida HOME ENERGY CONSULTANT SUPERVISOR Unavailable Unavailable Lu, R Ida HOME ENERGY CONSULTANT SUPERVISOR Unavailable Unavailable Lu, R Ida HOME ENERGY CONSULTANT SUPERVISOR Unavailable Unavailable Lu, R Ida HOME ENERGY CONSULTANT SUPERVISOR Unavailable Unavailable Lu, R Ida HOME ENERGY CONSULTANT SUPERVISOR Unavailable Unavailable Lu, R Ida HOME ENERGY CONSULTANT SUPERVISOR Unavailable Unavailable Lu, R Ida HOME ENERGY CONSULTANT SUPERVISOR Unavailable Unavailable Lu, R Ida HOME ENERGY CONSULTANT SUPERVISOR Unavailable Unavailable Lu, R Ida HOME ENERGY CONSULTANT SUPERVISOR Unavailable Unavailable Lu, R Ida HOME ENERGY CONSULTANT SUPERVISOR Unavailable Unavailable Lu, R Ida HOME ENERGY CONSULTANT SUPERVISOR Unavailable Unavailable Lu, R Ida HOME ENERGY CONSULTANT SUPERVISOR Unavailable Unavailable Lu, R Ida HOME ENERGY CONSULTANT SUPERVISOR Unavailable Unavailable Lu, R Ida HOME ENERGY CONSULTANT SUPERVISOR Unavailable Unavailable Lu, R Ida HOME ENERGY CONSULTANT SUPERVISOR Unavailable Unavailable Lu, R Ida HOME ENERGY CONSULTANT SUPERVISOR Unavailable Unavailable Lu, R Ida HOME ENERGY CONSULTANT SUPERVISOR Unavailable Unavailable Lu, R Ida HOME ENERGY CONSULTANT SUPERVISOR Unavailable Unavailable Lu, R Ida HOME ENERGY CONSULTANT SUPERVISOR Unavailable Unavailable Lu, R Ida HOME ENERGY CONSULTANT SUPERVISOR Unavailable Unavailable Lu, R Ida HOME ENERGY CONSULTANT SUPERVISOR Unavailable Unavailable Lu, R Ida HOME ENERGY CONSULTANT SUPERVISOR Unavailable Unavailable Lu, R Ida HOME ENERGY CONSULTANT SUPERVISOR Unavailable Unavailable Lu, R Ida HOME ENERGY CONSULTANT SUPERVISOR Unavailable Unavailable Lu, R Ida HOME ENERGY CONSULTANT SUPERVISOR Unavailable Unavailable Aishwarya LANCE MD Unavailable Unavailable [...] Unavailable Unavailable Aishwarya LANCE MD Unavailable Unavailable TRISTEN H NIKITA ESTRADA Unavailable Unavailable TRISTEN, H NIKITA ESTRADA Unavailable Unavailable TRISTEN, H NIKITA ESTRADA Unavailable Unavailable TRISTEN, H NIKITA ESTRADA Unavailable Unavailable TRISTEN, H NIKITA ESTRADA Unavailable Unavailable TRISTEN, H NIKITA ESTRADA Unavailable Unavailable TRISTEN, H NIKITA ESTRADA Unavailable Unavailable TRISTEN, H NIKITA ESTRADA Unavailable Unavailable TRISTEN, H NIKITA ESTRADA Unavailable Unavailable TRISTEN, H NIKITA ESTRADA Unavailable Unavailable TRISTEN, H NIKITA ESTRADA Unavailable Unavailable TRISTEN, H NIKITA ESTRADA Unavailable Unavailable TRISTEN, H NIKITA ESTRADA Unavailable Unavailable Aishwarya LANCE MD Unavailable Unavailable TRISTEN, H NIKITA ESTRADA Unavailable Unavailable TRISTEN, H NIKITA ESTRADA Unavailable Unavailable TRISTEN, Aishwarya MICHELLE MD Unavailable Unavailable TRISTEN, H NIKITA ESTRADA Unavailable Unavailable TRISTEN, H NIKITA ESTRADA Unavailable Unavailable TRISTEN, Aishwaray MICHELLE MD Unavailable Unavailable TRISTEN, Aishwarya MICHELLE MD Unavailable Unavailable Aishwarya LANCE MD Unavailable Unavailable Aishwarya LANCE MD Unavailable Unavailable Nicole HAQ DPM Unavailable [...] Unavailable Unavailable Nicole HAQ DPM Unavailable Unavailable SEVERINO R ROSI DPM Unavailable Unavailable Nicole HAQ DPM Unavailable Unavailable SEVERINO R ROSI DPM Unavailable Unavailable SEVERINO R ROSI DPM Unavailable Unavailable Nicole HAQ DPM Unavailable Unavailable SEVERINO R ROSI DPM Unavailable Unavailable SEVERINO R ROSI DPM Unavailable Unavailable SEVERINO R ROSI DPM Unavailable Unavailable Nicole HAQ DPM Unavailable Unavailable Nicole HAQ DPM Unavailable Unavailable Nicole HAQ DPM Unavailable Unavailable Nicole HAQ DPM Unavailable Unavailable SEVERINO R ROSI DPM Unavailable Unavailable Nicole HAQ DPM Unavailable Unavailable Nicole HAQ DPM Unavailable Unavailable Zafar Naranjo MD Unavailable Unavailable Bogosian, Zafar Day MD Unavailable Unavailable Bogosian, Zafar Day MD Unavailable Unavailable Bogosian, Zafar Day MD Unavailable Unavailable Bogosian, Zafar Day MD Unavailable Unavailable Bogosian, Zafar Day MD Unavailable Unavailable Bogosian, Zafar Day MD Unavailable Unavailable Bogosian, Zafar aDy MD Unavailable Unavailable Bogosian, Zafar Day MD [...] Zafar Day MD Unavailable Unavailable Bogosian, Zafar Dya MD Unavailable Unavailable Bogosian, Zafar Day MD Unavailable Unavailable Bogosian, Zafar Day MD Unavailable Unavailable Bogosidesi, Zafar Day MD Unavailable Unavailable Bogosian, Zafar Day MD Unavailable Unavailable Bogosian, Zafar Day MD Unavailable Unavailable Bogosian, Zafar Day MD Unavailable Unavailable Bogosian, Zafar Day MD Unavailable Unavailable Bogosidesi, Zafar Dya MD Unavailable Unavailable Bogosidesi, Zafar Day MD Unavailable Unavailable Bogosidesi, Zafar Day MD Unavailable Unavailable Bogosian, Zafar Day MD Unavailable Unavailable Bogosian, Zafar Day MD Unavailable Unavailable Bogosian, Zafar Day MD Unavailable Unavailable Bogosian, Zafar Day MD Unavailable Unavailable Bogosidesi, Zafar Day MD Unavailable Unavailable Bogosidesi, Zafar Day MD Unavailable Unavailable Bogosidesi, Zafar Day MD Unavailable Unavailable Bogosian, Zafar [...] MD Unavailable Unavailable BogosianZafar MD Unavailable Unavailable Jaqueline Sotelo MD Unavailable [...] ELY DO Unavailable Unavailable Valdez, L Ida ELEMENTARY ESL TEACHER-BC Unavailable Unavailable Valdez, L Ida ELEMENTARY ESL TEACHER-BC Unavailable Unavailable Valdez, L Ida ELEMENTARY ESL TEACHER-BC Unavailable Unavailable Valdez, L Ida ELEMENTARY ESL TEACHER-BC Unavailable Unavailable Valdez, L Ida ELEMENTARY ESL TEACHER-BC Unavailable Unavailable Valdez, L Ida ELEMENTARY ESL TEACHER-BC Unavailable Unavailable Valdez, L Ida ELEMENTARY ESL TEACHER-BC Unavailable Unavailable Valdez, L Ida ELEMENTARY ESL TEACHER-BC Unavailable Unavailable Valdez, L Ida ELEMENTARY ESL TEACHER-BC Unavailable Unavailable Valdez, L Ida ELEMENTARY ESL TEACHER-BC Unavailable Unavailable Valdez, L Ida ELEMENTARY ESL TEACHER-BC Unavailable Unavailable Valdez, L Ida ELEMENTARY ESL TEACHER-BC Unavailable Unavailable Valdez, L Ida ELEMENTARY ESL TEACHER-BC Unavailable Unavailable Valdez, L Ida ELEMENTARY ESL TEACHER-BC Unavailable Unavailable Valdez, L Ida ELEMENTARY ESL TEACHER-BC Unavailable Unavailable Valdez, L Ida ELEMENTARY ESL TEACHER-BC Unavailable Unavailable Valdez, L Ida ELEMENTARY ESL TEACHER-BC Unavailable Unavailable Valdez, L Ida ELEMENTARY ESL TEACHER-BC Unavailable Unavailable Valdez, L Ida ELEMENTARY ESL TEACHER-BC Unavailable Unavailable Valdez, L Ida ELEMENTARY ESL TEACHER-BC Unavailable Unavailable Valdez, L Ida ELEMENTARY ESL TEACHER-BC Unavailable Unavailable Valdez, L Ida ELEMENTARY ESL TEACHER-BC Unavailable Unavailable Valdez, L Ida ELEMENTARY ESL TEACHER-BC Unavailable Unavailable Valdez, L Ida ELEMENTARY ESL TEACHER-BC Unavailable Unavailable Valdez, L Ida ELEMENTARY ESL TEACHER-BC Unavailable Unavailable Valdez, L Ida ELEMENTARY ESL TEACHER-BC Unavailable Unavailable Valdez, L Ida ELEMENTARY ESL TEACHER-BC Unavailable Unavailable Valdez, L Ida ELEMENTARY ESL TEACHER-BC Unavailable Unavailable Valdez, L Ida ELEMENTARY ESL TEACHER-BC Unavailable Unavailable Valdez, L Ida ELEMENTARY ESL TEACHER-BC Unavailable Unavailable Valdez, L Ida ELEMENTARY ESL TEACHER-BC Unavailable Unavailable Re-disclosure Warning The records that [...] is protected by Article 27-F of the [place] State Public Health law. If you continue you may have access to information: Regarding HIV / AIDS; Provided by facilities licensed or operated by the [facility] Office of Mental Health; or Provided by the [facility] Office for People With Developmental Disabilities. If such information is present, then the following [facility] mandated warning applies: This information has been [...] law may result in a fine or custodial sentence or both. A general authorization for the release of medical or other information is NOT sufficient authorization for further disc losure. Allergies and Adverse Reactions Type Description Substance Reaction Status Data Source(s ) Drug allergy vancomycin vancomycin [facility]CHING [facility] Drug allergy meperidine meperidine DIFF WALKING , WEAK U [facility] Drug allergy codeine codeine HIVES [facility] Drug allergy Penicillins Penicillins HIVES [facility] Family History Family Member Name Family Member Gender Family Member Status Date o f Status Description Data Source(s) Unknown Female Problem [facility] ([facility]) Encounters Encounter Providers Location Date Indications Data Source(s ) Outpatient Attender: Jaqueline Sotelo MD ER-ASUR 01/10/2021 06:37:00 AM EDT - 01/11/2021 02:31:00 PM [facility] Patient discharged. Office Visit Attender: Reba CANALES PA-C Physical Therapy 01/06/2021 02:30:00 PM EDT MED[facility] ([facility]) Preadmit Attender: Jaqueline Sotelo MD ER-OPS 01/05/2021 10: 30:00 AM T [facility] Outpatient Attender: NIKITA [place] Office 01/2021 02:00:00 PM EDT [facility] ([facility] Outpatient Attender: NIKITA [place] Office 01:15:00 PM EDT MED[facility] ([facility] Outpatient Attender: Jaqueline Sotelo MD Physical Therap y 11/21/2020 11:00:00 AM EDT [facility] ([facility]) [place] [address] [address] 11/15/2020 12:00:00 AM EDT [facility] [place] [address] [facility] [address] 11/02/2020 12:00:00 AM EDT eCW1 ([facility]) Outpatient Attender: NIKITA LANCE MD [place] Office 02:00:00 PM EDT MED[facility] ([facility] Outpatient Attender: Jaqueline Sotelo MD Physical Therap y 09/14/2020 01:45:00 PM EDT MED[facility] ([facility]) Outpatient Attender: NIKITA LANCE MD [place] Office 01:15:00 PM EDT [facility] ([facility] Outpatient Attender: NIKITA LANCE MD [place] [facility] 10/2020 01:15:00 PM EDT [facility] ([facility] Outpatient Attender: NIKITA LANCE MD [place] Office 02:15:00 PM EDT [facility] ([facility] OFFICE OUTPATIENT VISIT 15 MINUTES Attender: Jaqueline mary MD Physical Therapy 08/01/2020 02:30:00 PM EDT MED[facility] ([facility]) Outpatient Attender: NIKITA LANCE MD [place] Office 09/2020 11:15:00 AM EDT [facility] ([facility] Outpatient Attender: NIKITA LANCE MD [place] Office 07/2020 12:30:00 PM EST [facility] ([facility] Outpatient Attender: Ida Valdez ELEMENTARY ESL TEACHER-BC [place] 04/20/2020 01:30:00 PM EST MEDENT ([facility]) Outpatient Attender: NIKITA LANCE MD [place] Office 12:30:00 PM EST [facility] ([facility] Office Visit Attender: ROSI HAQ [facility] Office 06/2020 02:45:00 PM EST MED[facility] ([facility] Outpatient Attender: Ida Lu NPReferrer: NIKITA MAKI MD 03/22/2020 07:13:50 AM EST [facility] <td ID="encounterTypeDescriptionID0">11 Month Follow-Up</td><td>Ely Jackson DO</td><td>Ricky Iniguez MD [facility]</td><td>03/08/2020</td><td>8:56AM</td><td>9:31AM</td><td><content ID="encounterDiagnosisID0-0">Pseudophakia</content>, <content ID="encounterDiagnosisID0-1">Assessment of Taking Medication For Diabetes Long- term Use of Oral Hypoglycemics</content>, <content ID="encounterDiagnosisID0- 2">Dry Eye Syndrome Both Eyes</content>, <content ID="encounterDiagnosisID0- 3">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</content> , <content ID="encounterDiagnosisID0-4">Vitreous Disorders Degeneration</content></td>Outpatient Attender: ELY Bae MD [facility] 03/08/2020 08:56:00 AM EST - 03/08/2020 [...] of Oral Hypoglycemics [place] (Ricky Finnegan MD [facility]) 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 [...] Oral Hypoglycemics Office Visit Attender: ROSI HAQ [facility] Office 05/2019 02:45:00 PM EST MED[facility] ([facility] Outpatient Attender: NIKITA LANCE MD [place] Office 12:15:00 PM EST MED[facility] ([facility] Office Visit Attender: ROSI HAQ Philip [place] Office 01/23 02:15:00 PM EST MED[facility] ([facility] Outpatient Attender: NIKITA LANCE MD [place] Office 02/2020 02:00:00 PM EDT MED[facility] ([facility] Outpatient Attender: NIKITA LANCE MD [place] Office 10:00:00 AM EDT MED[facility] ([facility] Outpatient Attender: ROSI HAQ Philip [place] Office 11/23 01:00:00 PM EDT MED[facility] ([facility] Outpatient Attender: Shay Naranjo MDReferrer: NIKITA JUSTIN MD 11/25/2019 03:20:14 PM EDT [facility] Outpatient Attender: NIKITA LANCE MD [place] Office 01:15:00 PM EDT MED[facility] ([facility] Outpatient Attender: Shay MISHRAeferrer: NIKITA JUSTIN MD 11/18/2019 07:27:31 AM EDT [facility] Immunizations Vaccine Date Status Description Data Source(s) New in 2012. IIV4 12/06/2020 01:35:00 PM EDT completed [facility] ([facility] COVID-19 VACCINE Moderna 06/15/2020 12:00:00 AM EDT completed [facility] Vaccine Series Complete: YESThis Data wa s Submitted to [facility] Via [employer]. COVID-19 VACCINE Moderna 05/21/2020 12:00:00 AM EST completed [facility] Vaccine Series Complete: NOThis Data was Submitted to [facility] Via [employer]. New in 2012. IIV4 12/22/2019 09:59:00 AM EDT completed MEDENT [...] Hibiclens 11/25/2020 12:00:00 AM EDT active MED[facility] ([facility]) Mupirocin 0.02 MG/MG Topical Ointment Mupirocin 11/25/2020 12:00:00 AM EDT active [facility] ([facility] Acetaminophen 325 MG / Hydrocodone Bitartrate 5 MG Ora l Tablet Hydrocodone Bitartrate/Acetaminophen 11/25/2020 12:00:00 AM EDT ORAL active MED[facility] ([facility]) 24 HR Glipizide 10 MG Extended Release Oral Tablet Glipizide ER 11/11/2020 12:00:00 AM EDT active M EDENT ([facility] Clindamycin 300 MG Oral Capsule CLINDAMYCIN HCL 10/26/2020 12:00 :00 AM EDT capsule 2 TAKE 2 CAPSULES BY MOUTH ONE LIBERTAD R PRIOR TO EACH DENTAL APPOINTMENT TAKE 2 CAPSULES BY MOUTH ONE HOUR PRIOR TO EACH DENTAL APPOINTMENT SOLD: 10/28/2020 [facility] Prednisone 10 MG Oral Tablet Prednisone 08/30/2020 12:00:00 AM EDT ORAL completed [facility] ([facility] Cyclobenzaprine hydrochloride 10 MG Oral Tablet CYCLOBENZAPR INE HCL 08/17/2020 12:00:00 AM EDT tablet 30 TAKE 1/2 TO 1 TA BLET BY MOUTH ONCE DAILY AT BEDTIME NEEDED TAKE 1/2 TO 1 TABLET BY MOUTH ONCE DAILY AT BEDTIME NEEDED SOLD: 08/19/2020 [facility] Acetaminophen 325 MG / Hydrocodone Bitartrate 5 MG Oral Tabl et [[place]] [place] 08/16/2020 12:00:00 AM EDT ORAL completed [facility] ([facility] gabapentin 300 MG Oral Capsule Gabapentin 08/16/2020 12:00:00 AM EDT ORAL completed [facility] ([facility] gabapentin 600 MG Oral Tablet Gabapentin 08/16/2020 12:00:00 AM EDT ORAL active [facility] ([facility] 1 gram 06/30/2020 12:00:00 AM EDT tablet 90 TAKE ONE TABLET BY MOUTH THREE TIMES A DAY NEEDED TAKE ONE TABLET BY MOUTH THREE TIMES A DAY NEEDED S OLD: 07/04/2020 [facility] Cyclobenzaprine hydrochloride 10 MG Oral Tablet [...] MOUTH FOUR TIMES A DAY SOLD: 06/28/2020 [facility] gabapentin 300 MG Oral Capsule [...] type / Coverage type Policy ID Covered republican ID Covered republican's relationship to hicks Policy Hicks Plan Information MEDICARE [id number] SP [id number] MEDICARE [id number] SP [id number] A MEDICARE [id number] SP [id number] T MEDICARE [id number] Julia [id number] A [facility] [id number] Julia [id number] [facility] AARP Supplemental F [id number] SELF [id number] [facility] AARP Supplemental F [id number] SELF [id number] Medicare C [id number] SELF [id number] A [facility] AARP Supplemental F [id number] SELF [id number] AARP [facility] Supplemental F [id number] SELF [id number] DME Jurisdiction A [facility] C [id number] SELF [id number] AAR HEALTH CARE OPTIONS [id number] SP [id number] Medicare C [id number] SELF [id number] M42 Medicare C [id number] SELF [id number] M43 Medicare C [id number] SELF [id number] M42 Medicare C [id number] SELF [id number] [id number] BC[place] [id number] SP [id number] [facility] OPT[facility] [id number] SP [id number] MEDICARE [id number] S [id number] [id number] MEDICARE [id number] SP [id number] A Medicare Part B [facility] Other 0 [id number] Self 0 Medicare Part B [place] Other 0 [id number] Self 0 MEDICARE C [id number] S [id number] AARP O [id number] S [id number] [employer] OPTIONS -O/P [id number] 18 [id number] MEDICARE PART A -O/P [id number] 18 [id number] MEDICARE C [id number] S [id number] A [facility] Medigap Part B [id number] Self Medicare Medicare Primary [id number] Self [facility] UNAVAILABLE UNAVAILABLE MEDICARE [id number] SP [id number] Problems, Conditions, and Diagnoses Code Display Name Description Problem Type Effective Dates Data Source(s) M1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, right hip UNILATERAL PRIMARY OSTEOARTHRITIS, RIGHT Diagnosis 01/10/2021 06:37:00 AM EDT [facility] 379.21 Vitreous Disorders Degeneration Vitreous Disorders Deg eneration Problem 03/08/2020 12:00:00 AM EST [place] (Ricky Finnegan MD [facility]) 379.21 Vitreous Disorders Degeneration Vitreous Disorders Deg eneration Problem 03/08/2020 12:00:00 AM EST [place] (Ricky Finnegan MD [facility]) [id number] Type 2 diabetes mellitus Type 2 diabetes mellitus Prob rohan 12/08/2019 12:00:00 AM EDT MEDENT ([facility] [id number] Swelling of first metatarsal joint of ballard [...] 25 MINUTES 11/21/2020 12:00:00 AM EDT MEDENT ([facility] OFFICE OUTPATIENT VISIT 25 MINUTES 10/05/2020 12:00:00 AM EDT MED[facility] ([facility] OFFICE OUTPATIENT VISIT 25 MINUTES 09/14/2020 12:00:00 AM EDT MED[facility] ([facility] OFFICE OUTPATIENT VISIT 25 MINUTES 09/05/2020 12:00:00 AM EDT [facility] ([facility] OFFICE OUTPATIENT VISIT 25 MINUTES 08/30/2020 12:00:00 AM EDT [facility] ([facility] OFFICE OUTPATIENT VISIT 25 MINUTES 08/16/2020 12:00:00 AM EDT [facility] ([facility] RADEX SPINE THORACIC 2 VIEWS 08/15/2020 12:00:00 AM ED T MED[facility] ([facility] X-Ray Spine Lumbosacral Complete Inc Bending Views Min Of 6 08/15/2020 12:00:00 AM EDT [facility] ([facility]) OFFICE OUTPATIENT VISIT 40 MINUTES 08/15/2020 12:00:00 AM EDT MED[facility] ([facility] OFFICE OUTPATIENT VISIT 15 MINUTES 08/01/2020 12:00:00 AM EDT MED[facility] ([facility] OFFICE OUTPATIENT VISIT 15 MINUTES 06/29/2020 12:00:00 AM EDT MEDENT ([facility] RADEX SPINE LUMBOSACRAL MINIMUM 4 VIEWS 06/15/2020 12: 00:00 AM EDT MED[facility] ([facility] X-Ray Hip Unilateral With Pelvis 2-3 Views 06/15/2020 12:00:00 AM EDT MEDENT ([facility]) OFFICE OUTPATIENT NEW 45 MINUTES 06/15/2020 12:00:00 A M EDT MEDENT ([facility]) OFFICE OUTPATIENT VISIT 25 MINUTES 05/27/2020 12:00:00 AM EST MED[facility] ([facility] US RETROPERITONEAL REAL TIME W/IMAGE COMPLETE 04/20/19 21 12:00:00 AM EST [facility] ([facility] US RETROPERITONEAL REAL TIME W/IMAGE COMPLETE 04/20/19 21 12:00:00 AM EST [facility] ([facility]) OFFICE OUTPATIENT VISIT 15 MINUTES 04/08/2020 12:00:00 AM EST [facility] ([facility] Extracapsular extraction of lens (procedure) History o f extracapsular cataract extraction PCIOL OS by Dr. Jackson 01/24/17 ~PCIOL OD by Dr. Jackson 02/21/17 03/08/2020 12:00:00 AM EST [place] (Christopher Finnegan MD [facility]) Intermediate Eye Exam Established Patient Intermediate Eye Exam Established Patient 03/08/2020 12:00:00 AM EST [place] (Christopher Finnegan MD [facility]) Surgical / procedural history Cholecyst ectomy 2001. Laminectomy 2010. Cervical Spine Surgery 2012. Lumbar L5-L1 2015. Hip Replacement 2016 Surgical / procedural history Cholecystectomy 2001. Laminectomy 2010. Cervical Spine Surgery 2012. Lumbar L5-L1 2015. Hip Replacement 2016 03/08/2020 12:00:00 AM EST [place] (Ricky Finnegan MD [facility]) Intermediate Eye Exam Established Patient Intermediate Eye Exam Established Patient 03/08/2020 12:00:00 AM EST [place] (Christopher Finnegan MD [facility]) RADEX FOOT COMPLETE MINIMUM 3 VIEWS 02/25/2020 12:00:0 0 AM EST [facility] ([facility] Hallux Rigidus Correction W/Cheilectomy,Debride/Cap Release MTP 02/03/2020 12:00:00 AM EST [facility] ([facility] Hallux Rigidus Correction Release MTP With Implant 02/03/2020 12:00:00 AM EST [facility] ([facility] Electrocardiogram Complete 01/04/2020 12:00:00 AM EDT [facility] ([facility] RADEX FOOT COMPLETE MINIMUM 3 VIEWS 12/08/2019 12:00:0 0 AM EDT [facility] ([facility] Results ID Date Data Source [id number] 01/12/2021 09:25:00 AM EDT [facility] ([facility] Name Value Range Interpretation Code Description Data Demetrice rce(s) Supporting Document(s) Glucose, Fasting 100 mg/dL 70-100 Normal (applies to non-numeric results) [facility] ([facility] Blood Urea Nitrogen 21 mg/dL 7-18 Above high normal [facility] ([facility] Glomerular Filtration Rate Laboratory test result Normal (applies to non- numeric results) VINICIO ([facility] ) <content>Units are mL/min/1.73 m2</content>
<content></content>
<content>Chronic Kidney Disease Staging per NKF:</content>
<content></content>
<content>Stage I & II GFR >=60 Normal to Mildly Decreased</content>
<content>Stage III GFR 30- 59 Moderately Decreased</content>
<content>Stage IV GFR 15-29 Severely Decreased</content>
<content>Stage V GFR <15 Very Little GFR Left</content>
<content>ESRD GFR <15 on HEAD OF DATA</content>
<content></content> Creatinine For GFR 0.95 mg/dL 0.70-1.30 Normal (applies to non -numeric results) [facility] ([facility] Sodium Level 137 meq/L 136-145 Normal (applies to non-numeric res ults) [facility] ([facility] Potassium Serum 3.8 meq/L 3.5-5.1 Normal (applies to non-numeric results) [facility] ([facility] Chloride Level 105 meq/L 98-107 Normal (applies to non-numeric r esults) [facility] ([facility] Carbon Dioxide Level 27 meq/L 21-32 Normal (applies to non-num jose results) [facility] ([facility] Anion Gap 5 meq/L 8-16 Below low normal [facility] ( [facility] Calcium Level 9.6 mg/dL 8.8-10.2 Normal (applies to non-numeric re sults) [facility] ([facility] Alt/SGPT 43 U/L 12-78 Normal (applies to non-numeric resul ts) [facility] ([facility] Ast/Sgot 65 U/L 7-37 Above high normal [facility] ([facility] Bilirubin,Total 0.9 mg/dL 0.2-1.0 Normal (applies to non-numeric results) [facility] ([facility] Alkaline Phosphatase 55 U/L 45-117 Normal (applies to non-num jose results) [facility] ([facility] Albumin 3.0 GM/DL 3.2-5.2 Below low normal [facility] ( [facility] Total Protein 7.1 GM/DL 6.4-8.2 Normal (applies to non-numeric re sults) [facility] ([facility] Albumin/Globulin Ratio 0.7 Normal (applies to non-n umeric results) [facility] ([facility] ID Date Data Source [id number] 01/12/2021 09:25:00 AM EDT [facility] ([facility] Name Value Range Interpretation Code Description Data Demetrice rce(s) Supporting Document(s) C reactive protein [Mass/volume] in Serum or Plasma by High sensitivity method 16.80 mg/dL 0.00-0.30 Above high normal [facility] ([facility] ID Date Data Source [id number] 01/11/2021 11:57:00 AM EDT [facility] [place] [address] [id number] SUMMARYPATIENT NAME: PATRICK GOODMAN MR#: [id number] PHYSICIAN: RICKY SOTELO, MDAUTHOR: Jerome Mobley MD DATE: #: 2WESTDISCHARGE DATE: : 45Summary of HospitalizationReason for Admissionright hip painHospital [id number] history of diabetes mellitus, posterior nasal drip, [...] TimePulse Ox 96 01/11 0659B/P 132/77 01/11 0659Temp 98.4 01/11 0659Pulse 66 01/11 0659Resp 17 01/11 0659Patient's Discharge [...] TABLET5 MILLIGRAM Orally DAILYTRAMADOL (Ultram*) 50 MG [id number] MILLIGRAM Orally THREE TIMES DAILY not to exceed 4 tabs per dayCYCLOBENZAPRINE* (Flexeril*) 10 MG [id number] MILLIGRAM Orally As directed as needed for MUSCLE RELAXERGABAPENTIN* (Neurontin*) 300 MG [id number] MILLIGRAM Orally THREE TIMES DAILY[TYLENOL]As directed as needed for PAINStart taking the following new medications:TAMSULOSIN HCL (TAMSULOSIN) 0.4 MG CAP.ER.24H0.4 MILLIGRAM Orally AT BEDTIMEQty = 30No RefillsRIVAROXABAN (XARELTO*) 10 MG [id number] MILLIGRAM Orally 0600Qty = 30No RefillsSennosides/Docusate Sodium (Senna S Tablet) 1 EACH TABLET1 TABLET Orally TWICE DAILYQty = 60No RefillsDischarge Activity: As toleratedDischarge diet: Consistent CarbohydrateFollow-upFollow up with your Primary care physician in 7 days. Follow-up orthopedics asdirected. Weightbearing as per orthopedics. Xarelto for DVT prophylaxis.Pain regimen per orthopedics. Continue physical therapy. Fall precaution.Return to hospital symptoms worsen.ReferralsOrdered [facility]errals[facility] First availa...[address] [place] [address] -sn TO EVALUATE AND TREAT-PT FOR STRENGTHENINGTime spent by provider to complete discharge > 30 minutesDATE SIGNED: 01/11/21 Electronically SignedTIME SIGNED: 1201 JEROME MOBLEY MD Name Value Range Interpretation Code Description Data Demetrice rce(s) Supporting Document(s) ID Date Data Source [id number] 01/11/2021 11:52:00 AM EDT [facility] [address] [id number] NAME: PATRICK GOODMAN#: [id number] PHYSICIAN: RICKY SOTELO [facility] #: [id number] ADM. DATE:PATIENT : 45 DISCH. DATE: [50}DISCHARGE [...] worsen.Discharge InformationDISCHARGE INFORMATION* Thank you for choosing [facility] and allowing us toserve you* Our Goal is to provide the highest quality of care.* This discharge information is to help you better understand your diagnosisand medication* Avoid taking nnwv-oey-eczjcxf medicines unless approved by your physician.* Take your medications as prescribed. DO NOT stop any medications unlessapproved first* Weigh yourself daily. Report any gain of 5 lbs in a week* 24 Hour Crisis HOTLINE available: Call [facility] at [phone] SMOKING CESSATION* Smoking is dangerous to your health. It delays the healing process, andworks against your medications. Not smoking will improve your health* Our hospital participates with the Opt-to-Quit program. You will be contactedafter discharge by the [facility] Smoker's Quitline for support with tobaccocessation. You have the option once contacted to refuse this service.* You can also go online to www.[employer]. Free nicotine replacementsare available ___Attention* You should contact your follow up Physician as it is important that you lethim or her check you and report any new or remaining problems. If yourcondition worsens, follow up with your provider or visit our EmergencyDepartment. If you received pain medication, anxiety medications, musclerelaxants, or any medication that causes drowsiness, you cannot operatemachinery, power tools, or drive.END END DICT: 01/11/211151 Electronically SignedTRANS:01/11/211151 JEROME MOBLEY MDTRANS BY:[email or web address] SIGNED:01/11/21TIME SIGNED: 1157REPORT COPY TO: Name Value Range Interpretation Code Description Data Demetrice rce(s) Supporting Document(s) ID Date Data Source [id number] 01/11/2021 07:46:00 AM EDT [address] [id number] PROGRESS NOTEPATIENT NAME: ORQUIDEA GOODMAN PHYSICIAN: RICKY SOTELO MDAUTHOR: Sloane Sotelo. DATE: MR#: [id number] NOTE DATE: 01/11/21 RM#: [id number] TIME: 0748 : 45SubjectiveEvents Since Last EntryPostoperative day #1 [...] tingling.Vital Signs-LastResult Date TimePulse Ox 96 01/11 659B/P 132/77 01/11 659Temp 98.4 01/11 659Pulse 66 01/11 0659Resp 17 01/11 659On exam his wound dressing is clean and dry. There is no swelling of theankle. He has good dorsiflexion and plantarflexion strength of his foot. Andthere is normal sensation.Recent Labs-24 [id number] (136 - 147 mmol/L) 136Potassium (3.5 - [...] we plan for discharge [facility].Assessment/PlanResuscitation status Full codeDATE SIGNED: 01/11/21 Electronically SignedTIME SIGNED: 48 RICKY SOTELO MD Name Value Range Interpretation Code Description Data Demetrice rce(s) Supporting Document(s) ID Date Data Source [id number] 01/12/2021 12:50:00 PM EDT [facility] Name Value Range Interpretation Code Description Data Demetrice rce(s) Supporting Document(s) FGLU 133 mg/dL 70-110 [facility] ID Date Data Source [id number] 01/11/2021 05:46:00 AM EDT [facility] ([facility] Name Value Range Interpretation Code Description Data Demetrice rce(s) Supporting Document(s) Magnesium [Mass/volume] in Serum or Plasma 2.0 mg/dL 1.6-2 .6 Normal (applies to non-numeric results) [facility] ([facility]) ID Date Data Source [id number] 01/11/2021 05:46:00 AM EDT [facility] ([facility] Name Value Range Interpretation Code Description Data Demetrice rce(s) Supporting Document(s) Glucose [Mass/volume] in Serum or Plasma 122 mg/dL 70-110 Above high normal [facility] ([facility] Patients taking Sulfasalazine may have f alsely depressed Glucose levels. Patients taking Sulfapyridine may have falsely elevated Glucose levels. Patients should be drawn for Glucose before the initial administration of either drug. Urea nitrogen [Mass/volume] in Serum or Plasma 18 mg/dL 7 -23 Normal (applies to non-numeric results) [facility] ([facility]) Creatinine [Mass/volume] in Serum or Plasma 1.090 mg/dL 0.50 0-1.300 Normal (applies to non-numeric results) [facility] ([facility] Sodium [Moles/volume] in Serum or Plasma 136 mmol/L 136-147 Normal (applies to non-numeric results) [facility] ([facility]) Glomerular filtration rate/1.73 sq M.pre dicted [Volume Rate/Area] in Serum or Plasma by Creatinine-based formula (MDRD) Laboratory test result Normal (applies to non-numeric results) [facility] ([facility] Chloride [Moles/volume] in Serum or Plasma 105 mmol/L 99-11 0 Normal (applies to non-numeric results) [facility] ([facility]) Potassium [Moles/volume] in Serum or Plasma 4.0 mmol/L 3.5- 5.1 Normal (applies to non-numeric results) [facility] ( [facility] Bicarbonate [Moles/volume] in Blood 26 mmol/L 20-33 Normal (applies to non- numeric results) [facility] ([facility] ) Anion gap in Serum or Plasma 9.0 10.0-20.0 Below low normal [facility] ([facility] Calcium [Mass/volume] in Serum or Plasma 9.5 mg/dL 8.3-10. 7 Normal (applies to non-numeric results) [facility] ( [facility]) Alkaline phosphatase [Enzymatic activity/volume] in Serum or Plasma 53 U/L 45-117 Normal (applies to non-numeric results) [facility] ( [facility] Protein [Mass/volume] in Serum or Plasma 6.7 g/dL 6.0-7.8 Normal (applies to non-numeric results) [facility] ( [facility]) Albumin [Mass/volume] in Serum or Plasma 3.5 g/dL 3.5-5.0 Normal (applies to non-numeric results) [facility] ( [facility]) ESRD Dialysis patient Albumin reference range: 2.9-4.4 g/dL Globulin [Mass/volume] in Serum by calculation 3.2 g/dL 2 .3-3.5 Normal (applies to non-numeric results) [facility] ( [facility] Albumin/Globulin [Mass Ratio] in Serum or Plasma 1.1 1.0-2.5 Normal (applies to non-numeric results) [facility] ([facility]) Bilirubin.total [Mass/volume] in Serum or Plasma 0.6 mg/dL 0.1-1.1 Normal (applies to non-numeric results) [facility] ([facility] The Dimension [place] Total Bilirubin is n ot recommended for patients undergoing treatment with eltrombopag (Promacta) due to the potential for falsely elevated results. Alanine aminotransferase [Enzymatic activity/volume] in Seru m or Plasma 25 U/L 6-54 Normal (applies to non-numeric results) [facility] ([facility] Patients taking Sulfasalazine and/or Sul fapyridine may have falsely depressed ALT levels. Patients should be drawn for ALT before the initial administration of either drug. Aspartate aminotransferase [Enzymatic activity/volume] in Serum or Plasma 33 U/L 8-40 Normal (applies to non-numeric results) [facility] ([facility] Patients taking Sulfasalazine and/or Sul fapyridine may have falsely depressed AST levels. Patients should be drawn for AST before the initial administration of either drug. ID Date Data Source [id number] 01/11/2021 05:46:00 AM EDT [facility] ([facility] Name Value Range Interpretation Code Description Data Demetrice rce(s) Supporting Document(s) Leukocytes [#/volume] in Blood by Automated count 13.18 x10E3/uL 4.0-10.5 Above high normal [facility] ([facility] ) Hemoglobin [Mass/volume] in Blood 12.0 g/dL 14.0-18.0 Below low nor mal [facility] ([facility] Erythrocytes [#/volume] in Blood by Automated count 3.85 x10E6/u L 4.70-6.00 Below low normal [facility] ([facility] ) MCV 88.8 fL 81.0-99.0 Normal (applies to non-numeric resul ts) [facility] ([facility] Hematocrit [Volume Fraction] of Blood by Automated count 34.2 % 42.0-52.0 Below low normal [facility] MCH 31.2 pg 27.0-31.0 Above high normal [facility] ([facility] MCHC 35.1 g/dL 32.7-35.6 Normal (applies to non-numeric resul ts) [facility] ([facility] RDW 12.2 % 11.5-14.0 Normal (applies to non-numeric resul ts) [facility] ([facility] Platelets [#/volume] in Blood by Automated count 166 x10E3/uL 150-450 Normal (applies to non-numeric results) [facility] ([facility] MPV 10.6 fl 6.9-9.5 Above high normal [facility] Neutrophils 75.9 % 34-64 Above high normal [facility] Lymphocytes 14.6 % 25-45 Below low normal [facility] Monocytes 9.0 % 1.7-10.6 Normal (applies to non-numeric resul ts) [facility] ([facility] Eosinophils 0 % 0.4-7.0 Below low normal [facility] ([facility] Basophils 0.1 % 0.1-2.0 Normal (applies to non-numeric resul ts) [facility] ([facility] Laboratory test finding (navigational concept) 0.4 % 0 .1-2.0 Normal (applies to non-numeric results) [facility] ([facility]) Laboratory test finding (navigational concept) 10.01 x10E3/uL 1 .2-7.6 Above high normal [facility] ([facility] ) Laboratory test finding (navigational concept) 1.92 x10E3/uL 1 .0-3.5 Normal (applies to non-numeric results) [facility] ([facility] Laboratory test finding (navigational concept) 1.19 x10E3/uL 0 .1-1.0 Above high normal [facility] ([facility] ) Laboratory test finding (navigational concept) 0.00 x10E3/uL 0 .1-0.7 Below low normal [facility] ([facility] ) Laboratory test finding (navigational concept) 0.01 x10E3/uL 0 .0-0.1 Normal (applies to non-numeric results) [facility] ([facility] Laboratory test finding (navigational concept) 0 % Normal (applies to non- numeric results) [facility] Laboratory test finding (navigational concept) 0.05 x10E3/uL 0 .0-0.1 Normal (applies to non-numeric results) [facility] ([facility] ID Date Data Source [id number] 01/11/2021 05:46:00 AM EDT [facility] ([facility]) Name Value Range Interpretation Code Description Data Demetrice rce(s) Supporting Document(s) Leukocytes [#/volume] in Blood by Automated count 13.18 x10E3/uL 4.0- 10.5 [facility] ([facility]) Erythrocytes [#/volume] in Blood by Automated count 3.85 x10E6/uL 4.7 0-6.00 [facility] ([facility]) Hemoglobin [Mass/volume] in Blood 12.0 g/dL 14.0-18.0 [facility] ([facility]) MCV 88.8 fL 81.0-99.0 [facility] Hematocrit [Volume Fraction] of Blood by Automated count 34.2 % 4 2.0-52.0 [facility] ([facility]) MCH 31.2 pg 27.0-31.0 [facility] MCHC 35.1 g/dL 32.7-35.6 [facility]) RDW 12.2 % 11.5-14.0 [facility] MPV 10.6 fl 6.9-9.5 [facility] Platelets [#/volume] in Blood by Automated count 166 x10E3/uL 150-450 [facility] ([facility]) Lymphocytes 14.6 % 25-45 [facility] Monocytes 9.0 % 1.7-10.6 [facility] Neutrophils 75.9 % 34-64 [facility] ([facility] Basophils 0.1 % 0.1-2.0 [facility] Eosinophils 0 % 0.4-7.0 [facility] ([facility] Abs. Neutro. 10.01 x10E3/uL 1.2-7.6 [facility] ([facility]) Imm. Gran. 0.4 % 0.1-2.0 [facility] ([facility] Abs. Benson. 1.19 x10E3/uL 0.1-1.0 [facility] ([facility] Abs. Eosin. 0.00 x10E3/uL 0.1-0.7 [facility] ([facility]) Abs. Lymph. 1.92 x10E3/uL 1.0-3.5 [facility] ([facility] ) Laboratory test finding (navigational concept) 0 % [facility] ([facility] Abs. Baso. 0.01 x10E3/uL 0.0-0.1 [facility] Abs. Imm. Gran. 0.05 x10E3/uL 0.0-0.1 [facility] ([facility]) ID Date Data Source [id number] 01/11/2021 05:46:00 AM EDT [facility] ([facility] Name Value Range Interpretation Code Description Data Demetrice rce(s) Supporting Document(s) Glucose [Mass/volume] in Serum or Plasma 122 mg/dL 70-110 [facility] ([facility] Patients taking Sulfasalazine may have f alsely depressed Glucose levels. Patients taking Sulfapyridine may have falsely elevated Glucose levels. Patients should be drawn for Glucose before the initial administration of either drug. Urea nitrogen [Mass/volume] in Serum or Plasma 18 mg/dL 7-23 [facility] ([facility] Creatinine [Mass/volume] in Serum or Plasma 1.090 mg/dL 0.500-1.300 [facility] ([facility] Chloride [Moles/volume] in Serum or Plasma 105 mmol/L 99-110 [facility] ([facility] ) Glomerular filtration rate/1.73 sq M.pre dicted [Volume Rate/Area] in Serum or Plasma by Creatinine-based formula (MDRD) Laboratory test result [facility] ([facility] Sodium [Moles/volume] in Serum or Plasma 136 mmol/L 136-147 [facility] ([facility]) Potassium [Moles/volume] in Serum or Plasma 4.0 mmol/L 3.5-5.1 [facility] ([facility] ) CA 9.5 mg/dL 8.3-10.7 [facility] ([facility]) Bicarbonate [Moles/volume] in Blood 26 mmol/L 20-33 [facility] ([facility]) Anion gap in Serum or Plasma 9.0 10.0-20.0 [facility] ([facility]) Alkaline phosphatase [Enzymatic activity/volume] in Serum or Plasma 53 U/L 45-117 [facility] ([facility]) Albumin [Mass/volume] in Serum or Plasma 3.5 g/dL 3.5-5.0 [facility] ([facility]) ESRD Dialysis patient Albumin reference range: 2.9-4.4 g/dL Protein [Mass/volume] in Serum or Plasma 6.7 g/dL 6.0-7.8 [facility] ([facility]) Globulin [Mass/volume] in Serum by calculation 3.2 g/dL 2.3-3.5 [facility] ([facility]) Albumin/Globulin [Mass Ratio] in Serum or Plasma 1.1 1.0-2.5 [facility] ([facility]) Bilirubin.total [Mass/volume] in Serum or Plasma 0.6 mg/dL 0.1-1.1 [facility] ([facility]) The Dimension [place] Total Bilirubin is n ot recommended for patients undergoing treatment with eltrombopag (Promacta) due to the potential for falsely elevated results. Aspartate aminotransferase [Enzymatic activity/volume] in Serum or Plasma 33 U/L 8-40 [facility] ([facility] Patients taking Sulfasalazine and/or Sul fapyridine may have falsely depressed AST levels. Patients should be drawn for AST before the initial administration of either drug. Alanine aminotransferase [Enzymatic activity/volume] in Seru m or Plasma 25 U/L 6-54 [facility] ([facility] ) Patients taking Sulfasalazine and/or Sul fapyridine may have falsely depressed ALT levels. Patients should be drawn for ALT before the initial administration of either drug. ID Date Data Source [id number] 01/11/2021 05:46:00 AM EDT [facility] ([facility] Name Value Range Interpretation Code Description Data [facility] rce(s) Supporting Document(s) Magnesium [Mass/volume] in Serum or Plasma 2.0 mg/dL 1.6-2.6 [facility] ([facility] ) ID Date Data Source [id number] 01/11/2021 06:46:00 AM EDT [facility] Name Value Range Interpretation Code Description Data [facility] rce(s) Supporting Document(s) GLU 122 mg/dL 70-110 [facility] Patients taking Sulfasalazine may have f alsely depressedGlucose levels. Patients taking Sulfapyridine may havefalsely elevated Glucose levels. Patients should be drawnfor Glucose before the initial administration of eitherdrug. BUN 18 mg/dL 7-23 [facility] CRE 1.090 mg/dL 0.500-1.300 [facility] GFR > 60 mL/min [facility] CHLORIDE 105 mmol/L 99-110 [facility] NA 136 mmol/L 136-147 [facility] POTASSIUM 4.0 mmol/L 3.5-5.1 [facility] [facility] TCO2 26 mmol/L 20-33 [facility] ANION GAP 9.0 10.0-20.0 L [facility] CA 9.5 mg/dL 8.3-10.7 [facility] ALKALINE PHOS 53 U/L 45-117 [facility] TP 6.7 g/dL 6.0-7.8 [facility] ALB 3.5 g/dL 3.5-5.0 [facility] ESRD Dialysis patient Albumin reference range: 2.9-4.4 g/dL GL 3.2 g/dL 2.3-3.5 [facility] A/G 1.1 1.0-2.5 [facility] T. BILIRUBIN 0.6 mg/dL 0.1-1.1 [facility] [place] Total Bilirubin is n ot recommended forpatients undergoing treatment with eltrombopag (Promacta)due to the potential for falsely elevated results. ALTI 25 U/L 6-54 [facility] Patients taking Sulfasalazine and/or Sul fapyridine may havefalsely depressed ALT levels. Patients should be drawn forALT before the initial administration of either drug. AST 33 U/L 8-40 [facility] Patients taking Sulfasalazine and/or Sul fapyridine may havefalsely depressed AST levels. Patients should be drawn forAST before the initial administration of either drug. ID Date Data Source [id number] 01/11/2021 06:46:00 AM EDT [facility] [place] Name Value Range Interpretation Code Description Data Demetrice rce(s) Supporting Document(s) MAGNESIUM 2.0 mg/dL 1.6-2.6 [facility] ID Date Data Source [id number] 01/11/2021 06:32:00 AM [facility] [place] Name Value Range Interpretation Code Description Data Demetrice rce(s) Supporting Document(s) WBC 13.18 x10E3/uL 4.0-10.5 [facility] RBC 3.85 x10E6/uL 4.70-6.00 [facility] Hemoglobin 12.0 g/dL 14.0-18.0 [facility] Hematocrit 34.2 % 42.0-52.0 [facility] MCV 88.8 fL 81.0-99.0 [facility] MCH 31.2 pg 27.0-31.0 H [facility] MCHC 35.1 g/dL 32.7-35.6 [facility] RDW 12.2 % 11.5-14.0 [facility] Platelet count 166 x10E3/uL 150-450 [facility] ital MPV 10.6 fl 6.9-9.5 [facility] Neutrophils 75.9 % 34-64 [facility] Lymphocytes 14.6 % 25-45 [facility] Monocytes 9.0 % 1.7-10.6 [facility] Eosinophils 0 % 0.4-7.0 [facility] Basophils 0.1 % 0.1-2.0 [facility] Imm. Gran. 0.4 % 0.1-2.0 N [facility] Abs. Neutro. 10.01 x10E3/uL 1.2-7.6 [facility] Abs. Lymph. 1.92 x10E3/uL 1.0-3.5 [facility] Abs. [place]. 1.19 x10E3/uL 0.1-1.0 [facility] Abs. Eosin. 0.00 x10E3/uL 0.1-0.7 [facility] Abs. Baso. 0.01 x10E3/uL 0.0-0.1 [facility] Abs. Imm. Gran. 0.05 x10E3/uL 0.0-0.1 [facility] ANRBC% 0 % 0 [facility] ID Date Data Source [id number] 01/10/2021 07:42:00 PM EDT [facility] [place], [place] [address]CONSULT REPORTPATIENT NAME: PATRICK GOODMAN MR#: [id number] PHYSICIAN: RICKY SOTELO [facility] [place] CITYONSULTING PHYSICIAN: Jerome Mobley MD DATE: 01/10/21 RM#: [id number] DATE: 01/10/21 : 45EVALUATION TIME: 1954HisReason for consultmedical managementRequested byDr Arias Complaint/Admit Reasonright hip painHistory of Presenting [id number] history of diabetes mellitus, posterior nasal drip, [...] mg p.o. daily, Neurontin 600 mg daily, [place] as needed, Ngzskhib73 mg daily, ProAir, sucralfate 1 mg daily, [...] Urinary retentionStatus ChronicA&PStraight cath, frequent bladder scan.Additional Rprvm8H history of diabetes mellitus, posterior nasal drip, diabetic neuropathy, wasevaluated by orthopedics with progressive worsening right hip pain andstiffness.dVT prophylaxis Xarelto per orthopedicsDisposition pending physical therapy, monitor urine outputResuscitation status Full codePlan discussed with patientVTE ProphylaxisVTE Prophylaxis: Xarelto.DATE SIGNED: 01/10/21 Electronically SignedTIME SIGNED: 1954 JEROME MOBLEY MD Name Value Range Interpretation Code Description Data Demetrice rce(s) Supporting Document(s) ID Date Data Source [id number] 01/10/2021 10:39:00 AM EDT [facility] [place] Exam Number: [id number] OF EXAMINATIO N: 01/10/2021 9:51 EDTHISTORY: Hip prosthesisTECHNIQUE: 2 views of the right hip were obtained.FINDINGS:[Total hip prosthesis is in excellent alignment. Postoperative softtissue emphysema is noted.IMPRESSION:Total hip prosthesis.Electronically signed in PS360 by: Porsche Lake M.D. 110:27 EDT Reported By: Triston LAKE M.D. Signed By: Esther LAKE M.D. Name Value Range Interpretation Code Description Data Demetrice rce(s) Supporting Document(s) ID Date Data Source [id number] 01/10/2021 09:51:00 AM EDT [facility] [place] [address] [id number] OPERATIVE REPORTPATIENT NAME: PATRICK GOODMAN MR#: [id number] PHYSICIAN: RICKY SOTELO MDSURGEON: Kiana Sotelo DATE: RM#: [id number] DATE: PATIENT : 45Operative ReportOperative ReportDate of Procedure: January 101Preoperative diagnosis: Right hip arthritisPostoperative diagnosis: Right hip arthritisProcedure: Right total hip replacementComponents: Size 7 Berrien stem standard offset with 1.5 mm neck and 40 mm ball,size 56 mm Gription cup. Prosthesis made by [employer]esh and [employer].Surgeon: Dr. Edgar Novassistant: Tejas LaraoAnesthesia: SpinalEstimated blood loss: 200 ccSpecimens: [...] and an axillary roll was utilized. The [place] hippositioner was utilized to secure him in [...] exposed the acetabulum. Labral excision was performed xls583 degrees. We then began reaming starting at [...] the femoral canal andthen the real #7 Berrien stem was inserted.We dried the [place]var[place] taper [...] instable condition there were no known complications.The graphic design assistant was instrumental in holding retractors and assisting in reducingand dislocating the hip and assisting in wound closure.Copy to Dr. ColmenaresCopcorbin to Family Provider NIKITA LANCE SIGNED: 01/10/21 Electronically SignedTIME SIGNED: 09 RICKY SOTELO MD Name Value Range Interpretation Code Description Data Demetrice rce(s) Supporting Document(s) ID Date Data Source [id number] 01/05/2021 12:23:00 PM EDT [facility] ([facility] Name Value Range Interpretation Code Description Data Demetrice rce(s) Supporting Document(s) Laboratory test finding (navigational concept) Laboratory test r esult Normal (applies to non-numeric results) [facility] ID Date Data Source [id number] 01/05/2021 12:23:00 PM EDT [facility] ([facility]) Name Value Range Interpretation Code Description Data Demetrice rce(s) Supporting Document(s) Laboratory test finding (navigational concept) Laboratory test result [facility] ([facility]) ID Date Data Source [id number] 01/05/2021 03:33:00 PM EDT [facility] [place] Name Value Range Interpretation Code Description Data Demetrice rce(s) Supporting Document(s) BLOOD TYPE A POSITIVE N [facility] ID Date Data Source [id number] 01/05/2021 12:21:00 PM EDT [facility] ([facility] Name Value Range Interpretation Code Description Data Demetrice rce(s) Supporting Document(s) Laboratory test finding (navigational concept) Laboratory test r esult Normal (applies to non-numeric results) [facility] ([facility] Blood Type Laboratory test result Normal (applies to non-n umeric results) [facility] ([facility] ID Date Data Source [id number] 01/05/2021 12:21:00 PM EDT [facility] ([facility]) Name Value Range Interpretation Code Description Data Demetrice rce(s) Supporting Document(s) Antibody Screen Laboratory test result [facility] ([facility]) Blood Type Laboratory test result [facility] ([facility]) ID Date Data Source [id number] 01/05/2021 03:33:00 PM EDT [facility] [place] Is patient going to surgery? Y: NHave you ever had a blood transfusion? NHave you had a blood transfusion within the last 3 months? NWhen is the date of your surgery? 01/10/21 Name Value Range Interpretation Code Description Data Demetrice rce(s) Supporting Document(s) BLOOD TYPE A POSITIVE N [facility] ANTIBODY SCREEN NEGATIVE [facility] ID Date Data Source [id number] 01/05/2021 10:30:00 AM EDT [facility] ([facility] Name Value Range Interpretation Code Description Data Demetrice rce(s) Supporting Document(s) [id number] Rheonix Laboratory test result Normal ( applies to non-numeric results) [facility] ([facility] ) The Rheonix COVID-19 MDx [...] Emergency Use Authorization. ID Date Data Source [id number] 01/05/2021 10:30:00 AM EDT [facility] ([facility]) Name Value Range Interpretation Code Description Data [facility](s) Supporting Document(s) [id number] Rheonix Laboratory test result [facility] ([facility] ) The Rheonix COVID-19 MDx Assay is [...] Emergency Use Authorization. ID Date Data Source [id number] 01/06/2021 02:10:00 PM EDT [facility] [place] COMMENTS TO LAB: 45LAB Con't: PREOP TESTINGIs patient suspicious of Covid NShould patient be placed on Covid precautions N Name Value Range Interpretation Code Description Data [facility] Supporting Document(s) COVID19 [facility]IX Negative NEGATIVE [facility] The Rheonix COVID-19 MDx Assay is an end point RT-PCR assayintended for the qualitative detection of nucleic acid toftSICL-HrF-8 virus. Positive results are indicative of thepresence of SARS-CoV-2 RNA; clinical correlation withpatient history and other diagnostic information isnecessary to determine patient infection status. Negativeresults do not preclude SARS-CoV-2 infection and should notbe used as the sole basis for patient management decisions. The Rheonix MDx Assay is only for use under the Food andDrug Administration's Emergency Use Authorization. ID Date Data Source [id number] 12/26/2020 08:50:00 AM EDT [facility] ([facility] Name Value Range Interpretation Code Description Data Demetrice rce(s) Supporting Document(s) Prothrombin Time 13.7 s 12.7-14.5 Normal (applies to non-numeric results) [facility] ([facility] Inr 1.01 Normal (applies to non-numeric resul ts) [facility] ([facility] THERAPUTIC HUMAN INR VALUES INDICATIONS NORMAL RANGES PROPHYLAXIS/TREATMENT OF: VENOUS THROMBOSIS 2.0-3.0 PULMONARY EMBOLISM 2.0-3.0 PREVENTION OF SYSTEMIC EMBOLISM FROM: TISSUE HEART VALVES 2.0-3.0 ACUTE MYOCARDIAL INFARCTION 2.0-3.0 VALVULAR HEART DISEASE 2.0-3.0 ATRIAL FIBRILLATION 2.0-3.0 MECHANICAL VALVES(HIGH RISK) 2.5-3.5 RECURRENT MYOCARDIAL INFARCTION 2.5-3.5 ID Date Data Source [id number] 12/26/2020 08:50:00 AM EDT [facility] ([facility] Name Value Range Interpretation Code Description Data Demetrice rce(s) Supporting Document(s) White Blood Count 9.0 10 4.0-10.0 Normal (applies to non-numeri c results) [facility] ([facility] Red Blood Count 4.62 10 4.30-6.10 Normal (applies to non-numeric results) [facility] ([facility] Hemoglobin 14.1 g/dL 13.5-17.5 Normal (applies to non-numeric resul ts) [facility] ([facility] Hematocrit 42.9 % 42.0-52.0 Normal (applies to non-numeric resul ts) [facility] ([facility] Mean Corpuscular Hemoglobin 30.5 pg 27.0-33.0 Norm al (applies to non-numeric results) [facility] ([facility] ) Mean Corpuscular Volume 92.9 fl 80.0-96.0 Normal ( applies to non-numeric results) [facility] ([facility] ) Mean Corpuscular HGB Conc 32.9 g/dL 32.0-36.5 Normal (applies to non-numeric results) [facility] ([facility] ) Red Cell Distribution Width 12.0 % 11.5-14.5 Norm al (applies to non-numeric results) [facility] ([facility] ) Platelet Count, Automated 179 10 150-450 Normal (applies to non-numeric results) [facility] ([facility] ) Nucleated Red Blood Cell % 0.0 % 0-0 Normal (applies to n on-numeric results) [facility] ([facility] ID Date Data Source [id number] 12/26/2020 08:50:00 AM EDT [facility] ([facility] Name Value Range Interpretation Code Description Data Demetrice rce(s) Supporting Document(s) Erythrocyte sedimentation rate by Westergren method 19 mm/hr 0-20 Normal (applies to non-numeric results) [facility] ([facility] ID Date Data Source [id number] 12/26/2020 08:50:00 AM EDT [facility] Name Value Range Interpretation Code Description Data Demetrice rce(s) Supporting Document(s) Creatinine For GFR 1.04 mg/dL 0.70-1.30 Normal (applies to non -numeric results) [facility] ([facility] Blood Urea Nitrogen 15 mg/dL 7-18 Normal (applies to non-nume anahi results) [facility] ([facility] Glucose, Fasting 207 mg/dL 70-100 Above high normal M [facility] ([facility] Glomerular Filtration Rate Laboratory test result Normal (applies to non- numeric results) [facility] ([facility] ) <content>Units are mL/min/1.73 m2</content>
<content></content>
<content>Chronic Kidney Disease Staging per NKF:</content>
<content></content>
<content>Stage I & II GFR >=60 Normal to Mildly Decreased</content>
<content>Stage III GFR 30- 59 Moderately Decreased</content>
<content>Stage IV GFR 15-29 Severely Decreased</content>
<content>Stage V GFR <15 Very Little GFR Left</content>
<content>ESRD GFR <15 on HEAD OF DATA</content>
<content></content> Sodium Level 141 meq/L 136-145 Normal (applies to non-numeric res ults) [facility] ([facility] Potassium Serum 4.3 meq/L 3.5-5.1 Normal (applies to non-numeric results) [facility] ([facility] Carbon Dioxide Level 29 meq/L 21-32 Normal (applies to non-num jose results) [facility] ([facility] Chloride Level 107 meq/L 98-107 Normal (applies to non-numeric r esults) [facility] ([facility] Calcium Level 9.4 mg/dL 8.8-10.2 Normal (applies to non-numeric re sults) [facility] ([facility] Anion Gap 5 meq/L 8-16 Below low normal [facility] ( [facility] Ast/Sgot 11 U/L 7-37 Normal (applies to non-numeric resul ts) [facility] ([facility] Alt/SGPT 22 U/L 12-78 Normal (applies to non-numeric resul ts) [facility] ([facility] Bilirubin,Total 0.4 mg/dL 0.2-1.0 Normal (applies to non-numeric results) [facility] ([facility] Alkaline Phosphatase 67 U/L 45-117 Normal (applies to non-num jose results) [facility] ([facility] Total Protein 7.1 GM/DL 6.4-8.2 Normal (applies to non-numeric re sults) [facility] ([facility] Albumin 3.6 GM/DL 3.2-5.2 Normal (applies to non-numeric resul ts) [facility] ([facility] Albumin/Globulin Ratio 1.0 Normal (applies to non-n umeric results) [facility] ([facility] ID Date Data Source [id number] 12/26/2020 08:50:00 AM EDT [facility] ([facility]) Name Value Range Interpretation Code Description Data Demetrice rce(s) Supporting Document(s) Creatinine For GFR 1.04 mg/dL 0.70-1.30 [facility] ([facility]) Glucose, Fasting 207 mg/dL 70-100 [facility] ([facility]) Blood Urea Nitrogen 15 mg/dL 7-18 [facility] ([facility] Sodium Level 141 meq/L 136-145 [facility] ([facility]) Glomerular Filtration Rate Laboratory test result [facility] ([facility]) <content>Units are mL/min/1.73 m2</content>
<content></content>
<content>Chronic Kidney Disease Staging per NKF:</content>
<content></content>
<content>Stage I & II GFR >=60 Normal to Mildly Decreased</content>
<content>Stage III GFR 30- 59 Moderately Decreased</content>
<content>Stage IV GFR 15-29 Severely Decreased</content>
<content>Stage V GFR <15 Very Little GFR Left</content>
<content>ESRD GFR <15 on HEAD OF DATA</content>
<content></content> Chloride Level 107 meq/L 98-107 [facility] ([facility] Carbon Dioxide Level 29 meq/L 21-32 [facility] ([facility]) Potassium Serum 4.3 meq/L 3.5-5.1 [facility] ([facility]) Calcium Level 9.4 mg/dL 8.8-10.2 [facility] ([facility]) Anion Gap 5 meq/L 8-16 [facility] ([facility]) Alkaline Phosphatase 67 U/L 45-117 [facility] ([facility]) Alt/SGPT 22 U/L 12-78 [facility] Ast/Sgot 11 U/L 7-37 [facility] ([facility] Total Protein 7.1 GM/DL 6.4-8.2 [facility] ([facility]) Bilirubin,Total 0.4 mg/dL 0.2-1.0 [facility] ([facility]) Albumin 3.6 GM/DL 3.2-5.2 [facility] ([facility] Albumin/Globulin Ratio 1.0 [facility] ([facility]) ID Date Data Source [id number] 12/26/2020 08:50:00 AM EDT [facility] ([facility]) Name Value Range Interpretation Code Description Data Demetrice rce(s) Supporting Document(s) Erythrocyte sedimentation rate by Westergren method 19 mm/hr 0-20 [facility] ([facility]) ID Date Data Source [id number] 12/26/2020 08:50:00 AM EDT [facility] ([facility]) Name Value Range Interpretation Code Description Data Demertice rce(s) Supporting Document(s) White Blood Count 9.0 10 4.0-10.0 [facility] ([facility]) Red Blood Count 4.62 10 4.30-6.10 [facility] ([facility]) Hemoglobin 14.1 g/dL 13.5-17.5 [facility] ([facility] Mean Corpuscular Volume 92.9 fl 80.0-96.0 M [facility] ([facility]) Hematocrit 42.9 % 42.0-52.0 [facility] ([facility] Mean Corpuscular Hemoglobin 30.5 pg 27.0-33.0 [facility] ([facility]) Mean Corpuscular HGB Conc 32.9 g/dL 32.0-36.5 [facility] ([facility]) Red Cell Distribution Width 12.0 % 11.5-14.5 [facility] ([facility]) Nucleated Red Blood Cell % 0.0 % 0-0 [facility] ([facility]) Platelet Count, Automated 179 10 150-450 [facility] ([facility]) ID Date Data Source [id number] 12/26/2020 08:50:00 AM EDT [facility] ([facility]) Name Value Range Interpretation Code Description Data Demetrice rce(s) Supporting Document(s) Prothrombin Time 13.7 s 12.7-14.5 [facility] ([facility]) Inr 1.01 [facility] ([facility]) THERAPUTIC HUMAN INR VALUES INDICATIONS NORMAL RANGES PROPHYLAXIS/TREATMENT OF: VENOUS THROMBOSIS 2.0-3.0 PULMONARY EMBOLISM 2.0-3.0 PREVENTION OF SYSTEMIC EMBOLISM FROM: TISSUE HEART VALVES 2.0-3.0 ACUTE MYOCARDIAL INFARCTION 2.0-3.0 VALVULAR HEART DISEASE 2.0-3.0 ATRIAL FIBRILLATION 2.0-3.0 MECHANICAL VALVES(HIGH RISK) 2.5-3.5 RECURRENT MYOCARDIAL INFARCTION 2.5-3.5 ID Date Data Source [id number] 11/29/2020 09:39:00 AM EDT [facility] ([facility] Name Value Range Interpretation Code Description Data Demetrice rce(s) Supporting Document(s) Chol 160 mg/dL 0-200 [facility] NORMAL RANGES Age WBC RBC [...] HCT IS 5% LESS SOURCE FOR DATA: [employer] 1800 OPERATION MANUAL( AUTOMATED BLOOD COUNTS AND [...] HCT IS 5% LESS SOURCE FOR DATA: [employer] DYN 1800 OPERATION MANUAL( AUTOMATED BLOOD COUNTS [...] Plasma 56 mg/dL 35-55 Above high normal [facility] ([facility] ) NORMAL RANGES Age [...] HCT IS 5% LESS SOURCE FOR DATA: [employer] 1800 OPERATION MANUAL( AUTOMATED BLOOD COUNTS AND [...] 2-19 YEARS EXCLUSIVE. LDL_C 81 Calc 75-129 [facility] ([facility] NORMAL RANGES [...] HCT IS 5% LESS SOURCE FOR DATA: [employer] 1800 OPERATION MANUAL( AUTOMATED BLOOD COUNTS AND [...] 2-19 YEARS EXCLUSIVE. Cho/HDL Ratio 2.8 CALC [facility] ([facility] NORMAL RANGES Age WBC RBC [...] HCT IS 5% LESS SOURCE FOR DATA: [employer] 1800 OPERATION MANUAL( AUTOMATED BLOOD COUNTS AND [...] 2-19 YEARS EXCLUSIVE. ID Date Data Source [id number] 11/29/2020 09:39:00 AM EDT [facility] ([facility] Name Value Range Interpretation Code Description Data Demetrice rce(s) Supporting Document(s) Glu 109 mg/dL 70-110 [facility] ([facility] NORMAL RANGES Age [...] 2-19 YEARS EXCLUSIVE. BUN 17 mg/dL 8-23 [facility] ([facility] NORMAL RANGES [...] HCT IS 5% LESS SOURCE FOR DATA: [employer] 1800 OPERATION MANUAL( AUTOMATED BLOOD COUNTS AND [...] 2-19 YEARS EXCLUSIVE. BUN/Creatinine Ratio 19.4 CALC [facility] ([facility] NORMAL RANGES Age [...] HCT IS 5% LESS SOURCE FOR DATA: [employer] 1800 OPERATION MANUAL( AUTOMATED BLOOD COUNTS AND [...] 2-19 YEARS EXCLUSIVE. Na 139 mmol/L 136-145 [facility] NORMAL RANGES Age WBC RBC [...] HCT IS 5% LESS SOURCE FOR DATA: [employer] DYN 1800 OPERATION MANUAL( AUTOMATED BLOOD COUNTS [...] 2-19 YEARS EXCLUSIVE. Creat 0.9 mg/dL 0.7-1.2 [facility] ([facility] [...] HCT IS 5% LESS SOURCE FOR DATA: [employer] 1800 OPERATION MANUAL( AUTOMATED BLOOD COUNTS AND [...] 2-19 YEARS EXCLUSIVE. K 4.4 mmol/L 3.5-5.1 [facility] ([facility] NORMAL RANGES [...] HCT IS 5% LESS SOURCE FOR DATA: [employer] 1800 OPERATION MANUAL( AUTOMATED BLOOD COUNTS AND [...] 2-19 YEARS EXCLUSIVE. CL 104.4 mmol/L 98.0-107.0 [facility] ([place] NORMAL RANGES Age WBC RBC HGB [...] HCT IS 5% LESS SOURCE FOR DATA: [employer] DYN 1800 OPERATION MANUAL( AUTOMATED BLOOD COUNTS [...] 2-19 YEARS EXCLUSIVE. CA 9.4 mg/dL 8.6-10.2 [facility] ([facility] [facility] NORMAL RANGES [...] HCT IS 5% LESS SOURCE FOR DATA: [employer] 1800 OPERATION MANUAL( AUTOMATED BLOOD COUNTS AND [...] 19.4 mmol/L 22.0-29.0 Below low normal MEDENT ([facility] NORMAL RANGES Age [...] HCT IS 5% LESS SOURCE FOR DATA: [employer] 1800 OPERATION MANUAL( AUTOMATED BLOOD COUNTS AND [...] 2-19 YEARS EXCLUSIVE. TP 7.4 g/dL 6.6-8.7 [facility] ([facility] NORMAL RANGES [...] HCT IS 5% LESS SOURCE FOR DATA: [employer] 1800 OPERATION MANUAL( AUTOMATED BLOOD COUNTS AND [...] 2-19 YEARS EXCLUSIVE. Alb 4.4 g/dL 3.5-5.2 MED[facility] ([facility] NORMAL [...] HCT IS 5% LESS SOURCE FOR DATA: [employer] 1800 OPERATION MANUAL( AUTOMATED BLOOD COUNTS AND [...] 2-19 YEARS EXCLUSIVE. A/G Ratio 1.5 CALC VINICIO ([facility] NORMAL [...] HCT IS 5% LESS SOURCE FOR DATA: [employer] 1800 OPERATION MANUAL( AUTOMATED BLOOD COUNTS AND [...] HCT IS 5% LESS SOURCE FOR DATA: [employer] 1800 OPERATION MANUAL( AUTOMATED BLOOD COUNTS AND [...] YEARS EXCLUSIVE. Alt (SGPT) 11 U/L 0-41 MEDENT ([facility] NORMAL RANGES [...] HCT IS 5% LESS SOURCE FOR DATA: [employer] 1800 OPERATION MANUAL( AUTOMATED BLOOD COUNTS AND [...] 2-19 YEARS EXCLUSIVE. Alp 72.2 U/L 40-129 [facility] NORMAL RANGES Age WBC [...] HCT IS 5% LESS SOURCE FOR DATA: [employer] 1800 OPERATION MANUAL( AUTOMATED BLOOD COUNTS AND [...] YEARS EXCLUSIVE. Ast (Sgot) 10 U/L 0-40 [facility] ([facility] NORMAL RANGES [...] HCT IS 5% LESS SOURCE FOR DATA: [employer] 1800 OPERATION MANUAL( AUTOMATED BLOOD COUNTS AND [...] 2-19 YEARS EXCLUSIVE. Tbili 0.30 mg/dL 0.0-1.2 MED[facility] ([facility] NORMAL RANGES [...] HCT IS 5% LESS SOURCE FOR DATA: [employer] 1800 OPERATION MANUAL( AUTOMATED BLOOD COUNTS AND [...] HCT IS 5% LESS SOURCE FOR DATA: [employer] 1800 OPERATION MANUAL( AUTOMATED BLOOD COUNTS AND [...] 2-19 YEARS EXCLUSIVE. Anion Gap 20 mmol/L [facility] ([facility] NORMAL RANGES [...] HCT IS 5% LESS SOURCE FOR DATA: [employer] 1800 OPERATION MANUAL( AUTOMATED BLOOD COUNTS AND [...] HCT IS 5% LESS SOURCE FOR DATA: [employer] 1800 OPERATION MANUAL( AUTOMATED BLOOD COUNTS AND [...] INDIVIDUALA AGED 2-19 YEARS EXCLUSIVE. eGFR Non-Afr. Singaporean 83 # MEDENT ([facility] [...] IS 5% LESS SOURCE FOR DATA: [employer] 1800 OPERATION MANUAL( AUTOMATED BLOOD COUNTS AND [...] 2-19 YEARS EXCLUSIVE. ID Date Data Source [id number] 11/29/2020 09:39:00 AM EDT MEDENT ([facility] Name [...] HCT IS 5% LESS SOURCE FOR DATA: [employer] 1800 OPERATION MANUAL( AUTOMATED BLOOD COUNTS AND [...] 2-19 YEARS EXCLUSIVE. WBC 7.7 10E3/uL 4.1-10.9 MED[facility] ([facility] NORMAL RANGES Age WBC RBC [...] HCT IS 5% LESS SOURCE FOR DATA: [employer] 1800 OPERATION MANUAL( AUTOMATED BLOOD COUNTS AND [...] 2-19 YEARS EXCLUSIVE. HGB 14.1 g/dL 12.0-18.0 [facility] ([facility] NORMAL RANGES [...] HCT IS 5% LESS SOURCE FOR DATA: [employer] 1800 OPERATION MANUAL( AUTOMATED BLOOD COUNTS AND [...] HCT IS 5% LESS SOURCE FOR DATA: [employer] 1800 OPERATION MANUAL( AUTOMATED BLOOD COUNTS AND [...] YEARS EXCLUSIVE. MCH 31.3 pg 26.0-32.0 V[facility]IC[facility] ([facility] NORMAL [...] HCT IS 5% LESS SOURCE FOR DATA: [employer] 1800 OPERATION MANUAL( AUTOMATED BLOOD COUNTS AND [...] 2-19 YEARS EXCLUSIVE. MCV 91.3 fL 80.0-97.0 [facility] ([facility] NORMAL RANGES [...] HCT IS 5% LESS SOURCE FOR DATA: [employer] 1800 OPERATION MANUAL( AUTOMATED BLOOD COUNTS AND [...] 2-19 YEARS EXCLUSIVE. PLT 206 10E3/uL 140-440 MEDENT ([facility] NORMAL RANGES Age WBC RBC [...] HCT IS 5% LESS SOURCE FOR DATA: [employer] 1800 OPERATION MANUAL( AUTOMATED BLOOD COUNTS AND [...] 2-19 YEARS EXCLUSIVE. MCHC 34.3 g/dL 31.0-36.0 VINICIO ([facility] NORMAL RANGES Age [...] HCT IS 5% LESS SOURCE FOR DATA: [employer] 1800 OPERATION MANUAL( AUTOMATED BLOOD COUNTS AND [...] 2-19 YEARS EXCLUSIVE. RDW-CV 13.5 % 11.5-14.5 [facility] ([facility] NORMAL RANGES [...] HCT IS 5% LESS SOURCE FOR DATA: [employer] 1800 OPERATION MANUAL( AUTOMATED BLOOD COUNTS AND [...] HCT IS 5% LESS SOURCE FOR DATA: [employer] 1800 OPERATION MANUAL( AUTOMATED BLOOD COUNTS AND [...] 2-19 YEARS EXCLUSIVE. MXD% 9.4 % 0.1-24.0 [facility] ([facility] NORMAL RANGES Age [...] HCT IS 5% LESS SOURCE FOR DATA: [employer] 1800 OPERATION MANUAL( AUTOMATED BLOOD COUNTS AND [...] 2-19 YEARS EXCLUSIVE. Neut% 60.4 % 37.0-92.0 [facility] ([facility] NORMAL RANGES [...] HCT IS 5% LESS SOURCE FOR DATA: [employer] 1800 OPERATION MANUAL( AUTOMATED BLOOD COUNTS AND [...] 2-19 YEARS EXCLUSIVE. Lym# 2.3 10E3/uL 0.6-4.1 [facility] ([facility] NORMAL RANGES Age WBC RBC [...] HCT IS 5% LESS SOURCE FOR DATA: [employer] 1800 OPERATION MANUAL( AUTOMATED BLOOD COUNTS AND [...] 2-19 YEARS EXCLUSIVE. Neut# 4.7 % 2.0-7.8 [facility] ([facility] NORMAL RANGES Age [...] HCT IS 5% LESS SOURCE FOR DATA: [employer] 1800 OPERATION MANUAL( AUTOMATED BLOOD COUNTS AND [...] 2-19 YEARS EXCLUSIVE. MPV 11.0 fL 9.0-13.0 [facility] ([facility] NORMAL RANGES [...] HCT IS 5% LESS SOURCE FOR DATA: [employer] 1800 OPERATION MANUAL( AUTOMATED BLOOD COUNTS AND [...] 2-19 YEARS EXCLUSIVE. MXD# 0.7 10E3/uL 0.0-1.8 MED[facility] ([facility] NORMAL RANGES Age WBC RBC [...] HCT IS 5% LESS SOURCE FOR DATA: [employer] 1800 OPERATION MANUAL( AUTOMATED BLOOD COUNTS AND [...] 2-19 YEARS EXCLUSIVE. ID Date Data Source [id number] 11/29/2020 09:39:00 AM EDT MEDENT ([facility] Name Value Range Interpretation Code Description Data Demetrice rce(s) Supporting Document(s) Hemoglobin A1c/Hemoglobin.total in Blood 5.8 % 4.50-6.20 MED[facility] ([facility] ID Date Data Source RHEUMATOID FACTOR QUANT 11/02/2020 12:00:00 AM EDT eCW1 ([facility]) Name Value Range Interpretation Code Description Data Demetrice rce(s) Supporting Document(s) < 10.0 <15.0 RHEUMATOID FACTOR QUANT eCW1 ( [facility]) ID Date Data Source ERYTHROCYTE SEDIMENTATION RATE 11/02/2020 12:00:00 AM EDT eC W1 ([facility]) Name Value Range Interpretation Code Description Data Demetrice rce(s) Supporting Document(s) 29 0-20 ERYTHROCYTE SEDIMENTATION RATE eCW1 ([facility]) ID Date Data Source C REACTIVE PROTEIN QUANTITATIV ([facility]) 11/02/2020 12:00 :00 AM EDT eCW1 ([facility]) Name Value Range Interpretation Code Description Data Demetrice rce(s) Supporting Document(s) 0.56 0.00-0.30 C REACTIVE PROTEIN QUANTI TATIV eCW1 ([facility]) ID Date Data Source Comprehensive Metabolic Profile (CMP) 11/02/2020 12:00:00 AM EDT eCW1 ([facility]) Name Value Range Interpretation Code Description Data Demetrice rce(s) Supporting Document(s) 0.82 0.70-1.30 CREATININE FOR GFR eCW1 ([facility]) 101 70-100 GLUCOSE, FASTING eCW1 ([facility]) 18 7-18 BLOOD UREA NITROGEN eCW1 ([facility]) 141 136-145 SODIUM LEVEL eCW1 ([facility]) > 60.0 >42 GLOMERULAR FILTRATION RATE eCW 1 ([facility]) 4.1 3.5-5.1 POTASSIUM SERUM eCW1 ([facility]) 9.2 8.8-10.2 CALCIUM LEVEL eCW1 ([facility]) 26 21-32 CARBON DIOXIDE LEVEL eCW1 ([facility]) 107 98-107 CHLORIDE LEVEL eCW1 ([facility]) 24 12-78 ALT/SGPT eCW1 ([facility]) 67 45-117 ALKALINE PHOSPHATASE eCW1 ([facility]) 13 7-37 AST/SGOT eCW1 ([facility]) 0.2 0.2-1.0 BILIRUBIN,TOTAL eCW1 ([facility]) 7.1 6.4-8.2 TOTAL PROTEIN eCW1 ([facility]) 3.8 3.2-5.2 ALBUMIN eCW1 ([facility]) 1.2 ALBUMIN/GLOBULIN RATIO eCW1 ([facility]) ID Date Data Source CBC with Differential 11/02/2020 12:00:00 AM EDT eCW1 ([facility]) Name Value Range Interpretation Code Description Data Demetrice rce(s) Supporting Document(s) 9.0 4.0-10.0 WHITE BLOOD COUNT eCW1 ([facility]) 4.36 4.30-6.10 RED BLOOD COUNT eCW1 ([facility]) 13.3 13.5-17.5 HEMOGLOBIN eCW1 ([facility]) 40.2 42.0-52.0 HEMATOCRIT eCW1 ([facility]) 30.5 27.0-33.0 MEAN CORPUSCULAR HEMOGLOB IN eCW1 ([facility]) 92.2 80.0-96.0 MEAN CORPUSCULAR VOLUME e CW1 ([facility]) 12.8 11.5-14.5 RED CELL DISTRIBUTION WID TH eCW1 ([facility]) 202 150-450 PLATELET COUNT, AUTOMATED eCW1 ([facility]) 33.1 32.0-36.5 MEAN CORPUSCULAR HGB CONC eCW1 ([facility]) 33.7 24.0-44.0 LYMPH % eCW1 ([facility]) 52.8 36.0-66.0 NEUTROPHILS % eCW1 ([facility]) 9.2 2.0-8.0 MONO % eCW1 ([facility]) 4.7 1.5-8.5 NEUTROPHILS # eCW1 ([facility]) 3.1 0.0-3.0 EOS % eCW1 ([facility]) 0.8 0.0-1.0 BASO % eCW1 ([facility]) 0.3 0.0-0.5 EOS # eCW1 ([facility]) 0.8 0.0-0.8 MONO # eCW1 ([facility]) 3.0 1.5-5.0 LYMPH # eCW1 ([facility]) 0.1 0.0-0.2 BASO # eCW1 ([facility]) ID Date Data Source [id number] 08/29/2020 09:28:00 AM EDT VINICIO ([facility] Name Value Range Interpretation Code Description Data Demetrice rce(s) Supporting Document(s) BUN 15 mg/dL 8-23 [facility] ([facility] CHRONIC KIDNEY [...] 146 mg/dL 70-110 Above high normal MEDENT ([facility] CHRONIC KIDNEY DISEASE [...] mL/min Normal BUN/Creatinine Ratio 14.6 CALC MEDENT ([facility] CHRONIC KIDNEY DISEASE [...] mL/min Normal Na 138 mmol/L 136-145 [facility] CHRONIC KIDNEY DISEASE STAGING PER [...] >32 mL/min Normal Creat 1.0 mg/dL 0.7-1.2 [place] ([facility] CHRONIC KIDNEY DISEASE STAGING PER [...] >32 mL/min Normal K 4.7 mmol/L 3.5-5.1 VINICIO ([facility] Yenny frank [facility] CHRONIC KIDNEY DISEASE [...] >32 mL/min Normal CL 104.0 mmol/L 98.0-107.0 [place] ([facility] CHRONIC KIDNEY DISEASE STAGING PER [...] mL/min Normal Co2 23.0 mmol/L 22.0-29.0 [facility] CHRONIC KIDNEY DISEASE STAGING [...] >32 mL/min Normal TP 6.9 g/dL 6.6-8.7 [place] ([facility] CHRONIC KIDNEY DISEASE STAGING [...] mL/min Normal CA 9.6 mg/dL 8.6-10.2 MED[facility] ([facility] CHRONIC KIDNEY DISEASE STAGING [...] mL/min Normal Alb 4.3 g/dL 3.5-5.2 MED[facility] ([facility] CHRONIC KIDNEY DISEASE STAGING [...] >32 mL/min Normal A/G Ratio 1.6 CALC VINICIO ([facility] Yennyt mariangel [facility] CHRONIC KIDNEY DISEASE STAGING PER [...] >32 mL/min Normal Alp 82.6 U/L 40-129 [facility] ([facility] Pract m[facility]angel [facility] CHRONIC KIDNEY DISEASE STAGING PER [...] above >32 mL/min Normal Globulin 2.6 CALC VINICIO ([facility] CHRONIC KIDNEY DISEASE [...] Normal Alt (SGPT) 21 U/L 0-41 MED[facility] ([facility] CHRONIC [...] mL/min Normal Osmolality-Calculated 280.1 CALC MED ENT ([facility] [...] Normal Ast (Sgot) 19 U/L 0-40 MED[facility] ([facility] CHRONIC [...] >32 mL/min Normal Tbili 0.41 mg/dL 0.0-1.2 [place] ([facility] CHRONIC KIDNEY [...] above >32 mL/min Normal eGFR 85 # [place] ( [facility] CHRONIC KIDNEY DISEASE STAGING [...] mL/min Normal Anion Gap 16 mmol/L [facility] ([facility] CHRONIC [...] and above >32 mL/min Normal eGFR Non-Afr. Singaporean 73 # MEDENT ([facility] CHRONIC KIDNEY DISEASE [...] >32 mL/min Normal ID Date Data Source [id number] 08/29/2020 09:28:00 AM EDT MEDENT ([facility] [employer] [facility] Name Value Range Interpretation Code Description Data Demetrice rce(s) Supporting Document(s) Hemoglobin A1c/Hemoglobin.total in Blood 6.3 % 4.50-6.20 Above high normal [facility] ([facility] ID Date Data Source [id number] 05/16/2020 08:54:00 AM EST MEDENT ([facility] [employer] [facility] Name Value Range Interpretation Code Description Data Demetrice rce(s) Supporting Document(s) Hemoglobin A1c/Hemoglobin.total in Blood 7.2 % 4.50-6.20 Above high normal [facility] ([facility] ID Date Data Source [id number] 05/16/2020 08:49:00 AM EST [facility] ([facility] Name Value Range Interpretation Code Description Data Demetrice rce(s) Supporting Document(s) Glu 161 mg/dL 70-110 Above high normal MED[facility] ([facility] CHRONIC KIDNEY DISEASE [...] mL/min Normal BUN 15 mg/dL 8-23 MED[facility] ([facility] CHRONIC KIDNEY DISEASE STAGING [...] mL/min Normal BUN/Creatinine Ratio 14.2 Calc MEDENT ([facility] CHRONIC KIDNEY DISEASE [...] mL/min Normal Creat 1.1 mg/dL 0.7-1.2 MED[facility] ([facility] CHRONIC KIDNEY DISEASE STAGING [...] mL/min Normal Na 136 mmol/L 136-145 MED[facility] ([facility] CHRONIC [...] mL/min Normal K 4.2 mmol/L 3.5-5.1 [facility] ([facility] CHRONIC [...] mL/min Normal CL 99.9 mmol/L 98.0-107.0 [facility] ([facility] CHRONIC KIDNEY DISEASE [...] mL/min Normal TP 7.1 g/dL 6.6-8.7 MED[facility] ([facility] CHRONIC KIDNEY DISEASE [...] mL/min Normal CA 9.7 mg/dL 8.6-10.2 [facility] ([facility] CHRONIC KIDNEY DISEASE [...] >32 mL/min Normal Alb 4.5 g/dL 3.5-5.2 [facility] ([facility] CHRONIC KIDNEY DISEASE [...] mL/min Normal A/G Ratio 1.7 Calc MED[facility] ([facility] CHRONIC KIDNEY DISEASE [...] mL/min Normal Alp 81.9 U/L 40-129 MED[facility] ([facility] CHRONIC KIDNEY DISEASE [...] >32 mL/min Normal Globulin 2.6 Calc [facility] ([facility] CHRONIC KIDNEY DISEASE STAGING [...] Normal Alt (SGPT) 23 U/L 0-41 MED[facility] ([facility] Yenny frank [facility] CHRONIC KIDNEY DISEASE [...] Normal Ast (Sgot) 17 U/L 0-40 MED[facility] ([facility] monika [facility] CHRONIC KIDNEY DISEASE STAGING [...] mL/min Normal Tbili 0.40 mg/dL 0.0-1.2 [facility] ([facility] CHRONIC KIDNEY DISEASE STAGING PER [...] mL/min Normal Anion Gap 19 mmol/L MED[facility] ([facility] mariangel [facility] CHRONIC KIDNEY DISEASE STAGING PER [...] above >32 mL/min Normal eGFR 76 # [facility] ( [facility] CKD-EPI eGFR Non-Afr. Singaporean 65 # MEDENT ([facility] CKD-EPI ID Date Data Source [id number] 04/20/2020 03:14:00 PM EST MED[facility] ([facility] Name Value Range Interpretation Code Description Data Demetrice rce(s) Supporting Document(s) Prostate specific Ag [Mass/volume] in Serum or Plasma 0.65 ng/mL 0.00 -4.00 [facility] ([facility]) ID Date Data Source [id number] 04/20/2020 02:21:00 PM EST MED[facility] ([facility]) Name Value Range Interpretation Code Description Data Demetrice rce(s) Supporting Document(s) Glucose [Presence] in Urine Laboratory test result [facility] ([facility]) Ua Nitrite Laboratory test result ME DENT ([facility]) Protein [Presence] in Urine by Test strip Laboratory test result MED[facility] ([facility]) Blood [Presence] in Urine by Visual Laboratory test result MED[facility] ([facility]) Color of Urine Laboratory test result [facility] ([facility]) Ua Leuko Laboratory test result ME DENT ([facility]) Ua Specific [place] Laboratory test result 1.003-1.030 MED[facility] ([facility]) Clarity of Urine Laboratory test result MED[facility] ([facility]) Ketones [Presence] in Urine by Test strip Laboratory test result MED[facility] ([facility]) pH of Urine by Test strip 5.0 5.0-7.5 MED[facility] ([facility]) Urobilinogen [Mass/volume] in Urine by Test strip 0.2 E.U./dL 0.0-1.0 MED[facility] ([facility]) Bilirubin.total [Presence] in Urine by Test strip Laboratory test res ult MEDENT ([facility]) ID Date Data Source [id number] 03/22/2020 07:13:50 AM EST [facility], PCName: Patrick GoodmanDOB: 1945Provider: Jazmine Lu: 03/09/2020 Reason For VisitJosetito Goodman is here today for right hip. [...] the office. Indication: pa in/dysfunction.); Status:Complete; Done: [id number] Perform:[id number]; Due:[id number]; Last Updated By:Shani Linares; 03/09/2020 10:04:32 AM;Ordered; For:Arthralgia of hip; Ordered By:Ida LuWeight Bearing Status : Non-weight bearing Signatures Electronically signed by : Ida Lu NP; Mar 09 2020 3:17PM EST (Author) Electronically signed by : Shay Naranjo M.D.; Mar 22 2020 7:13AM EST Name Value Range Interpretation Code Description Data Demetrice rce(s) Supporting Document(s) ID Date Data Source [id number] 02/15/2020 09:18:00 AM EST MEDENT ([facility] Name Value Range Interpretation Code Description Data Demetrice rce(s) Supporting Document(s) Glu 151 mg/dL 70-110 Above high normal MEDENT ([facility] CHRONIC KIDNEY DISEASE [...] above >32 mL/min Normal BUN 19 mg/dL 8-23 MED[facility] ([facility] CHRONIC KIDNEY DISEASE STAGING [...] mL/min Normal Creat 1.1 mg/dL 0.7-1.2 MED[facility] ([facility] CHRONIC KIDNEY DISEASE STAGING [...] mL/min Normal BUN/Creatinine Ratio 17.5 CALC MEDENT ([facility] CHRONIC KIDNEY DISEASE [...] mL/min Normal K 4.6 mmol/L 3.5-5.1 MED[facility] ([facility] Prac monika [facility] CHRONIC KIDNEY DISEASE [...] mL/min Normal Na 138 mmol/L 136-145 MED[facility] ([facility] CHRONIC KIDNEY DISEASE [...] mL/min Normal Co2 23.3 mmol/L 22.0-29.0 MED[facility] ([facility] CHRONIC KIDNEY DISEASE STAGING PER [...] mL/min Normal CL 101.7 mmol/L 98.0-107.0 MED[facility] ([facility] CHRONIC KIDNEY DISEASE STAGING PER [...] mL/min Normal CA 9.8 mg/dL 8.6-10.2 [facility] ([facility] CHRONIC KIDNEY DISEASE STAGING PER [...] mL/min Normal TP 7.0 g/dL 6.6-8.7 [facility] ([facility] CHRONIC KIDNEY DISEASE STAGING [...] mL/min Normal Alb 4.4 g/dL 3.5-5.2 [facility] ([facility] CHRONIC KIDNEY DISEASE STAGING [...] mL/min Normal A/G Ratio 1.7 CALC [facility] ([facility] CHRONIC KIDNEY DISEASE STAGING [...] >32 mL/min Normal Globulin 2.6 CALC [facility] ([facility] CHRONIC KIDNEY DISEASE STAGING [...] mL/min Normal Alp 81.2 U/L 40-129 [facility] ([facility] CHRONIC KIDNEY DISEASE STAGING [...] Normal Ast (Sgot) 13 U/L 0-40 MED[facility] ([facility] monika [facility] CHRONIC KIDNEY DISEASE STAGING [...] Normal Alt (SGPT) 18 U/L 0-41 [facility] ([facility] CHRONIC KIDNEY DISEASE STAGING [...] mL/min Normal Tbili 0.36 mg/dL 0.0-1.2 MED[facility] ([facility] CHRONIC KIDNEY DISEASE STAGING [...] mL/min Normal Osmolality-Calculated 279.8 CALC MED ENT ([facility] CHRONIC KIDNEY DISEASE [...] >32 mL/min Normal Anion Gap 17 mmol/L [place] ([facility] CHRONIC KIDNEY DISEASE STAGING PER [...] above >32 mL/min Normal eGFR 76 # [facility] ( [facility] CKD-EPI eGFR Non-Afr. Singaporean 66 # MEDENT ([facility] CKD-EPI ID Date Data Source [id number] 02/15/2020 09:18:00 AM EST MEDENT ([facility] Name Value Range Interpretation Code Description Data Demetrice rce(s) Supporting Document(s) Hemoglobin A1c/Hemoglobin.total in Blood 6.6 % 4.50-6.20 Above high normal MED[facility] ([facility] ID Date Data Source [id number] 02/03/2020 01:19:00 PM EST MED[facility] ([facility] Name Value Range Interpretation Code Description Data Demetrice rce(s) Supporting Document(s) Surgical pathology study Laboratory test result MED[facility] ([facility] FINAL DIAGNOSIS Bone, right foot, bunionectomy: Bone, for gross examination only. 02/04/2020839 CLINICAL DIAGNOSIS Hallux valgus rigidus 02/04/2020735 GROSS DIAGNOSIS Received in formalin labeled "right foot bone" and consists of multiple fragments of nava bone measuring 1.5 x 1.5 x 0.8 cm. in aggregate. The specimen is for gross examination only. -SV 02/04/2020735 Signed MARJORIE STEVENS MD 02/04/202040 ID Date Data Source [id number] 02/03/2020 11:12:00 AM EST MEDENT ([facility] Name Value Range Interpretation Code Description Data Demetrice rce(s) Supporting Document(s) Glucose [Mass/volume] in Capillary blood by Glucometer 121 mg/dL 83-110 Above high normal MEDENT ([facility] ) ID Date Data Source [id number] 02/03/2020 11:12:00 AM EST MED[facility] ([facility] Name Value Range Interpretation Code Description Data Demetrice rce(s) Supporting Document(s) Glucose [Mass/volume] in Capillary blood by Glucometer 121 mg/dL 83-110 Above high normal [facility] ([facility] ID Date Data Source [id number] 01/29/2020 09:45:00 AM EST [facility] Name Value Range Interpretation Code Description Data Demetrice rce(s) Supporting Document(s) SARS coronavirus 2 RNA [facility] This lab was ordered by [facility] and reported by [facility]. ID Date Data Source [id number] 01/04/2020 03:18:00 PM EDT MED[facility] ([facility] [facility] Name Value Range Interpretation Code Description Data Demetrice rce(s) Supporting Document(s) Glu 156 mg/dL 70-110 Above high normal MED[facility] ([facility] NORMAL RANGES Age WBC RBC [...] above >32 mL/min Normal BUN 16 mg/dL 8- [facility] NORMAL RANGES Age WBC RBC [...] HCT IS 5% LESS SOURCE FOR DATA: [employer] DYN 1800 OPERATION MANUAL( AUTOMATED BLOOD COUNTS [...] Na 135 mmol/L 136-145 Below low normal [facility] ( [facility] NORMAL RANGES [...] HCT IS 5% LESS SOURCE FOR DATA: [employer] 1800 OPERATION MANUAL( AUTOMATED BLOOD COUNTS AND [...] above >32 mL/min Normal BUN/Creatinine Ratio 14.4 [facility] ([facility] NORMAL RANGES Age [...] HCT IS 5% LESS SOURCE FOR DATA: [employer] 1800 OPERATION MANUAL( AUTOMATED BLOOD COUNTS AND [...] >32 mL/min Normal Creat 1.1 mg/dL 0.7-1.2 [facility] ([facility] NORMAL RANGES [...] HCT IS 5% LESS SOURCE FOR DATA: [employer] 1800 OPERATION MANUAL( AUTOMATED BLOOD COUNTS AND [...] >32 mL/min Normal CL 101.6 mmol/L 98.0-107.0 [facility] ([facility] NORMAL RANGES [...] HCT IS 5% LESS SOURCE FOR DATA: [employer] 1800 OPERATION MANUAL( AUTOMATED BLOOD COUNTS AND [...] >32 mL/min Normal K 3.8 mmol/L 3.5-5.1 [facility] ([facility] NORMAL RANGES Age WBC [...] HCT IS 5% LESS SOURCE FOR DATA: [employer] 1800 OPERATION MANUAL( AUTOMATED BLOOD COUNTS AND [...] >32 mL/min Normal CA 8.9 mg/dL 8.6-10.2 [facility] ([facility] NORMAL RANGES Age WBC [...] HCT IS 5% LESS SOURCE FOR DATA: [employer] 1800 OPERATION MANUAL( AUTOMATED BLOOD COUNTS AND [...] Co2 19.3 mmol/L 22.0-29.0 Below low normal [facility] ([facility] NORMAL RANGES Age WBC RBC [...] HCT IS 5% LESS SOURCE FOR DATA: [employer] 1800 OPERATION MANUAL( AUTOMATED BLOOD COUNTS AND [...] >32 mL/min Normal TP 6.7 g/dL 6.6-8.7 [facility] NORMAL RANGES Age WBC [...] >32 mL/min Normal Alb 4.3 g/dL 3.5-5.2 [facility] NORMAL RANGES Age WBC [...] HCT IS 5% LESS SOURCE FOR DATA: [employer] DYN 1800 OPERATION MANUAL( AUTOMATED BLOOD COUNTS [...] >32 mL/min Normal A/G Ratio 1.8 CALC [facility] ([facility] NORMAL RANGES Age [...] HCT IS 5% LESS SOURCE FOR DATA: [employer] 1800 OPERATION MANUAL( AUTOMATED BLOOD COUNTS AND [...] >32 mL/min Normal Globulin 2.4 CALC [facility] ([facility] NORMAL RANGES Age WBC [...] HCT IS 5% LESS SOURCE FOR DATA: [employer] 1800 OPERATION MANUAL( AUTOMATED BLOOD COUNTS AND [...] mL/min Normal Alt (SGPT) 17 U/L 0-41 [facility] ([facility] NORMAL RANGES Age WBC [...] HCT IS 5% LESS SOURCE FOR DATA: [employer] 1800 OPERATION MANUAL( AUTOMATED BLOOD COUNTS AND [...] >32 mL/min Normal Alp 83.1 U/L 40-129 [facility] ([facility] NORMAL RANGES [...] HCT IS 5% LESS SOURCE FOR DATA: [employer] 1800 OPERATION MANUAL( AUTOMATED BLOOD COUNTS AND [...] >32 mL/min Normal Tbili 0.31 mg/dL 0.0-1.2 [facility] ([facility] NORMAL RANGES Age [...] HCT IS 5% LESS SOURCE FOR DATA: [employer] 1800 OPERATION MANUAL( AUTOMATED BLOOD COUNTS AND [...] mL/min Normal Osmolality-Calculated 274.5 CALC [facility] ([facility] [...] HCT IS 5% LESS SOURCE FOR DATA: [employer] 1800 OPERATION MANUAL( AUTOMATED BLOOD COUNTS AND [...] mL/min Normal Ast (Sgot) 16 U/L 0-40 [facility] ([facility] NORMAL RANGES Age WBC [...] HCT IS 5% LESS SOURCE FOR DATA: [employer] 1800 OPERATION MANUAL( AUTOMATED BLOOD COUNTS AND [...] above >32 mL/min Normal eGFR 76 # V[facility]IC[facility] ( [facility] NORMAL RANGES Age WBC RBC [...] HCT IS 5% LESS SOURCE FOR DATA: [employer] 1800 OPERATION MANUAL( AUTOMATED BLOOD COUNTS AND [...] >32 mL/min Normal Anion Gap 18 mmol/L [facility] NORMAL RANGES Age WBC RBC [...] HCT IS 5% LESS SOURCE FOR DATA: [employer] 1800 OPERATION MANUAL( AUTOMATED BLOOD COUNTS AND [...] and above >32 mL/min Normal eGFR Non-Afr. Singaporean 66 # [facility] ([facility] NORMAL [...] HCT IS 5% LESS SOURCE FOR DATA: [employer] 1800 OPERATION MANUAL( AUTOMATED BLOOD COUNTS AND [...] >32 mL/min Normal ID Date Data Source [id number] 01/04/2020 03:18:00 PM EDT [facility] ([facility] Name Value Range Interpretation Code Description Data Demetrice rce(s) Supporting Document(s) WBC 7.4 10E3/uL 4.1-10.9 [facility] ([facility] NORMAL RANGES Age WBC RBC [...] HCT IS 5% LESS SOURCE FOR DATA: [employer] 1800 OPERATION MANUAL( AUTOMATED BLOOD COUNTS AND [...] >32 mL/min Normal HGB 14.4 g/dL 12.0-18.0 [facility] NORMAL RANGES Age WBC [...] HCT IS 5% LESS SOURCE FOR DATA: [employer] 1800 OPERATION MANUAL( AUTOMATED BLOOD COUNTS AND [...] mL/min Normal RBC 4.63 10E6/uL 4.20-6.30 [facility] ([facility] NORMAL RANGES Age WBC RBC [...] HCT IS 5% LESS SOURCE FOR DATA: [employer] 1800 OPERATION MANUAL( AUTOMATED BLOOD COUNTS AND [...] >32 mL/min Normal MCH 31.1 pg 26.0-32.0 [facility] ([facility] NORMAL [...] HCT IS 5% LESS SOURCE FOR DATA: [employer] 1800 OPERATION MANUAL( AUTOMATED BLOOD COUNTS AND [...] >32 mL/min Normal MCV 88.6 fL 80.0-97.0 [facility] ([facility] NORMAL RANGES [...] HCT IS 5% LESS SOURCE FOR DATA: [employer] 1800 OPERATION MANUAL( AUTOMATED BLOOD COUNTS AND [...] >32 mL/min Normal HCT 41.0 % 37.0-51.0 [facility] ([facility] NORMAL RANGES [...] HCT IS 5% LESS SOURCE FOR DATA: [employer] 1800 OPERATION MANUAL( AUTOMATED BLOOD COUNTS AND [...] >32 mL/min Normal MCHC 35.1 g/dL 31.0-36.0 [facility] ([facility] NORMAL RANGES Age WBC RBC HGB [...] HCT IS 5% LESS SOURCE FOR DATA: [employer] 1800 OPERATION MANUAL( AUTOMATED BLOOD COUNTS AND [...] >32 mL/min Normal PLT 191 10E3/uL 140-440 [facility] ([facility] NORMAL RANGES Age WBC RBC HGB [...] >32 mL/min Normal RDW-CV 13.0 % 11.5-14.5 [facility] NORMAL RANGES Age WBC [...] HCT IS 5% LESS SOURCE FOR DATA: [employer] D[employer] 1800 OPERATION MANUAL( AUTOMATED BLOOD COUNTS [...] >32 mL/min Normal Lym% 33.2 % 10.0-58.5 [facility] ([facility] NORMAL RANGES [...] HCT IS 5% LESS SOURCE FOR DATA: [employer] 1800 OPERATION MANUAL( AUTOMATED BLOOD COUNTS AND [...] >32 mL/min Normal Neut% 59.0 % 37.0-92.0 [facility] ([facility] NORMAL RANGES [...] HCT IS 5% LESS SOURCE FOR DATA: [employer] 1800 OPERATION MANUAL( AUTOMATED BLOOD COUNTS AND [...] >32 mL/min Normal Lym# 2.5 10E3/uL 0.6-4.1 [facility] ([facility] NORMAL RANGES Age WBC RBC [...] HCT IS 5% LESS SOURCE FOR DATA: [employer] 1800 OPERATION MANUAL( AUTOMATED BLOOD COUNTS AND [...] >32 mL/min Normal MXD% 7.8 % 0.1-24.0 [facility] ([facility] NORMAL [...] HCT IS 5% LESS SOURCE FOR DATA: [employer] 1800 OPERATION MANUAL( AUTOMATED BLOOD COUNTS AND [...] >32 mL/min Normal MXD# 0.6 10E3/uL 0.0-1.8 [facility] ([facility] NORMAL RANGES Age WBC RBC [...] HCT IS 5% LESS SOURCE FOR DATA: [employer] 1800 OPERATION MANUAL( AUTOMATED BLOOD COUNTS AND [...] mL/min Normal Neut# 4.3 % 2.0-7.8 [facility] NORMAL RANGES Age WBC RBC [...] HCT IS 5% LESS SOURCE FOR DATA: [employer] 1800 OPERATION MANUAL( AUTOMATED BLOOD COUNTS AND [...] >32 mL/min Normal MPV 10.5 fL 9.0-13.0 [facility] NORMAL RANGES Age WBC RBC [...] HCT IS 5% LESS SOURCE FOR DATA: [employer] 1800 OPERATION MANUAL( AUTOMATED BLOOD COUNTS AND [...] >32 mL/min Normal ID Date Data Source [id number] 12/29/2019 12:00:00 AM EDT [facility] Nikita Lance MD Patient Name: FARHAT GOODMAN [facility] Date of : [address] [address] Date of Exam: 12/29/2019PH#: Fax: [phone] EXAM: CT ABDOMEN & PELVIS [...] Other findings as described above.Accredited by the [employer] in [place].SEGUNDO Rodarte/Seth you for referring PATRICK GOODMAN to our office. Electronically Signed - BANDAR SULLIVAN DO 12/30/19 15:08 Name Value Range Interpretation Code Description Data Demetrice rce(s) Supporting Document(s) ID Date Data Source [id number] 11/25/2019 03:20:14 PM EDT [facility] PCName: Patrick GoodmanDOB: 1945Provider: Sherry [...] for follow-up post CT scan performed in [place].Weight bearing activities are intermittently bothersome. If he lies on the lateral aspect of his hip, this is painful. Results/DataCT scan is visualized from [facility] which reveals cystic changes anterior column with moderate degenerative arthritis anteriorly and [id number] degenerative arthritis posteriorly. AssessmentRight hip: Mild degenerative [...] rce(s) Supporting Document(s) ID Date Data Source [id number] 11/20/2019 12:00:00 AM EDT [facility] Shay Naranjo Patient Name: PATRICK GOODMAN[address] [facility] Date of : 1945[place] [address]- Date of Exam: 11/20/2019PH#: Fax: [phone] EXAM: CT LOWER EXTREMITY W/O CONTRASTCLINICAL INFORMATION: Chronic hip pain.Low dose 64 slice helical scanning through the right hip was obtained using2 mm increments and reconstructed in both coronal and sagittal planes. 3Dreconstructions were also obtained. [facility].No prior dedicated right hip CT's for [...] cyst.IMPRESSION:Degenerative changes as described above.Accredited by the [employer] in [place].SEGUNDO Rodarte/Seth you for referring PATRICK GOODMAN to our office. Electronically Signed - BANDAR SULLIVAN DO 11/20/19 16:13 Name Value Range Interpretation Code Description Data Demetrice rce(s) Supporting Document(s) Procedure Social History Code Duration Value Status Description Data Source(s ) Smoking 11/02/2020 12:00:00 AM EDT Former Smoker completed Former Smoker eCW1 ([facility]) Smoking 11/02/2020 12:00:00 AM EDT Former Smoker completed Former Smoker eCW1 ([facility]) Smoking 05/04/2020 10:36:54 AM EST Ex-smoker (finding) complet ed Ex-smoker (finding) PIERCE (Ricky Finnegan MD [facility]) Smoking 04/20/2020 12:00:00 AM EST Former Cigarette Smoker com pleted Former Cigarette Smoker [facility] ([facility]) Smoking 03/08/2020 09:40:09 AM EST Ex-smoker (finding) complet ed Ex-smoker (finding) [facility]ER[facility] (Ricky Finnegan MD [facility]) Vital Signs ID Date Data Source [id number] Name Value Range Interpretation Code Description Data Source(s) Systolic blood pressure 121 mm[Hg] 121 mm[Hg] M EDENT ([facility] ) Body mass index (BMI) [Ratio] 32.7 kg/m2 32.7 k g/m2 MEDGISELE ([facility]) Respiratory rate 15 /min 15 /min [facility] ( [facility]) Diastolic blood pressure 71 mm[Hg] 71 mm[Hg] [facility] ([facility]) Heart rate 63 /min 63 /min [facility] ([facility]) Body temperature 96.8 [degF] 96.8 [degF] [facility] ([facility]) Body height 69.5 [in_i] 69.5 [in_i] [facility] ([facility]) 5'9.50" Body weight 225.00 [lb_av] 225.00 [lb_av] MEDEN T ([facility]) Respiratory rate 18 /min 18 /min [facility] ( [facility] Body height 70 [in_i] 70 [in_i] MED[facility] ([facility] 5'10" Body weight 225.00 [lb_av] 225.00 [lb_av] MEDEN T ([facility] Spencer body weight 166 [lb_av] 166 [lb_av] MEDEN T ([facility] Body mass index (BMI) [Ratio] 32.3 kg/m2 32.3 k g/m2 [facility] ([facility] Body temperature 97.4 [degF] 97.4 [degF] [facility] ([facility] Systolic blood pressure 124 mm[Hg] 124 mm[Hg] M EDENT ([facility] Diastolic blood pressure 80 mm[Hg] 80 mm[Hg] [facility] ([facility] Heart rate 60 /min 60 /min [facility] ([facility] Oxygen saturation in Arterial blood by Pulse oximetry 97 % 97 % [facility] ([facility] Body weight 225.00 [lb_av] 225.00 [lb_av] MEDEN T ([facility] Heart rate 60 /min 60 /min [facility] ([facility] Spencer body weight 166 [lb_av] 166 [lb_av] MEDEN T ([facility] Respiratory rate 18 /min 18 /min MED[facility] ( [facility] Systolic blood pressure 118 mm[Hg] 118 mm[Hg] M EDENT ([facility] Diastolic blood pressure 60 mm[Hg] 60 mm[Hg] [facility] ([facility] Body temperature 97.5 [degF] 97.5 [degF] [facility] ([facility] Body height 70 [in_i] 70 [in_i] MED[facility] ([facility] 5'10" Body mass index (BMI) [Ratio] 32.3 kg/m2 32.3 k g/m2 [facility] ([facility] Oxygen saturation in Arterial blood by Pulse oximetry 97 % 97 % [facility] ([facility] Body weight 231.2 [lb_av] 231.2 [lb_av] eCW1 ([facility]) Body weight 104.87 kg 104.87 kg eCW1 ([facility]) Body height 70 [in_i] 70 [in_i] eCW1 ([facility]) Body mass index (BMI) [Ratio] 33.17 kg/m2 33.17 kg/m2 W1 ([facility]) Heart rate 59 /min 59 /min eCW1 ([facility]) Respiratory rate 18 /min 18 /min eCW1 ([facility]) Body temperature 97.9 [degF] 97.9 [degF] eCW1 ( [facility]) Systolic blood pressure 122 mm[Hg] 122 mm[Hg] e CW1 ([facility]) Diastolic blood pressure 60 mm[Hg] 60 mm[Hg] eCW1 ([facility]) Systolic blood pressure 120 mm[Hg] 120 mm[Hg] [...] Body height 70 [in_i] 70 [in_i] MEDENT ([facility] 5'10" Body weight 230.00 [lb_av] 230.00 [lb_av] MEDEN T ([facility] Spencer body weight 166 [lb_av] 166 [lb_av] MEDEN T ([facility] Body mass index (BMI) [Ratio] 33.0 kg/m2 33.0 k g/m2 [facility] ([facility] Oxygen saturation in Arterial blood by Pulse oximetry 97 % 97 % [facility] ([facility] Body temperature 97.1 [degF] 97.1 [degF] [facility] ([facility]) Body height 68 [in_i] 68 [in_i] [facility] ([facility]) 5'8" Body weight 227.50 [lb_av] 227.50 [lb_av] MEDEN T ([facility]) Body mass index (BMI) [Ratio] 34.6 kg/m2 34.6 k g/m2 [facility] ([facility]) Oxygen saturation in Arterial blood by Pulse oximetry 97 % 97 % [facility] ([facility] Systolic blood pressure 124 mm[Hg] 124 mm[Hg] M EDENT ([facility] Body temperature 98.4 [degF] 98.4 [degF] [facility] ([facility] Spencer body weight 166 [lb_av] 166 [lb_av] MEDEN T ([facility] Body mass index (BMI) [Ratio] 31.6 kg/m2 31.6 k g/m2 [facility] ([facility] Diastolic blood pressure 80 mm[Hg] 80 mm[Hg] MED[facility] ([facility] Heart rate 54 /min 54 /min [facility] ([facility] Respiratory rate 16 /min 16 /min MED[facility] ( [facility] Body height 70 [in_i] 70 [in_i] MEDENT ([facility] 5'10" Body weight [...] Body height 70 [in_i] 70 [in_i] MEDENT ([facility] 5'10" Body weight 220.00 [lb_av] 220.00 [lb_av] MEDEN T ([facility] Spencer body weight 166 [lb_av] 166 [lb_av] MEDEN T ([facility] Body mass index (BMI) [Ratio] 31.6 kg/m2 31.6 k g/m2 [facility] ([facility] Body height 70 [in_i] 70 [in_i] MEDENT ([facility] 5'10" Body weight 236.00 [lb_av] 236.00 [lb_av] MEDEN T ([facility] Spencer body weight 166 [lb_av] 166 [lb_av] MEDEN [...] Body temperature 97.9 [degF] 97.9 [degF] MEDENT ([facility] Heart rate 62 /min 62 /min MED[facility] ([facility] Respiratory rate 16 /min 16 /min MEDENT ( [facility] Body height 68 [in_i] 68 [in_i] MED[facility] ([facility] ) 5'8" Body weight 233.38 [lb_av] 233.38 [lb_av] MEDEN T ([facility] ) Body mass index (BMI) [Ratio] 35.5 kg/m2 35.5 k g/m2 [facility] ([facility] ) Body temperature 97.1 [degF] 97.1 [degF] MED[facility] ([facility] ) Oxygen saturation in Arterial blood by Pulse oximetry 97 % 97 % MED[facility] ([facility] Spencer body weight 166 [lb_av] 166 [lb_av] MEDEN T ([facility] Systolic blood pressure 134 mm[Hg] 134 mm[Hg] M EDENT ([facility] Diastolic blood pressure 78 mm[Hg] 78 mm[Hg] MEDENT ([facility] Body temperature 97.6 [degF] 97.6 [degF] MED[facility] ([facility] Heart rate 58 /min 58 /min MED[facility] ([facility] Respiratory rate 16 /min 16 /min MED[facility] ( [facility] Body height 70 [in_i] 70 [in_i] MEDENT ([facility] 5'10" Body weight 243.00 [lb_av] 243.00 [lb_av] MEDEN T ([facility] Body mass index (BMI) [Ratio] 34.9 kg/m2 34.9 k g/m2 [facility] ([facility] Body temperature 96.4 [degF] 96.4 [degF] [facility] ([facility] ) Body height 68 [in_i] 68 [in_i] MED[facility] ([facility]) 5'8" Body weight 241.00 [lb_av] 241.00 [lb_av] MEDEN T ([facility]) Body mass index (BMI) [Ratio] 36.6 kg/m2 36.6 k g/m2 [facility] ([facility]) Body temperature 97.6 [degF] 97.6 [degF] [facility] ([facility] Systolic blood pressure 114 mm[Hg] 114 mm[Hg] M EDENT ([facility] Spencer body weight 166 [lb_av] 166 [lb_av] MEDEN T ([facility] Body mass index (BMI) [Ratio] 35.0 kg/m2 35.0 k g/m2 MED[facility] ([facility] Oxygen saturation in Arterial blood by Pulse oximetry 95 % 95 % MED[facility] ([facility] Diastolic blood pressure 64 mm[Hg] 64 mm[Hg] MED[facility] ([facility] Heart rate 70 /min 70 /min MED[facility] ([facility] Respiratory rate 18 /min 18 /min MEDENT ( [facility] Body height 70 [in_i] 70 [in_i] MEDENT ([facility] 5'10" Body weight 244.00 [lb_av] 244.00 [lb_av] MEDEN T ([facility] Body mass index (BMI) [Ratio] 33.5 kg/m2 33.5 k g/m2 [facility] ([facility]) Systolic blood pressure 139 mm[Hg] 139 mm[Hg] M EDENT ([facility]) Diastolic blood pressure 77 mm[Hg] 77 mm[Hg] [facility] ([facility]) Heart rate 56 /min 56 /min [facility] ([facility] Body height 71 [in_i] 71 [in_i] [facility] ([facility] 5'11" Body weight 240.00 [lb_av] 240.00 [lb_av] MEDEN T ([facility]) Body weight 108.864 kg 108.864 kg [facility] ([facility] Diastolic blood pressure 74 mm[Hg] 74 mm[Hg] [facility] ( [facility] Body temperature 97.4 [degF] 97.4 [degF] MED[facility] ( [facility] Heart rate 60 /min 60 /min MED[facility] ( [facility] Respiratory rate 16 /min 16 /min MED[facility] ( [facility] Systolic blood pressure 120 mm[Hg] 120 mm[Hg] M EDENT ( [facility] Body weight 242.00 [lb_av] 242.00 [lb_av] MEDEN T ( [facility] Spencer body weight 166 [lb_av] 166 [lb_av] MEDEN T ( [facility] Body mass index (BMI) [Ratio] 34.7 kg/m2 34.7 k g/m2 MED[facility] ( [facility] Oxygen saturation in Arterial blood by Pulse oximetry 95 % 95 % MED[facility] ( [facility] Body height 70 [in_i] 70 [in_i] MEDENT ([facility] 5'10" Respiratory rate 14 /min 14 /min MED[facility] ( [facility] Systolic blood pressure 124 mm[Hg] 124 mm[Hg] M EDENT ( [facility] Diastolic blood pressure 76 mm[Hg] 76 mm[Hg] MEDENT ( [facility] Heart rate 72 /min 72 /min [facility] ([facility] Body weight 239.00 [lb_av] 239.00 [lb_av] MEDEN T ( [facility] Respiratory rate 16 /min 16 /min MED[facility] ( [facility] Body temperature 98.0 [degF] 98.0 [degF] MED[facility] ([facility] Heart rate 64 /min 64 /min MED[facility] ( [facility] Body height 70 [in_i] 70 [in_i] MEDENT ([facility] 5'10" Body weight 239.00 [lb_av] 239.00 [lb_av] MEDEN T ([facility] Systolic blood pressure 128 mm[Hg] 128 mm[Hg] M EDENT ([facility] Diastolic blood pressure 74 mm[Hg] 74 mm[Hg] MEDENT ([facility] Spencer body weight 166 [lb_av] 166 [lb_av] MEDEN T ([facility] Body mass index (BMI) [Ratio] 34.3 kg/m2 34.3 k g/m2 [facility] ([facility] Oxygen saturation in Arterial blood by Pulse oximetry 97 % 97 % [facility] ([facility] Body temperature 97.6 [degF] 97.6 [degF] [facility] ([facility] Spencer body weight 166 [lb_av] 166 [lb_av] MEDEN T ([facility] Body height 70 [in_i] 70 [in_i] MED[facility] ([facility] 5'10" Body weight 239.00 [lb_av] 239.00 [lb_av] MEDEN T ([facility] Body mass index (BMI) [Ratio] 34.3 kg/m2 34.3 k g/m2 [facility] ([facility] Systolic blood pressure 126 mm[Hg] 126 mm[Hg] M EDENT ([facility] Diastolic blood pressure 76 mm[Hg] 76 mm[Hg] [facility] ([facility] Heart rate 66 /min 66 /min [facility] ([facility] Respiratory rate 18 /min 18 /min [facility] ( [facility] Oxygen saturation in Arterial blood by Pulse oximetry 96 % 96 % [facility] ([facility] Systolic blood pressure 126 mm[Hg] 126 mm[Hg] M EDENT ([facility] Diastolic blood pressure 88 mm[Hg] 88 mm[Hg] [facility] ([facility] Heart rate 58 /min 58 /min [facility] ([facility] Body mass index (BMI) [Ratio] 34.4 kg/m2 34.4 k g/m2 [facility] ([facility] Body height 70 [in_i] 70 [in_i] [facility] ([facility] 5'10" Body weight 240.00 [lb_av] 240.00 [lb_av] MEDEN T ([facility] Heart rate 84 /min 84 /min [facility] ([facility] Respiratory rate 18 /min 18 /min [facility] ( [facility] Spencer body weight 166 [lb_av] 166 [lb_av] MEDEN T ([facility] Systolic blood pressure 130 mm[Hg] 130 mm[Hg] M EDENT ([facility] Diastolic blood pressure 72 mm[Hg] 72 mm[Hg] [facility] ([facility] Body temperature 97.5 [degF] 97.5 [degF] [facility] ([facility] Body height 70 [in_i] 70 [in_i] [facility] ([facility] 5'10" Body weight 242.00 [lb_av] 242.00 [lb_av] MEDEN T ([facility] Body mass index (BMI) [Ratio] 34.7 kg/m2 34.7 k g/m2 [facility] ([facility] Oxygen saturation in Arterial blood by Pulse oximetry 95 % 95 % [facility] ([facility] ID Date Data Source [id number] 01/12/2021 12:50:00 PM EDT [facility] Name Value Range Interpretation Code Description Data Source(s) WEIGHT 104.54 kilos 104.54 kilos [facility] HEIGHT 177.8 centimeters 177.8 centimeters [facility]
--- NOTE | 2021-01-12 16:59 | HPEPDOC ---
[facility] Medical History & Physical Date of Admission Jan 12, 2021 Date of Service: Jan 12, 2021 Attending Physician: ARJUN SMITH MD History and Physical CHIEF COMPLAINT: Abdominal discomfort HISTORY OF PRESENT ILLNESS: Mr. Lepe is a 75 yo male with a PMH of NIDDM2 with diabetic neuropathy, GERD who presents with constipation s/p right hip replacement surgery on (01/10). Pt states he hasn't had a bowl movement since Saturday (01/09) but has been able to pass gas. Pt has been on Percocet and Xarelto s/p surgery for which he takes. He has not contacted his surgeon Dr. Nba Desai at [facility] regarding this situation. Upon presentation to the ED, pt was given senna which pt states does not help. Pt also refused to take his Percocet stating it would "cause him to not move his bowels". Pt denies any abdominal pain but admits to diffuse abdominal discomfort, bloating, and nausea with symptoms beginning after surgery. Pt denies of any fevers, chills, headaches, cough, sore throat, SOB, chest pain, palpitations, numbness or tingling. Pt admits to right hip pain that radiates to his groin that worsens with movement and is controlled with pain medications; however, not significant change since yesterday. PAST MEDICAL HISTORY: 1. IDDMT2. 2. GERD. PAST SURGICAL HISTORY: 1. Cataracts of right eye 2016. 2. [place]3 laminectomy, cervical stabilization. 3. Laparoscopic cholecystectomy 2002 4. Urolift. 5. Carpal tunnel 6. Cubital tunnel 7. Bilateral total hip replacement - Left 2015, Right 12/2020 8. Back surgery L5-S1 SOCIAL HISTORY: Marital status: Single. Resides in: Home Children: Son Tobacco use:Former smoker. Quit 2014. Smoked 0.5 PPD for 35 years ETOH: Socially Recreational drug use: Took MJ gummies before surgery, but not a chronic FAMILY HISTORY: No relevant history ALLERGIES: Please see below. REVIEW OF SYSTEMS: CONSTITUTIONAL: Denies fevers or chills. HEENT: Denies MOTA, dizziness, sore throat. CARDIOVASCULAR: Denies palpitations or chest pain. RESPIRATORY: Denies SOB, coughing, wheezing. GASTROINTESTINAL: Denies vomiting and abdominal pain. Admits to nausea, bloating, and diffuse abdominal tenderness. GENITOURINARY: Denies polyuria and dysuria. MUSCULOSKELETAL: Admits to right hip pain and back pain. NEUROLOGICAL: Denies numbness or tingling. HOME MEDICATIONS: Please see below. PHYSICAL EXAMINATION: VITAL SIGNS: Temperature 98.7, pulse 73, respiratory rate 16, blood pressure 162/72, pulse oximetry 96% on room air. GENERAL APPEARANCE: Pt appears stated age sitting comfortably in bed in NAD. Pt is awake and has a pleasant demeanor. HEENT: Head AT, NC. Eyes EOMI. No JVD. Trachea midline. CARDIOVASCULAR: RRR. Systolic murmur best heard at apex. LUNGS: CTA b/l. No wheeze, rales, crackles. No accessory muscles used. ABDOMEN: Soft, nontender to deep palpation, normal bowel sounds heard. No guarding, rebound or rigidity. MUSCULOSKELETAL: Moves all extremities. Right hip pain upon movement, movement is restricted. EXTREMITIES: Pedal pulses 2+. SKIN: Multiple skin tags noted throughout chest and abdomen. Skin around surgical site is non-erythematous, warm, and has a clean and intact dressing. NEUROLOGICAL: Sensation intact, normal speech, no motor defects. PSYCHIATRIC: Mood and affect normal. LABORATORY DATA: See below. IMAGING: XR Abd 01/12 No free air. There are a few mildly dilated small bowel loops in the mid abdomen which may represent an ileus. CT abd/pel 01/12 There are a few gas and fluid-filled small bowel loops in the abdomen and a nonspecific fashion. These are not particularly dilated. Ileus is suspected. MICROBIOLOGY: Please see below. ASSESSMENT AND PLAN: Mr. Lepe is a 75 yo male with a PMH of IDDT2 and GERD who presents with no bowel movements since Saturday (01/09) s/p surgery two days ago (01/10) with nausea and bloating. Pt states he has been able to pass gas. Pt admitted to [facility] for constipation. #Abdominal discomfort - likely 2/2 Constipation; less likely 2/2 ileus -Pt found to have possible ileus on imaging though less likely ileus since pt is able to pass gas. -Pt has not had a BM since Saturday (01/10). -Start Dulcolax suppository 10 mg BID -Start Lactulose 30 ml q6hr -c/t home med Bacid and Mag-Ox -c/t monitor I/O #Right hip pain s/p total hip arthroplasty -No signs of local or systemic infection. -Surgical site appears to be healing well and dressing is clean and intact. -Pain controlled with Percocet, Barnhart, and Tylenol PRN -c/t Xarelto as per surgery (Dr. Desai). -Start PT/OT. -Fall precautions. #Leucocytosis -Leucocytosis of 12.1 (it was 13.8 on 01/11) which seems to be more of reactionary to recent surgery and less likely due to a local or systemic infection. -Skin around surgical site is non-erythematous, warm, and has a clean and intact dressing. -Pt has been afebrile and denies any fevers, chills, SOB, palpitations or urinary discomfort -Continue to monitor for clinical improvement NIDDM2 -Fasting glu 100 -c/t SSI with Humalog -c/t home med glipizide -c/t POC glucose #Nausea -c/t Zofran PRN #Diabetic neuropathy -c/t home med gabapentin and cyclobenzaprine #GERD -c/t home med sucralfate DVT Ppx: Pt on Xeralto Diet: - Clear liquids Code: - DNR/DNI - Discussed code status with pt. Pt states he wishes to be DNR and DNI. Ambulation: - Assisted ambulation / Fall precautions Disposition: - Home pending clinical improvement Vital Signs Vital Signs Date Time Temp Pulse Resp B/P (MAP) Pulse Ox O2 Delivery O2 Flow Rate FiO2 01/12/21 13:26 16 01/12/21 12:59 72 149/63 (91) 97 Room Air 01/12/21 08:29 98.9 Laboratory Data Labs 24H Laboratory Tests 2 01/12/21 09:25: Immature Granulocyte % (Auto) 0.4, Neutrophils (%) (Auto) 77.2H, Lymphocytes (%) (Auto) 12.5L, Monocytes (%) (Auto) 9.5H, Eosinophils (%) (Auto) 0.2, Basophils (%) (Auto) 0.2, Neutrophils # (Auto) 9.3H, Lymphocytes # (Auto) 1.5, Monocytes # (Auto) 1.2H, Eosinophils # (Auto) 0.0, Basophils # (Auto) 0.0, Nucleated Red Blood Cells % (auto) 0.0, Erythrocyte Sedimentation Rate 53H, Anion Gap 5L, Glomerular Filtration Rate > 60.0, Calcium Level 9.6, Total Bilirubin 0.9, Aspar pinzon Amino Transf (AST/SGOT) 65H, Alanine Aminotransferase (ALT/SGPT) 43, Alkaline Phosphatase 55, C-Reactive Protein, Quantitative 16.80H, Total Protein 7.1, Albumin 3.0L, Albumin/Globulin Ratio 0.7 01/12/21 13:18: Coronavirus (COVID-19)(PCR) NEGATIVE, Influenza Type A (RT-PCR) NEGATIVE, Influenza Type B (RT-PCR) NEGATIVE, Respiratory Syncytial Virus (PCR) NEGATIVE CBC/BMP Laboratory Tests 01/12/21 09:25 Home Medications Scheduled Cholecalciferol (Vitamin D3) (Vitamin D3) 50 Mcg Capsule, 50 MCG PO 2XW DAYS VARY Cyanocobalamin (Vitamin B-12) (Vitamin B-12) 1,000 Mcg Tab, 1,000 MCG PO QWEEK DAY VARIES Gabapentin (Gabapentin) 600 Mg Tablet, 600 MG PO QID Glipizide (Glipizide ER) 10 Mg Tab.er.24, 10 MG PO DAILY Lactobacillus Acidophilus (Probiotic) 1 Each Capsule, 1 CAP PO 3XW SATURDAY, SATURDAY, SATURDAY Magnesium Oxide (Magnesium) 400 Mg Cap, 400 MG PO 2XW DAYS VARY [place]-3/Dha/Epa/Fish Oil (Fish Oil 1,600 mg/5 ml Liquid) 1,600 Mg/5 Ml Liquid, 1,600 MG PO 3XW DAYS VARY Rivaroxaban (Xarelto) 10 Mg Tablet, 10 MG PO DAILY Scheduled PRN Acetaminophen (Acetaminophen) 500 Mg Tablet, 1,000 MG PO TID PRN for PAIN LEVEL 1-4 Cyclobenzaprine HCl (Cyclobenzaprine HCl) 10 Mg Tablet, 10 MG PO QHS PRN for MUSCLE SPASMS Hydrocodone/Acetaminophen (Hydrocodone-Acetamin 5-325 mg) 1 Each Tablet, 1 TAB PO Q6H PRN for PAIN LEVEL 5-10 Sennosides (Senna) 8.6 Mg Tablet, 2 TAB PO BID PRN for CONSTIPATION Sucralfate (Sucralfate) 1 Gm Tab, 1 GM PO WM PRN for INDIGESTION Allergies Coded Allergies: Sulfa (Sulfonamide Antibiotics) (Verified Allergy, Severe, SWELLING, 02/03/20) codeine (Verified Allergy, Severe, swelling, 02/03/20) Penicillins (Verified Allergy, Intermediate, hives, 02/03/20) vancomycin (Verified Allergy, Intermediate, hives, 02/03/20) meperidine (Verified Adverse Reaction, Intermediate, couldn't walk for 2 days, 02/03/20) A-FIB/CHADSVASC A-FIB History Current/History of A-Fib/PAF?: No Current PO Anticoag Therapy: Yes Age/Risk Factor Scoring CHADSVASC: CHADSVASC Response (Comments) Value Age Risk Factor Age >/= 75 years old 2 Gender Risk Factor Male 0 Hx of CHF No 0 Hx of HTN No 0 Hx of Stroke/TIA/or VTE No 0 Hx of Diabetes Yes 1 Hx of Vascular Disease No 0 Total 3 GME ATTESTATION GME ATTESTATION My faculty preceptor for this patient encounter was physically present during the encounter and was fully available. All aspects of the patient interview, examination, medical decision making process, and medical care plan development were reviewed and approved by the faculty preceptor. The faculty preceptor is aware and concurs with the plan as stated in the body of this note and will attest to such by his/her cosignature. ATTENDING NOTE I, Arjun Smith, have independently examined this patient and performed my own physical exam, as well as reviewed the documentation and edited where necessary with the resident. For medical students we have performed the physical exam together and discussed medical decision making and I have verified the history. I have discussed in detail with the resident / student the findings and plan of treatment as documented by the resident / student and edited their note. I agree with their findings and treatment plan and have edited their documentation. I will continue to follow the patient during this hospital stay. ANTONIA ACKERMAN [facility] Jan 12, 2021 16:59 Luna Ziegler DO Jan 12, 2021 17:49 ARJUN SMITH MD Jan 12, 2021 18:16
[2021-01-12] MEDS ORDERED: SENNA 8.6 MG TAB (SENOKOT) PO PRN (17:10)
[2021-01-12] MEDS ORDERED: CYCLOBENZAPRINE 10MG TABLET PO PRN (17:10)
[2021-01-12] MEDS ORDERED: ONDANSETRON 4 MG TAB PO PRN (17:10)
[2021-01-12] MEDS ORDERED: SUCRALFATE 1 GM TAB PO PRN (17:10)
[2021-01-12] MEDS ORDERED: NORCO, ANEXSIA 5/325MG TABLET (HYDROcodone/ACETAMINOPHEN) PO PRN (17:10)
[2021-01-12] MEDS ORDERED: GLUCOSE 4GM CHEW TABLET PO PRN (17:25)
[2021-01-12] MEDS ORDERED: DEXTROSE 50% 50 ML SYRINGE IV PRN (17:25)
[2021-01-12] MEDS ORDERED: GLUCAGON INJ 1MG VIAL SC PRN (17:25)
[2021-01-12] MEDS: GABAPENTIN 300 MG CAP PO SCH ×2 (18:04→22:27)
[2021-01-12] MEDS: PERCOCET 5MG/325MG TAB PO PRN (18:04)
[2021-01-12] MEDS: LACTULOSE 20 GM/30 ML SYRUP UD PO SCH (18:05)
[2021-01-12] MEDS: HumaLOG INSULIN (NovoLOG) PER UNIT SC SCH ×2 (18:34→21:00)
[2021-01-12 19:13] LABS: INR 1.15; PROTHROMBIN TIME 15.2 SECONDS (12.7-14.5)
[2021-01-12 19:14] LABS: PARTIAL THROMBOPLASTIN TIME 36.2 SECONDS (25.9-37.0)
[2021-01-12 21:56] VITALS: BP 131/80
[2021-01-12] MEDS: ACETAMINOPHEN 500 MG TAB PO PRN (22:27)
[2021-01-12] MEDS: BISACODYL 10 MG SUPP PR SCH (22:28)
[2021-01-13] MEDS: LACTULOSE 20 GM/30 ML SYRUP UD PO SCH ×3 (02:50→12:00)
[2021-01-13 06:00] VITALS: BP 120/66
[2021-01-13] MEDS: BISACODYL 10 MG SUPP PR SCH (07:11)
[2021-01-13] MEDS: GABAPENTIN 300 MG CAP PO SCH ×4 (08:59→22:01)
[2021-01-13] MEDS: HumaLOG INSULIN (NovoLOG) PER UNIT SC SCH ×5 (08:59→20:52)
[2021-01-13] MEDS: glipiZIDE XL 5 MG TABCR PO SCH (08:59)
[2021-01-13] MEDS: LACTOBACILLUS ACIDOPHILUS CAP (BACID) PO SCH (08:59)
[2021-01-13] MEDS: RIVAROXABAN 10 MG TAB (XARELTO) PO SCH (08:59)
[2021-01-13 09:08] LABS: HEMATOCRIT 37.9 % (42.0-52.0); HEMOGLOBIN 12.6 g/dl (13.5-17.5); MEAN CORPUSCULAR HEMOGLOBIN 30.9 pg (27.0-33.0); MEAN CORPUSCULAR HGB CONC 33.2 g/dl (32.0-36.5); MEAN CORPUSCULAR VOLUME 92.9 fl (80.0-96.0); PLATELET COUNT, AUTOMATED 164 10^3/uL (150-450); RED BLOOD COUNT 4.08 10^6/uL (4.30-6.10); WHITE BLOOD COUNT 12.1 10^3/uL (4.0-10.0)
[2021-01-13 09:36] LABS: BLOOD UREA NITROGEN 17 MG/DL (7-18); CALCIUM LEVEL 9.1 MG/DL (8.8-10.2); CARBON DIOXIDE LEVEL 26 MEQ/L (21-32); CHLORIDE LEVEL 106 MEQ/L (98-107); GLOMERULAR FILTRATION RATE > 60.0 (>42); GLUCOSE, FASTING 119 MG/DL (70-100); MAGNESIUM LEVEL 1.9 MG/DL (1.8-2.4); SODIUM LEVEL 139 MEQ/L (136-145)
--- NOTE | 2021-01-13 13:12 | DS.PDOC ---
Discharge Summary General Date of Admission Jan 12, 2021 at 15:35 Date of Discharge Jan 13, 2021 Discharge Summary PROCEDURES PERFORMED DURING STAY: None. ADMITTING DIAGNOSES: 1. Constipation 2. Ileus 3. Right hip osteoarthritis s/p total hip arthroplasty 4. NIDDM2 5. Diabetic neuropathy 6. GERD 7. Intervertebral Disc displacement, Lumbar region 8. Intervertebral Disc displacement, Cervical region DISCHARGE DIAGNOSES: 1. Constipation. 2. Right hip osteoarthritis s/p total hip arthroplasty 3. NIDDM2 4. Diabetic neuropathy 5. GERD 6. Intervertebral Disc displacement, Lumbar region 7. Intervertebral Disc displacement, Cervical region COMPLICATIONS/CHIEF COMPLAINT: Constipation, Nausea, abdominal discomfort HISTORY OF PRESENT ILLNESS: Mr. Lepe is a 75 yo male with a PMH of NIDDM2 with diabetic neuropathy, GERD who presents (01/12) with complaint of not having a BM of three days since Saturday (01/09). Pt had a right hip replacement surgery on (01/10) and was discharged on Tylenol and Xarelto s/p surgery. Pt has not contacted his surgeon Dr. Nba Desai at [facility] regarding this situation before coming to the hospital. Upon presentation to the ED, pt denies any abdominal pain but admits to diffuse abdominal discomfort, bloating, and nausea with symptoms beginning after surgery. Pt denies of any fevers, chills, headaches, cough, sore throat, SOB, chest pain, palpitations, numbness or tingling. Pt admits to right hip pain that radiates to his groin that worsens with movement and is controlled with pain medications; however, is not a significant change since the day before. Imaging XR of abdomen and CT abd/pel found few mildly dilated small bowel loops in the mid abdomen suggestive of an ileus. Pt was given senna and lactulose in the ED to encourage a BM. Discussed code status with pt upon admission. Pt states he wishes to be DNR and DNI. HOSPITAL COURSE: Pt was admitted to [facility] for constipation and possible ileus. Though pt was found to have possible ileus on imaging, an ileus was less likely due to pt able to pass gas. Pt had a large BM the next morning (01/13) with well formed stools. Pt states he still feels a bit nauseous but feels much better after the BM. Pt states the generalized abdominal discomfort is still the same as compared to when he was presented to the hospital yesterday. Pt was found to have a leucocytosis of 12.1 which seems to be more of reactionary to recent surgery and less likely due to a local or systemic infection as the leucocytosis was trending down from 13.8 s/p surgery on 01/11; thus antibiotics were deferred at this time. Pt's s/p surgery discharge medication Xeralto was continued throughout the pt's hospitalization. PT and OT was consulted to help with post- op early mobility. In regards to the pt's right hip pain s/p total hip arthroplasty, there were no signs of local or systemic infection. The pt remained afebrile throughout the hospitalization and denies any fevers, chills, headaches, cough, sore throat, SOB, chest pain, palpitations, numbness or tingling. The surgical site appears to be healing well with the skin around the surgical site non-erythematous, warm, nondraining with the dressing clean and intact. Pt is medically optimized and does not require hospital level of care. Discussed with pt discharge to rehab given the pt lives alone and may need further care given his recent surgery. DISCHARGE MEDICATIONS: Please see below. PHYSICAL EXAMINATION ON DISCHARGE: VITAL SIGNS: Temperature 97.9, pulse 59, respiratory rate 15, blood pressure 120/66, pulse oximetry 95 % on room air. GENERAL APPEARANCE: Pt appears stated age sitting comfortably in bed in NAD. Pt is awake and has a pleasant demeanor. HEENT: Head AT, NC. Eyes EOMI. No JVD. Trachea midline. CARDIOVASCULAR: RRR. Systolic murmur best heard at apex. LUNGS: CTA b/l. No wheeze, rales, crackles. No accessory muscles used to breath. ABDOMEN: Soft, nontender to deep palpation, normal bowel sounds heard. No guarding, rebound or rigidity. MUSCULOSKELETAL: Moves all extremities. Right hip pain upon movement, movement is restricted with limited flexion. EXTREMITIES: Pedal pulses 2+ appreciated. SKIN: Multiple skin tags noted throughout chest and abdomen. Skin around surgical site is non-erythematous, warm, and has a clean and intact dressing. NEUROLOGICAL: Sensation intact, normal speech, no motor defects. PSYCHIATRIC: Mood and affect normal. LABORATORY DATA: Please see below. IMAGING: XR Abd 01/12 No free air. There are a few mildly dilated small bowel loops in the mid abdomen which may represent an ileus. CT abd/pel 01/12 There are a few gas and fluid-filled small bowel loops in the abdomen and a nonspecific fashion. These are not particularly dilated. Ileus is suspected. PROGNOSIS: Good ACTIVITY: As tolerated. DIET: Regular DISCHARGE PLAN: DISPOSITION: DISCHARGE INSTRUCTIONS: 1. Follow up with PCP and surgery within one week. ITEMS TO FOLLOWUP ON ON OUTPATIENT: 1. Leucocytosis. 2. PT/OT 3. Right hip s/p total right hip arthroplasty DISCHARGE CONDITION: Stable. TIME SPENT ON DISCHARGE: minutes. Vital Signs/I&Os Vital Signs Date Time Temp Pulse Resp B/P (MAP) Pulse Ox O2 Delivery O2 Flow Rate FiO2 01/13/21 06:00 97.9 59 15 120/66 (84) 95 Room Air I&O- Last 24 Hours up to 6 AM 01/13/21 06:00 Intake Total 240 ml Output Total 0 ml Balance 240 ml Laboratory Data Labs 24H Laboratory Tests 2 01/12/21 13:18: Coronavirus (COVID-19)(PCR) NEGATIVE, Influenza Type A (RT-PCR) NEGATIVE, Influenza Type B (RT-PCR) NEGATIVE, Respiratory Syncytial Virus (PCR) NEGATIVE 01/12/21 18:44: Prothrombin Time 15.2H, Prothromb Time International Ratio 1.15, Activated Par tial Thromboplast Time 36.2 01/12/21 21:17: Bedside Glucose (Misc Panel) 133H 01/13/21 08:15: Bedside Glucose (Misc Panel) 121H 01/13/21 08:55: Nucleated Red Blood Cells % (auto) 0.0, Anion Gap 7L, Glomerular Filtration Rate > 60.0, Calcium Level 9.1, Magnesium Level 1.9 CBC/BMP Laboratory Tests 01/13/21 08:55 FSBS Laboratory Tests Test 01/12/21 21:17 01/13/21 08:15 Range/Units Bedside Glucose (Misc Panel) 133 121 83-110 MG/DL Discharge Medications Scheduled Cholecalciferol (Vitamin D3) (Vitamin D3) 50 Mcg Capsule, 50 MCG PO 2XW, (Reported) DAYS VARY Cyanocobalamin (Vitamin B-12) (Vitamin B-12) 1,000 Mcg Tab, 1,000 MCG PO QWEEK, (Reported) DAY VARIES Gabapentin (Gabapentin) 600 Mg Tablet, 600 MG PO QID, (Reported) Glipizide (Glipizide ER) 10 Mg Tab.er.24, 10 MG PO DAILY, (Reported) Lactobacillus Acidophilus (Probiotic) 1 Each Capsule, 1 CAP PO 3XW, (Reported) SATURDAY, SATURDAY, SATURDAY Magnesium Oxide (Magnesium) 400 Mg Cap, 400 MG PO 2XW, (Reported) DAYS VARY [place]-3/Dha/Epa/Fish Oil (Fish Oil 1,600 mg/5 ml Liquid) 1,600 Mg/5 Ml Liquid, 1,600 MG PO 3XW, (Reported) DAYS VARY Rivaroxaban (Xarelto) 10 Mg Tablet, 10 MG PO DAILY, (Reported) Scheduled PRN Acetaminophen (Acetaminophen) 500 Mg Tablet, 1,000 MG PO TID PRN for PAIN LEVEL 1-4, (Reported) Cyclobenzaprine HCl (Cyclobenzaprine HCl) 10 Mg Tablet, 10 MG PO QHS PRN for MUSCLE SPASMS, (Reported) Hydrocodone/Acetaminophen (Hydrocodone-Acetamin 5-325 mg) 1 Each Tablet, 1 TAB PO Q6H PRN for PAIN LEVEL 5-10, (Reported) Sennosides (Senna) 8.6 Mg Tablet, 2 TAB PO BID PRN for CONSTIPATION, (Reported) Sucralfate (Sucralfate) 1 Gm Tab, 1 GM PO WM PRN for INDIGESTION, (Reported) Allergies Coded Allergies: Sulfa (Sulfonamide Antibiotics) (Verified Allergy, Severe, SWELLING, 02/03/20) codeine (Verified Allergy, Severe, swelling, 02/03/20) Penicillins (Verified Allergy, Intermediate, hives, 02/03/20) vancomycin (Verified Allergy, Intermediate, hives, 02/03/20) meperidine (Verified Adverse Reaction, Intermediate, couldn't walk for 2 days, 02/03/20) ANTONIA ACKERMAN [facility] Jan 13, 2021 11:42
--- NOTE | 2021-01-13 13:52 | IPNPDOC ---
Text Note Date of Service The patient was seen on 01/13/21. NOTE S: Mr. Lepe had a large BM with well formed stools. Pt states he still feels a bit nauseous but feels much better than yesterday especially after the BM. Pt states the generalized abdominal discomfort is still the same as compared to yesterday. Pt states he still has acid reflux and is unsure if he received his medications for it. Pt was advised there is medication for his GERD and we can give more if needed. Pt states his hip pain is still rated a 8/10 and his neck and back pain is about the same. CONSTITUTIONAL: Denies fevers or chills. CARDIOPULMONARY: Denies SOB, dyspnea, chest pain. GASTROINTESTINAL: Admits to nausea. Denies vomiting, diarrhea. GENITOURINARY: Denies polyuria and dysuria. MUSCULOSKELETAL: Admits to right hip pain with movement, neck and back pain. 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 O: PHYSICAL EXAMINATION: VITAL SIGNS: Temperature 97.9, pulse 59, respiratory rate 15, blood pressure 120/66, pulse oximetry 95 % on room air. GENERAL APPEARANCE: Pt appears stated age sitting comfortably in bed in NAD. Pt is awake and has a pleasant demeanor. HEENT: Head AT, NC. Eyes EOMI. No JVD. Trachea midline. CARDIOVASCULAR: RRR. Systolic murmur best heard at apex. LUNGS: CTA b/l. No wheeze, rales, crackles. No accessory muscles used to breath. ABDOMEN: Soft, nontender to deep palpation, normal bowel sounds heard. No guarding, rebound or rigidity. MUSCULOSKELETAL: Moves all extremities. Right hip pain upon movement, movement is restricted with limited flexion. EXTREMITIES: Pedal pulses 2+ appreciated. SKIN: Multiple skin tags noted throughout chest and abdomen. Skin around surgical site is non-erythematous, warm, and has a clean and intact dressing. NEUROLOGICAL: Sensation intact, normal speech, no motor defects. PSYCHIATRIC: Mood and affect normal. LABORATORY DATA: See below. IMAGING: No new imaging MICROBIOLOGY: Please see below. A/P: Mr. Lepe is a 75 yo male with a PMH of IDDT2 and GERD who presents with no bowel movements since Saturday (01/09) s/p surgery two days ago (01/10) with nausea and bloating and admitted to [facility] for constipation. Pt is able to pass gas and had a recent BM. #Abdominal discomfort - likely 2/2 Constipation; less likely 2/2 ileus -Pt found to have possible ileus on imaging though less likely ileus since pt is able to pass gas. -Pt had a BM with large well-formed stools this morning. -Will DC Lactulose - Will reduce Dulcolax suppository to BID dosing - Will add scheduled Miralax / Docusate + Senna -c/t home med Bacid and Mag-Ox -f/u outpatient with PCP and surgery #Right hip pain s/p total hip arthroplasty -No signs of local or systemic infection. -Surgical site appears to be healing well and dressing is clean and intact. -Pain controlled with Percocet, [place], and Tylenol PRN -c/w Xarelto as per surgery (Dr. Desai) -c/w Fall precautions. -Dr. Edgar Bennett has evaluated wound this morning; has discussed; appreciate their input -c/w PT/OT; patient was cleared by PT for DC home on 01/11 at [facility]; however currently PT/OT at [facility] is recommending rehab #Leucocytosis -Leucocytosis of 12.1 today (it was 13.8 on 01/11) which seems to be more of reactionary to recent surgery and less likely due to a local or systemic infection. -Skin around surgical site is non-erythematous, warm, and has a clean and intact dressing. -Pt has been afebrile and denies any fevers, chills, SOB, palpitations or urinary discomfort -Continue to monitor for clinical improvement NIDDM2 -POC glu 121 -c/t SSI with Humalog -c/t home med glipizide -c/t POC glucose #Nausea -c/t Zofran PRN #Diabetic neuropathy -c/t home med gabapentin and cyclobenzaprine #GERD -c/t home med sucralfate DVT Ppx: Pt on Xeralto Diet: - Clear liquids Code: - DNR/DNI - Discussed code status with pt. Pt states he wishes to be DNR and DNI. Ambulation: - Assisted ambulation / Fall precautions Disposition: - Pending clinical improvement VS,Fishbone, I+O VS, Fishbone, I+O Laboratory Tests 01/12/21 09:25 Vital Signs Date Time Temp Pulse Resp B/P (MAP) Pulse Ox O2 Delivery O2 Flow Rate FiO2 01/13/21 06:00 97.9 59 15 120/66 (84) 95 Room Air I&O- Last 24 Hours up to 6 AM 01/13/21 05:59 Intake Total 240 ml Output Total 0 ml Balance 240 ml GME ATTESTATION GME ATTESTATION My faculty preceptor for this patient encounter was physically present during the encounter and was fully available. All aspects of the patient interview, examination, medical decision making process, and medical care plan development were reviewed and approved by the faculty preceptor. The faculty preceptor is aware and concurs with the plan as stated in the body of this note and will attest to such by his/her cosignature. ATTENDING NOTE I, Arjun Smith, have independently examined this patient and performed my own physical exam, as well as reviewed the documentation and edited where necessary with the resident. For medical students we have performed the physical exam together and discussed medical decision making and I have verified the history. I have discussed in detail with the resident / student the findings and plan of treatment as documented by the resident / student and edited their note. I agree with their findings and treatment plan and have edited their documentation. I will continue to follow the patient during this hospital stay. ANTONIA ACKERMAN OMS-4 Jan 13, 2021 07:57 ARJUN SMITH MD Jan 13, 2021 14:32 GINA MAYS D.O. Jan 13, 2021 18:31
[2021-01-13] MEDS ORDERED: BISACODYL 10 MG SUPP PR PRN (14:30)
[2021-01-13] MEDS ORDERED: MOM 30ML SUSPENSION UDC PO PRN (14:30)
[2021-01-13 19:55] VITALS: BP 146/78
[2021-01-13] MEDS: SENOKOT S TAB PO SCH (22:00)
[2021-01-13] MEDS: MIRALAX *UNIT DOSE* 17GM PACKET PO SCH (22:00)
[2021-01-14 06:00] VITALS: BP 144/80
[2021-01-14 06:29] LABS: HEMATOCRIT 36.9 % (42.0-52.0); HEMOGLOBIN 12.4 g/dl (13.5-17.5); MEAN CORPUSCULAR HEMOGLOBIN 30.9 pg (27.0-33.0); MEAN CORPUSCULAR HGB CONC 33.6 g/dl (32.0-36.5); PLATELET COUNT, AUTOMATED 184 10^3/uL (150-450); RED BLOOD COUNT 4.01 10^6/uL (4.30-6.10); WHITE BLOOD COUNT 10.5 10^3/uL (4.0-10.0)
[2021-01-14 06:49] LABS: BLOOD UREA NITROGEN 18 MG/DL (7-18); CALCIUM LEVEL 8.5 MG/DL (8.8-10.2); CARBON DIOXIDE LEVEL 28 MEQ/L (21-32); CHLORIDE LEVEL 105 MEQ/L (98-107); CREATININE FOR GFR 0.82 MG/DL (0.70-1.30); GLOMERULAR FILTRATION RATE > 60.0 (>42); GLUCOSE, FASTING 111 MG/DL (70-100); MAGNESIUM LEVEL 1.8 MG/DL (1.8-2.4); POTASSIUM SERUM 3.9 MEQ/L (3.5-5.1); SODIUM LEVEL 140 MEQ/L (136-145)
[2021-01-14] MEDS: HumaLOG INSULIN (NovoLOG) PER UNIT SC SCH ×4 (07:30→20:37)
[2021-01-14] MEDS: glipiZIDE XL 5 MG TABCR PO SCH (08:58)
[2021-01-14] MEDS: MIRALAX *UNIT DOSE* 17GM PACKET PO SCH (08:59)
[2021-01-14] MEDS: GABAPENTIN 300 MG CAP PO SCH ×4 (08:59→20:48)
[2021-01-14] MEDS: RIVAROXABAN 10 MG TAB (XARELTO) PO SCH (08:59)
[2021-01-14] MEDS: SENOKOT S TAB PO SCH ×2 (08:59→18:00)
--- NOTE | 2021-01-14 09:39 | IPNPDOC ---
Text Note Date of Service The patient was seen on 01/14/21. NOTE S: Patient seen and evaluated at bedside this a.m. He tells me he is feeling well and was seen by physical therapy yesterday. He would like to have more physical therapy sessions as improving his mobility is of his main concern at the moment. Reports 2 bowel movements yesterday which he describes as voluminous and formed. Reports flatus, and good toleration to clear liquid diet. Denies abdominal pain/discomfort, nausea, vomiting. Denies chest pain, shortness of breath, lower extremity pain. O: GEN: Alert, awake, laying in bed, NAD HEENT: NC/AT, EOMI, nares patent, moist mucous membranes CARDIO: RRR, normal heart sounds, 3/6 systolic murmur, no rubs/gallops PULM: CTA b/l, no WRR, no accessory muscles used ABD: soft, nontender, nondistended, normal BS EXTREMITIES: no edema, normal ROM SKIN: Skin tags throughout chest and abdomen, surgical site with overlying dressing clean, unsaturated, intact and without surrounding skin changes IMAGING: ABD x-ray (01/12) No free air. There are a few mildly dilated small bowel loops in the mid abdomen which may represent an ileus. CT ABD/pelvis (01/12) There are a few gas and fluid-filled small bowel loops in the abdomen and a nonspecific fashion. These are not particularly dilated. Ileus is suspected. Follow-up is suggested. Other findings as described above. A/P: Patrick is a 75-year-old male 5 days status post right total hip replacement who presented with generalized abdominal discomfort and inability to move bowels who was started on bowel regimen for suspected constipation and is now asymptomatic. #Generalized abdominal discomfort 2/2 constipation versus postop ileus- resolved Patient reports 2 large bowel movements thru 01/13. Tolerated clear liquid diet without nausea, vomiting, abdominal pain. Continue bowel regimen as needed. Patiently currently on senokot twice daily, MiraLAX as needed Diet will be fully advanced #s/p right total hip replacement 01/10-stable Continue Xarelto Continue acetaminophen, Percocet as needed Continue PT/OT; Will transfer to [facility] status Of note, patient had elective right total hip replacement performed at [facility] 01/[address] Edgar Sotelo. #Leukocytosis, most likely 2/2 recent surgery-improving Mild leukocytosis (10.5), which is much improved from admission. Continue to monitor labs #DM2 with neuropathy-controlled Fasting blood sugar this a.m. 111 Continue SSI, glipizide #GERD, chronic-controlled Continue home sucralfate as needed #DVT Prophylaxis On Xarelto DIET: Consistent carb ACTIVITY: OOB ad johnna. DISPO: - At this point patient is medically cleared and does not necessitate any further hospitalization for medical purposes; however has not yet cleared PT/OT VS,Fishbone, I+O VS, Fishbone, I+O Laboratory Tests 01/14/21 05:45 Vital Signs Date Time Temp Pulse Resp B/P (MAP) Pulse Ox O2 Delivery O2 Flow Rate FiO2 01/14/21 06:00 98.1 71 20 144/80 (101) 95 Room Air I&O- Last 24 Hours up to 6 AM 01/14/21 06:00 Intake Total 1950 ml Output Total 1700 ml Balance 250 ml GME ATTESTATION GME ATTESTATION My faculty preceptor for this patient encounter was physically present during the encounter and was fully available. All aspects of the patient interview, examination, medical decision making process, and medical care plan development were reviewed and approved by the faculty preceptor. The faculty preceptor is aware and concurs with the plan as stated in the body of this note and will attest to such by his/her cosignature. ATTENDING NOTE I, Arjun Campbell, have independently examined this patient and performed my own physical exam, as well as reviewed the documentation and edited where necessary with the resident. For medical students we have performed the physical exam together and discussed medical decision making and I have verified the history. I have discussed in detail with the resident / student the findings and plan of treatment as documented by the resident / student and edited their note. I agree with their findings and treatment plan and have edited their documentation. I will continue to follow the patient during this hospital stay. Luna Ziegler DO Jan 14, 2021 09:39 ARJUN CAMPBELL MD Jan 14, 2021 13:02
[2021-01-14] MEDS ORDERED: MIRALAX *UNIT DOSE* 17GM PACKET PO PRN (18:00)
[2021-01-15] MEDS: ACETAMINOPHEN 500 MG TAB PO PRN ×2 (00:02→23:07)
[2021-01-15 06:00] VITALS: BP 132/67
[2021-01-15 07:18] LABS: HEMATOCRIT 36.3 % (42.0-52.0); MEAN CORPUSCULAR HEMOGLOBIN 30.5 pg (27.0-33.0); MEAN CORPUSCULAR HGB CONC 33.1 g/dl (32.0-36.5); MEAN CORPUSCULAR VOLUME 92.4 fl (80.0-96.0); PLATELET COUNT, AUTOMATED 187 10^3/uL (150-450); RED BLOOD COUNT 3.93 10^6/uL (4.30-6.10); WHITE BLOOD COUNT 8.6 10^3/uL (4.0-10.0)
[2021-01-15] MEDS: HumaLOG INSULIN (NovoLOG) PER UNIT SC SCH ×4 (07:30→21:00)
[2021-01-15 07:31] LABS: BLOOD UREA NITROGEN 17 MG/DL (7-18); CALCIUM LEVEL 8.5 MG/DL (8.8-10.2); CARBON DIOXIDE LEVEL 29 MEQ/L (21-32); CHLORIDE LEVEL 107 MEQ/L (98-107); CREATININE FOR GFR 0.89 MG/DL (0.70-1.30); GLOMERULAR FILTRATION RATE > 60.0 (>42); GLUCOSE, FASTING 108 MG/DL (70-100); POTASSIUM SERUM 3.8 MEQ/L (3.5-5.1); SODIUM LEVEL 140 MEQ/L (136-145)
[2021-01-15] MEDS: GABAPENTIN 300 MG CAP PO SCH ×4 (08:37→20:19)
[2021-01-15] MEDS: SENOKOT S TAB PO SCH ×2 (08:38→20:20)
[2021-01-15] MEDS: RIVAROXABAN 10 MG TAB (XARELTO) PO SCH (08:38)
[2021-01-15] MEDS: PERCOCET 5MG/325MG TAB PO PRN (08:39)
[2021-01-15] MEDS ORDERED: MIRA1POW3 PO (11:39)
[2021-01-15] MEDS ORDERED: SENN-52 PO (11:39)
[2021-01-16 06:00] VITALS: BP 145/73
[2021-01-16 06:19] LABS: HEMATOCRIT 35.3 % (42.0-52.0); HEMOGLOBIN 11.7 g/dl (13.5-17.5); MEAN CORPUSCULAR HEMOGLOBIN 30.2 pg (27.0-33.0); MEAN CORPUSCULAR HGB CONC 33.1 g/dl (32.0-36.5); MEAN CORPUSCULAR VOLUME 91.2 fl (80.0-96.0); PLATELET COUNT, AUTOMATED 201 10^3/uL (150-450); RED BLOOD COUNT 3.87 10^6/uL (4.30-6.10); WHITE BLOOD COUNT 8.8 10^3/uL (4.0-10.0)
[2021-01-16 06:47] LABS: BLOOD UREA NITROGEN 14 MG/DL (7-18); CALCIUM LEVEL 8.3 MG/DL (8.8-10.2); CARBON DIOXIDE LEVEL 29 MEQ/L (21-32); CHLORIDE LEVEL 107 MEQ/L (98-107); CREATININE FOR GFR 0.92 MG/DL (0.70-1.30); GLOMERULAR FILTRATION RATE > 60.0 (>42); GLUCOSE, FASTING 136 MG/DL (70-100); POTASSIUM SERUM 4.1 MEQ/L (3.5-5.1); SODIUM LEVEL 140 MEQ/L (136-145)
[2021-01-16] MEDS ORDERED: NORCO, ANEXSIA 5/325MG TABLET (HYDROcodone/ACETAMINOPHEN) PO PRN (08:15)
[2021-01-16] MEDS: SENOKOT S TAB PO SCH (08:42)
[2021-01-16] MEDS: HumaLOG INSULIN (NovoLOG) PER UNIT SC SCH ×2 (08:42→12:00)
[2021-01-16] MEDS: GABAPENTIN 300 MG CAP PO SCH ×2 (08:50→13:42)
[2021-01-16] MEDS: RIVAROXABAN 10 MG TAB (XARELTO) PO SCH (08:50)
[2021-01-16] MEDS: LACTOBACILLUS ACIDOPHILUS CAP (BACID) PO SCH (08:50)
[2021-01-16] MEDS ORDERED: MAGNESIUM OXIDE 400MG TAB (MAG-OX) PO SCH (09:00)
--- NOTE | 2021-01-16 10:33 | DS.PDOC ---
Discharge Summary General Date of Admission Jan 12, 2021 at 15:35 Date of Discharge 01/16/21 Attending Physician: ARJUN SMITH MD Discharge Summary PROCEDURES PERFORMED DURING STAY: None. ADMITTING DIAGNOSES: 1. Constipation vs post op ileus 2. Right hip osteoarthritis 2days s/p elective right total hip arthroplasty DISCHARGE DIAGNOSES: 1. Constipation 2. Right hip osteoarthritis 7days s/p elective right total hip arthroplasty COMPLICATIONS/CHIEF COMPLAINT: Constipation, Nausea, abdominal discomfort HISTORY OF PRESENT ILLNESS: Mr. Lepe is a 75 yo male with a PMH NIDDM2 with neuropathy, GERD who presents with complaint of not having a BM since 01/09. Reports abdominal discomfort, bloating, nausea without vomiting. Patient tells me he is passing flatus, urinating without difficulty. Denies fever/chills, chest pain, palpitations, shortness of breath, cough. Of note, pt tells me had an elective right total hip replacement surgery at [facility], performed by Dr. Edgar Desai on 01/10. He tells me procedure went well, but he likely has difficulty with anesthetic medicine as noted following prior colonoscopies. Patient was cleared for discharge 01/11 and was continued on Tylenol, [place], Xarelto s/p surgery. Reports right hip pain at surgical site that radiates to his right groin which is well controlled with pain medications. In the ED, imaging suggestive of possible postop ileus. Pt was given enema, senna, and lactulose without BM. HOSPITAL COURSE: Pt was admitted for constipation vs possible ileus and started on an aggressive bowel regimen. Patient was noted to have a large BM the next morning with well formed stools and improved overall symptoms. Patient was encouraged to continue adherence to bowel regimen throughout hospitalization for adequate bowel movements. Of note, pt was found to have mild leucocytosis of 12.1 upon admission, which was much improved from WBC 13.8 (01/11) following his surgery. Patient's Ortho surgeon, Dr. Desai, did see and evaluate the patient during this hospitalization and noted adequate healing of right hip wound. Local or systemic infection was unlikely, therefore antibiotics were not started. Patient's pain was well controlled with Percocet. Patient was cleared by PT/OT for discharge home with services. DISCHARGE MEDICATIONS: Please see below. PHYSICAL EXAMINATION ON DISCHARGE: VITAL SIGNS: Temperature 97.3, pulse 86, respiratory rate 18, blood pressure 145/73, pulse oximetry 100% on room air. GENERAL APPEARANCE: Awake, alert, laying in bed, NAD HEENT: AT/NC. EOMI. nares patent, moist mucous membranes CARDIOVASCULAR: RRR, 4/6 systolic murmur LUNGS: CTA b/l. No wheeze, rales, crackles. No accessory muscles used to breath. ABDOMEN: Soft, nontender, nondistended, normal bowel sounds MUSCULOSKELETAL: Normal ROM with limited right lower extremity movement 2/2 pos top pain EXTREMITIES: No edema, 2/4 PT pulses bilaterally SKIN: Multiple skin tags noted throughout chest and abdomen, right hip dressing clean, unsaturated, intact without surrounding skin changes NEUROLOGICAL: No focal neuro deficits PSYCHIATRIC: No depressed/anxious mood LABORATORY DATA: Please see below. IMAGING: XR Abd 01/12 No free air. There are a few mildly dilated small bowel loops in the mid abdomen which may represent an ileus. CT abd/pel 01/12 There are a few gas and fluid-filled small bowel loops in the abdomen and a nonspecific fashion. These are not particularly dilated. Ileus is suspected. PROGNOSIS: Good ACTIVITY: As tolerated. DIET: Consistent carb DISCHARGE PLAN: -Follow up with PCP, 7-10 days -Follow up with Ortho surgery, as per schedule DISPOSITION: Home DISCHARGE INSTRUCTIONS: 1. Constipation. Continue bowel regimen as needed F/u PCP 2. Right hip osteoarthritis s/p elective right total hip arthroplasty Continue Xarelto Continue Percocet-1 tab for 5-7/10 pain, 2 tabs for 8-10/10 pain -F/u Surgery ITEMS TO FOLLOWUP ON ON OUTPATIENT: 1. PCP -recent hospitalization, constipation 2. Surgery -s/p elective total right hip arthroplasty 01/10 DISCHARGE CONDITION: Stable. TIME SPENT ON DISCHARGE: 35 minutes. Vital Signs/I&Os Vital Signs Date Time Temp Pulse Resp B/P (MAP) Pulse Ox O2 Delivery O2 Flow Rate FiO2 01/13/21 06:00 97.9 59 15 120/66 (84) 95 Room Air I&O- Last 24 Hours up to 6 AM 01/13/21 06:00 Intake Total 240 ml Output Total 0 ml Balance 240 ml Laboratory Data Labs 24H Laboratory Tests 2 01/12/21 18:44: Prothrombin Time 15.2H, Prothromb Time International Ratio 1.15, Activated Partial Thromboplast Time 36.2 01/12/21 21:17: Bedside Glucose (Misc Panel) 133H 01/13/21 08:15: Bedside Glucose (Misc Panel) 121H 01/13/21 08:55: Nucleated Red Blood Cells % (auto) 0.0, Anion Gap 7L, Glomerular Filtration Rate > 60.0, Calcium Level 9.1, Magnesium Level 1.9 01/13/21 12:12: Bedside Glucose (Misc Panel) 106 CBC/BMP Laboratory Tests 01/13/21 08:55 FSBS Laboratory Tests Test 01/12/21 21:17 01/13/21 08:15 01/13/21 12:12 Range/Units Bedside Glucose (Misc Panel) 133 121 106 83-110 MG/DL Discharge Medications Scheduled Cholecalciferol (Vitamin D3) (Vitamin D3) 50 Mcg Capsule, 50 MCG PO 2XW, (Reported) DAYS VARY Cyanocobalamin (Vitamin B-12) (Vitamin B-12) 1,000 Mcg Tab, 1,000 MCG PO QWEEK, (Reported) DAY VARIES Gabapentin (Gabapentin) 600 Mg Tablet, 600 MG PO QID, (Reported) Glipizide (Glipizide ER) 10 Mg Tab.er.24, 10 MG PO DAILY, (Reported) Lactobacillus Acidophilus (Probiotic) 1 Each Capsule, 1 CAP PO 3XW, (Reported) SATURDAY, SATURDAY, SATURDAY Magnesium Oxide (Magnesium) 400 Mg Cap, 400 MG PO 2XW, (Reported) DAYS VARY [place]-3/Dha/Epa/Fish Oil (Fish Oil 1,600 mg/5 ml Liquid) 1,600 Mg/5 Ml Liquid, 1,600 MG PO 3XW, (Reported) DAYS VARY Rivaroxaban (Xarelto) 10 Mg Tablet, 10 MG PO DAILY, (Reported) Sennosides/Docusate Sodium (Senna Plus Tablet) 1 Each Tablet, 2 TAB PO BID Scheduled PRN Acetaminophen (Acetaminophen) 500 Mg Tablet, 1,000 MG PO TID PRN for PAIN LEVEL 1-4, (Reported) Cyclobenzaprine HCl (Cyclobenzaprine HCl) 10 Mg Tablet, 10 MG PO QHS PRN for MUSCLE SPASMS, (Reported) Hydrocodone/Acetaminophen (Hydrocodone-Acetamin 5-325 mg) 1 Each Tablet, 1 TAB PO Q6H PRN for PAIN LEVEL 5-10, (Reported) Polyethylene Glycol 3350 (Miralax) 17 Gm Powd.pack, 1 PKT PO BIDP PRN for CONSTIPATION Sennosides (Senna) 8.6 Mg Tablet, 2 TAB PO BID PRN for CONSTIPATION, (Reported) Sucralfate (Sucralfate) 1 Gm Tab, 1 GM PO WM PRN for INDIGESTION, (Reported) Allergies Coded Allergies: Sulfa (Sulfonamide Antibiotics) (Verified Allergy, Severe, SWELLING, 1 04/04/19) codeine (Verified Allergy, Severe, swelling, 02/03/20) Penicillins (Verified Allergy, Intermediate, hives, 02/03/20) vancomycin (Verified Allergy, Intermediate, hives, 02/03/20) meperidine (Verified Adverse Reaction, Intermediate, couldn't walk for 2 days, 02/03/20) GME ATTESTATION GME ATTESTATION My faculty preceptor for this patient encounter was physically present during the encounter and was fully available. All aspects of the patient interview, examination, medical decision making process, and medical care plan development were reviewed and approved by the faculty preceptor. The faculty preceptor is aware and concurs with the plan as stated in the body of this note and will attest to such by his/her cosignature. ATTENDING NOTE I, Arjun Smith, have independently examined this patient and performed my own physical exam, as well as reviewed the documentation and edited where necessary with the resident. For medical students we have performed the physical exam together and discussed medical decision making and I have verified the history. I have discussed in detail with the resident / student the findings and plan of treatment as documented by the resident / student and edited their note. I agree with their findings and treatment plan and have edited their documentation. I w ill continue to follow the patient during this hospital stay. Time spent on discharge 35 minutes ANTONIA ACKERMAN OMS-4 Jan 13, 2021 13:46 Luna Ziegler DO Jan 16, 2021 10:32 ARJUN SMITH MD Jan 16, 2021 16:19
[2021-01-16] MEDS ORDERED: NORCO, ANEXSIA 5/325MG TABLET (HYDROcodone/ACETAMINOPHEN) PO ONE (13:00)
== END 2021-01-16 14:15 | disposition home health service (06) | DRG 392 ==
LOC: M ED 08:15 → EDBD 08:15 → M ED INP 15:35 → M MSPAV 20:55
PROVIDERS: ADMIT Internal Medicine; ATTEND Internal Medicine
DX: K59.00 Constipation, unspecified (principal); M25.551 Pain in right hip; R11.0 Nausea; E11.42 Type 2 diabetes mellitus with diabetic polyneuropathy; D72.829 Elevated white blood cell count, unspecified; K21.9 Gastro-esophageal reflux disease without esophagitis; Z66 Do not resuscitate; Z96.643 Presence of artificial hip joint, bilateral; Z98.41 Cataract extraction status, right eye; Z87.891 Personal history of nicotine dependence; Z20.822 Contact with and (suspected) exposure to COVID-19; Z79.84 Long term (current) use of oral hypoglycemic drugs; Z79.01 Long term (current) use of anticoagulants; Z79.899 Other long term (current) drug therapy; Z88.2 Allergy status to sulfonamides; Z88.0 Allergy status to penicillin; Z88.1 Allergy status to other antibiotic agents; Z88.5 Allergy status to narcotic agent; Z88.8 Allergy status to other drugs, medicaments and biological substances

== ENCOUNTER → 2021-06-17 | Outpatient (CLI) | payer MEDICARE ==
[~2021-06-17] MED LIST changes: +ACET500T15 PO; +GABA600T4 PO; +GLIP10TA18 PO; +MIRA1POW3 PO; +SENN-52 PO; +SENN-80 PO; +TRAM50TA2; +XARE10TA PO; +[UNRECOGNIZED DRUG - CODE] PO
== END ==
LOC: M LABSMTC 09:23
PROVIDERS: ATTEND Anesthesiology
DX: Z20.822 Contact with and (suspected) exposure to COVID-19 (principal)

== ENCOUNTER → 2021-06-20 | Outpatient (CLI) | payer MEDICARE | LOC: M RAD 07:47 | PROVIDERS: ATTEND Internal Medicine | DX: E11.9 Type 2 diabetes mellitus without complications (principal) ==

== ENCOUNTER 2021-06-22 07:28 | Day surgery (SDC) | payer MEDICARE ==
[~2021-06-22] VITALS: Ht 180.3 cm; Wt 107.4 kg
[~2021-06-22 07:28] MED LIST changes: +LIDOCAINE 2% 100MG/5ML SDV (FOR ANES.) As Ordered ONE; +NS 1,000 ML IV ONE; +propofoL 200 MG/20 ML VIAL As Ordered ONE
[2021-06-22] MEDS ORDERED: COPP2CAP PO (08:01)
[2021-06-22] MEDS ORDERED: MILK175C6 PO (08:01)
[2021-06-22] MEDS ORDERED: TRAM50TA2 PO (08:01)
[2021-06-22] MEDS ORDERED: ZINC220CA PO (08:01)
[2021-06-22] MEDS ORDERED: CO Q200C10 PO (08:01)
[2021-06-22] MEDS ORDERED: ACETAMINOPHEN TAB 650MG DOSE (2X325MG) PO ONE (10:30)
[2021-06-22 11:15] VITALS: BP 169/70
== END 2021-06-22 11:30 | disposition home or self-care (01) ==
LOC: M OPP 07:28
PROVIDERS: ATTEND Surgery
DX: Z12.11 Encounter for screening for malignant neoplasm of colon (principal); Z86.010 Personal history of colon polyps; K57.30 Diverticulosis of large intestine without perforation or abscess without bleeding; Z79.891 Long term (current) use of opiate analgesic; Z79.899 Other long term (current) drug therapy; Z88.0 Allergy status to penicillin; Z88.1 Allergy status to other antibiotic agents; Z88.2 Allergy status to sulfonamides; Z88.5 Allergy status to narcotic agent; Z88.8 Allergy status to other drugs, medicaments and biological substances

== ENCOUNTER → 2022-03-07 | Outpatient (CLI) | payer MEDICARE ==
[~2022-03-07] MED LIST changes: +CO Q200C10 PO; +COPP2CAP PO; -LIDOCAINE 2% 100MG/5ML SDV (FOR ANES.) As Ordered ONE; +MILK175C6 PO; -NS 1,000 ML IV ONE; +TRAM50TA2 PO; +ZINC220CA PO; -propofoL 200 MG/20 ML VIAL As Ordered ONE
== END ==
LOC: M RAD 11:04
PROVIDERS: ATTEND Physician Assistant Medical
DX: J32.9 Chronic sinusitis, unspecified (principal)

== ENCOUNTER → 2022-08-27 | Outpatient (CLI) | payer MEDICARE ==
[~2022-08-27] MED LIST changes: +SENN-186 PO; -SENN-80 PO
== END ==
LOC: M WUC 13:10
PROVIDERS: ATTEND Internal Medicine
DX: M54.2 Cervicalgia (principal)

== ENCOUNTER → 2022-11-28 | Outpatient (CLI) | payer MEDICARE, BC ==
[~2022-11-28] MED LIST changes: -GABA-283 PO; +GABA-284 PO
== END ==
LOC: M RAD 12:29
PROVIDERS: ATTEND Nurse Practitioner Family
DX: I65.29 Occlusion and stenosis of unspecified carotid artery (principal)

== ENCOUNTER → 2023-06-28 | Outpatient (CLI) | payer MEDICARE ==
[~2023-06-28] MED LIST changes: -MIRA1POW3 PO; +MIRA33506 PO
== END ==
LOC: M RAD 10:32
PROVIDERS: ATTEND Internal Medicine
DX: Z12.2 Encounter for screening for malignant neoplasm of respiratory organs (principal); F17.210 Nicotine dependence, cigarettes, uncomplicated; I25.10 Atherosclerotic heart disease of native coronary artery without angina pectoris; I70.0 Atherosclerosis of aorta

== ENCOUNTER → 2024-06-30 | Outpatient (CLI) | payer MEDICARE ==
[~2024-06-30] MED LIST changes: +GABA-1490 PO; -GABA600T4 PO; +GLIP-318 PO; +GLIP-320 PO; -GLIP10TA18 PO; -GLIP5TAB20 PO
[2024-06-30 19:05] LABS: BASO % 0.5 % (0.0-1.0); EOS # 0.1 10^3/uL (0.0-0.5); EOS % 1.3 % (0.0-3.0); HEMATOCRIT 45.7 % (42.0-52.0); HEMOGLOBIN 14.9 g/dl (13.5-17.5); LYMPH # 2.5 10^3/uL (1.5-5.0); LYMPH % 32.1 % (24.0-44.0); MEAN CORPUSCULAR HEMOGLOBIN 31.6 pg (27.0-33.0); MEAN CORPUSCULAR HGB CONC 32.6 g/dl (32.0-36.5); MONO # 0.5 10^3/uL (0.0-0.8); MONO % 6.5 % (2.0-8.0); NEUTROPHILS # 4.5 10^3/uL (1.5-8.5); NEUTROPHILS % 59.3 % (36.0-66.0); PLATELET COUNT, AUTOMATED 129 10^3/uL (150-450); RED BLOOD COUNT 4.71 10^6/uL (4.30-6.10); WHITE BLOOD COUNT 7.7 10^3/uL (4.0-10.0)
[2024-06-30 19:42] LABS: ALBUMIN 3.9 G/DL (3.2-5.2); ALKALINE PHOSPHATASE 65 U/L (40-129); ALT/SGPT 15 U/L (7.0-40); AST/SGOT 9 U/L (<34); BILIRUBIN,TOTAL 0.4 MG/DL (0.3-1.2); BLOOD UREA NITROGEN 17 MG/DL (9-23); CALCIUM LEVEL 9.5 MG/DL (8.3-10.6); CARBON DIOXIDE LEVEL 28 MMOL/L (20-31); CHLORIDE LEVEL 107 MMOL/L (98-107); CREATININE FOR GFR 0.96 MG/DL (0.70-1.30); GLOMERULAR FILTRATION RATE > 60.0 (>42); GLUCOSE, FASTING 177 MG/DL (74-106); POTASSIUM SERUM 4.4 MMOL/L (3.5-5.1); SODIUM LEVEL 142 MMOL/L (136-145); TOTAL PROTEIN 7.4 G/DL (5.7-8.2)
[2024-06-30 19:46] LABS: LIPASE 28 U/L (12-53)
== END ==
LOC: M WUC 13:34
PROVIDERS: ATTEND Internal Medicine
DX: R10.9 Unspecified abdominal pain (principal)

== ENCOUNTER 2024-07-03 06:12 | Emergency (ER) | payer OTHER, MEDICARE ==
[~2024-07-03] VITALS: Ht 177.8 cm; Wt 96.3 kg
[2024-07-03] MEDS ORDERED: SUCR1TAB56 (06:27)
[2024-07-03] MEDS ORDERED: ELIQ5TAB (06:27)
[2024-07-03] MEDS ORDERED: TRUL10IN (06:27)
[2024-07-03] MEDS ORDERED: OMEP-173 (06:27)
[2024-07-03] MEDS ORDERED: JARD1TAB3 (06:27)
[2024-07-03] MEDS: NS 500 ML IV ONE (07:34)
[2024-07-03 07:50] LABS: BASO % 0.6 % (0.0-1.0); EOS # 0.1 10^3/uL (0.0-0.5); EOS % 1.7 % (0.0-3.0); HEMATOCRIT 43.5 % (42.0-52.0); HEMOGLOBIN 14.2 g/dl (13.5-17.5); LYMPH # 2.1 10^3/uL (1.5-5.0); LYMPH % 33.2 % (24.0-44.0); MEAN CORPUSCULAR HEMOGLOBIN 31.1 pg (27.0-33.0); MEAN CORPUSCULAR HGB CONC 32.6 g/dl (32.0-36.5); MEAN CORPUSCULAR VOLUME 95.4 fl (80.0-96.0); MONO # 0.5 10^3/uL (0.0-0.8); MONO % 7.3 % (2.0-8.0); NEUTROPHILS # 3.7 10^3/uL (1.5-8.5); NEUTROPHILS % 56.9 % (36.0-66.0); PLATELET COUNT, AUTOMATED 130 10^3/uL (150-450); RED BLOOD COUNT 4.56 10^6/uL (4.30-6.10); WHITE BLOOD COUNT 6.4 10^3/uL (4.0-10.0)
[2024-07-03 08:10] LABS: LIPASE 26 U/L (12-53)
[2024-07-03 08:12] LABS: AMYLASE 42 U/L (30-118)
[2024-07-03] MEDS ORDERED: ISOVUE-370 76% 100ML VIAL As Ordered ONE (08:13)
[2024-07-03 08:19] LABS: ALBUMIN 3.7 G/DL (3.2-5.2); ALKALINE PHOSPHATASE 55 U/L (40-129); ALT/SGPT 13 U/L (7.0-40); AST/SGOT 11 U/L (<34); BILIRUBIN,DIRECT 0.2 MG/DL (<0.4); BILIRUBIN,TOTAL 0.6 MG/DL (0.3-1.2); BLOOD UREA NITROGEN 19 MG/DL (9-23); CARBON DIOXIDE LEVEL 28 MMOL/L (20-31); CHLORIDE LEVEL 108 MMOL/L (98-107); CREATININE FOR GFR 0.94 MG/DL (0.70-1.30); GLUCOSE, FASTING 133 MG/DL (74-106); POTASSIUM SERUM 4.6 MMOL/L (3.5-5.1); SODIUM LEVEL 143 MMOL/L (136-145); TOTAL PROTEIN 6.9 G/DL (5.7-8.2)
[2024-07-03 08:38] LABS: CK-MB VALUE MASS < 1.0 NG/ML (<3.6)
[2024-07-03 08:39] LABS: CPK CREATINE PHOSPHOKINASE 66 U/L (46-171); MB/CK RELATIVE INDEX 1.51 (< OR =4)
[2024-07-03 09:46] VITALS: BP 149/71; TEMP 98.3; O2SAT 98
== END 2024-07-03 10:00 | disposition home or self-care (01) ==
LOC: M ED 06:12
DX: R10.9 Unspecified abdominal pain (principal); I44.0 Atrioventricular block, first degree; Z87.891 Personal history of nicotine dependence; Z88.0 Allergy status to penicillin; Z88.1 Allergy status to other antibiotic agents; Z88.2 Allergy status to sulfonamides; Z88.5 Allergy status to narcotic agent; Z79.01 Long term (current) use of anticoagulants; Z79.899 Other long term (current) drug therapy
CPT/HCPCS: 71045; 74177; 76705; 80047; 80048; 80076; 82150; 82550; 82553; 83605; 83690; 84484; 85025; 93005; 93041; 96360; 96361; 99284; Q9967

== ENCOUNTER → 2024-07-20 | Outpatient (CLI) | payer MEDICARE, OTHER ==
[~2024-07-20] MED LIST changes: +ELIQ5TAB; -FLOM0.4C39 PO; +JARD1TAB3; +OMEP-173; +SUCR1TAB56; +TAMS-18 PO; +TRUL10IN
== END ==
LOC: M RAD 12:51
PROVIDERS: ATTEND Internal Medicine
DX: R31.9 Hematuria, unspecified (principal)

== ENCOUNTER 2024-11-26 19:26 | Emergency (ER) | payer MEDICARE, OTHER ==
[~2024-11-26] VITALS: Ht 177.8 cm; Wt 97.7 kg
[2024-11-26 19:28] VITALS: TEMP 97.2
[2024-11-26] MEDS: TETANUS/DIPHTH/ACEL. PERTUSSIS 0.5 ML SYR IM.IMMUN ONE (21:42)
[2024-11-26 22:26] VITALS: BP 128/60; O2SAT 97
== END 2024-11-26 23:05 | disposition home or self-care (01) ==
LOC: M ED 19:26
DX: S01.81XA Laceration without foreign body of other part of head, initial encounter (principal); S80.212A Abrasion, left knee, initial encounter; Y92.019 Unspecified place in single-family (private) house as the place of occurrence of the external cause; Y93.9 Activity, unspecified; Y99.9 Unspecified external cause status; W01.0XXA Fall on same level from slipping, tripping and stumbling without subsequent striking against object, initial encounter; I48.91 Unspecified atrial fibrillation; E11.9 Type 2 diabetes mellitus without complications; K21.9 Gastro-esophageal reflux disease without esophagitis; F10.10 Alcohol abuse, uncomplicated; Z23 Encounter for immunization; Z88.0 Allergy status to penicillin; Z88.1 Allergy status to other antibiotic agents; Z88.2 Allergy status to sulfonamides; Z88.5 Allergy status to narcotic agent; Z88.8 Allergy status to other drugs, medicaments and biological substances; Z79.01 Long term (current) use of anticoagulants; Z79.84 Long term (current) use of oral hypoglycemic drugs; Z79.899 Other long term (current) drug therapy

== ENCOUNTER → 2025-02-01 | Outpatient (CLI) | payer MEDICARE, OTHER | LOC: M RAD 13:53 | PROVIDERS: ATTEND Internal Medicine | DX: Z12.2 Encounter for screening for malignant neoplasm of respiratory organs (principal); F17.211 Nicotine dependence, cigarettes, in remission ==